=== PATIENT | male | born 1945 ===

== ENCOUNTER 2017-11-15 17:02 | Inpatient (IN) | payer MEDICARE ==
[2017-11-15 17:08] VITALS: BMI 22.8
--- NOTE | 2017-11-15 18:34 | RAD ---
PROCEDURE: CHEST RADIOGRAPH, 1 VIEW HISTORY: CHF COMPARISON: None available. FINDINGS: LUNGS: Clear. PLEURA: Small bilateral pleural effusion. No pneumothorax. CARDIOVASCULAR: Normal heart size. Mild congestive change. Permanent pacemaker. Sternotomy wires. OSSEOUS STRUCTURES: No significant abnormalities. VISUALIZED UPPER ABDOMEN: Normal. OTHER FINDINGS: None. IMPRESSION: Small bilateral pleural effusion with mild congestive change. No evidence of pulmonary edema
--- NOTE | 2017-11-15 19:01 | C.PDOC ---
History Of Present Illness 72 yr old male referred to ER by his PMD Dr. Santo, presents for evaluation of dyspnea on exertion with lower extremity swelling. Patient denies fever, chills , chest pain, SOB, nausea, vomiting, abdominal pain, weakness, numbness or headache. Time Seen by Provider: 11/15/17 17:51 Chief Complaint (Nursing): Shortness Of Breath History Per: Patient History/Exam Limitations: no limitations Onset/Duration Of Symptoms: Days (2 weeks) Past Medical History Reviewed: Historical Data, Nursing Documentation, Vital Signs Vital Signs: Last Vital Signs Temp 97.2 F L 11/15/17 19:34 Pulse 88 11/15/17 22:26 Resp 26 H 11/15/17 22:26 BP 117/82 11/15/17 22:26 Pulse Ox 99 11/15/17 22:26 - Medical History PMH: HTN, Hypercholesterolemia, Hyperthyroidism - [facility] Procedures PTERYGIUM EXCISION NEC (07/13/01) Family History: States: No Known Family Hx - Social History Hx Alcohol Use: No Hx Substance Use: No Review Of Systems Except As Marked, All Systems Reviewed And Found Negative. Constitutional: Negative for: Fever, Chills Cardiovascular: Negative for: Chest Pain Respiratory: Positive for: Other (+ dyspnea on exertion). Negative for: Shortness of Breath Gastrointestinal: Negative for: Nausea, Vomiting, Abdominal Pain Musculoskeletal: Positive for: Other (+ lower extremity swelling) Neurological: Negative for: Weakness, Numbness Physical Exam - Physical Exam Appears: Non-toxic, No Acute Distress Skin: Warm, Dry, No Rash Eye(s): bilateral: Normal Inspection, PERRL, EOMI Oral Mucosa: Moist Cardiovascular: Rhythm Regular Respiratory: Rales (at the basses bilaterally, quarter way up), No Wheezing Gastrointestinal/Abdominal: Normal Exam, Soft, No Tenderness, No Guarding, No Rebound Extremity: Other (+1 edema) Neurological/Psych: Oriented x3, Normal Speech ED Course And Treatment - Laboratory Results Result Diagrams: 11/15/17 18:57 11/15/17 18:57 O2 Sat by Pulse Oximetry: 96 (RA) Pulse Ox Interpretation: Normal - Other Rad CXR X-Ray: Viewed By Me, Read By Radiologist Interpretation: PROCEDURE: CHEST RADIOGRAPH, 1 VIEW. HISTORY: CHF. COMPARISON: None available. FINDINGS: LUNGS: Clear. PLEURA: Small bilateral pleural effusion. No pneumothorax. CARDIOVASCULAR: Normal heart size. Mild congestive change. Permanent pacemaker. Sternotomy wires. OSSEOUS STRUCTURES: No significant abnormalities. VISUALIZED UPPER ABDOMEN: Normal. OTHER FINDINGS: None. IMPRESSION: Small bilateral pleural effusion with mild congestive change. No evidence of pulmonary edema Medical Decision Making Medical Decision Making: PLAN: * CXR * EKG * Labs * Lasix IVP NOTE: * Spoke to Dr. Santo, requested patient be admitted to telemetry for CHF exacerbation Disposition - Disposition Disposition Time: 19:15 Condition: STABLE - Clinical Impression Clinical Impression: CHF exacerbation - Scribe Statement The provider has reviewed the documentation as recorded by the Elias Guzman Provider Attestation: All medical record entries made by the Elias were at my direction and personally dictated by me. I have reviewed the chart and agree that the record accurately reflects my personal performance of the history, physical exam, medical decision making, and the department course for this patient. I have also personally directed, reviewed, and agree with the discharge instructions and disposition.
[2017-11-15 19:03] LABS: BASO % 0.7 % (0.0-2.0); EOS # 0.1 K/uL (0.0-0.7); EOS % 1.6 % (0.0-4.0); HEMOGLOBIN 14.4 g/dL (12.0-18.0); LYMPH # 1.2 K/uL (1.0-4.3); LYMPH % 18.3 % (20.0-40.0); MEAN CELL VOLUME 80.6 fL (80.0-94.0); MEAN CORPUSCULAR HEMOGLOBIN 25.9 pg (27.0-31.0); MEAN CORPUSCULAR HGB CONC 32.1 g/dL (33.0-37.0); MEAN PLATELET VOLUME 8.3 fL (7.2-11.7); MONO # 0.6 K/uL (0.0-0.8); MONO % 9.3 % (0.0-10.0); NEUT # 4.7 K/uL (1.8-7.0); NEUT % 70.1 % (50.0-75.0); NRBC % 0.1 % (0.0-2.0); RBC 5.55 Mil/uL (4.40-5.90); RED CELL DISTRIBUTION WIDTH 15.9 % (11.5-14.5); WHITE BLOOD COUNT 6.7 K/uL (4.8-10.8)
[2017-11-15 19:14] LABS: ALB/GLOB RATIO 1.2 (1.0-2.1); ALBUMIN 3.6 g/dL (3.5-5.0); ALT/SGPT 93 U/L (21-72); AST/SGOT 55 U/L (17-59); BLOOD UREA NITROGEN 20 mg/dL (9-20); GFR AFRICAN-AMERICAN > 60; GFR NON-AFRICAN AMERICAN > 60
[2017-11-15 19:26] LABS: B-TYPE NATRIURETIC PEPTIDE 7040 pg/mL (0-900)
[2017-11-16 03:43] LABS: CK-MB 1.29 ng/mL (0.0-3.38); TROPONIN I 0.034 ng/mL (0.00-0.120)
[2017-11-16] MEDS ORDERED: VALSARTAN 40 MG PO SCH (10:00)
[2017-11-16] MEDS ORDERED: Levothyroxine 112 MCG TAB PO SCH (10:00)
--- NOTE | 2017-11-16 11:43 | CARD ---
APPROVED REPORT EKG Measurement Heart [id number] <Conclusion> Sinus tachycardia Possible Left atrial enlargement Cannot rule out Inferior infarct, age undetermined Anterior infarct, age undetermined Abnormal ECG
[2017-11-16 13:31] LABS: CK-MB 1.41 ng/mL (0.0-3.38); TROPONIN I 0.023 ng/mL (0.00-0.120)
[2017-11-16 16:44] VITALS: RESP 20
--- NOTE | 2017-11-16 17:36 | CP.PCM.HP ---
History of Present Illness - History of Present Illness History of Present Illness: 72 yr old male referred to ER by his PMD Dr. Santo, presents for evaluation of dyspnea on exertion with lower extremity swelling. Patient denies fever, chills , chest pain, SOB, nausea, vomiting, abdominal pain, weakness, numbness or headache. ADMITTED TO [facility] AND STARTED ON IV LASIX CARDIAC ENZYMES SO FAR NEG - Medical History PMH: HTN, Hypercholesterolemia, Hyperthyroidism SEVERE ISCHEMIC CARDIOMYOPATHY WITH POOR EF S/P AICD Present on Admission - Present on Admission Any Indicators Present on Admission: No History of DVT/PE: No History of Uncontrolled Diabetes: No Urinary Catheter: No Decubitus Ulcer Present: No History Surgical Site Infection Following: None Review of Systems - Constitutional Constitutional: As Per HPI - EENT Eyes: absent: As Per HPI, Blind Spots, Blurred Vision, Change in Vision, Decreased Night Vision, Diplopia, Discharge, Dry Eye, Exophthalmos, Floaters, Irritation, Itchy Eyes, Loss of Peripheral Vision, Pain, Photophobia, Requires Corrective Lenses, Sees Flashes, Spots in Vision, Tunnel Vision, Other Visual Disturbances, Loss of Vision, Other Ears: absent: As Per HPI, Decreased Hearing, Ear Discharge, Ear Pain, Tinnitus, Abnormal Hearing, Disequilibrium, Dizziness, Other Nose/Mouth/Throat: absent: As Per HPI, Epistaxis, Nasal Congestion, Nasal Discharge, Nasal Obstruction, Nasal Trauma, Nose Pain, Post Nasal Drip, Sinus Pain, Sinus Pressure, Bleeding Gums, Change in Voice, Dental Pain, Dry Mouth, Dysphagia, Halitosis, Hoarsness, Lip Swelling, Mouth Lesions, Mouth Pain, Odynophagia, Sore Throat, Throat Swelling, Tongue Swelling, Facial Pain, Neck Pain, Neck Mass, Other - Cardiovascular Cardiovascular: As Per HPI. absent: Chest Pain, Chest Pain at Rest - Respiratory Respiratory: As Per HPI, Dyspnea, Dyspnea on Exertion. absent: Hemoptysis - Gastrointestinal Gastrointestinal: absent: As Per HPI, Abdominal Pain, Belching, Bloating, Change in Bowel Habits, Change in Stool Character, Coffee Ground Emesis, Constipation, Cramping, Diarrhea, Dyspepsia, Dysphagia, Early Satiety, Excessive Flatus, Fecal Incontinence, Heartburn, Hematemesis, Hematochezia, Loose Stools, Melena, Nausea, Odynophagia, Temesmus, Vomiting, Other - Genitourinary Genitourinary: absent: As Per HPI, Change in Urinary Stream, Difficulty Urinating, Dysuria, Flank Pain, Hematuria, Pyuria, Nocturia, Urinary Incontinence, Urinary Frequency, Urinary Hesitance, Urinary Urgency, Voiding Freq/Small Amts, Freq UTI, Hx Renal/Bladder Calculi, Hx /Renal Surgery, Bladder Distension, Other - Musculoskeletal Musculoskeletal: absent: As Per HPI, Abnormal Gait, Arthralgias, Atrophy, Back Pain, Deformity, Joint Swelling, Limited Range of Motion, Loss of Height, Muscle Cramps, Muscle Weakness, Myalgias, Neck Pain, Numbness, Radiating Pain into Limb, Stiffness, Tingling, Other - Integumentary Integumentary: absent: As Per HPI, Acne, Alopecia, Bleeding Lesions, Change in Hair, Change in Nails, Change in Pigmentation, Changing Lesions, Dry Skin, Erythema, Furuncle, Hirsutism, Lesions, New Lesions, Non-Healing Lesions, Photosensitivity, Pruritus, Rash, Skin Pain, Skin Ulcer, Sores, Striae, Swelling , Unusual Bruising, Wounds, Jaundice, Other - Neurological Neurological: absent: As Per HPI, Abnormal Gait, Abnormal Hearing, Abnormal Movements, Abnormal Speech, Behavioral Changes, Burning Sensations, Confusion, Convulsions, Disequilibrium, Dizziness, Numbness, Focal Weakness, Frequent Falls , Headaches, Lack of Coordination, Loss of Vision, Memory Loss, Paresthesias, Radicular Pain, Restless Legs, Sensory Deficit, Syncope, Tingling, Tremor, Vertigo, Weakness, Other Visual Disturbances, Other - Psychiatric Psychiatric: absent: As Per HPI, Abnormal Sleep Pattern, Anhedonia, Anxiety, Auditory Hallucinations, Behavioral Changes, Change in Appetite, Change in Libido, Confusion, Depression, Difficulty Concentrating, Hallucinations, Homicidal Ideation, Hopelessness, Irritability, Memory Loss, Mood Swings, Panic Attacks, Paranoia, Suicidal Ideation, Visual Hallucinations, Tactile Hallucinations, Other - Endocrine Endocrine: absent: As Per HPI, Change in Body Appearance, Change in Libido, Cold Intolorance, Deepening of Voice, Excessive Sweating, Fatigue, Flushing, Heat Intolorance, Increase in Ring/Shoe/Hat Size, Palpitations, Polydipsia, Polyphagia, Polyuria, Other - Hematologic/Lymphatic Hematologic: absent: As Per HPI, Easy Bleeding, Easy Bruising, Lymphadenopathy, Other Past Patient History - Past Social History Smoking Status: Never Smoked - CARDIAC Hx Hypercholesterolemia: Yes Hx Hypertension: Yes - NEUROLOGICAL Hx Neurological Disorder: No - HEENT Hx HEENT Problems: No - ENDOCRINE/METABOLIC Hx Hyperthyroidism: Yes - MUSCULOSKELETAL/RHEUMATOLOGICAL Hx Falls: No - PSYCHIATRIC Hx Substance Use: No - SURGICAL HISTORY Hx Surgeries: Yes Other/Comment: DEFIBRILATOR 08/31/17. TRIPPLE BYPASS 1997 - ANESTHESIA Hx Anesthesia: Yes Hx Anesthesia Reactions: No Meds Allergies/Adverse Reactions: Allergies Allergy/AdvReac Type Severity Reaction Status Date / Time No Known Allergies Allergy Verified 11/15/17 17:07 Physical Exam - Constitutional Appears: Non-toxic, Chronically Ill - Head Exam Head Exam: NORMOCEPHALIC - Eye Exam Eye Exam: PERRL. absent: Scleral icterus - ENT Exam ENT Exam: Mucous Membranes Dry. absent: Normal Oropharynx - Neck Exam Neck exam: Negative for: Lymphadenopathy - Respiratory Exam Respiratory Exam: Decreased Breath Sounds, Rales - Cardiovascular Exam Cardiovascular Exam: REGULAR RHYTHM, +S1, +S2 - GI/Abdominal Exam GI & Abdominal Exam: Diminished Bowel Sounds, Distended, Soft. absent: Rebound , Rigid, Tenderness - Rectal Exam Rectal Exam: Deferred - Exam Exam: NORMAL INSPECTION - Extremities Exam Extremities exam: Positive for: pedal pulses present. Negative for: calf tenderness, pedal edema, tenderness - Back Exam Back exam: absent: CVA tenderness (L), CVA tenderness (R) - Neurological Exam Neurological exam: Alert, CN II-XII Intact, Oriented x3, Reflexes Normal - Psychiatric Exam Psychiatric exam: Normal Mood - Skin Skin Exam: Dry, Intact Results - Vital Signs Recent Vital Signs: Last Vital Signs Temp 98.4 F 11/16/17 15:43 Pulse 85 11/16/17 15:43 Resp 20 11/16/17 15:43 BP 103/68 11/16/17 15:43 Pulse Ox 85 L 11/16/17 15:43 - Labs Result Diagrams: 11/15/17 18:57 11/15/17 18:57 Labs: Laboratory Results - last 24 hr 11/15/17 11/15/17 11/15/17 18:57 18:57 Unknown WBC 6.7 RBC 5.55 Hgb 14.4 Hct 44.8 MCV 80.6 MCH 25.9 L MCHC 32.1 L RDW 15.9 H Plt Count 193 MPV 8.3 Neut % (Auto) 70.1 Lymph % (Auto) 18.3 L [place] % (Auto) 9.3 Eos % (Auto) 1.6 Baso % (Auto) 0.7 Neut # (Auto) 4.7 Lymph # (Auto) 1.2 [place] # (Auto) 0.6 Eos # (Auto) 0.1 Baso # (Auto) 0.0 Sodium 141 Potassium 4.2 Chloride 110 H Carbon Dioxide 21 L Anion Gap 14 BUN 20 Creatinine 0.8 Est GFR ( Amer) > 60 Est GFR (Non-Af Amer) > 60 POC Glucose (mg/dL) Random Glucose 97 Calcium 9.0 Total Bilirubin 1.1 AST 55 ALT 93 H Alkaline Phosphatase 59 Total Creatine Kinase CK-MB (Mass) Troponin I 0.0300 NT-Pro-B Natriuret Pep 7040 H Total Protein 6.6 Albumin 3.6 Globulin 3.0 Albumin/Globulin Ratio 1.2 Influenza Typ A,B (EIA) Negative for flu a/b 11/16/17 11/16/17 11/16/17 03:10 07:34 13:03 WBC RBC Hgb Hct MCV MCH MCHC RDW Plt Count MPV Neut % (Auto) Lymph % (Auto) [place] % (Auto) Eos % (Auto) Baso % (Auto) Neut # (Auto) Lymph # (Auto) [place] # (Auto) Eos # (Auto) Baso # (Auto) Sodium Potassium Chloride Carbon Dioxide Anion Gap BUN Creatinine Est GFR ( Amer) Est GFR (Non-Af Amer) POC Glucose (mg/dL) 121 H Random Glucose Calcium Total Bilirubin AST ALT Alkaline Phosphatase Total Creatine Kinase 129 175 H CK-MB (Mass) 1.29 1.41 Troponin I 0.0340 0.0230 NT-Pro-B Natriuret Pep Total Protein Albumin Globulin Albumin/Globulin Ratio Influenza Typ A,B (EIA) Assessment & Plan (1) CAD (coronary artery disease) Status: Acute (2) CHF exacerbation Status: Acute (3) Hypothyroid Status: Acute (4) Hypothyroid Status: Acute (5) Hx of CABG Status: Acute (6) Hx of CABG Status: Acute (7) History of PTCA Status: Acute (8) History of PTCA Status: Acute - Assessment and Plan (Free Text) Assessment: CONT IV LASIX , ASA , STATIN
--- NOTE | 2017-11-16 18:49 | CP.PCM.CON ---
History of Present Illness - History of Present Illness History of Present Illness: Reason for consult: sob on exertion HPI: 1 week hx of progressive sob on exertion w/ orthopnea. Trops negative EKG sinus tach; old anterior wall GA Review of Systems - Constitutional Constitutional: Anorexia, Weakness - EENT Eyes: absent: Blurred Vision - Cardiovascular Cardiovascular: Dyspnea on Exertion - Respiratory Respiratory: absent: Excessive Mucous Production - Gastrointestinal Gastrointestinal: absent: Abdominal Pain, Diarrhea - Musculoskeletal Musculoskeletal: absent: Arthralgias - Neurological Neurological: absent: Abnormal Speech, Focal Weakness Past Patient History - Past Social History Smoking Status: Never Smoked - CARDIAC Hx Hypercholesterolemia: Yes Hx Hypertension: Yes - NEUROLOGICAL Hx Neurological Disorder: No - HEENT Hx HEENT Problems: No - ENDOCRINE/METABOLIC Hx Hyperthyroidism: Yes - MUSCULOSKELETAL/RHEUMATOLOGICAL Hx Falls: No - PSYCHIATRIC Hx Substance Use: No - SURGICAL HISTORY Hx Surgeries: Yes Other/Comment: DEFIBRILATOR 08/31/17. TRIPPLE BYPASS 1997 - ANESTHESIA Hx Anesthesia: Yes Hx Anesthesia Reactions: No Meds Allergies/Adverse Reactions: Allergies Allergy/AdvReac Type Severity Reaction Status Date / Time No Known Allergies Allergy Verified 11/15/17 17:07 - Medications Medications: Current Medications Aspirin (Ecotrin) 81 mg PO DAILY [facility] Last Admin: 11/16/17 11:26 Dose: 81 mg Carvedilol (Coreg) 3.125 mg PO BID [facility] Last Admin: 11/16/17 17:48 Dose: 3.125 mg Furosemide (Lasix) 40 mg IVP DAILY [facility] Last Admin: 11/16/17 11:27 Dose: 40 mg Heparin Sodium (Porcine) (Heparin) 5,000 units SC Q12 [facility] Levothyroxine Sodium (Synthroid) 112 mcg PO DAILY@0630 [facility] Losartan Potassium (Cozaar) 25 mg PO DAILY [facility] Pneumococcal Polyvalent Vaccine (Pneumovax 23 Vaccine) 0.5 ml IM .ONCE ONE Stop: 11/19/17 10:01 Rosuvastatin Calcium (Crestor) 20 mg PO HS [facility] Tamsulosin HCl (Flomax) 0.4 mg PO DAILY [facility] Last Admin: 11/16/17 11:26 Dose: 0.4 mg Physical Exam - Head Exam Head Exam: ATRAUMATIC - Eye Exam Eye Exam: absent: Scleral icterus - ENT Exam ENT Exam: absent: Mucous Membranes Dry - Respiratory Exam Respiratory Exam: Rales - Cardiovascular Exam Cardiovascular Exam: REGULAR RHYTHM - GI/Abdominal Exam GI & Abdominal Exam: absent: Soft - Extremities Exam Extremities exam: Positive for: pedal edema Results - Vital Signs Recent Vital Signs: Last Vital Signs Temp 98.4 F 11/16/17 15:43 Pulse 85 11/16/17 15:43 Resp 20 11/16/17 15:43 BP 103/68 11/16/17 15:43 Pulse Ox 85 L 11/16/17 15:43 - Labs Result Diagrams: 11/15/17 18:57 11/15/17 18:57 Labs: Laboratory Results - last 24 hr 11/15/17 11/15/17 11/15/17 18:57 18:57 Unknown WBC 6.7 RBC 5.55 Hgb 14.4 Hct 44.8 MCV 80.6 MCH 25.9 L MCHC 32.1 L RDW 15.9 H Plt Count 193 MPV 8.3 Neut % (Auto) 70.1 Lymph % (Auto) 18.3 L [place] % (Auto) 9.3 Eos % (Auto) 1.6 Baso % (Auto) 0.7 Neut # (Auto) 4.7 Lymph # (Auto) 1.2 [place] # (Auto) 0.6 Eos # (Auto) 0.1 Baso # (Auto) 0.0 Sodium 141 Potassium 4.2 Chloride 110 H Carbon Dioxide 21 L Anion Gap 14 BUN 20 Creatinine 0.8 Est GFR ( Amer) > 60 Est GFR (Non-Af Amer) > 60 POC Glucose (mg/dL) Random Glucose 97 Calcium 9.0 Total Bilirubin 1.1 AST 55 ALT 93 H Alkaline Phosphatase 59 Total Creatine Kinase CK-MB (Mass) Troponin I 0.0300 NT-Pro-B Natriuret Pep 7040 H Total Protein 6.6 Albumin 3.6 Globulin 3.0 Albumin/Globulin Ratio 1.2 Influenza Typ A,B (EIA) Negative for flu a/b 11/16/17 11/16/17 11/16/17 03:10 07:34 13:03 WBC RBC Hgb Hct MCV MCH MCHC RDW Plt Count MPV Neut % (Auto) Lymph % (Auto) [place] % (Auto) Eos % (Auto) Baso % (Auto) Neut # (Auto) Lymph # (Auto) [place] # (Auto) Eos # (Auto) Baso # (Auto) Sodium Potassium Chloride Carbon Dioxide Anion Gap BUN Creatinine Est GFR ( Amer) Est GFR (Non-Af Amer) POC Glucose (mg/dL) 121 H Random Glucose Calcium Total Bilirubin AST ALT Alkaline Phosphatase Total Creatine Kinase 129 175 H CK-MB (Mass) 1.29 1.41 Troponin I 0.0340 0.0230 NT-Pro-B Natriuret Pep Total Protein Albumin Globulin Albumin/Globulin Ratio Influenza Typ A,B (EIA) Assessment & Plan - Assessment and Plan (Free Text) Assessment: CHF CAD HTN Plan: Lasix, ARB's, Carvedilol, Entersto
[2017-11-16 20:40] LABS: CK-MB 1.18 ng/mL (0.0-3.38); TROPONIN I 0.026 ng/mL (0.00-0.120)
[2017-11-17] MEDS: Levothyroxine 112 MCG TAB PO SCH (05:57)
--- NOTE | 2017-11-17 17:55 | CP.PCM.PN ---
Subjective - Date & Time of Evaluation Date of Evaluation: 11/17/17 Time of Evaluation: 09:00 - Subjective Subjective: c/o sob no fever less leg swelling denies chest pain at present Objective - Vital Signs/Intake and Output Vital Signs (last 24 hours): Temp Pulse Resp BP Pulse Ox 97.9 F 90 20 117/75 95 11/17/17 16:00 11/17/17 16:00 11/17/17 16:00 11/17/17 16:00 11/17/17 16:00 Intake and Output: 11/17/17 11/17/17 06:59 18:59 Intake Total 50 350 Balance 50 350 - Medications Medications: Current Medications Aspirin (Ecotrin) 81 mg PO DAILY [facility] Last Admin: 11/17/17 09:33 Dose: 81 mg Carvedilol (Coreg) 3.125 mg PO BID [facility] Last Admin: 11/17/17 17:52 Dose: 3.125 mg Furosemide (Lasix) 40 mg IVP DAILY [facility] Last Admin: 11/17/17 09:33 Dose: 40 mg Heparin Sodium (Porcine) (Heparin) 5,000 units SC Q12 [facility] Last Admin: 11/17/17 09:33 Dose: 5,000 units Levothyroxine Sodium (Synthroid) 112 mcg PO DAILY@0630 [facility] Last Admin: 11/17/17 05:57 Dose: 112 mcg Losartan Potassium (Cozaar) 25 mg PO DAILY [facility] Last Admin: 11/17/17 09:33 Dose: 25 mg Pneumococcal Polyvalent Vaccine (Pneumovax 23 Vaccine) 0.5 ml IM .ONCE ONE Stop: 11/19/17 10:01 Rosuvastatin Calcium (Crestor) 20 mg PO [facility] Last Admin: 11/16/17 21:35 Dose: 20 mg Tamsulosin HCl (Flomax) 0.4 mg PO DAILY [facility] Last Admin: 11/17/17 09:33 Dose: 0.4 mg - Labs Labs: 11/15/17 18:57 11/15/17 18:57 - Constitutional Appears: Non-toxic, Chronically Ill - Head Exam Head Exam: NORMOCEPHALIC - Eye Exam Eye Exam: absent: Scleral icterus - ENT Exam ENT Exam: Mucous Membranes Dry - Neck Exam Neck Exam: absent: Lymphadenopathy - Respiratory Exam Respiratory Exam: Decreased Breath Sounds, Rales - Cardiovascular Exam Cardiovascular Exam: REGULAR RHYTHM - GI/Abdominal Exam GI & Abdominal Exam: Distended, Soft - Rectal Exam Rectal Exam: Deferred - Exam Exam: NORMAL INSPECTION - Extremities Exam Extremities Exam: Pedal Edema - Back Exam Back Exam: absent: CVA tenderness (L), CVA tenderness (R) - Neurological Exam Neurological Exam: Alert, Awake, CN II-XII Intact, Oriented x3 Neuro motor strength exam: Left Upper Extremity: 5, Right Upper Extremity: 5, Left Lower Extremity: 5, Right Lower Extremity: 5 - Psychiatric Exam Psychiatric exam: Normal Mood - Skin Skin Exam: Dry Assessment and Plan (1) CAD (coronary artery disease) Status: Acute (2) CHF exacerbation Status: Acute (3) Hypothyroid Status: Acute (4) Hypothyroid Status: Acute (5) Hx of CABG Status: Acute (6) Hx of CABG Status: Acute (7) History of PTCA Status: Acute (8) History of PTCA Status: Acute - Assessment and Plan (Free Text) Assessment: cont iv lasix, O2 rx possible catheterization
--- NOTE | 2017-11-17 18:19 | CP.PCM.PN ---
Subjective - Date & Time of Evaluation Date of Evaluation: 11/17/17 Time of Evaluation: 07:50 - Subjective Subjective: no sob no leg edema no chest pain Objective - Vital Signs/Intake and Output Vital Signs (last 24 hours): Temp Pulse Resp BP Pulse Ox 97.9 F 90 20 117/75 95 11/17/17 16:00 11/17/17 16:00 11/17/17 16:00 11/17/17 16:00 11/17/17 16:00 Intake and Output: 11/17/17 11/17/17 06:59 18:59 Intake Total 50 350 Balance 50 350 - Medications Medications: Current Medications Aspirin (Ecotrin) 81 mg PO DAILY [facility] Last Admin: 11/17/17 09:33 Dose: 81 mg Carvedilol (Coreg) 3.125 mg PO BID [facility] Last Admin: 11/17/17 17:52 Dose: 3.125 mg Furosemide (Lasix) 40 mg IVP DAILY [facility] Last Admin: 11/17/17 09:33 Dose: 40 mg Heparin Sodium (Porcine) (Heparin) 5,000 units SC Q12 [facility] Last Admin: 11/17/17 09:33 Dose: 5,000 units Levothyroxine Sodium (Synthroid) 112 mcg PO DAILY@0630 [facility] Last Admin: 11/17/17 05:57 Dose: 112 mcg Losartan Potassium (Cozaar) 25 mg PO DAILY [facility] Last Admin: 11/17/17 09:33 Dose: 25 mg Pneumococcal Polyvalent Vaccine (Pneumovax 23 Vaccine) 0.5 ml IM .ONCE ONE Stop: 11/19/17 10:01 Rosuvastatin Calcium (Crestor) 20 mg PO [facility] Last Admin: 11/16/17 21:35 Dose: 20 mg Tamsulosin HCl (Flomax) 0.4 mg PO DAILY [facility] Last Admin: 11/17/17 09:33 Dose: 0.4 mg - Labs Labs: 11/15/17 18:57 11/15/17 18:57 - Constitutional Appears: Non-toxic - Head Exam Head Exam: NORMAL INSPECTION - Eye Exam Eye Exam: absent: Periorbital swelling, Periorbital tenderness, Scleral icterus - ENT Exam ENT Exam: Mucous Membranes Moist - Neck Exam Neck Exam: absent: Lymphadenopathy - Respiratory Exam Respiratory Exam: NORMAL BREATHING PATTERN - Cardiovascular Exam Cardiovascular Exam: REGULAR RHYTHM - GI/Abdominal Exam GI & Abdominal Exam: Soft - Extremities Exam Extremities Exam: Calf Tenderness. absent: Pedal Edema Assessment and Plan - Assessment and Plan (Free Text) Assessment: CHF, compensated CAD HTN Lipid disorder Plan: Cont present meds Monitor lytes Ok for DC.
[2017-11-18] MEDS: Levothyroxine 112 MCG TAB PO SCH (06:21)
[2017-11-18 08:37] LABS: T3 UPTAKE 37.9 % (23.0-41.0); T4 15.2 ug/dL (5.5-11.0)
--- NOTE | 2017-11-18 12:41 | CARD ---
APPROVED REPORT EKG Measurement Heart [id number] <Conclusion> Normal sinus rhythm Possible Left atrial enlargement Anterior infarct, age undetermined T wave abnormality, consider inferior ischemia Abnormal ECG
--- NOTE | 2017-11-18 12:41 | CARD ---
APPROVED REPORT EKG Measurement Heart [id number] [place] 172P87 [id number] <Conclusion> Sinus rhythm with occasional premature ventricular complexes Left posterior fascicular block Left ventricular hypertrophy with repolarization abnormality Anterior infarct, age undetermined Abnormal ECG
--- NOTE | 2017-11-18 13:20 | CARD ---
APPROVED REPORT EKG Measurement Heart [id number] [place] 152P56 [id number] <Conclusion> Normal sinus rhythm Possible Left atrial enlargement Anterior infarct, age undetermined T wave abnormality, consider inferior ischemia Abnormal ECG
--- NOTE | 2017-11-18 18:09 | CP.PCM.PN ---
Subjective - Date & Time of Evaluation Date of Evaluation: 11/18/17 Time of Evaluation: 08:00 - Subjective Subjective: less sob still using O2 NC awake no chest pain Dr Santo on consult possible cardiac cath Objective - Vital Signs/Intake and Output Vital Signs (last 24 hours): Temp Pulse Resp BP Pulse Ox 97.3 F L 86 20 93/64 L 100 11/18/17 16:00 11/18/17 16:00 11/18/17 16:00 11/18/17 16:00 11/18/17 16:00 Intake and Output: 11/18/17 11/18/17 06:59 18:59 Intake Total 480 300 Balance 480 300 - Medications Medications: Current Medications Aspirin (Ecotrin) 81 mg PO DAILY [facility] Last Admin: 11/18/17 11:03 Dose: 81 mg Carvedilol (Coreg) 3.125 mg PO BID [facility] Last Admin: 11/18/17 18:03 Dose: Not Given Furosemide (Lasix) 40 mg IVP DAILY [facility] Last Admin: 11/18/17 11:03 Dose: 40 mg Heparin Sodium (Porcine) (Heparin) 5,000 units SC Q12 [facility] Last Admin: 11/18/17 11:03 Dose: 5,000 units Levothyroxine Sodium (Synthroid) 112 mcg PO DAILY@0630 [facility] Last Admin: 11/18/17 06:21 Dose: 112 mcg Losartan Potassium (Cozaar) 25 mg PO DAILY [facility] Last Admin: 11/18/17 11:03 Dose: 25 mg Pneumococcal Polyvalent Vaccine (Pneumovax 23 Vaccine) 0.5 ml IM .ONCE ONE Stop: 11/19/17 10:01 Rosuvastatin Calcium (Crestor) 20 mg PO [facility] Last Admin: 11/17/17 22:16 Dose: 20 mg Tamsulosin HCl (Flomax) 0.4 mg PO DAILY [facility] Last Admin: 11/18/17 11:03 Dose: 0.4 mg - Labs Labs: 11/15/17 18:57 11/15/17 18:57 - Constitutional Appears: Non-toxic, Chronically Ill - Head Exam Head Exam: NORMOCEPHALIC - Eye Exam Eye Exam: PERRL - ENT Exam ENT Exam: Mucous Membranes Dry - Neck Exam Neck Exam: absent: Lymphadenopathy - Respiratory Exam Respiratory Exam: Decreased Breath Sounds - Cardiovascular Exam Cardiovascular Exam: REGULAR RHYTHM - GI/Abdominal Exam GI & Abdominal Exam: Distended, Soft - Rectal Exam Rectal Exam: Deferred - Exam Exam: NORMAL INSPECTION - Extremities Exam Extremities Exam: Pedal Edema - Back Exam Back Exam: absent: CVA tenderness (L), CVA tenderness (R) Assessment and Plan (1) CAD (coronary artery disease) Status: Acute (2) CHF exacerbation Status: Acute (3) Hypothyroid Status: Acute (4) Hypothyroid Status: Acute (5) Hx of CABG Status: Acute (6) Hx of CABG Status: Acute (7) History of PTCA Status: Acute (8) History of PTCA Status: Acute - Assessment and Plan (Free Text) Assessment: cont iv lasix
[2017-11-19] MEDS: Levothyroxine 125 MCG TAB PO SCH (07:28)
[2017-11-19 07:43] LABS: BASO % 0.8 % (0.0-2.0); EOS # 0.3 K/uL (0.0-0.7); EOS % 5.9 % (0.0-4.0); LYMPH # 1.2 K/uL (1.0-4.3); LYMPH % 20.8 % (20.0-40.0); MEAN CELL VOLUME 79.4 fL (80.0-94.0); MEAN CORPUSCULAR HEMOGLOBIN 26.5 pg (27.0-31.0); MEAN CORPUSCULAR HGB CONC 33.3 g/dL (33.0-37.0); MEAN PLATELET VOLUME 8.4 fL (7.2-11.7); MONO # 0.6 K/uL (0.0-0.8); MONO % 11.1 % (0.0-10.0); NEUT # 3.5 K/uL (1.8-7.0); NEUT % 61.4 % (50.0-75.0); RBC 5.65 Mil/uL (4.40-5.90); RED CELL DISTRIBUTION WIDTH 15.7 % (11.5-14.5); WHITE BLOOD COUNT 5.7 K/uL (4.8-10.8)
[2017-11-19 08:07] LABS: ALB/GLOB RATIO 1.2 (1.0-2.1); ALBUMIN 3.7 g/dL (3.5-5.0); ALT/SGPT 72 U/L (21-72); AST/SGOT 66 U/L (17-59); BLOOD UREA NITROGEN 27 mg/dL (9-20); CALCIUM 9.2 mg/dl (8.6-10.4); GFR AFRICAN-AMERICAN > 60; GFR NON-AFRICAN AMERICAN > 60
[2017-11-19] MEDS ORDERED: Sod Polystyrene Sulf 15 gm/60 ml Susp PO ONE (09:01)
[2017-11-19] MEDS ORDERED: Pneumococcal 23-Valent Vaccine IM ONE (10:00)
[2017-11-20 06:01] LABS: BLOOD UREA NITROGEN 24 mg/dL (9-20); CALCIUM 8.5 mg/dl (8.6-10.4); GFR AFRICAN-AMERICAN > 60; GFR NON-AFRICAN AMERICAN > 60
[2017-11-20] MEDS: Levothyroxine 125 MCG TAB PO SCH (06:16)
--- NOTE | 2017-11-20 14:26 | CP.PCM.PN ---
Subjective - Date & Time of Evaluation Date of Evaluation: 11/20/17 Time of Evaluation: 10:00 - Subjective Subjective: less sob may need cardiac cath Objective - Vital Signs/Intake and Output Vital Signs (last 24 hours): Temp Pulse Resp BP Pulse Ox 97.4 F L 82 20 106/79 97 11/20/17 09:25 11/20/17 12:00 11/20/17 09:25 11/20/17 09:25 11/20/17 09:25 Intake and Output: 11/20/17 11/20/17 06:59 18:59 Intake Total 10 Balance 10 - Medications Medications: Current Medications Aspirin (Ecotrin) 81 mg PO DAILY [facility] Last Admin: 11/20/17 09:06 Dose: 81 mg Carvedilol (Coreg) 3.125 mg PO BID [facility] Last Admin: 11/20/17 09:06 Dose: 3.125 mg Furosemide (Lasix) 40 mg IVP DAILY [facility] Last Admin: 11/20/17 09:05 Dose: 40 mg Heparin Sodium (Porcine) (Heparin) 5,000 units SC Q12 [facility] Last Admin: 11/20/17 09:06 Dose: 5,000 units Levothyroxine Sodium (Synthroid) 125 mcg PO DAILY@0630 [facility] Last Admin: 11/20/17 06:16 Dose: 125 mcg Losartan Potassium (Cozaar) 25 mg PO DAILY [facility] Last Admin: 11/20/17 09:06 Dose: 25 mg Rosuvastatin Calcium (Crestor) 20 mg PO HS [facility] Last Admin: 11/19/17 21:43 Dose: 20 mg Tamsulosin HCl (Flomax) 0.4 mg PO DAILY [facility] Last Admin: 11/20/17 09:05 Dose: 0.4 mg - Labs Labs: 11/19/17 07:31 11/20/17 05:38 - Constitutional Appears: Non-toxic, Chronically Ill - Head Exam Head Exam: NORMOCEPHALIC - Eye Exam Eye Exam: PERRL - ENT Exam ENT Exam: Mucous Membranes Dry - Neck Exam Neck Exam: absent: Lymphadenopathy - Respiratory Exam Respiratory Exam: Decreased Breath Sounds - Cardiovascular Exam Cardiovascular Exam: REGULAR RHYTHM - GI/Abdominal Exam GI & Abdominal Exam: Distended - Rectal Exam Rectal Exam: Deferred - Extremities Exam Extremities Exam: Pedal Edema - Back Exam Back Exam: absent: CVA tenderness (L), CVA tenderness (R) - Neurological Exam Neurological Exam: Alert, Awake, Oriented x3 Neuro motor strength exam: Left Upper Extremity: 5, Right Upper Extremity: 5, Left Lower Extremity: 5, Right Lower Extremity: 5 - Psychiatric Exam Psychiatric exam: Depressed - Skin Skin Exam: Dry Assessment and Plan (1) CAD (coronary artery disease) Status: Acute (2) CHF exacerbation Status: Acute (3) Hypothyroid Status: Acute (4) Hypothyroid Status: Acute (5) Hx of CABG Status: Acute (6) Hx of CABG Status: Acute (7) History of PTCA Status: Acute (8) History of PTCA Status: Acute - Assessment and Plan (Free Text) Assessment: chf improved cont rx
[2017-11-21] MEDS: Levothyroxine 125 MCG TAB PO SCH (06:14)
--- NOTE | 2017-11-21 11:52 | CP.PCM.PN ---
Subjective - Date & Time of Evaluation Date of Evaluation: 11/21/17 Time of Evaluation: 07:00 - Subjective Subjective: + vtach ON AMIODORONE Objective - Vital Signs/Intake and Output Vital Signs (last 24 hours): Temp Pulse Resp BP Pulse Ox 97.8 F 100 H 20 109/71 99 11/21/17 08:48 11/21/17 08:48 11/21/17 08:48 11/21/17 09:39 11/21/17 08:48 - Medications Medications: Current Medications Amiodarone HCl (Cordarone) 400 mg PO BID [facility] Last Admin: 11/21/17 09:39 Dose: Not Given Aspirin (Ecotrin) 81 mg PO DAILY [facility] Last Admin: 11/21/17 09:39 Dose: 81 mg Carvedilol (Coreg) 3.125 mg PO BID [facility] Last Admin: 11/21/17 09:39 Dose: 3.125 mg Furosemide (Lasix) 40 mg IVP DAILY [facility] Last Admin: 11/21/17 09:39 Dose: 40 mg Heparin Sodium (Porcine) (Heparin) 5,000 units SC Q12 [facility] Last Admin: 11/21/17 09:40 Dose: 5,000 units Levothyroxine Sodium (Synthroid) 125 mcg PO DAILY@0630 [facility] Last Admin: 11/21/17 06:14 Dose: 125 mcg Losartan Potassium (Cozaar) 25 mg PO DAILY [facility] Last Admin: 11/21/17 09:39 Dose: 25 mg Rosuvastatin Calcium (Crestor) 20 mg PO HS [facility] Last Admin: 11/20/17 21:48 Dose: 20 mg Tamsulosin HCl (Flomax) 0.4 mg PO DAILY [facility] Last Admin: 11/21/17 09:39 Dose: 0.4 mg - Labs Labs: 11/19/17 07:31 11/20/17 05:38 - Constitutional Appears: Non-toxic, Chronically Ill - Head Exam Head Exam: NORMOCEPHALIC - Eye Exam Eye Exam: PERRL - ENT Exam ENT Exam: Mucous Membranes Dry - Neck Exam Neck Exam: absent: Lymphadenopathy - Respiratory Exam Respiratory Exam: Decreased Breath Sounds - Cardiovascular Exam Cardiovascular Exam: REGULAR RHYTHM - GI/Abdominal Exam GI & Abdominal Exam: Distended, Soft - Rectal Exam Rectal Exam: Deferred - Exam Exam: NORMAL INSPECTION - Extremities Exam Extremities Exam: absent: Pedal Edema - Back Exam Back Exam: absent: CVA tenderness (L), CVA tenderness (R) - Neurological Exam Neurological Exam: Alert, Awake, Oriented x3 - Psychiatric Exam Psychiatric exam: Depressed - Skin Skin Exam: Dry Assessment and Plan (1) CAD (coronary artery disease) Status: Acute (2) CHF exacerbation Status: Acute (3) Hypothyroid Status: Acute (4) Hypothyroid Status: Acute (5) Hx of CABG Status: Acute (6) Hx of CABG Status: Acute (7) History of PTCA Status: Acute (8) History of PTCA Status: Acute - Assessment and Plan (Free Text) Assessment: CONT AMIODORONE FOLLOW UP DR AZAR
[2017-11-22] MEDS: Levothyroxine 125 MCG TAB PO SCH (06:19)
--- NOTE | 2017-11-22 10:50 | CP.PCM.PN ---
Subjective - Date & Time of Evaluation Date of Evaluation: 11/22/17 Time of Evaluation: 08:00 - Subjective Subjective: on amiodorone for v tach CHF improved await Dr Santo clearance Objective - Vital Signs/Intake and Output Vital Signs (last 24 hours): Temp Pulse Resp BP Pulse Ox 97.3 F L 86 20 101/67 97 11/22/17 08:20 11/22/17 09:40 11/22/17 08:20 11/22/17 09:40 11/22/17 08:20 Intake and Output: 11/22/17 11/22/17 06:59 18:59 Intake Total 480 Balance 480 - Medications Medications: Current Medications Amiodarone HCl (Cordarone) 400 mg PO BID [facility] Last Admin: 11/22/17 09:43 Dose: 400 mg Aspirin (Ecotrin) 81 mg PO DAILY [facility] Last Admin: 11/22/17 09:43 Dose: 81 mg Carvedilol (Coreg) 3.125 mg PO BID [facility] Last Admin: 11/22/17 09:42 Dose: 3.125 mg Furosemide (Lasix) 40 mg IVP DAILY [facility] Last Admin: 11/22/17 09:41 Dose: Not Given Levothyroxine Sodium (Synthroid) 125 mcg PO DAILY@0630 [facility] Last Admin: 11/22/17 06:19 Dose: 125 mcg Losartan Potassium (Cozaar) 25 mg PO DAILY [facility] Last Admin: 11/21/17 09:39 Dose: 25 mg Rosuvastatin Calcium (Crestor) 20 mg PO HS [facility] Last Admin: 11/21/17 22:16 Dose: 20 mg Tamsulosin HCl (Flomax) 0.4 mg PO DAILY [facility] Last Admin: 11/22/17 09:43 Dose: 0.4 mg - Labs Labs: 11/19/17 07:31 11/20/17 05:38 - Constitutional Appears: Non-toxic, Chronically Ill - Head Exam Head Exam: NORMOCEPHALIC - Eye Exam Eye Exam: PERRL - ENT Exam ENT Exam: Mucous Membranes Dry - Neck Exam Neck Exam: absent: Lymphadenopathy - Respiratory Exam Respiratory Exam: Decreased Breath Sounds - Cardiovascular Exam Cardiovascular Exam: REGULAR RHYTHM, +S1, +S2 - GI/Abdominal Exam GI & Abdominal Exam: Distended, Soft. absent: Tenderness - Rectal Exam Rectal Exam: Deferred Assessment and Plan (1) CAD (coronary artery disease) Status: Acute (2) CHF exacerbation Status: Acute (3) Hypothyroid Status: Acute (4) Hypothyroid Status: Acute (5) Hx of CABG Status: Acute (6) Hx of CABG Status: Acute (7) History of PTCA Status: Acute (8) History of PTCA Status: Acute - Assessment and Plan (Free Text) Assessment: CHF / arrythmias/ ischemic cardiomyopathy improving await cardio clearance
--- NOTE | 2017-11-22 12:49 | CP.PCM.PN ---
Subjective - Date & Time of Evaluation Date of Evaluation: 11/22/17 Time of Evaluation: 12:48 - Subjective Subjective: PT SEEN BY DR. AZAR AND CLEARED FOR D/C. ALSO CLEARED BY DR. AZAR. PER John AZAR, PT TO CONTINUE ALL MEDS BEING GIVEN HERE. NEW RX SENT TO PT'S PHARMACY; DISCUSSED NEW MEDS WITH THE PT PRIOR TO ARRIVAL. PT VERBALIZES UNDERSTANDING OF ALL NEW MEDS. HE WILL F/U WITH DR. AZAR AND DR. DE SOUZA IN THE OFFICE WITHIN 5-7 DAYS. NO FURTHER ORDERS. -FOLLOW UP WITH DR. AZAR IN THE OFFICE WITHIN 5-7 DAYS OF DISCHARGE---CALL THE OFFICE TODAY TO MAKE AN APPOINTMENT. -FOLLOW UP WITH DR. DE SOUZA IN THE OFFICE WITHIN 5-7 DAYS OF DISCHARGE---CALL THE OFFICE TODAY TO MAKE AN APPOINTMENT. -CONTINUE YOUR HOME MEDICATIONS USUAL. -NEW PRESCRIPTIONS SENT TO YOUR PHARMACY PER DR. AZAR'S RECOMMENDATIONS INCLUDE : 1) AMIODARONE (FOR YOUR HEART) TAKE 400 MG (2 TABLETS) BY MOUTH TWICE A DAY ( MORNING AND EVENING). 2) CARVEDILOL (FOR YOUR HEART) TAKE 3.125 MG BY MOUTH TWICE A DAY (MORNING AND EVENING). 3) FUROSEMIDE (DIURETIC, WATER PILL) TAKE 40 MG BY MOUTH ONCE A DAY (MORNING). 4) ASPIRIN (TO PROTECT YOUR HEART) 81 MG BY MOUTH ONCE A DAY (MORNING). 5) PLEASE NOTE THIS CHANGE IN YOUR THYROID MEDICINE DOSESTOP TAKING YOU DOSE AT HOME, TAKE THIS NEW ONE: 125 MCG BY MOUTH ONCE A DAY (MORNING BEFORE BREAKFAST). -IF YOU HAVE ANY FURTHER CONCERNS OR QUESTIONS, CONTACT DR. AZAR AND DR. DE SOUZA. Objective - Vital Signs/Intake and Output Vital Signs (last 24 hours): Temp Pulse Resp BP Pulse Ox 97.3 F L 87 20 103/67 97 11/22/17 08:20 11/22/17 10:54 11/22/17 08:20 11/22/17 10:54 11/22/17 08:20 Intake and Output: 11/22/17 11/22/17 06:59 18:59 Intake Total 480 Balance 480 - Medications Medications: Current Medications Amiodarone HCl (Cordarone) 400 mg PO BID [facility] Last Admin: 11/22/17 09:43 Dose: 400 mg Aspirin (Ecotrin) 81 mg PO DAILY [facility] Last Admin: 11/22/17 09:43 Dose: 81 mg Carvedilol (Coreg) 3.125 mg PO BID [facility] Last Admin: 11/22/17 09:42 Dose: 3.125 mg Furosemide (Lasix) 40 mg IVP DAILY [facility] Last Admin: 11/22/17 09:41 Dose: Not Given Levothyroxine Sodium (Synthroid) 125 mcg PO DAILY@0630 [facility] Last Admin: 11/22/17 06:19 Dose: 125 mcg Losartan Potassium (Cozaar) 25 mg PO DAILY [facility] Last Admin: 11/22/17 10:55 Dose: 25 mg Rosuvastatin Calcium (Crestor) 20 mg PO HS [facility] Last Admin: 11/21/17 22:16 Dose: 20 mg Tamsulosin HCl (Flomax) 0.4 mg PO DAILY [facility] Last Admin: 11/22/17 09:43 Dose: 0.4 mg - Labs Labs: 11/19/17 07:31 11/20/17 05:38
--- NOTE | 2017-11-22 12:52 | PCM.HF ---
Heart Failure Core Measure - Heart Failure Ejection Fraction: Less Than 40 % (35-40 %) JALEESA Inhibitor Prescribed: No Contraindication/Reason for not providing: ON ARB Beta-Pierre Prescribed: Carvedilol Angiotensin II Receptor Pierre Prescribed: Yes AnticoagulationTherapy for Atrial Fibrillation/Atrialflutter: No Contraindication/Reason for not providing: NO AFIB Aldosterone Antagonist Prescribed: No Contraindication/Reason for not providing: RX FUROSEMIDE BY CARDIOLOGY Hydralazine Nitrate Prescribed: No Contraindication/Reason for not providing: RX AMIODARONE BY CARDIOLOGY Implantable Cardioverter Defibrillator Therapy: No Contraindication/Reason for not providing: PT HAS DEFIB Cardiac Resynchronization Therapy Prescribed: No Contraindication/Reason for not providing: PT HAS DEFIB - Follow up Will be discharged to: Home Follow Up Date (must be within 7 days from discharge): 11/28/17 Follow Up Time: 09:00
--- NOTE | 2017-11-22 13:57 | CARD ---
APPROVED REPORT EKG Measurement Heart [id number] <Conclusion> Normal sinus rhythm Possible Left atrial enlargement Cannot rule out Anterior infarct, age undetermined T wave abnormality, consider inferior ischemia Abnormal ECG
[2017-11-22 15:58] VITALS: BP 109/73; PULSE 85; TEMP 97.4; O2SAT 98
--- NOTE | 2017-12-04 12:54 | CP.PCM.DIS ---
Provider - Provider Date of Admission: 11/15/17 19:30 Attending physician: Micah De Souza MD Primary care physician: NOLVIA Consults: NISSA Time Spent in preparation of Discharge (in minutes): 45 Diagnosis - Discharge Diagnosis (1) CAD (coronary artery disease) Status: Acute (2) CHF exacerbation Status: Acute (3) Hypothyroid Status: Acute (4) Hypothyroid Status: Acute (5) Hx of CABG Status: Acute (6) Hx of CABG Status: Acute (7) History of PTCA Status: Acute (8) History of PTCA Status: Acute Hospital Course - Lab Results Lab Results: Most Recent Lab Values WBC 5.7 K/uL (4.8-10.8) 11/19/17 07:31 RBC 5.65 Mil/uL (4.40-5.90) 11/19/17 07:31 Hgb 15.0 g/dL (12.0-18.0) 11/19/17 07:31 Hct 44.9 % (35.0-51.0) 11/19/17 07:31 MCV 79.4 fL (80.0-94.0) L 11/19/17 07:31 MCH 26.5 pg (27.0-31.0) L 11/19/17 07:31 MCHC 33.3 g/dL (33.0-37.0) 11/19/17 07:31 RDW 15.7 % (11.5-14.5) H 11/19/17 07:31 Plt Count 181 K/uL (130-400) 11/19/17 07:31 MPV 8.4 fL (7.2-11.7) 11/19/17 07:31 Neut % (Auto) 61.4 % (50.0-75.0) 11/19/17 07:31 Lymph % (Auto) 20.8 % (20.0-40.0) 11/19/17 07:31 [place]ard % (Auto) 11.1 % (0.0-10.0) H 11/19/17 07:31 Eos % (Auto) 5.9 % (0.0-4.0) H 11/19/17 07:31 Baso % (Auto) 0.8 % (0.0-2.0) 11/19/17 07:31 Neut # (Auto) 3.5 K/uL (1.8-7.0) 11/19/17 07:31 Lymph # (Auto) 1.2 K/uL (1.0-4.3) 11/19/17 07:31 Stoddard # (Auto) 0.6 K/uL (0.0-0.8) 11/19/17 07:31 Eos # (Auto) 0.3 K/uL (0.0-0.7) 11/19/17 07:31 Baso # (Auto) 0.0 K/uL (0.0-0.2) 11/19/17 07:31 Sodium 135 mmol/L (132-148) 11/20/17 05:38 Potassium 4.1 mmol/L (3.6-5.2) 11/20/17 05:38 Chloride 99 mmol/L (98-107) 11/20/17 05:38 Carbon Dioxide 29 mmol/L (22-30) 11/20/17 05:38 Anion Gap 11 (10-20) 11/20/17 05:38 BUN 24 mg/dL (9-20) H 11/20/17 05:38 Creatinine 0.9 mg/dL (0.8-1.5) 11/20/17 05:38 Est GFR ( Amer) > 60 11/20/17 05:38 Est GFR (Non-Af Amer) > 60 11/20/17 05:38 POC Glucose (mg/dL) 95 mg/dL (65-110) 11/19/17 11:22 Random Glucose 105 mg/dL (75-110) 11/20/17 05:38 Calcium 8.5 mg/dl (8.6-10.4) L 11/20/17 05:38 Magnesium 2.1 mg/dL (1.6-2.3) 11/20/17 05:38 Total Bilirubin 1.1 mg/dL (0.2-1.3) 11/19/17 07:31 AST 66 U/L (17-59) H 11/19/17 07:31 ALT 72 U/L (21-72) D 11/19/17 07:31 Alkaline Phosphatase 54 U/L (38-126) 11/19/17 07:31 Total Creatine Kinase 151 U/L (55-170) 11/16/17 20:09 CK-MB (Mass) 1.18 ng/mL (0.0-3.38) 11/16/17 20:09 Troponin I 0.0260 ng/mL (0.00-0.120) 11/16/17 20:09 NT-Pro-B Natriuret Pep 7040 pg/mL (0-900) H 11/15/17 18:57 Total Protein 6.7 g/dL (6.3-8.3) 11/19/17 07:31 Albumin 3.7 g/dL (3.5-5.0) 11/19/17 07:31 Globulin 3.1 gm/dL (2.2-3.9) 11/19/17 07:31 Albumin/Globulin Ratio 1.2 (1.0-2.1) 11/19/17 07:31 Thyroxine (T4) 15.2 ug/dL (5.5-11.0) H 11/18/17 07:58 T3 Uptake 37.9 % (23.0-41.0) 11/18/17 07:58 TSH 3rd Generation 5.14 mIU/L (0.46-4.68) H 11/18/17 07:58 Influenza Typ A,B (EIA) Negative for flu a/b (NEGATIVE) 11/15/17 Unknown - Hospital Course Hospital Course: TREATED FOR SEVERE CHF , RESP FAILURE HX OF ISCHEMIC CARDIOMYOPATHY FOUND TO HAVE VENTRICULAR TACHYCARDIA AND TREATED WITH AMIODORONE CHF IMPROVED WITH LASIX AND CONTROL OF ARRYTHMIAS Discharge Exam - Head Exam Head Exam: NORMOCEPHALIC - Eye Exam Eye Exam: EOMI, PERRL Pupil Exam: NORMAL ACCOMODATION - ENT Exam ENT Exam: Mucous Membranes Dry - Respiratory Exam Respiratory Exam: Decreased Breath Sounds - Cardiovascular Exam Cardiovascular Exam: REGULAR RHYTHM, +S1, +S2 - GI/Abdominal Exam GI & Abdominal Exam: Diminished Bowel Sounds, Soft. absent: Tenderness - Rectal Exam Rectal Exam: Deferred - Exam Exam: NORMAL INSPECTION - Extremities Exam Extremities exam: pedal edema - Back Exam Back exam: absent: CVA tenderness (L), CVA tenderness (R) - Neurological Exam Neurological exam: Alert, CN II-XII Intact, Oriented x3, Reflexes Normal - Psychiatric Exam Psychiatric exam: Normal Mood - Skin Skin Exam: Dry, Intact Discharge Plan - Discharge Medications Prescriptions: Aspirin [Ecotrin] 81 mg PO DAILY #30 tabec Furosemide 40 mg PO DAILY #30 tablet Levothyroxine [Synthroid] 125 mcg PO DAILY@0630 #30 tab - Follow Up Plan Condition: STABLE Disposition: HOME/ ROUTINE Instructions: Arrhythmias, Heart Failure, Adult (DC), Coronary Heart Disease ( DC), Cardiomyopathy (DC), Amiodarone, Aspirin, Carvedilol, Furosemide, Levothyroxine Additional Instructions: -FOLLOW UP WITH DR. AZAR IN THE OFFICE WITHIN 5-7 DAYS OF DISCHARGE---CALL THE OFFICE TODAY TO MAKE AN APPOINTMENT. -FOLLOW UP WITH DR. DE SOUZA IN THE OFFICE WITHIN 5-7 DAYS OF DISCHARGE---CALL THE OFFICE TODAY TO MAKE AN APPOINTMENT. -CONTINUE YOUR HOME MEDICATIONS USUAL. -NEW PRESCRIPTIONS SENT TO YOUR PHARMACY PER DR. AZAR'S RECOMMENDATIONS INCLUDE : 1) AMIODARONE (FOR YOUR HEART) TAKE 400 MG (2 TABLETS) BY MOUTH TWICE A DAY ( MORNING AND EVENING). 2) CARVEDILOL (FOR YOUR HEART) TAKE 3.125 MG BY MOUTH TWICE A DAY (MORNING AND EVENING). 3) FUROSEMIDE (DIURETIC, WATER PILL) TAKE 40 MG BY MOUTH ONCE A DAY (MORNING). 4) ASPIRIN (TO PROTECT YOUR HEART) 81 MG BY MOUTH ONCE A DAY (MORNING). 5) PLEASE NOTE THIS CHANGE IN YOUR THYROID MEDICINE DOSESTOP TAKING YOU DOSE AT HOME, TAKE THIS NEW ONE: 125 MCG BY MOUTH ONCE A DAY (MORNING BEFORE BREAKFAST). -IF YOU HAVE ANY FURTHER CONCERNS OR QUESTIONS, CONTACT DR. AZAR AND DR. DE SOUZA. Referrals: Ana Azar MD [Staff Provider] - Micah De Souza MD [Staff Provider] -
== END 2017-11-22 13:31 | disposition home or self-care (01) | DRG 292 ==
LOC: C.ER 17:02 → C.9E 19:30 → C.6T 11-16 08:33
PROVIDERS: ADMIT Internal Medicine; ATTEND Internal Medicine
DX: I11.0 Hypertensive heart disease with heart failure (principal); I47.2 Ventricular tachycardia; E05.90 Thyrotoxicosis, unspecified without thyrotoxic crisis or storm; I25.5 Ischemic cardiomyopathy; I50.9 Heart failure, unspecified; I25.10 Atherosclerotic heart disease of native coronary artery without angina pectoris; E03.9 Hypothyroidism, unspecified; E78.00 Pure hypercholesterolemia, unspecified; Z98.61 Coronary angioplasty status; Z95.810 Presence of automatic (implantable) cardiac defibrillator; Z95.1 Presence of aortocoronary bypass graft; I25.2 Old myocardial infarction

== ENCOUNTER 2017-11-25 20:53 | Inpatient (IN) | payer MEDICARE ==
[2017-11-25 20:54] VITALS: BMI 22.8
[2017-11-25 21:17] LABS: BASO # 0.1 K/uL (0.0-0.2); BASO % 0.7 % (0.0-2.0); EOS % 0.3 % (0.0-4.0); HEMOGLOBIN 15.2 g/dL (12.0-18.0); LYMPH # 1.3 K/uL (1.0-4.3); LYMPH % 14.7 % (20.0-40.0); MEAN CELL VOLUME 80.8 fL (80.0-94.0); MEAN CORPUSCULAR HEMOGLOBIN 26.5 pg (27.0-31.0); MEAN CORPUSCULAR HGB CONC 32.8 g/dL (33.0-37.0); MEAN PLATELET VOLUME 8.9 fL (7.2-11.7); MONO # 1.2 K/uL (0.0-0.8); MONO % 13.7 % (0.0-10.0); NEUT # 6.2 K/uL (1.8-7.0); NEUT % 70.6 % (50.0-75.0); RBC 5.72 Mil/uL (4.40-5.90); RED CELL DISTRIBUTION WIDTH 16.5 % (11.5-14.5); WHITE BLOOD COUNT 8.8 K/uL (4.8-10.8)
[2017-11-25 21:26] LABS: INR 1.3; PROTHROMBIN TIME 15.3 SECONDS (9.7-12.2)
[2017-11-25 21:30] LABS: ALB/GLOB RATIO 1.2 (1.0-2.1); ALBUMIN 3.9 g/dL (3.5-5.0); CALCIUM 9.2 mg/dl (8.6-10.4)
[2017-11-25] MEDS ORDERED: Sodium Chloride 0.9% 500 ML IV ONE (21:35)
[2017-11-25 21:41] LABS: CK-MB 1.25 ng/mL (0.0-3.38); TROPONIN I 0.091 ng/mL (0.00-0.120)
[2017-11-25] MEDS ORDERED: Sodium Chloride 0.9% 1,000 ML ONE (21:41)
--- NOTE | 2017-11-25 22:43 | C.PDOC ---
History Of Present Illness 72 y/o male presents to ED with complaints of SOB associated with right neck and shoulder pain that began 30-40 minutes [employer]OMOTIVE [employer] (at rest). He denies chest pain , palpations, cough, fever, abdominal pain, nausea/vomiting. PMHx of ischemic cardiomyopathy, HTN, hyperlipidemia, hypothyroidism Time Seen by Provider: 11/25/17 21:06 Chief Complaint (Nursing): Palpitations History Per: Patient History/Exam Limitations: no limitations Onset/Duration Of Symptoms: Mins (30-40 ) Current Symptoms Are (Timing): Still Present Pain Scale Rating Of: 1 Recent travel outside of the [place]: No Past Medical History Reviewed: Historical Data, Nursing Documentation, Vital Signs Vital Signs: Last Vital Signs Temp 97.4 F L 11/29/17 12:00 Pulse 78 11/29/17 10:00 Resp 19 11/29/17 04:00 BP 89/61 L 11/29/17 10:22 Pulse Ox 100 11/30/17 16:14 - Medical History PMH: HTN, Hypercholesterolemia, Hyperthyroidism, Hypothyroidism Surgical History: CABG (1997) - Zyncd Procedures INSERTION OF INFUSION DEVICE INTO LOWER VEIN, PERC APPROACH (11/25/17) PTERYGIUM EXCISION NEC (07/13/01) Family History: States: No Known Family Hx - Social History Hx Alcohol Use: No Hx Substance Use: No - Immunization History Hx Tetanus Toxoid Vaccination: No Hx Influenza Vaccination: No Hx Pneumococcal Vaccination: Yes Review Of Systems Constitutional: Negative for: Fever, Chills Cardiovascular: Negative for: Chest Pain, Palpitations Respiratory: Positive for: Shortness of Breath. Negative for: Cough Gastrointestinal: Negative for: Nausea, Vomiting, Abdominal Pain, Diarrhea Musculoskeletal: Positive for: Neck Pain (right sided), Shoulder Pain (right sided) Neurological: Negative for: Weakness, Numbness Physical Exam - Physical Exam Appears: Well, Non-toxic, No Acute Distress, Other (comfortable; speaking in full sentences) Skin: Normal Color, Warm, Dry Head: Atraumatic, Normacephalic Eye(s): bilateral: Normal Inspection Oral Mucosa: Moist Neck: Supple Chest: No Tenderness, Other (Midline sternotomy ) Cardiovascular: Rhythm Regular (bradycardia) Respiratory: Normal Breath Sounds, No Decreased Breath Sounds, No Rales, No Rhonchi, No Wheezing Gastrointestinal/Abdominal: Soft, No Tenderness, No Distention, No Guarding, No Rebound Extremity: No Tenderness, Other (Legs trace pitting edema ) Neurological/Psych: Oriented x3, Normal Speech, Normal Cognition ED Course And Treatment - Laboratory Results Result Diagrams: 11/28/17 06:02 11/28/17 06:02 ECG: Interpreted By Me, Viewed By Me (junctional rhythm 56 bpm, normal axis, Q waves II, III, aVF, V4-V6, no acute ST changes) ECG Interpretation: Abnormal O2 Sat by Pulse Oximetry: 100 (RA) Pulse Ox Interpretation: Normal - Radiology CXR: Interpreted by Me, Viewed By Me (cardiomegaly, no infiltrates/effusions, sternotomy wires, AICD left upper chest) Progress Note: Blood work, CXR, EKG ordered and reviewed. 10:45pm- Patient resting comfortably, however heart rate 45bmp on monitor and BP 70/40s. Pacer pads placed on patient, atropine 0.5mg IVP given with improvement - HR 60s, BP 80/50s. Will discuss with product marketing executive and PMD. 11:35pm- Spoke with product marketing executive Dr. Chapa, recommends low dose dopamine IV - ordered. 12:15am- Right femoral central line inserted by me due to persistent hypotension despite peripheral IV dopamine. Patient tolerated well. - Physician Consult Information Physician Contacted: Micah Morrison Outcome Of Conversation: Discussed with PMD, agrees with admission to his service for symptomatic bradycardia, hypotension, dyspnea, junctional rhythm, acute renal failure, elevated BNP. Pending call back from cardiology Dr. Santo. Central Line Placement - Central Line Placement Indication: Emergent IV Access Central Line Placement: Right: Femoral The Area Was Thoroughly Prepared With: Chlorhexidine Area Was Locally Anesthetized With: Lidocaine 1% Procedure: Triple Lumen, Placed Using Standard Seldinger Technique, Catheter Was Sewn Into Place, Sterile Dressing Placed Over Line, Procedure Tolerated Well Critical Care Time - Critical Care Note Total Time (in mins): 60 Documented critical care: time excludes all time spent performing seperately billable procedures. Disposition - Disposition Disposition: HOSPITALIZED Disposition Time: 23:21 Condition: CRITICAL - Clinical Impression Clinical Impression: Symptomatic bradycardia, Junctional rhythm, ARF (acute renal failure), Elevated brain natriuretic peptide (BNP) level, Hypotension - Scribe Statement The provider has reviewed the documentation as recorded by the Elias Levy All medical record entries made by the Scribe were at my direction and personally dictated by me. I have reviewed the chart and agree that the record accurately reflects my personal performance of the history, physical exam, medical decision making, and the department course for this patient. I have also personally directed, reviewed, and agree with the discharge instructions and disposition. Procedure: Bedside Ultrasound - Time Performed Time Performed: 12:30 - Type of Ultrasound Type of Ultrasound:: Cardiac - Consent Obtained Consent obtained: Emergent consent implied - Performed by Performed by: Attending Physician - Cardiac Cardiac:: Other (no tamponade, no global hypokineses)
[2017-11-25] MEDS ORDERED: DOPamine 400mg/250ml D5W 400 MG/250 ML BAG IV STA (23:35)
[2017-11-25] MEDS ORDERED: DOPamine 400mg/250ml D5W 400 MG/250 ML BAG IV ONE (23:39)
--- NOTE | 2017-11-26 00:26 | CP.PCM.CON ---
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 Denies chest pain, palpations, cough, fever, or abdominal pain. he was dischaged from hospital 11/22/17 In Er he was bradycardic HR in the 40's and hypotensive Review of Systems - Review of Systems Systems not reviewed;Unavailable: Unstable Vital Signs, Respiratory Distress - Constitutional Constitutional: Weakness. absent: Anorexia, Chills - EENT Eyes: absent: Blurred Vision Ears: absent: Decreased Hearing, Dizziness Nose/Mouth/Throat: absent: Nasal Congestion, Lip Swelling, Facial Pain - Cardiovascular Cardiovascular: absent: Chest Pain, Edema, Palpitations - Respiratory Respiratory: Dyspnea. absent: Cough, Chest Congestion - Gastrointestinal Gastrointestinal: Nausea. absent: Loose Stools, Melena, Vomiting - Genitourinary Genitourinary: absent: Dysuria, Hematuria - Musculoskeletal Musculoskeletal: absent: Numbness, Stiffness - Integumentary Integumentary: absent: Bleeding Lesions, Swelling - Neurological Neurological: absent: Confusion, Dizziness, Focal Weakness, Headaches - Endocrine Endocrine: absent: Excessive Sweating, Heat Intolorance - Hematologic/Lymphatic Hematologic: absent: Easy Bleeding Past Patient History - Infectious Disease Hx of Infectious Diseases: None - Past Medical History & Family History Past Medical History?: Yes - Past Social History Smoking Status: Never Smoked 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 Alcohol: None Drugs: Denies Home Situation {Lives}: With Family - CARDIAC Hx Hypercholesterolemia: Yes Hx Hypertension: Yes - NEUROLOGICAL Hx Neurological Disorder: No - HEENT Hx HEENT Problems: No - ENDOCRINE/METABOLIC Hx Hyperthyroidism: Yes Hx Hypothyroidism: Yes - MUSCULOSKELETAL/RHEUMATOLOGICAL Hx Falls: No - PSYCHIATRIC Hx Substance Use: No - SURGICAL HISTORY Hx Coronary Artery Bypass Graft: Yes (1997) - ANESTHESIA Hx Anesthesia: Yes Hx Anesthesia Reactions: No Meds Allergies/Adverse Reactions: Allergies Allergy/AdvReac Type Severity Reaction Status Date / Time No Known Allergies Allergy Verified 11/15/17 17:07 Physical Exam - Constitutional Appears: No Acute Distress - Head Exam Head Exam: ATRAUMATIC, NORMAL INSPECTION, NORMOCEPHALIC - Eye Exam Eye Exam: EOMI, Normal appearance, PERRL Pupil Exam: NORMAL ACCOMODATION - ENT Exam ENT Exam: Mucous Membranes Moist - Neck Exam Neck exam: Positive for: Normal Inspection. Negative for: Thyromegaly - Respiratory Exam Respiratory Exam: Clear to Auscultation Bilateral. absent: Rales, Respiratory Distress, Stridor Additional comments: decreased airentry in lung bases - Cardiovascular Exam Cardiovascular Exam: Bradycardia, Systolic Murmur. absent: JVD - GI/Abdominal Exam GI & Abdominal Exam: Normal Bowel Sounds, Soft. absent: Tenderness - Extremities Exam Extremities exam: Positive for: normal inspection. Negative for: calf tenderness Additional comments: trace pedal edema - Back Exam Back exam: NORMAL INSPECTION - Neurological Exam Neurological exam: Alert, Oriented x3 - Skin Skin Exam: Normal Color, Warm Results - Vital Signs Recent Vital Signs: Last Vital Signs Temp 98.2 F 11/25/17 21:02 Pulse 57 L 11/25/17 23:29 Resp 20 11/25/17 23:29 BP 82/51 L 11/25/17 23:29 Pulse Ox 100 11/25/17 23:38 - Labs Result Diagrams: 11/25/17 21:13 11/25/17 21:13 Labs: Laboratory Results - last 24 hr 11/25/17 11/25/17 11/25/17 21:13 21:13 21:13 WBC 8.8 D RBC 5.72 Hgb 15.2 Hct 46.2 MCV 80.8 MCH 26.5 L MCHC 32.8 L RDW 16.5 H Plt Count 191 MPV 8.9 Neut % (Auto) 70.6 Lymph % (Auto) 14.7 L Wetzel % (Auto) 13.7 H Eos % (Auto) 0.3 Baso % (Auto) 0.7 Neut # (Auto) 6.2 Lymph # (Auto) 1.3 Wetzel # (Auto) 1.2 H Eos # (Auto) 0.0 Baso # (Auto) 0.1 PT 15.3 H INR 1.3 APTT 25 Sodium 136 Potassium 4.4 Chloride 98 Carbon Dioxide 19 L Anion Gap 23 H BUN 43 H Creatinine 2.0 H Est GFR ( Amer) 40 Est GFR (Non-Af Amer) 33 Random Glucose 156 H Calcium 9.2 Total Bilirubin 1.5 H AST 122 H D ALT 147 H D Alkaline Phosphatase 67 Total Creatine Kinase 157 CK-MB (Mass) 1.25 Troponin I 0.0910 NT-Pro-B Natriuret Pep 55204 H Total Protein 7.2 Albumin 3.9 Globulin 3.2 Albumin/Globulin Ratio 1.2 TSH 3rd Generation 11/25/17 22:33 WBC RBC Hgb Hct MCV MCH MCHC RDW Plt Count MPV Neut % (Auto) Lymph % (Auto) Wetzel % (Auto) Eos % (Auto) Baso % (Auto) Neut # (Auto) Lymph # (Auto) Wetzel # (Auto) Eos # (Auto) Baso # (Auto) PT INR APTT Sodium Potassium Chloride Carbon Dioxide Anion Gap BUN Creatinine Est GFR ( Amer) Est GFR (Non-Af Amer) Random Glucose Calcium Total Bilirubin AST ALT Alkaline Phosphatase Total Creatine Kinase CK-MB (Mass) Troponin I NT-Pro-B Natriuret Pep Total Protein Albumin Globulin Albumin/Globulin Ratio TSH 3rd Generation 7.92 H Assessment & Plan - Assessment and Plan (Free Text) Assessment: 72 y/o male with Ischemic Cardiomyopathy/HTN,CAD /CHFadmitted with bradycardia and hypotensionon multiple meds HR improved with atropine hold lasix,coreg and amiodarone f.i cl;inically and restart as tolerated 1st troponin nornmal range.f/u with repeat labs 2.Acute Renal insufficiency monitor renal function off diuretics 3.Elevated LFT probably related to hypotension-f/u labs 4.Hypothyroidism-TSH increased compared to 10/2017.f/u with T3 and free T4 5.Hyperglycemia HbAIC 6.Hyperlipidemia on atorvastatin
[2017-11-26 06:20] LABS: BASO % 0.3 % (0.0-2.0); HEMOGLOBIN 14.6 g/dL (12.0-18.0); LYMPH # 0.8 K/uL (1.0-4.3); LYMPH % 9.2 % (20.0-40.0); MEAN CELL VOLUME 79.9 fL (80.0-94.0); MEAN CORPUSCULAR HGB CONC 33.8 g/dL (33.0-37.0); MEAN PLATELET VOLUME 9.1 fL (7.2-11.7); MONO # 0.8 K/uL (0.0-0.8); MONO % 9.6 % (0.0-10.0); NEUT # 6.9 K/uL (1.8-7.0); NEUT % 80.9 % (50.0-75.0); PLATELET COUNT 165 K/uL (130-400); RBC 5.41 Mil/uL (4.40-5.90); RED CELL DISTRIBUTION WIDTH 16.1 % (11.5-14.5); WHITE BLOOD COUNT 8.5 K/uL (4.8-10.8)
[2017-11-26 06:24] LABS: SQUAMOUS EPITHIAL 1 /hpf (0-5); URINE BACTERIA RARE (<OCC); URINE BILIRUBIN NEGATIVE (NEGATIVE); URINE BLOOD NEGATIVE (NEGATIVE); URINE CLARITY Hazy (Clear); URINE COLOR Yellow (YELLOW); URINE GLUCOSE (UA) NORMAL (Normal); URINE LEUKOCYTE ESTERASE NEG Leu/uL (Negative); URINE PROTEIN 2+ mg/dL (NEGATIVE); URINE UROBILINOGEN NORMAL mg/dL (0.2-1.0)
[2017-11-26 06:32] LABS: ALB/GLOB RATIO 1.1 (1.0-2.1); ALBUMIN 3.5 g/dL (3.5-5.0); CALCIUM 8.7 mg/dl (8.6-10.4)
[2017-11-26 06:41] LABS: TROPONIN I 0.075 ng/mL (0.00-0.120)
[2017-11-26 07:26] LABS: T3 0.941 nmol/L (1.49-2.60)
[2017-11-26] MEDS ORDERED: Sod Polystyrene Sulf 15 gm/60 ml Susp PO ONE (08:03)
--- NOTE | 2017-11-26 08:16 | RAD ---
PROCEDURE: CHEST RADIOGRAPH, 1 VIEW HISTORY: chest pain COMPARISON: Chest radiograph dated 11/15/2017. FINDINGS: LUNGS: Mild pulmonary vascular congestion. Bibasilar atelectasis. PLEURA: Decrease in size of now trace bilateral pleural effusions. No appreciable pneumothorax. CARDIOVASCULAR: Left subclavian access AICD/ pacemaker. Prior sternotomy with sternal wires and surgical clips redemonstrated. Atherosclerotic aortic calcifications. Cardiomediastinal silhouette stably enlarged. OSSEOUS STRUCTURES: Unchanged. VISUALIZED UPPER ABDOMEN: Normal. OTHER FINDINGS: None. IMPRESSION: Decrease in size of now trace bilateral pleural effusions.
[2017-11-26 09:29] LABS: ANISOCYTOSIS SLIGHT; EOSINOPHIL 1 % (0-4); LYMPHOCYTE 9 % (20-40); MONOCYTE 10 % (0-10); NEUTROPHIL 80 % (50-75); PLATELET ESTIMATE NORMAL (NORMAL); POIKILOCYTOSIS SLIGHT; TOTAL CELLS COUNTED 100
[2017-11-26 09:30] LABS: BURR CELLS SLIGHT; MICROCYTOSIS SLIGHT; OVALOCYTES SLIGHT
[2017-11-26] MEDS: Pantoprazole 40 mg EC Tab PO SCH (09:31)
[2017-11-27 06:32] LABS: ALBUMIN 2.9 g/dL (3.5-5.0); ALT/SGPT 224 U/L (21-72); AST/SGOT 106 U/L (17-59); BLOOD UREA NITROGEN 42 mg/dL (9-20); CALCIUM 8.1 mg/dl (8.6-10.4); GFR AFRICAN-AMERICAN > 60; GFR NON-AFRICAN AMERICAN 50
[2017-11-27] MEDS: Pantoprazole 40 mg EC Tab PO SCH (09:13)
--- NOTE | 2017-11-27 10:32 | CP.PCM.HP ---
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 Denies chest pain, palpations, cough, fever, or abdominal pain. he was dischaged from hospital 11/22/17 In Er he was bradycardic HR in the 40's and hypotensive Present on Admission - Present on Admission Any Indicators Present on Admission: No History of DVT/PE: No History of Uncontrolled Diabetes: No Urinary Catheter: No Decubitus Ulcer Present: No History Surgical Site Infection Following: None Review of Systems - Review of Systems All systems: reviewed and no additional remarkable complaints except - Constitutional Constitutional: As Per HPI - EENT Eyes: absent: As Per HPI, Blind Spots, Blurred Vision, Change in Vision, Decreased Night Vision, Diplopia, Discharge, Dry Eye, Exophthalmos, Floaters, Irritation, Itchy Eyes, Loss of Peripheral Vision, Pain, Photophobia, Requires Corrective Lenses, Sees Flashes, Spots in Vision, Tunnel Vision, Other Visual Disturbances, Loss of Vision, Other Ears: absent: As Per HPI, Decreased Hearing, Ear Discharge, Ear Pain, Tinnitus, Abnormal Hearing, Disequilibrium, Dizziness, Other Nose/Mouth/Throat: absent: As Per HPI, Epistaxis, Nasal Congestion, Nasal Discharge, Nasal Obstruction, Nasal Trauma, Nose Pain, Post Nasal Drip, Sinus Pain, Sinus Pressure, Bleeding Gums, Change in Voice, Dental Pain, Dry Mouth, Dysphagia, Halitosis, Hoarsness, Lip Swelling, Mouth Lesions, Mouth Pain, Odynophagia, Sore Throat, Throat Swelling, Tongue Swelling, Facial Pain, Neck Pain, Neck Mass, Other - Cardiovascular Cardiovascular: As Per HPI - Respiratory Respiratory: absent: As Per HPI, Cough, Dyspnea, Hemoptysis, Dyspnea on Exertion , Wheezing, Snoring, Stridor, Pain on Inspiration, Chest Congestion, Excessive Mucous Production, Change in Mucous Color, Pain with Coughing, Other - Gastrointestinal Gastrointestinal: absent: As Per HPI, Abdominal Pain, Belching, Bloating, Change in Bowel Habits, Change in Stool Character, Coffee Ground Emesis, Constipation, Cramping, Diarrhea, Dyspepsia, Dysphagia, Early Satiety, Excessive Flatus, Fecal Incontinence, Heartburn, Hematemesis, Hematochezia, Loose Stools, Melena, Nausea, Odynophagia, Temesmus, Vomiting, Other - Genitourinary Genitourinary: absent: As Per HPI, Change in Urinary Stream, Difficulty Urinating, Dysuria, Flank Pain, Hematuria, Pyuria, Nocturia, Urinary Incontinence, Urinary Frequency, Urinary Hesitance, Urinary Urgency, Voiding Freq/Small Amts, Freq UTI, Hx Renal/Bladder Calculi, Hx /Renal Surgery, Bladder Distension, Other - Musculoskeletal Musculoskeletal: absent: As Per HPI, Abnormal Gait, Arthralgias, Atrophy, Back Pain, Deformity, Joint Swelling, Limited Range of Motion, Loss of Height, Muscle Cramps, Muscle Weakness, Myalgias, Neck Pain, Numbness, Radiating Pain into Limb, Stiffness, Tingling, Other - Integumentary Integumentary: absent: As Per HPI, Acne, Alopecia, Bleeding Lesions, Change in Hair, Change in Nails, Change in Pigmentation, Changing Lesions, Dry Skin, Erythema, Furuncle, Hirsutism, Lesions, New Lesions, Non-Healing Lesions, Photosensitivity, Pruritus, Rash, Skin Pain, Skin Ulcer, Sores, Striae, Swelling , Unusual Bruising, Wounds, Jaundice, Other - Neurological Neurological: absent: As Per HPI, Abnormal Gait, Abnormal Hearing, Abnormal Movements, Abnormal Speech, Behavioral Changes, Burning Sensations, Confusion, Convulsions, Disequilibrium, Dizziness, Numbness, Focal Weakness, Frequent Falls , Headaches, Lack of Coordination, Loss of Vision, Memory Loss, Paresthesias, Radicular Pain, Restless Legs, Sensory Deficit, Syncope, Tingling, Tremor, Vertigo, Weakness, Other Visual Disturbances, Other - Psychiatric Psychiatric: As Per HPI - Endocrine Endocrine: absent: As Per HPI, Change in Body Appearance, Change in Libido, Cold Intolorance, Deepening of Voice, Excessive Sweating, Fatigue, Flushing, Heat Intolorance, Increase in Ring/Shoe/Hat Size, Palpitations, Polydipsia, Polyphagia, Polyuria, Other - Hematologic/Lymphatic Hematologic: absent: As Per HPI, Easy Bleeding, Easy Bruising, Lymphadenopathy, Other Past Patient History - Infectious Disease Hx of Infectious Diseases: None - Past Medical History & Family History Past Medical History?: Yes - Past Social History Smoking Status: Never Smoked 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 Alcohol: None Drugs: Denies Home Situation {Lives}: With Family - CARDIAC Hx Cardiac Disorders: Yes Hx Hypercholesterolemia: Yes Hx Hypertension: Yes Other/Comment: CAD Ischemic CM AICD CABG 1997 - PULMONARY Hx Respiratory Disorders: No - NEUROLOGICAL Hx Neurological Disorder: No - HEENT Hx HEENT Problems: No - RENAL Hx Chronic Kidney Disease: No - ENDOCRINE/METABOLIC Hx Endocrine Disorders: Yes Hx Hyperthyroidism: Yes Hx Hypothyroidism: Yes - HEMATOLOGICAL/ONCOLOGICAL Hx Blood Disorders: No - INTEGUMENTARY Hx Dermatological Problems: No - MUSCULOSKELETAL/RHEUMATOLOGICAL Hx Musculoskeletal Disorders: No Hx Falls: No - GASTROINTESTINAL Hx Gastrointestinal Disorders: No - GENITOURINARY/GYNECOLOGICAL Hx Genitourinary Disorders: No - PSYCHIATRIC Hx Psychophysiologic Disorder: No Hx Substance Use: No - SURGICAL HISTORY Hx Surgeries: Yes Hx Coronary Artery Bypass Graft: Yes (1997) - ANESTHESIA Hx Anesthesia: Yes Hx Anesthesia Reactions: No Hx Malignant Hyperthermia: No Has any member of the family had a problem w/ anesthesia?: No Meds Allergies/Adverse Reactions: Allergies Allergy/AdvReac Type Severity Reaction Status Date / Time No Known Allergies Allergy Verified 11/15/17 17:07 Physical Exam - Constitutional Appears: Non-toxic, Chronically Ill - Head Exam Head Exam: NORMOCEPHALIC - Eye Exam Eye Exam: PERRL. absent: Scleral icterus - ENT Exam ENT Exam: Mucous Membranes Dry - Neck Exam Neck exam: Negative for: Lymphadenopathy - Respiratory Exam Respiratory Exam: Decreased Breath Sounds - Cardiovascular Exam Cardiovascular Exam: REGULAR RHYTHM, +S1, +S2 - GI/Abdominal Exam GI & Abdominal Exam: Diminished Bowel Sounds, Soft. absent: Tenderness - Rectal Exam Rectal Exam: Deferred - Exam Exam: NORMAL INSPECTION - Extremities Exam Extremities exam: Positive for: pedal pulses present. Negative for: calf tenderness, pedal edema, tenderness - Back Exam Back exam: NORMAL INSPECTION. absent: CVA tenderness (L), CVA tenderness (R) - Neurological Exam Neurological exam: Alert, CN II-XII Intact, Oriented x3, Reflexes Normal - Psychiatric Exam Psychiatric exam: Depressed - Skin Skin Exam: Dry Results - Vital Signs Recent Vital Signs: Last Vital Signs Temp 98.3 F 11/27/17 08:00 Pulse 77 11/27/17 10:06 Resp 23 11/27/17 10:06 BP 85/55 L 11/27/17 10:06 Pulse Ox 96 11/27/17 10:06 - Labs Result Diagrams: 11/26/17 06:08 11/27/17 06:08 Labs: Laboratory Results - last 24 hr 11/26/17 11/27/17 06:08 06:08 Sodium 135 Potassium 3.0 L Chloride 99 Carbon Dioxide 25 Anion Gap 13 BUN 42 H Creatinine 1.4 Est GFR ( Amer) > 60 Est GFR (Non-Af Amer) 50 Random Glucose 89 Hemoglobin A1c 5.9 Calcium 8.1 L Phosphorus 4.2 Magnesium 2.2 Total Bilirubin 1.0 AST 106 H D ALT 224 H D Alkaline Phosphatase 65 Total Protein 5.7 L Albumin 2.9 L Globulin 2.8 Albumin/Globulin Ratio 1.0 Assessment & Plan (1) Hypotension (arterial) Status: Acute (2) RUBINA (acute kidney injury) Status: Acute (3) Bradycardia Status: Acute (4) CAD (coronary artery disease) Status: Acute (5) CHF exacerbation Status: Acute (6) History of PTCA Status: Acute (7) Hx of CABG Status: Acute (8) Hypothyroid Status: Acute - Assessment and Plan (Free Text) Assessment: cont pressors, acs progtocol cardio eval Decision To Admit - Pt Status Changed To: Hospital Disposition Of: Inpatient - Admit Certification Admit to Inpatient:: After my assessment, the patient will require hospitalization for at least two midnights. This is because of the severity of symptoms shown, intensity of services needed, and/or the medical risk in this patient being treated as an outpatient. - InPatient: Physician Admission Certification:: patient is gravely ill. requiring pressors and ICU care - . Bed Request Type: ICU Admitting Physician: Micah Morrison
--- NOTE | 2017-11-27 15:25 | CP.PCM.PN ---
Subjective - Date & Time of Evaluation Date of Evaluation: 11/26/17 Time of Evaluation: 15:00 - Subjective Subjective: seen in icu iv rx in progress await AICD interrogation 'cardio to eval Objective - Vital Signs/Intake and Output Vital Signs (last 24 hours): Temp Pulse Resp BP Pulse Ox 98.4 F 75 20 88/60 L 96 11/27/17 12:00 11/27/17 12:00 11/27/17 12:00 11/27/17 12:00 11/27/17 12:00 Intake and Output: 11/27/17 11/27/17 06:59 18:59 Intake Total 50 660 Output Total 550 350 Balance -500 310 - Medications Medications: Current Medications Aspirin (Aspirin Chewable) 81 mg PO DAILY [facility] Last Admin: 11/27/17 09:13 Dose: 81 mg Heparin Sodium (Porcine) (Heparin) 5,000 units SC Q8 [facility] Last Admin: 11/27/17 14:27 Dose: 5,000 units Pantoprazole Sodium (Protonix Ec Tab) 40 mg PO DAILY [facility] Last Admin: 11/27/17 09:13 Dose: 40 mg Rosuvastatin Calcium (Crestor) 10 mg PO HS [facility] Last Admin: 11/26/17 21:09 Dose: 10 mg - Labs Labs: 11/26/17 06:08 11/27/17 06:08 PT 15.3 SECONDS (9.7-12.2) H 11/25/17 21:13 INR 1.3 11/25/17 21:13 APTT 25 SECONDS (21-34) 11/25/17 21:13 - Constitutional Appears: Non-toxic, Chronically Ill - Head Exam Head Exam: NORMOCEPHALIC - Eye Exam Eye Exam: PERRL. absent: Scleral icterus - ENT Exam ENT Exam: Mucous Membranes Dry - Neck Exam Neck Exam: absent: Lymphadenopathy - Respiratory Exam Respiratory Exam: Decreased Breath Sounds - Cardiovascular Exam Cardiovascular Exam: REGULAR RHYTHM - GI/Abdominal Exam GI & Abdominal Exam: Distended, Soft - Rectal Exam Rectal Exam: Deferred - Exam Exam: NORMAL INSPECTION - Extremities Exam Extremities Exam: Pedal Edema. absent: Tenderness - Back Exam Back Exam: absent: CVA tenderness (L), CVA tenderness (R) - Neurological Exam Neurological Exam: Alert, Awake, CN II-XII Intact, Oriented x3 Neuro motor strength exam: Left Upper Extremity: 5, Right Upper Extremity: 5, Left Lower Extremity: 5, Right Lower Extremity: 5 - Psychiatric Exam Psychiatric exam: Depressed - Skin Skin Exam: Dry Assessment and Plan (1) Hypotension (arterial) Status: Acute (2) RUBINA (acute kidney injury) Status: Acute (3) Bradycardia Status: Acute (4) CAD (coronary artery disease) Status: Acute (5) CHF exacerbation Status: Acute (6) History of PTCA Status: Acute (7) Hx of CABG Status: Acute (8) Hypothyroid Status: Acute
--- NOTE | 2017-11-27 15:34 | CP.PCM.PN ---
Subjective - Date & Time of Evaluation Date of Evaluation: 11/27/17 Time of Evaluation: 09:00 - Subjective Subjective: bp still low off lasix, amiodorone and diovan , beta rizwan trops neg bnp hi LFT slowly coming down as well as improvement in renal function Dr Gal rowley Objective - Vital Signs/Intake and Output Vital Signs (last 24 hours): Temp Pulse Resp BP Pulse Ox 98.4 F 75 20 88/60 L 96 11/27/17 12:00 11/27/17 12:00 11/27/17 12:00 11/27/17 12:00 11/27/17 12:00 Intake and Output: 11/27/17 11/27/17 06:59 18:59 Intake Total 50 660 Output Total 550 350 Balance -500 310 - Medications Medications: Current Medications Aspirin (Aspirin Chewable) 81 mg PO DAILY [facility] Last Admin: 11/27/17 09:13 Dose: 81 mg Heparin Sodium (Porcine) (Heparin) 5,000 units SC Q8 [facility] Last Admin: 11/27/17 14:27 Dose: 5,000 units Levothyroxine Sodium (Synthroid) 125 mcg PO DAILY@0630 [facility] Pantoprazole Sodium (Protonix Ec Tab) 40 mg PO DAILY [facility] Last Admin: 11/27/17 09:13 Dose: 40 mg Potassium Chloride (K-Dur 20 Meq Er Tab) 20 meq PO DAILY [facility] Rosuvastatin Calcium (Crestor) 10 mg PO HS [facility] Last Admin: 11/26/17 21:09 Dose: 10 mg Tamsulosin HCl (Flomax) 0.4 mg PO DAILY [facility] - Labs Labs: 11/26/17 06:08 11/27/17 06:08 PT 15.3 SECONDS (9.7-12.2) H 11/25/17 21:13 INR 1.3 11/25/17 21:13 APTT 25 SECONDS (21-34) 11/25/17 21:13 Assessment and Plan (1) Hypotension (arterial) Status: Acute (2) RUBINA (acute kidney injury) Status: Acute (3) Bradycardia Status: Acute (4) CAD (coronary artery disease) Status: Acute (5) CHF exacerbation Status: Acute (6) History of PTCA Status: Acute (7) Hx of CABG Status: Acute (8) Hypothyroid Status: Acute (9) Shock Status: Acute (10) Arrhythmia Status: Acute (11) Cardiogenic shock Status: Acute (12) Shock liver Status: Acute
[2017-11-27] MEDS: Potassium Chloride 20 mEq ER Tab PO SCH (16:16)
--- NOTE | 2017-11-27 19:56 | CP.PCM.PN ---
Subjective - Date & Time of Evaluation Date of Evaluation: 11/27/17 Time of Evaluation: 19:54 - Subjective Subjective: much improved ICD re-programmed to HR 70bpm comfortable lying in bed Objective - Vital Signs/Intake and Output Vital Signs (last 24 hours): Temp Pulse Resp BP Pulse Ox 97.5 F L 70 20 105/75 95 11/27/17 16:00 11/27/17 18:00 11/27/17 16:00 11/27/17 16:00 11/27/17 16:00 Intake and Output: 11/27/17 11/28/17 18:59 06:59 Intake Total 1020 0 Output Total 550 0 Balance 470 0 - Medications Medications: Current Medications Aspirin (Aspirin Chewable) 81 mg PO DAILY [facility] Last Admin: 11/27/17 09:13 Dose: 81 mg Heparin Sodium (Porcine) (Heparin) 5,000 units SC Q8 [facility] Last Admin: 11/27/17 14:27 Dose: 5,000 units Levothyroxine Sodium (Synthroid) 125 mcg PO DAILY@0630 [facility] Pantoprazole Sodium (Protonix Ec Tab) 40 mg PO DAILY [facility] Last Admin: 11/27/17 09:13 Dose: 40 mg Potassium Chloride (K-Dur 20 Meq Er Tab) 20 meq PO DAILY [facility] Last Admin: 11/27/17 16:16 Dose: 20 meq Rosuvastatin Calcium (Crestor) 10 mg PO HS [facility] Last Admin: 11/26/17 21:09 Dose: 10 mg Tamsulosin HCl (Flomax) 0.4 mg PO DAILY [facility] - Labs Labs: 11/26/17 06:08 11/27/17 06:08 PT 15.3 SECONDS (9.7-12.2) H 11/25/17 21:13 INR 1.3 11/25/17 21:13 APTT 25 SECONDS (21-34) 11/25/17 21:13 - Constitutional Appears: Non-toxic - Head Exam Head Exam: NORMAL INSPECTION - Eye Exam Eye Exam: absent: Scleral icterus - Neck Exam Neck Exam: Full ROM - Respiratory Exam Respiratory Exam: NORMAL BREATHING PATTERN - Cardiovascular Exam Cardiovascular Exam: REGULAR RHYTHM - GI/Abdominal Exam GI & Abdominal Exam: Soft. absent: Tenderness - Exam External exam: absent: Swelling - Extremities Exam Extremities Exam: absent: Pedal Edema, Tenderness Assessment and Plan - Assessment and Plan (Free Text) Assessment: CHF Ischemic cardiomyopathy HTN Plan: PPM/ICD adjusted to 70 bpm VVI Cont Lasix, entresto, beta rizwan
--- NOTE | 2017-11-27 20:12 | CP.PCM.CON ---
History of Present Illness - History of Present Illness History of Present Illness: CC: sob low bp HPI: 72 y/o male with PMHx of ischemic cardiomyopathy with EF 25%,AICD, CAD, CABG 1997,HTN, hyperlipidemia, hypothyroidism presents to ED with complaints of SOB ,nausea,associated with right neck and shoulder pain that began 30-40 minutes [employer] (at rest). Denies chest pain, palpations, cough, fever, or abdominal pain. he was dischaged from hospital 11/22/17 In Er he was bradycardic HR in the 40's and hypotensive Review of Systems - Cardiovascular Cardiovascular: Dyspnea on Exertion. 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 Alcohol: None Drugs: Denies Home Situation {Lives}: With Family - CARDIAC Hx Cardiac Disorders: Yes Hx Hypercholesterolemia: Yes Hx Hypertension: Yes Other/Comment: CAD Ischemic CM AICD CABG 1997 - PULMONARY Hx Respiratory Disorders: No - NEUROLOGICAL Hx Neurological Disorder: No - HEENT Hx HEENT Problems: No - RENAL Hx Chronic Kidney Disease: No - ENDOCRINE/METABOLIC Hx Endocrine Disorders: Yes Hx Hyperthyroidism: Yes Hx Hypothyroidism: Yes - HEMATOLOGICAL/ONCOLOGICAL Hx Blood Disorders: No - INTEGUMENTARY Hx Dermatological Problems: No - MUSCULOSKELETAL/RHEUMATOLOGICAL Hx Musculoskeletal Disorders: No Hx Falls: No - GASTROINTESTINAL Hx Gastrointestinal Disorders: No - GENITOURINARY/GYNECOLOGICAL Hx Genitourinary Disorders: No - PSYCHIATRIC Hx Psychophysiologic Disorder: No Hx Substance Use: No - SURGICAL HISTORY Hx Surgeries: Yes Hx Coronary Artery Bypass Graft: Yes (1997) - ANESTHESIA Hx Anesthesia: Yes Hx Anesthesia Reactions: No Hx Malignant Hyperthermia: No Has any member of the family had a problem w/ anesthesia?: No Meds Allergies/Adverse Reactions: Allergies Allergy/AdvReac Type Severity Reaction Status Date / Time No Known Allergies Allergy Verified 11/15/17 17:07 - Medications Medications: Current Medications Aspirin (Aspirin Chewable) 81 mg PO DAILY [facility] Last Admin: 11/27/17 09:13 Dose: 81 mg Heparin Sodium (Porcine) (Heparin) 5,000 units SC Q8 [facility] Last Admin: 11/27/17 14:27 Dose: 5,000 units Levothyroxine Sodium (Synthroid) 125 mcg PO DAILY@0630 [facility] Pantoprazole Sodium (Protonix Ec Tab) 40 mg PO DAILY [facility] Last Admin: 11/27/17 09:13 Dose: 40 mg Potassium Chloride (K-Dur 20 Meq Er Tab) 20 meq PO DAILY [facility] Last Admin: 11/27/17 16:16 Dose: 20 meq Rosuvastatin Calcium (Crestor) 10 mg PO HS [facility] Last Admin: 11/26/17 21:09 Dose: 10 mg Sacubitril/Valsartan (Entresto 24 Mg-26 Mg) 1 tab PO BID [facility] Tamsulosin HCl (Flomax) 0.4 mg PO DAILY [facility] Physical Exam - Head Exam Head Exam: NORMAL INSPECTION - Eye Exam Eye Exam: absent: Scleral icterus - Neck Exam Neck exam: Positive for: Full Rom - Respiratory Exam Respiratory Exam: absent: Decreased Breath Sounds - GI/Abdominal Exam GI & Abdominal Exam: Soft. absent: Tenderness - Extremities Exam Extremities exam: Negative for: calf tenderness, pedal edema - Neurological Exam Neurological exam: Alert, Oriented x3 Results - Vital Signs Recent Vital Signs: Last Vital Signs Temp 97.5 F L 11/27/17 16:00 Pulse 70 11/27/17 18:00 Resp 20 11/27/17 16:00 BP 105/75 11/27/17 16:00 Pulse Ox 95 11/27/17 16:00 - Labs Result Diagrams: 11/26/17 06:08 11/27/17 06:08 Labs: Laboratory Results - last 24 hr 11/26/17 11/27/17 06:08 06:08 Sodium 135 Potassium 3.0 L Chloride 99 Carbon Dioxide 25 Anion Gap 13 BUN 42 H Creatinine 1.4 Est GFR ( Amer) > 60 Est GFR (Non-Af Amer) 50 Random Glucose 89 Hemoglobin A1c 5.9 Calcium 8.1 L Phosphorus 4.2 Magnesium 2.2 Total Bilirubin 1.0 AST 106 H D ALT 224 H D Alkaline Phosphatase 65 Total Protein 5.7 L Albumin 2.9 L Globulin 2.8 Albumin/Globulin Ratio 1.0 Assessment & Plan - Assessment and Plan (Free Text) Assessment: CHF ? Malfunction VVI PPM/ICD CAD Plan: Will get [facility]) to interrogate ICD and make necessary adjustments. Cont meds. Will switch to Entresto in AM. - Date & Time Date: 11/26/17 Time: 10:00
[2017-11-27] MEDS: Sacubitril/Valsartan 24-26mg Tab PO SCH (21:24)
[2017-11-28] MEDS: Levothyroxine 125 MCG TAB PO SCH (05:49)
[2017-11-28 06:09] LABS: BASO % 0.8 % (0.0-2.0); EOS # 0.2 K/uL (0.0-0.7); EOS % 2.9 % (0.0-4.0); HEMOGLOBIN 12.4 g/dL (12.0-18.0); LYMPH % 17.3 % (20.0-40.0); MEAN CELL VOLUME 80.3 fL (80.0-94.0); MEAN CORPUSCULAR HEMOGLOBIN 26.5 pg (27.0-31.0); MEAN PLATELET VOLUME 9.1 fL (7.2-11.7); MONO # 0.9 K/uL (0.0-0.8); MONO % 16.1 % (0.0-10.0); NEUT # 3.7 K/uL (1.8-7.0); NEUT % 62.9 % (50.0-75.0); NRBC % 0.1 % (0.0-2.0); RBC 4.69 Mil/uL (4.40-5.90); RED CELL DISTRIBUTION WIDTH 16.5 % (11.5-14.5); WHITE BLOOD COUNT 5.9 K/uL (4.8-10.8)
[2017-11-28 06:25] LABS: ALBUMIN 2.9 g/dL (3.5-5.0)
--- NOTE | 2017-11-28 08:34 | CARD ---
APPROVED REPORT EKG Measurement Heart [id number] <Conclusion> Junctional rhythm Anterior infarct, age undetermined Abnormal ECG
--- NOTE | 2017-11-28 08:37 | CARD ---
APPROVED REPORT EKG Measurement Heart [id number] <Conclusion> Junctional rhythm Cannot rule out Anterior infarct, age undetermined ST & T wave abnormality, consider inferior ischemia Abnormal ECG
[2017-11-28 09:49] LABS: HEPATITIS B SURFACE AG Negative (NEGATIVE)
[2017-11-28] MEDS: Pantoprazole 40 mg EC Tab PO SCH (09:50)
[2017-11-28] MEDS: Potassium Chloride 20 mEq ER Tab PO SCH (09:50)
[2017-11-28 09:55] LABS: HEPATITIS A IGM NEGATIVE (NEGATIVE); HEPATITIS B CORE AB NEGATIVE (NEGATIVE)
[2017-11-28 10:06] LABS: HEPATITIS C ANTIBODY NEGATIVE (NEGATIVE)
--- NOTE | 2017-11-28 12:56 | CP.PCM.PN ---
Subjective - Date & Time of Evaluation Date of Evaluation: 11/28/17 Time of Evaluation: 08:00 - Subjective Subjective: improving cardiogenic shock s/p liliya / hypotension severe ischemic Cardiomyopathy Objective - Vital Signs/Intake and Output Vital Signs (last 24 hours): Temp Pulse Resp BP Pulse Ox 98.0 F 78 18 95/62 L 97 11/28/17 12:00 11/28/17 12:00 11/28/17 12:00 11/28/17 12:00 11/28/17 12:00 Intake and Output: 11/28/17 11/28/17 06:59 18:59 Intake Total 340 360 Output Total 550 Balance -210 360 - Medications Medications: Current Medications Aspirin (Aspirin Chewable) 81 mg PO DAILY [facility] Last Admin: 11/28/17 09:49 Dose: 81 mg Heparin Sodium (Porcine) (Heparin) 5,000 units SC Q8 [facility] Last Admin: 11/28/17 05:49 Dose: 5,000 units Levothyroxine Sodium (Synthroid) 125 mcg PO DAILY@0630 [facility] Last Admin: 11/28/17 05:49 Dose: 125 mcg Pantoprazole Sodium (Protonix Ec Tab) 40 mg PO DAILY [facility] Last Admin: 11/28/17 09:50 Dose: 40 mg Potassium Chloride (K-Dur 20 Meq Er Tab) 20 meq PO DAILY [facility] Last Admin: 11/28/17 09:50 Dose: 20 meq Rosuvastatin Calcium (Crestor) 10 mg PO HS [facility] Last Admin: 11/27/17 21:24 Dose: 10 mg Sacubitril/Valsartan (Entresto 24 Mg-26 Mg) 1 tab PO BID [facility] Last Admin: 11/27/17 21:24 Dose: 1 tab Tamsulosin HCl (Flomax) 0.4 mg PO DAILY [facility] Last Admin: 11/28/17 09:50 Dose: 0.4 mg - Labs Labs: 11/28/17 06:02 11/28/17 06:02 PT 15.3 SECONDS (9.7-12.2) H 11/25/17 21:13 INR 1.3 11/25/17 21:13 APTT 25 SECONDS (21-34) 11/25/17 21:13 - Constitutional Appears: Non-toxic, Chronically Ill - Head Exam Head Exam: NORMOCEPHALIC - Eye Exam Eye Exam: PERRL - ENT Exam ENT Exam: Mucous Membranes Dry - Neck Exam Neck Exam: absent: Lymphadenopathy - Respiratory Exam Respiratory Exam: Decreased Breath Sounds - Cardiovascular Exam Cardiovascular Exam: REGULAR RHYTHM - GI/Abdominal Exam GI & Abdominal Exam: Distended - Rectal Exam Rectal Exam: Deferred - Exam Exam: NORMAL INSPECTION - Extremities Exam Extremities Exam: absent: Pedal Edema Assessment and Plan (1) Hypotension (arterial) Status: Acute (2) RUBINA (acute kidney injury) Status: Acute (3) Bradycardia Status: Acute (4) CAD (coronary artery disease) Status: Acute (5) CHF exacerbation Status: Acute (6) History of PTCA Status: Acute (7) Hx of CABG Status: Acute (8) Hypothyroid Status: Acute (9) Shock Status: Acute (10) Arrhythmia Status: Acute (11) Cardiogenic shock Status: Acute (12) Shock liver Status: Acute - Assessment and Plan (Free Text) Assessment: await cardio re-eval transfer to [facility] when cleared
[2017-11-28] MEDS: Sacubitril/Valsartan 24-26mg Tab PO SCH ×2 (13:35→17:24)
[2017-11-29 04:17] VITALS: RESP 19
[2017-11-29] MEDS: Levothyroxine 125 MCG TAB PO SCH (05:31)
--- NOTE | 2017-11-29 09:43 | CP.PCM.PN ---
Subjective - Date & Time of Evaluation Date of Evaluation: 11/28/17 Time of Evaluation: 09:40 - Subjective Subjective: continue to improve ambulating NAD no sob Objective - Vital Signs/Intake and Output Vital Signs (last 24 hours): Temp Pulse Resp BP Pulse Ox 97.5 F L 73 19 91/58 L 96 11/29/17 08:00 11/29/17 04:00 11/29/17 04:00 11/29/17 04:00 11/29/17 04:00 - Medications Medications: Current Medications Aspirin (Aspirin Chewable) 81 mg PO DAILY [facility] Last Admin: 11/28/17 09:49 Dose: 81 mg Levothyroxine Sodium (Synthroid) 125 mcg PO DAILY@0630 [facility] Last Admin: 11/29/17 05:31 Dose: 125 mcg Pantoprazole Sodium (Protonix Ec Tab) 40 mg PO DAILY [facility] Last Admin: 11/28/17 09:50 Dose: 40 mg Potassium Chloride (K-Dur 20 Meq Er Tab) 20 meq PO DAILY [facility] Last Admin: 11/28/17 09:50 Dose: 20 meq Rosuvastatin Calcium (Crestor) 10 mg PO HS [facility] Last Admin: 11/28/17 21:38 Dose: 10 mg Sacubitril/Valsartan (Entresto 24 Mg-26 Mg) 1 tab PO BID [facility] Last Admin: 11/28/17 17:24 Dose: 1 tab Tamsulosin HCl (Flomax) 0.4 mg PO DAILY [facility] Last Admin: 11/28/17 09:50 Dose: 0.4 mg - Labs Labs: 11/28/17 06:02 11/28/17 06:02 PT 15.3 SECONDS (9.7-12.2) H 11/25/17 21:13 INR 1.3 11/25/17 21:13 APTT 25 SECONDS (21-34) 11/25/17 21:13 - Constitutional Appears: Non-toxic - Eye Exam Eye Exam: absent: Scleral icterus - Neck Exam Neck Exam: Full ROM - Respiratory Exam Respiratory Exam: NORMAL BREATHING PATTERN - Cardiovascular Exam Cardiovascular Exam: REGULAR RHYTHM - GI/Abdominal Exam GI & Abdominal Exam: Soft. absent: Tenderness - Extremities Exam Extremities Exam: Calf Tenderness. absent: Pedal Edema Assessment and Plan - Assessment and Plan (Free Text) Assessment: CHF CAD Ischemic cardiomyopathy Plan: Cont present meds On entresto
--- NOTE | 2017-11-29 09:52 | CP.PCM.PN ---
Subjective - Date & Time of Evaluation Date of Evaluation: 11/28/17 Time of Evaluation: 09:49 - Subjective Subjective: feels better after HR increased to 70bpm no chest pain no sob Objective - Vital Signs/Intake and Output Vital Signs (last 24 hours): Temp Pulse Resp BP Pulse Ox 97.5 F L 73 19 91/58 L 96 11/29/17 08:00 11/29/17 04:00 11/29/17 04:00 11/29/17 04:00 11/29/17 04:00 - Medications Medications: Current Medications Aspirin (Aspirin Chewable) 81 mg PO DAILY [facility] Last Admin: 11/28/17 09:49 Dose: 81 mg Furosemide (Lasix) 40 mg PO DAILY [facility] Levothyroxine Sodium (Synthroid) 125 mcg PO DAILY@0630 [facility] Last Admin: 11/29/17 05:31 Dose: 125 mcg Pantoprazole Sodium (Protonix Ec Tab) 40 mg PO DAILY [facility] Last Admin: 11/28/17 09:50 Dose: 40 mg Potassium Chloride (K-Dur 20 Meq Er Tab) 20 meq PO DAILY [facility] Last Admin: 11/28/17 09:50 Dose: 20 meq Rosuvastatin Calcium (Crestor) 10 mg PO HS [facility] Last Admin: 11/28/17 21:38 Dose: 10 mg Sacubitril/Valsartan (Entresto 24 Mg-26 Mg) 1 tab PO BID [facility] Last Admin: 11/28/17 17:24 Dose: 1 tab Tamsulosin HCl (Flomax) 0.4 mg PO DAILY [facility] Last Admin: 11/28/17 09:50 Dose: 0.4 mg - Labs Labs: 11/28/17 06:02 11/28/17 06:02 PT 15.3 SECONDS (9.7-12.2) H 11/25/17 21:13 INR 1.3 11/25/17 21:13 APTT 25 SECONDS (21-34) 11/25/17 21:13 - Constitutional Appears: No Acute Distress - Head Exam Head Exam: NORMAL INSPECTION - Eye Exam Eye Exam: absent: Scleral icterus - ENT Exam ENT Exam: Mucous Membranes Moist - Neck Exam Neck Exam: Full ROM - Respiratory Exam Respiratory Exam: Decreased Breath Sounds - Cardiovascular Exam Cardiovascular Exam: REGULAR RHYTHM - GI/Abdominal Exam GI & Abdominal Exam: Soft. absent: Tenderness - Extremities Exam Extremities Exam: absent: Calf Tenderness, Pedal Edema, Tenderness Assessment and Plan - Assessment and Plan (Free Text) Assessment: CHF, compensting Ischemic cardiomyopathy CAD Plan: Cont meds
[2017-11-29] MEDS: Potassium Chloride 20 mEq ER Tab PO SCH (10:21)
[2017-11-29] MEDS: Pantoprazole 40 mg EC Tab PO SCH (10:21)
[2017-11-29 10:24] VITALS: BP 89/61
[2017-11-29] MEDS: Sacubitril/Valsartan 24-26mg Tab PO SCH (10:26)
--- NOTE | 2017-11-29 11:57 | CP.PCM.PN ---
Subjective - Date & Time of Evaluation Date of Evaluation: 11/29/17 Time of Evaluation: 06:00 - Subjective Subjective: seen by cardio improving shi bello Objective - Vital Signs/Intake and Output Vital Signs (last 24 hours): Temp Pulse Resp BP Pulse Ox 97.5 F L 73 19 89/61 L 96 11/29/17 08:00 11/29/17 04:00 11/29/17 04:00 11/29/17 10:22 11/29/17 04:00 - Medications Medications: Current Medications Aspirin (Aspirin Chewable) 81 mg PO DAILY [facility] Last Admin: 11/29/17 10:21 Dose: 81 mg Furosemide (Lasix) 40 mg PO DAILY [facility] Last Admin: 11/29/17 10:22 Dose: 40 mg Levothyroxine Sodium (Synthroid) 125 mcg PO DAILY@0630 [facility] Last Admin: 11/29/17 05:31 Dose: 125 mcg Pantoprazole Sodium (Protonix Ec Tab) 40 mg PO DAILY [facility] Last Admin: 11/29/17 10:21 Dose: 40 mg Potassium Chloride (K-Dur 20 Meq Er Tab) 20 meq PO DAILY [facility] Last Admin: 11/29/17 10:21 Dose: 20 meq Rosuvastatin Calcium (Crestor) 10 mg PO HS [facility] Last Admin: 11/28/17 21:38 Dose: 10 mg Sacubitril/Valsartan (Entresto 24 Mg-26 Mg) 1 tab PO BID [facility] Last Admin: 11/29/17 10:26 Dose: 1 tab Tamsulosin HCl (Flomax) 0.4 mg PO DAILY [facility] Last Admin: 11/29/17 10:21 Dose: 0.4 mg - Labs Labs: 11/28/17 06:02 11/28/17 06:02 PT 15.3 SECONDS (9.7-12.2) H 11/25/17 21:13 INR 1.3 11/25/17 21:13 APTT 25 SECONDS (21-34) 11/25/17 21:13 - Constitutional Appears: Non-toxic, Chronically Ill - Head Exam Head Exam: NORMOCEPHALIC - Eye Exam Eye Exam: absent: Scleral icterus - ENT Exam ENT Exam: Mucous Membranes Dry - Neck Exam Neck Exam: absent: Lymphadenopathy - Respiratory Exam Respiratory Exam: Decreased Breath Sounds - Cardiovascular Exam Cardiovascular Exam: REGULAR RHYTHM - GI/Abdominal Exam GI & Abdominal Exam: Distended, Soft Assessment and Plan (1) Hypotension (arterial) Status: Acute (2) RUBINA (acute kidney injury) Status: Acute (3) Bradycardia Status: Acute (4) CAD (coronary artery disease) Status: Acute (5) CHF exacerbation Status: Acute (6) History of PTCA Status: Acute (7) Hx of CABG Status: Acute (8) Hypothyroid Status: Acute (9) Shock Status: Acute (10) Arrhythmia Status: Acute (11) Cardiogenic shock Status: Acute (12) Shock liver Status: Acute - Assessment and Plan (Free Text) Assessment: s/p cardiogenic shock improving slowly
--- NOTE | 2017-11-29 13:54 | CP.PCM.PN ---
Subjective - Date & Time of Evaluation Date of Evaluation: 11/29/17 Time of Evaluation: 13:51 - Subjective Subjective: PT SEEN TODAY BY DR. DE SOUZA AND DR. AZAR DURING THEIR ROUNDS. PT HAS BEEN CLEARED FOR D/C HOME TODAY BY BOTH MDS. PT ALREADY HAS A F/U APPT SCHEDULED WITH BOTH MDS FOR DECEMBER 08 AND DECEMBER 09. HOME MEDS AND NEW RX DISCUSSED AT LENGTH WITH THE PT. PT VERBALIZES UNDERSTANDING TO STOP TAKING VALSARTAN, CARVEDILOL AND AMIODARONE. HE HAS BEEN RX ENTRESTO 24/26 MG PO BID PER DR. AZAR RECOMMENDATION. WILL ALSO CONTINUE KDUR X5 DAYS FOR HPOKALEMIA THIS WEEK. NO FURTHER ORDERS. PT TO P/U NEW RX UPON D/C. Objective - Vital Signs/Intake and Output Vital Signs (last 24 hours): Temp Pulse Resp BP Pulse Ox 97.5 F L 73 19 89/61 L 96 11/29/17 08:00 11/29/17 04:00 11/29/17 04:00 11/29/17 10:22 11/29/17 04:00 - Medications Medications: Current Medications Aspirin (Aspirin Chewable) 81 mg PO DAILY [facility] Last Admin: 11/29/17 10:21 Dose: 81 mg Furosemide (Lasix) 40 mg PO DAILY [facility] Last Admin: 11/29/17 10:22 Dose: 40 mg Levothyroxine Sodium (Synthroid) 125 mcg PO DAILY@0630 [facility] Last Admin: 11/29/17 05:31 Dose: 125 mcg Pantoprazole Sodium (Protonix Ec Tab) 40 mg PO DAILY [facility] Last Admin: 11/29/17 10:21 Dose: 40 mg Potassium Chloride (K-Dur 20 Meq Er Tab) 20 meq PO DAILY [facility] Last Admin: 11/29/17 10:21 Dose: 20 meq Rosuvastatin Calcium (Crestor) 10 mg PO HS [facility] Last Admin: 11/28/17 21:38 Dose: 10 mg Sacubitril/Valsartan (Entresto 24 Mg-26 Mg) 1 tab PO BID [facility] Last Admin: 11/29/17 10:26 Dose: 1 tab Tamsulosin HCl (Flomax) 0.4 mg PO DAILY [facility] Last Admin: 11/29/17 10:21 Dose: 0.4 mg - Labs Labs: 11/28/17 06:02 11/28/17 06:02 PT 15.3 SECONDS (9.7-12.2) H 11/25/17 21:13 INR 1.3 11/25/17 21:13 APTT 25 SECONDS (21-34) 11/25/17 21:13
[2017-11-29 15:12] VITALS: PULSE 78
[2017-11-29 15:13] VITALS: TEMP 97.4
[2017-11-30 16:14] VITALS: O2SAT 100
--- NOTE | 2017-12-04 12:58 | CP.PCM.DIS ---
Provider - Provider Date of Admission: 11/15/17 19:30 Attending physician: Micah De Souza MD Primary care physician: NOLVIA Consults: NISSA Time Spent in preparation of Discharge (in minutes): 45 Diagnosis - Discharge Diagnosis (1) CAD (coronary artery disease) Status: Acute (2) CHF exacerbation Status: Acute (3) Hypothyroid Status: Acute (4) Hypothyroid Status: Acute (5) Hx of CABG Status: Acute (6) Hx of CABG Status: Acute (7) History of PTCA Status: Acute (8) History of PTCA Status: Acute Hospital Course - Lab Results Lab Results: Most Recent Lab Values WBC 5.7 K/uL (4.8-10.8) 11/19/17 07:31 RBC 5.65 Mil/uL (4.40-5.90) 11/19/17 07:31 Hgb 15.0 g/dL (12.0-18.0) 11/19/17 07:31 Hct 44.9 % (35.0-51.0) 11/19/17 07:31 MCV 79.4 fL (80.0-94.0) L 11/19/17 07:31 MCH 26.5 pg (27.0-31.0) L 11/19/17 07:31 MCHC 33.3 g/dL (33.0-37.0) 11/19/17 07:31 RDW 15.7 % (11.5-14.5) H 11/19/17 07:31 Plt Count 181 K/uL (130-400) 11/19/17 07:31 MPV 8.4 fL (7.2-11.7) 11/19/17 07:31 Neut % (Auto) 61.4 % (50.0-75.0) 11/19/17 07:31 Lymph % (Auto) 20.8 % (20.0-40.0) 11/19/17 07:31 [place] % (Auto) 11.1 % (0.0-10.0) H 11/19/17 07:31 Eos % (Auto) 5.9 % (0.0-4.0) H 11/19/17 07:31 Baso % (Auto) 0.8 % (0.0-2.0) 11/19/17 07:31 Neut # (Auto) 3.5 K/uL (1.8-7.0) 11/19/17 07:31 Lymph # (Auto) 1.2 K/uL (1.0-4.3) 11/19/17 07:31 [place] # (Auto) 0.6 K/uL (0.0-0.8) 11/19/17 07:31 Eos # (Auto) 0.3 K/uL (0.0-0.7) 11/19/17 07:31 Baso # (Auto) 0.0 K/uL (0.0-0.2) 11/19/17 07:31 Sodium 135 mmol/L (132-148) 11/20/17 05:38 Potassium 4.1 mmol/L (3.6-5.2) 11/20/17 05:38 Chloride 99 mmol/L (98-107) 11/20/17 05:38 Carbon Dioxide 29 mmol/L (22-30) 11/20/17 05:38 Anion Gap 11 (10-20) 11/20/17 05:38 BUN 24 mg/dL (9-20) H 11/20/17 05:38 Creatinine 0.9 mg/dL (0.8-1.5) 11/20/17 05:38 Est GFR ( Amer) > 60 11/20/17 05:38 Est GFR (Non-Af Amer) > 60 11/20/17 05:38 POC Glucose (mg/dL) 95 mg/dL (65-110) 11/19/17 11:22 Random Glucose 105 mg/dL (75-110) 11/20/17 05:38 Calcium 8.5 mg/dl (8.6-10.4) L 11/20/17 05:38 Magnesium 2.1 mg/dL (1.6-2.3) 11/20/17 05:38 Total Bilirubin 1.1 mg/dL (0.2-1.3) 11/19/17 07:31 AST 66 U/L (17-59) H 11/19/17 07:31 ALT 72 U/L (21-72) D 11/19/17 07:31 Alkaline Phosphatase 54 U/L (38-126) 11/19/17 07:31 Total Creatine Kinase 151 U/L (55-170) 11/16/17 20:09 CK-MB (Mass) 1.18 ng/mL (0.0-3.38) 11/16/17 20:09 Troponin I 0.0260 ng/mL (0.00-0.120) 11/16/17 20:09 NT-Pro-B Natriuret Pep 7040 pg/mL (0-900) H 11/15/17 18:57 Total Protein 6.7 g/dL (6.3-8.3) 11/19/17 07:31 Albumin 3.7 g/dL (3.5-5.0) 11/19/17 07:31 Globulin 3.1 gm/dL (2.2-3.9) 11/19/17 07:31 Albumin/Globulin Ratio 1.2 (1.0-2.1) 11/19/17 07:31 Thyroxine (T4) 15.2 ug/dL (5.5-11.0) H 11/18/17 07:58 T3 Uptake 37.9 % (23.0-41.0) 11/18/17 07:58 TSH 3rd Generation 5.14 mIU/L (0.46-4.68) H 11/18/17 07:58 Influenza Typ A,B (EIA) Negative for flu a/b (NEGATIVE) 11/15/17 Unknown - Hospital Course Hospital Course: ADMITTED WITH HYPOTENSION BRADYCARDIA AND MULTISYSTEM ORGAN FAILURE DUE TO HYPOPERFUSION HEART RATE WAS IN THE 40'S AND DEFIBRILLATOR WAS INTERROGATED - FOUND TO BE SET TOO LOW IMPROVED SLOWLY AND GRADUALLY WITH ADJUSTMENT OF DEFIBRILATOR RENAL FUNCTION AND LFT'S IMPROVED DID BLOOD PRESSURE Discharge Exam - Head Exam Head Exam: NORMOCEPHALIC - Eye Exam Eye Exam: EOMI, PERRL - ENT Exam ENT Exam: Mucous Membranes Dry - Respiratory Exam Respiratory Exam: Decreased Breath Sounds - Cardiovascular Exam Cardiovascular Exam: REGULAR RHYTHM - GI/Abdominal Exam GI & Abdominal Exam: Diminished Bowel Sounds - Rectal Exam Rectal Exam: Deferred - Exam Exam: NORMAL INSPECTION - Back Exam Back exam: absent: CVA tenderness (L), CVA tenderness (R) - Neurological Exam Neurological exam: Oriented x3 - Psychiatric Exam Psychiatric exam: Normal Mood - Skin Skin Exam: Dry Discharge Plan - Discharge Medications Prescriptions: Aspirin [Ecotrin] 81 mg PO DAILY #30 tabec Furosemide 40 mg PO DAILY #30 tablet Levothyroxine [Synthroid] 125 mcg PO DAILY@0630 #30 tab - Follow Up Plan Condition: STABLE Disposition: HOME/ ROUTINE Instructions: Arrhythmias, Heart Failure, Adult (DC), Coronary Heart Disease ( DC), Cardiomyopathy (DC), Amiodarone, Aspirin, Carvedilol, Furosemide, Levothyroxine, Acute Kidney Injury (DC) Additional Instructions: -FOLLOW UP WITH DR. AZAR IN THE OFFICE WITHIN 5-7 DAYS OF DISCHARGE---CALL THE OFFICE TODAY TO MAKE AN APPOINTMENT. -FOLLOW UP WITH DR. DE SOUZA IN THE OFFICE WITHIN 5-7 DAYS OF DISCHARGE---CALL THE OFFICE TODAY TO MAKE AN APPOINTMENT. -CONTINUE YOUR HOME MEDICATIONS USUAL. -NEW PRESCRIPTIONS SENT TO YOUR PHARMACY PER DR. AZAR'S RECOMMENDATIONS INCLUDE : 1) AMIODARONE (FOR YOUR HEART) TAKE 400 MG (2 TABLETS) BY MOUTH TWICE A DAY ( MORNING AND EVENING). 2) CARVEDILOL (FOR YOUR HEART) TAKE 3.125 MG BY MOUTH TWICE A DAY (MORNING AND EVENING). 3) FUROSEMIDE (DIURETIC, WATER PILL) TAKE 40 MG BY MOUTH ONCE A DAY (MORNING). 4) ASPIRIN (TO PROTECT YOUR HEART) 81 MG BY MOUTH ONCE A DAY (MORNING). 5) PLEASE NOTE THIS CHANGE IN YOUR THYROID MEDICINE DOSESTOP TAKING YOU DOSE AT HOME, TAKE THIS NEW ONE: 125 MCG BY MOUTH ONCE A DAY (MORNING BEFORE BREAKFAST). -IF YOU HAVE ANY FURTHER CONCERNS OR QUESTIONS, CONTACT DR. AZAR AND DR. DE SOUZA. Referrals: Ana Azar MD [Staff Provider] - Micah De Souza MD [Staff Provider] -
== END 2017-11-29 15:22 | disposition home or self-care (01) | DRG 291 ==
LOC: C.ER 20:53 → C.9E 23:21 → C.9I 11-26
PROVIDERS: ADMIT Internal Medicine; ATTEND Internal Medicine
PROC: 06HY33Z Insertion of Infusion Device into Lower Vein, Percutaneous Approach (ICD-10-PCS; principal; 2017-11-25)
DX: I11.0 Hypertensive heart disease with heart failure (principal); R57.0 Cardiogenic shock; K72.00 Acute and subacute hepatic failure without coma; T82.198A Other mechanical complication of other cardiac electronic device, initial encounter; N17.9 Acute kidney failure, unspecified; E05.90 Thyrotoxicosis, unspecified without thyrotoxic crisis or storm; I25.5 Ischemic cardiomyopathy; I25.10 Atherosclerotic heart disease of native coronary artery without angina pectoris; Z95.1 Presence of aortocoronary bypass graft; E03.9 Hypothyroidism, unspecified; E78.00 Pure hypercholesterolemia, unspecified; I50.9 Heart failure, unspecified; E78.5 Hyperlipidemia, unspecified; Z45.02 Encounter for adjustment and management of automatic implantable cardiac defibrillator; Y71.2 Prosthetic and other implants, materials and accessory cardiovascular devices associated with adverse incidents

== ENCOUNTER 2018-02-09 19:27 | Inpatient (IN) | payer MEDICARE, OTHER ==
[2018-02-09 19:27] VITALS: BMI 22.8
--- NOTE | 2018-02-09 19:52 | C.PDOC ---
History Of Present Illness The patient presents to the ED for evaluation of shortness of breath which has been worsening since onset around one month ago. Patient reports dyspnea on exertion and states he has been compliant with diuretics. Patient states he usually sleeps using one (occasionally two) pillows. Patient denies fever, chills, nausea, vomiting, or recent prolonged trips. Time Seen by Provider: 02/09/18 19:52 Chief Complaint (Nursing): Shortness Of Breath History Per: Patient History/Exam Limitations: no limitations Onset/Duration Of Symptoms: Other (around one month ) Current Symptoms Are (Timing): Worse Quality: denies: "Pain" Exacerbating Factor(s): Exertion Current Respiratory Medications: See Home Med List Severity: Severe Pain Scale Rating Of: 7 Associated Symptoms: denies: Fever, Chills Reports Recently: Treated By A Physician Recent travel outside of the [place]: No Additional History Per: Patient Past Medical History Reviewed: Historical Data, Nursing Documentation, Vital Signs Vital Signs: Last Vital Signs Temp 97.6 F 02/09/18 19:39 Pulse 98 H 02/09/18 20:55 Resp 20 02/09/18 20:55 BP 100/63 02/09/18 20:55 Pulse Ox 99 02/09/18 21:09 - Medical History PMH: HTN, Hypercholesterolemia, Hyperthyroidism, Hypothyroidism Denies: Chronic Kidney Disease Surgical History: CABG (1997) - [facility] Procedures INSERTION OF INFUSION DEVICE INTO LOWER VEIN, PERC APPROACH (11/25/17) PTERYGIUM EXCISION NEC (07/13/01) Family History: States: Unknown Family Hx - Social History Hx Alcohol Use: No Hx Substance Use: No - Immunization History Hx Tetanus Toxoid Vaccination: Yes Hx Influenza Vaccination: Yes Hx Pneumococcal Vaccination: Yes Review Of Systems Constitutional: Negative for: Fever, Chills Cardiovascular: Negative for: Chest Pain, Palpitations Respiratory: Positive for: Shortness of Breath, SOB with Excertion. Negative for: Cough Gastrointestinal: Negative for: Nausea, Vomiting Skin: Negative for: Rash, Lesions, Jaundice, Bruising Neurological: Negative for: Weakness, Numbness Psych: Negative for: Anxiety Physical Exam - Physical Exam Appears: Non-toxic, No Acute Distress Skin: Warm, Dry Head: Normacephalic Eye(s): bilateral: Normal Inspection Oral Mucosa: Dry Neck: Trachea Midline, Supple Chest: Symmetrical, No Deformity, No Tenderness Cardiovascular: Rhythm Regular, No Murmur Respiratory: Rales (at bilateral bases ), No Rhonchi, No Wheezing, Other ( speaking in complete sentences ) Gastrointestinal/Abdominal: Soft, No Tenderness, No Guarding, No Rebound Back: Normal Inspection Extremity: Normal ROM, Pedal Edema (bilaterally ), Capillary Refill (less than 2 seconds ) Extremity: Bilateral: Atraumatic Pulses: Left Dorsalis Pedis: Normal, Right Dorsalis Pedis: Normal Neurological/Psych: Oriented x3 Gait: Steady ED Course And Treatment - Laboratory Results Result Diagrams: 02/09/18 20:10 02/09/18 20:10 ECG: Interpreted By Me, Viewed By Me ECG Rhythm: Sinus Rhythm (93), Nonspecific Changes O2 Sat by Pulse Oximetry: 99 (on RA) Pulse Ox Interpretation: Normal - Radiology CXR: Interpreted by Me, Viewed By Me CXR Interpretation: Yes: Cardiomegaly, Other (mild vasc congestion, pacer left chest, cabg). No: Infiltrates Progress Note: Bloodwork, urinalusis, CXR, EKG ordered and reviewed. 9:[address] orourke, cardiology, - aware of all clinical data/ will do echo in am Critical Care Time - Critical Care Note Total Time (in mins): 30 Documented critical care: time excludes all time spent performing seperately billable procedures. Disposition Discussed With : Debby Bahena Comment: accepted the pt on his service and took over the care at 9:05 PM Doctor Will See Patient In The: Hospital Counseled Patient/Family Regarding: Studies Performed, Diagnosis - Disposition Disposition: HOSPITALIZED Disposition Time: 19:52 Condition: GUARDED - POA Present On Arrival: Poor Glycemic Control - Clinical Impression Clinical Impression: Dyspnea, CHF exacerbation, Renal insufficiency, NSTEMI (non-ST elevated myocardial infarction) - Scribe Statement The provider has reviewed the documentation as recorded by the Scribe (Concepción Bahena) Provider Attestation: All medical record entries made by the Scribe were at my direction and personally dictated by me. I have reviewed the chart and agree that the record accurately reflects my personal performance of the history, physical exam, medical decision making, and the department course for this patient. I have also personally directed, reviewed, and agree with the discharge instructions and disposition. Decision To Admit - Pt Status Changed To: Hospital Disposition Of: Inpatient - Admit Certification Admit to Inpatient:: After my assessment, the patient will require hospitalization for at least two midnights. This is because of the severity of symptoms shown, intensity of services needed, and/or the medical risk in this patient being treated as an outpatient. - InPatient: Physician Admission Certification: I certify that this patient requires 2 or more midnights of care for the following reason:: After my assessment, the patient will require hospitalization for at least two midnights. This is because of the severity of symptoms shown, intensity of services needed, and/or the medical risk in this patient being treated as an outpatient. - . Bed Request Type: Telemetry Admitting Physician: Debby Bahena Patient Diagnosis: Dyspnea, CHF exacerbation, Renal insufficiency, NSTEMI (non-ST elevated myocardial infarction)
[2018-02-09 20:15] LABS: BASO # 0.1 K/uL (0.0-0.2); EOS # 0.2 K/uL (0.0-0.7); EOS % 3.9 % (0.0-4.0); HEMOGLOBIN 13.9 g/dL (12.0-18.0); LYMPH # 0.8 K/uL (1.0-4.3); LYMPH % 15.6 % (20.0-40.0); MEAN CELL VOLUME 76.6 fL (80.0-94.0); MEAN CORPUSCULAR HEMOGLOBIN 25.3 pg (27.0-31.0); MEAN PLATELET VOLUME 9.8 fL (7.2-11.7); MONO # 0.5 K/uL (0.0-0.8); MONO % 10.3 % (0.0-10.0); NEUT # 3.4 K/uL (1.8-7.0); NEUT % 68.2 % (50.0-75.0); NRBC % 0.1 % (0.0-2.0); RBC 5.5 Mil/uL (4.40-5.90); RED CELL DISTRIBUTION WIDTH 18.7 % (11.5-14.5)
[2018-02-09 20:27] LABS: ALBUMIN 3.7 g/dL (3.5-5.0); CALCIUM 8.7 mg/dl (8.6-10.4)
[2018-02-09 20:27] LABS: VENOUS BLOOD GAS BASE EXCESS -1.7 mmol/L (0.0-2.0); VENOUS BLOOD GAS PCO2 38 mmHg (40-60); VENOUS BLOOD GAS PO2 33 mm/Hg (30-55); VENOUS BLOOD PH 7.39 (7.32-7.43)
[2018-02-09 20:29] LABS: INR 1.3; PROTHROMBIN TIME 14.1 SECONDS (9.7-12.2)
[2018-02-09 20:33] LABS: SQUAMOUS EPITHIAL < 1 /hpf (0-5); URINE BILIRUBIN NEGATIVE (NEGATIVE); URINE BLOOD NEGATIVE (NEGATIVE); URINE CLARITY Clear (Clear); URINE COLOR Yellow (YELLOW); URINE GLUCOSE (UA) NORMAL (Normal); URINE LEUKOCYTE ESTERASE NEG Leu/uL (Negative); URINE PROTEIN 1+ mg/dL (NEGATIVE); URINE UROBILINOGEN NORMAL mg/dL (0.2-1.0)
[2018-02-09 20:48] LABS: TROPONIN I 0.575 ng/mL (0.00-0.120)
[2018-02-09] MEDS ORDERED: Home Med 1 UNIT (Atorvastatin [Lipitor] 40 MG) PO SCH (22:00)
--- NOTE | 2018-02-10 04:42 | HP ---
HISTORY OF PRESENT ILLNESS: This is a 72-year-old [place] male, came to the emergency room with history of increasing shortness of breath for the last 1 month. The patient reports dyspnea on exertion and states he has been compliant with medications. The patient also states he usually sleeps using 1 or 2 pillows. The patient denies having any swelling of the legs. The patient denies fevers, chills, nausea, vomiting. REVIEW OF SYSTEMS: CARDIOVASCULAR SYSTEM: As mentioned above. RESPIRATORY SYSTEM: Positive for shortness of breath. GI SYSTEM: Negative for nausea, vomiting, abdominal pain. ASSOCIATE DIRECTOR OF SALES: No focal neurological complaints offered. EXTREMITIES: No edema of the legs. CONSTITUTIONAL: No fever or chills. GENITOURINARY: No urinary complaints. PSYCHIATRICAL: The patient is stable. All other systems are negative. PAST MEDICAL HISTORY: History of hypertension, hypercholesterolemia, hypothyroidism, mild renal insufficiency. MEDICATIONS: The patient's medications are reviewed by me. ALLERGIES: NO KNOWN ALLERGIES. FAMILY HISTORY: No known inherited disease. SOCIAL HISTORY: Nonsmoker. Nonalcoholic. No IVDA. PHYSICAL EXAMINATION GENERAL: This is a 72-year-old [place] male, tachypneic, dyspneic. VITAL SIGNS: Temperature 97.6, pulse 98, respirations 20, and blood pressure 100/63 mmHg, pulse ox 100% on room air. HEENT: Normal. JVP is flat. Carotids no bruits. LUNGS: Rales present. No wheezing. HEART: S1, S2 normal. No gallop. No murmur. ABDOMEN: Soft, nontender. No organomegaly. ASSOCIATE DIRECTOR [employer] SALES: No focal neurological deficits. EXTREMITIES: No edema of the legs. LABORATORY DATA: On admission, EKG shows normal sinus rhythm. No acute ST-T changes. Nonspecific ST-T changes present. Chest x-ray shows mild pulmonary congestion. BUN is 53 and creatinine 1.6. Potassium is 5.3. IMPRESSION: Dyspnea. Congestive heart failure exacerbation. Renal insufficiency. Non-ST elevated myocardial infarction. Hypothyroidism. PLAN: The patient will be admitted to telemetry bed. We will continue medications. We will get consult with Dr. Karl An for possible cardiac catheterization. We will also get consult with Dr. Chandra for renal evaluation. Debby Bahena MD [facility] # [phone]
[2018-02-10] MEDS ORDERED: Levothyroxine 125 MCG TAB PO SCH (06:30)
--- NOTE | 2018-02-10 07:53 | RAD ---
Chest x-ray single frontal view History: Shortness of breath. Comparison: 11/25/2017 Findings: Biapical pleural thickening with upper lobe granulomatous changes. Moderate venous congestion. Right hilar prominence. Patchy increased markings at the left lung base with small left pleural effusion. Status post median sternotomy. Calcification at the aortic knob. Cardiomegaly. Left-sided pacemaker. Degenerative changes in the spine and shoulders. Impression: Biapical pleural thickening with upper lobe granulomatous changes. Moderate venous congestion. Right hilar prominence. Patchy increased markings at the left lung base with small left pleural effusion. Status post median sternotomy. Calcification at the aortic knob. Cardiomegaly. Left-sided pacemaker.
--- NOTE | 2018-02-10 07:53 | CP.PCM.CON ---
History of Present Illness - History of Present Illness History of Present Illness: I was asked to evaluate patient by Dr Jonathan Bahena for possible cardiac cath. Patient seen examined. patint is a 72 year old male with PMH CAD s/p CABG, ischemic cardiomyopathy s/p AICD who presents with progressive dyspnea. Symptoms began about 2 weeks ago, and are described as worsening with walking one block. The patient states he developed progressive lower extremity edema. He presented and was found to have elevated pro BNP. The patient was also found to have elevated BUN/ creatinine. Review of Systems - Constitutional Constitutional: absent: As Per HPI, Anorexia, Chills, Daytime Sleepiness, Excessive Sweating, Fatigue, Fever, Frequent Falls, Headache, Increased Appetite , Lethargy, Malaise, Night Sweats, Snoring, Sleep Apnea, Weight Gain, Weight Loss, Weakness, Other - EENT Eyes: absent: As Per HPI, Blind Spots, Blurred Vision, Change in Vision, Decreased Night Vision, Diplopia, Discharge, Dry Eye, Exophthalmos, Floaters, Irritation, Itchy Eyes, Loss of Peripheral Vision, Pain, Photophobia, Requires Corrective Lenses, Sees Flashes, Spots in Vision, Tunnel Vision, Other Visual Disturbances, Loss of Vision, Other Ears: absent: As Per HPI, Decreased Hearing, Ear Discharge, Ear Pain, Tinnitus, Abnormal Hearing, Disequilibrium, Dizziness, Other Nose/Mouth/Throat: absent: As Per HPI, Epistaxis, Nasal Congestion, Nasal Discharge, Nasal Obstruction, Nasal Trauma, Nose Pain, Post Nasal Drip, Sinus Pain, Sinus Pressure, Bleeding Gums, Change in Voice, Dental Pain, Dry Mouth, Dysphagia, Halitosis, Hoarsness, Lip Swelling, Mouth Lesions, Mouth Pain, Odynophagia, Sore Throat, Throat Swelling, Tongue Swelling, Facial Pain, Neck Pain, Neck Mass, Other - Cardiovascular Cardiovascular: Dyspnea, Dyspnea on Exertion, Leg Edema - Respiratory Respiratory: Dyspnea - Gastrointestinal Gastrointestinal: absent: As Per HPI, Abdominal Pain, Belching, Bloating, Change in Bowel Habits, Change in Stool Character, Coffee Ground Emesis, Constipation, Cramping, Diarrhea, Dyspepsia, Dysphagia, Early Satiety, Excessive Flatus, Fecal Incontinence, Heartburn, Hematemesis, Hematochezia, Loose Stools, Melena, Nausea, Odynophagia, Temesmus, Vomiting, Other - Genitourinary Genitourinary: absent: As Per HPI, Change in Urinary Stream, Difficulty Urinating, Dysuria, Flank Pain, Hematuria, Pyuria, Nocturia, Urinary Incontinence, Urinary Frequency, Urinary Hesitance, Urinary Urgency, Voiding Freq/Small Amts, Freq UTI, Hx Renal/Bladder Calculi, Hx /Renal Surgery, Bladder Distension, Other - Musculoskeletal Musculoskeletal: absent: As Per HPI, Abnormal Gait, Arthralgias, Atrophy, Back Pain, Deformity, Joint Swelling, Limited Range of Motion, Loss of Height, Muscle Cramps, Muscle Weakness, Myalgias, Neck Pain, Numbness, Radiating Pain into Limb, Stiffness, Tingling, Other - Integumentary Integumentary: absent: As Per HPI, Acne, Alopecia, Bleeding Lesions, Change in Hair, Change in Nails, Change in Pigmentation, Changing Lesions, Dry Skin, Erythema, Furuncle, Hirsutism, Lesions, New Lesions, Non-Healing Lesions, Photosensitivity, Pruritus, Rash, Skin Pain, Skin Ulcer, Sores, Striae, Swelling , Unusual Bruising, Wounds, Jaundice, Other - Neurological Neurological: absent: As Per HPI, Abnormal Gait, Abnormal Hearing, Abnormal Movements, Abnormal Speech, Behavioral Changes, Burning Sensations, Confusion, Convulsions, Disequilibrium, Dizziness, Numbness, Focal Weakness, Frequent Falls , Headaches, Lack of Coordination, Loss of Vision, Memory Loss, Paresthesias, Radicular Pain, Restless Legs, Sensory Deficit, Syncope, Tingling, Tremor, Vertigo, Weakness, Other Visual Disturbances, Other - Psychiatric Psychiatric: absent: As Per HPI, Abnormal Sleep Pattern, Anhedonia, Anxiety, Auditory Hallucinations, Behavioral Changes, Change in Appetite, Change in Libido, Confusion, Depression, Difficulty Concentrating, Hallucinations, Homicidal Ideation, Hopelessness, Irritability, Memory Loss, Mood Swings, Panic Attacks, Paranoia, Suicidal Ideation, Visual Hallucinations, Tactile Hallucinations, Other - Endocrine Endocrine: absent: As Per HPI, Change in Body Appearance, Change in Libido, Cold Intolorance, Deepening of Voice, Excessive Sweating, Fatigue, Flushing, Heat Intolorance, Increase in Ring/Shoe/Hat Size, Palpitations, Polydipsia, Polyphagia, Polyuria, Other - Hematologic/Lymphatic Hematologic: absent: As Per HPI, Easy Bleeding, Easy Bruising, Lymphadenopathy, Other Past Patient History - Infectious Disease Hx of Infectious Diseases: None - Past Medical History & Family History Past Medical History?: Yes - Past Social History Smoking Status: Never Smoked - CARDIAC Hx Congestive Heart Failure: Yes Hx Hypercholesterolemia: Yes Hx Hypertension: Yes Other/Comment: Hx CABG /ACID - PULMONARY Hx Respiratory Disorders: No - NEUROLOGICAL Hx Neurological Disorder: No - HEENT Hx HEENT Problems: No - RENAL Hx Chronic Kidney Disease: No - ENDOCRINE/METABOLIC Hx Endocrine Disorders: Yes Hx Hyperthyroidism: Yes Hx Hypothyroidism: Yes - HEMATOLOGICAL/ONCOLOGICAL Hx Blood Disorders: No - INTEGUMENTARY Hx Dermatological Problems: No - MUSCULOSKELETAL/RHEUMATOLOGICAL Hx Musculoskeletal Disorders: No Hx Falls: No - GASTROINTESTINAL Hx Gastrointestinal Disorders: No - GENITOURINARY/GYNECOLOGICAL Hx Genitourinary Disorders: No - PSYCHIATRIC Hx Psychophysiologic Disorder: No Hx Substance Use: No - SURGICAL HISTORY Hx Surgeries: Yes Hx Coronary Artery Bypass Graft: Yes (1997) Other/Comment: Has internal defibrillator left chest - ANESTHESIA Hx Anesthesia: Yes Hx Anesthesia Reactions: No Hx Malignant Hyperthermia: No Meds Allergies/Adverse Reactions: Allergies Allergy/AdvReac Type Severity Reaction Status Date / Time No Known Allergies Allergy Verified 02/09/18 19:42 - Medications Medications: Current Medications Aspirin (Ecotrin) 81 mg PO DAILY [facility] Enoxaparin Sodium (Lovenox) 40 mg SC DAILY [facility] Finasteride (Proscar) 5 mg PO DAILY [facility] Levothyroxine Sodium (Synthroid) 125 mcg PO DAILY@0630 [facility] Last Admin: 02/10/18 06:08 Dose: 125 mcg Metolazone (Zaroxolyn) 2.5 mg PO BID [facility] Rosuvastatin Calcium (Crestor) 20 mg PO HS [facility] Last Admin: 02/09/18 22:48 Dose: 20 mg Sacubitril/Valsartan (Entresto 49 Mg-51 Mg) 1 tab PO BID [facility] Physical Exam - Constitutional Appears: Non-toxic - Head Exam Head Exam: NORMAL INSPECTION - Eye Exam Eye Exam: Normal appearance - ENT Exam ENT Exam: Mucous Membranes Moist - Neck Exam Neck exam: Positive for: Full Rom - Respiratory Exam Respiratory Exam: Decreased Breath Sounds - Cardiovascular Exam Cardiovascular Exam: REGULAR RHYTHM - GI/Abdominal Exam GI & Abdominal Exam: Normal Bowel Sounds - Rectal Exam Rectal Exam: Deferred - Extremities Exam Extremities exam: Positive for: pedal edema - Back Exam Back exam: NORMAL INSPECTION - Neurological Exam Neurological exam: Alert, Oriented x3 - Psychiatric Exam Psychiatric exam: Normal Affect - Skin Skin Exam: Normal Color Results - Vital Signs Recent Vital Signs: Last Vital Signs Temp 97.8 F 02/10/18 04:00 Pulse 93 H 02/10/18 05:05 Resp 20 02/10/18 04:00 BP 90/63 L 02/10/18 04:00 Pulse Ox 97 02/10/18 04:00 - Labs Result Diagrams: 02/09/18 20:10 02/09/18 20:10 Labs: Laboratory Results - last 24 hr 02/09/18 02/09/18 02/09/18 20:10 20:10 20:10 WBC 5.0 RBC 5.50 Hgb 13.9 Hct 42.1 MCV 76.6 L D MCH 25.3 L MCHC 33.0 RDW 18.7 H Plt Count 134 MPV 9.8 Neut % (Auto) 68.2 Lymph % (Auto) 15.6 L [place] % (Auto) 10.3 H Eos % (Auto) 3.9 Baso % (Auto) 2.0 Neut # (Auto) 3.4 Lymph # (Auto) 0.8 L [place] # (Auto) 0.5 Eos # (Auto) 0.2 Baso # (Auto) 0.1 PT 14.1 H INR 1.3 APTT 34 pO2 VBG pH VBG pCO2 VBG HCO3 VBG Total CO2 VBG O2 Sat (Calc) VBG Base Excess VBG Potassium Glucose Lactate Sodium Potassium Chloride Carbon Dioxide Anion Gap BUN Creatinine Est GFR ( Amer) Est GFR (Non-Af Amer) POC Glucose (mg/dL) Random Glucose Calcium Total Bilirubin AST ALT Alkaline Phosphatase Troponin I NT-Pro-B Natriuret Pep Total Protein Albumin Globulin Albumin/Globulin Ratio TSH 3rd Generation Venous Blood Potassium Urine Color Yellow Urine Clarity Clear Urine pH 5.0 Ur Specific [place] 1.009 Urine Protein 1+ H Urine Glucose (UA) Normal Urine Ketones Negative Urine Blood Negative Urine Nitrate Negative Urine Bilirubin Negative Urine Urobilinogen Normal Ur Leukocyte Esterase Neg Urine WBC (Auto) 1 Urine RBC (Auto) < 1 Ur Squamous Epith Cells < 1 Hyaline Casts 6-10 H 02/09/18 02/09/18 02/09/18 20:10 20:20 20:22 WBC RBC Hgb Hct MCV MCH MCHC RDW Plt Count MPV Neut % (Auto) Lymph % (Auto) [place] % (Auto) Eos % (Auto) Baso % (Auto) Neut # (Auto) Lymph # (Auto) [place] # (Auto) Eos # (Auto) Baso # (Auto) PT INR APTT pO2 33 VBG pH 7.39 VBG pCO2 38 L VBG HCO3 22.7 VBG Total CO2 24.2 VBG O2 Sat (Calc) 59.4 VBG Base Excess -1.7 L VBG Potassium 4.4 Glucose 133 H Lactate 2.2 H Sodium 139 135.0 Potassium 5.3 H Chloride 103 101.0 Carbon Dioxide 22 Anion Gap 20 BUN 53 H Creatinine 1.6 H Est GFR ( Amer) 52 Est GFR (Non-Af Amer) 43 POC Glucose (mg/dL) 127 H Random Glucose 119 H Calcium 8.7 Total Bilirubin 1.5 H AST 52 ALT 42 Alkaline Phosphatase 89 Troponin I 0.5750 H* NT-Pro-B Natriuret Pep 94924 H Total Protein 7.4 Albumin 3.7 Globulin 3.7 Albumin/Globulin Ratio 1.0 TSH 3rd Generation 20.50 H Venous Blood Potassium 4.4 Urine Color Urine Clarity Urine pH Ur Specific [place] Urine Protein Urine Glucose (UA) Urine Ketones Urine Blood Urine Nitrate Urine Bilirubin Urine Urobilinogen Ur Leukocyte Esterase Urine WBC (Auto) Urine RBC (Auto) Ur Squamous Epith Cells Hyaline Casts 02/10/18 04:53 WBC RBC Hgb Hct MCV MCH MCHC RDW Plt Count MPV Neut % (Auto) Lymph % (Auto) [place] % (Auto) Eos % (Auto) Baso % (Auto) Neut # (Auto) Lymph # (Auto) [place] # (Auto) Eos # (Auto) Baso # (Auto) PT INR APTT pO2 VBG pH VBG pCO2 VBG HCO3 VBG Total CO2 VBG O2 Sat (Calc) VBG Base Excess VBG Potassium Glucose Lactate Sodium Potassium Chloride Carbon Dioxide Anion Gap BUN Creatinine Est GFR ( Amer) Est GFR (Non-Af Amer) POC Glucose (mg/dL) Random Glucose Calcium Total Bilirubin AST ALT Alkaline Phosphatase Troponin I 0.6390 H* NT-Pro-B Natriuret Pep Total Protein Albumin Globulin Albumin/Globulin Ratio TSH 3rd Generation Venous Blood Potassium Urine Color Urine Clarity Urine pH Ur Specific [place] Urine Protein Urine Glucose (UA) Urine Ketones Urine Blood Urine Nitrate Urine Bilirubin Urine Urobilinogen Ur Leukocyte Esterase Urine WBC (Auto) Urine RBC (Auto) Ur Squamous Epith Cells Hyaline Casts - EKG Data EKG Interpreted by: Myself Assessment & Plan (1) CHF exacerbation Assessment and Plan: patient appears to have acute on chronic systolic dysfunction. recommend echocardiogram to assess LV function. Status: Acute (2) NSTEMI (non-ST elevated myocardial infarction) Assessment and Plan: patient has a history of CABG. he will benefit from cardiac cath, however he has renal insufficiency. There is a risk of contrast induced nephropathy. I will await renal consultation and recommendations before proceeding with cath. Status: Acute (3) Renal insufficiency Assessment and Plan: as above Status: Acute
[2018-02-10] MEDS: Sacubitril/Valsartan 49-51 Tab PO SCH ×2 (09:39→17:33)
[2018-02-10] MEDS: metOLazone 2.5 MG TAB PO SCH ×2 (09:40→17:33)
[2018-02-10] MEDS: Enoxaparin 40 mg Syringe SC SCH (09:40)
[2018-02-10] MEDS ORDERED: Potassium Chloride 20 mEq ER Tab PO SCH (10:00)
--- NOTE | 2018-02-10 10:56 | CP.PCM.CON ---
History of Present Illness - History of Present Illness History of Present Illness: pt is seen and examined,full consult is dictated #[id number] 1. ckd-3 sec to poor lvef 2. chf 3. cadiomyopathy 4. cad 5. htn c/w metolazone consider to add lasix 20 mg po bid restrict fluids to 1lit/day check u/s kidneys 24 hr up,cr cr cl Past Patient History - Infectious Disease Hx of Infectious Diseases: None - Past Medical History & Family History Past Medical History?: Yes - Past Social History Smoking Status: Never Smoked - CARDIAC Hx Congestive Heart Failure: Yes Hx Hypercholesterolemia: Yes Hx Hypertension: Yes Other/Comment: Hx CABG /ACID - PULMONARY Hx Respiratory Disorders: No - NEUROLOGICAL Hx Neurological Disorder: No - HEENT Hx HEENT Problems: No - RENAL Hx Chronic Kidney Disease: No - ENDOCRINE/METABOLIC Hx Endocrine Disorders: Yes Hx Hyperthyroidism: Yes Hx Hypothyroidism: Yes - HEMATOLOGICAL/ONCOLOGICAL Hx Blood Disorders: No - INTEGUMENTARY Hx Dermatological Problems: No - MUSCULOSKELETAL/RHEUMATOLOGICAL Hx Musculoskeletal Disorders: No Hx Falls: No - GASTROINTESTINAL Hx Gastrointestinal Disorders: No - GENITOURINARY/GYNECOLOGICAL Hx Genitourinary Disorders: No - PSYCHIATRIC Hx Psychophysiologic Disorder: No Hx Substance Use: No - SURGICAL HISTORY Hx Surgeries: Yes Hx Coronary Artery Bypass Graft: Yes (1997) Other/Comment: Has internal defibrillator left chest - ANESTHESIA Hx Anesthesia: Yes Hx Anesthesia Reactions: No Hx Malignant Hyperthermia: No Meds Allergies/Adverse Reactions: Allergies Allergy/AdvReac Type Severity Reaction Status Date / Time No Known Allergies Allergy Verified 02/09/18 19:42 - Medications Medications: Current Medications Aspirin (Ecotrin) 81 mg PO DAILY [facility] Last Admin: 02/10/18 09:39 Dose: 81 mg Enoxaparin Sodium (Lovenox) 40 mg SC DAILY [facility] Last Admin: 02/10/18 09:40 Dose: 40 mg Finasteride (Proscar) 5 mg PO DAILY [facility] Last Admin: 02/10/18 09:39 Dose: 5 mg Levothyroxine Sodium (Synthroid) 125 mcg PO DAILY@0630 [facility] Last Admin: 02/10/18 06:08 Dose: 125 mcg Metolazone (Zaroxolyn) 2.5 mg PO BID [facility] Last Admin: 02/10/18 09:40 Dose: 2.5 mg Rosuvastatin Calcium (Crestor) 20 mg PO HS [facility] Last Admin: 02/09/18 22:48 Dose: 20 mg Sacubitril/Valsartan (Entresto 49 Mg-51 Mg) 1 tab PO BID [facility] Last Admin: 02/10/18 09:39 Dose: 1 tab Results - Vital Signs Recent Vital Signs: Last Vital Signs Temp 97.6 F 02/10/18 07:00 Pulse 86 02/10/18 08:34 Resp 18 02/10/18 07:00 BP 100/61 02/10/18 07:00 Pulse Ox 96 02/10/18 07:00 - Labs Result Diagrams: 02/09/18 20:10 02/09/18 20:10 Labs: Laboratory Results - last 24 hr 02/09/18 02/09/18 02/09/18 20:10 20:10 20:10 WBC 5.0 RBC 5.50 Hgb 13.9 Hct 42.1 MCV 76.6 L D MCH 25.3 L MCHC 33.0 RDW 18.7 H Plt Count 134 MPV 9.8 Neut % (Auto) 68.2 Lymph % (Auto) 15.6 L [place] % (Auto) 10.3 H Eos % (Auto) 3.9 Baso % (Auto) 2.0 Neut # (Auto) 3.4 Lymph # (Auto) 0.8 L [place] # (Auto) 0.5 Eos # (Auto) 0.2 Baso # (Auto) 0.1 PT 14.1 H INR 1.3 APTT 34 pO2 VBG pH VBG pCO2 VBG HCO3 VBG Total CO2 VBG O2 Sat (Calc) VBG Base Excess VBG Potassium Glucose Lactate Sodium Potassium Chloride Carbon Dioxide Anion Gap BUN Creatinine Est GFR ( Amer) Est GFR (Non-Af Amer) POC Glucose (mg/dL) Random Glucose Calcium Total Bilirubin AST ALT Alkaline Phosphatase Troponin I NT-Pro-B Natriuret Pep Total Protein Albumin Globulin Albumin/Globulin Ratio TSH 3rd Generation Venous Blood Potassium Urine Color Yellow Urine Clarity Clear Urine pH 5.0 Ur Specific [place] 1.009 Urine Protein 1+ H Urine Glucose (UA) Normal Urine Ketones Negative Urine Blood Negative Urine Nitrate Negative Urine Bilirubin Negative Urine Urobilinogen Normal Ur Leukocyte Esterase Neg Urine WBC (Auto) 1 Urine RBC (Auto) < 1 Ur Squamous Epith Cells < 1 Hyaline Casts 6-10 H 05/02/09/18 02/09/18 20:10 20:20 20:22 WBC RBC Hgb Hct MCV MCH MCHC RDW Plt Count MPV Neut % (Auto) Lymph % (Auto) [place] % (Auto) Eos % (Auto) Baso % (Auto) Neut # (Auto) Lymph # (Auto) [place] # (Auto) Eos # (Auto) Baso # (Auto) PT INR APTT pO2 33 VBG pH 7.39 VBG pCO2 38 L VBG HCO3 22.7 VBG Total CO2 24.2 VBG O2 Sat (Calc) 59.4 VBG Base Excess -1.7 L VBG Potassium 4.4 Glucose 133 H Lactate 2.2 H Sodium 139 135.0 Potassium 5.3 H Chloride 103 101.0 Carbon Dioxide 22 Anion Gap 20 BUN 53 H Creatinine 1.6 H Est GFR ( Amer) 52 Est GFR (Non-Af Amer) 43 POC Glucose (mg/dL) 127 H Random Glucose 119 H Calcium 8.7 Total Bilirubin 1.5 H AST 52 ALT 42 Alkaline Phosphatase 89 Troponin I 0.5750 H* NT-Pro-B Natriuret Pep 70236 H Total Protein 7.4 Albumin 3.7 Globulin 3.7 Albumin/Globulin Ratio 1.0 TSH 3rd Generation 20.50 H Venous Blood Potassium 4.4 Urine Color Urine Clarity Urine pH Ur Specific [place] Urine Protein Urine Glucose (UA) Urine Ketones Urine Blood Urine Nitrate Urine Bilirubin Urine Urobilinogen Ur Leukocyte Esterase Urine WBC (Auto) Urine RBC (Auto) Ur Squamous Epith Cells Hyaline Casts 02/10/18 04:53 WBC RBC Hgb Hct MCV MCH MCHC RDW Plt Count MPV Neut % (Auto) Lymph % (Auto) [place] % (Auto) Eos % (Auto) Baso % (Auto) Neut # (Auto) Lymph # (Auto) [place] # (Auto) Eos # (Auto) Baso # (Auto) PT INR APTT pO2 VBG pH VBG pCO2 VBG HCO3 VBG Total CO2 VBG O2 Sat (Calc) VBG Base Excess VBG Potassium Glucose Lactate Sodium Potassium Chloride Carbon Dioxide Anion Gap BUN Creatinine Est GFR ( Amer) Est GFR (Non-Af Amer) POC Glucose (mg/dL) Random Glucose Calcium Total Bilirubin AST ALT Alkaline Phosphatase Troponin I 0.6390 H* NT-Pro-B Natriuret Pep Total Protein Albumin Globulin Albumin/Globulin Ratio TSH 3rd Generation Venous Blood Potassium Urine Color Urine Clarity Urine pH Ur Specific [place] Urine Protein Urine Glucose (UA) Urine Ketones Urine Blood Urine Nitrate Urine Bilirubin Urine Urobilinogen Ur Leukocyte Esterase Urine WBC (Auto) Urine RBC (Auto) Ur Squamous Epith Cells Hyaline Casts
[2018-02-10] MEDS ORDERED: Perflutren Lipid Microsphere 1.5 ML SUS IV ONE (12:45)
--- NOTE | 2018-02-10 14:04 | CP.PCM.PN ---
Subjective - Date & Time of Evaluation Date of Evaluation: 02/10/18 Time of Evaluation: 12:25 - Subjective Subjective: PT SOB AT REST. CABG. CARDIOMYOPATHY. AICD IMPLANT. ELEVATED TROPONIN. CHRONICALLY ILL. Objective - Vital Signs/Intake and Output Vital Signs (last 24 hours): Temp Pulse Resp BP Pulse Ox 97.6 F 95 H 18 100/61 96 02/10/18 07:00 02/10/18 12:00 02/10/18 07:00 02/10/18 07:00 02/10/18 07:00 Intake and Output: 02/10/18 02/10/18 06:59 18:59 Intake Total 100 Output Total 300 Balance -200 - Medications Medications: Current Medications Aspirin (Ecotrin) 81 mg PO DAILY [facility] Last Admin: 02/10/18 09:39 Dose: 81 mg Enoxaparin Sodium (Lovenox) 40 mg SC DAILY [facility] Last Admin: 02/10/18 09:40 Dose: 40 mg Finasteride (Proscar) 5 mg PO DAILY [facility] Last Admin: 02/10/18 09:39 Dose: 5 mg Levothyroxine Sodium (Synthroid) 125 mcg PO DAILY@0630 [facility] Last Admin: 02/10/18 06:08 Dose: 125 mcg Metolazone (Zaroxolyn) 2.5 mg PO BID [facility] Last Admin: 02/10/18 09:40 Dose: 2.5 mg Rosuvastatin Calcium (Crestor) 20 mg PO HS [facility] Last Admin: 02/09/18 22:48 Dose: 20 mg Sacubitril/Valsartan (Entresto 49 Mg-51 Mg) 1 tab PO BID [facility] Last Admin: 02/10/18 09:39 Dose: 1 tab - Labs Labs: 02/09/18 20:10 02/09/18 20:10 PT 14.1 SECONDS (9.7-12.2) H 02/09/18 20:10 INR 1.3 02/09/18 20:10 APTT 34 SECONDS (21-34) 02/09/18 20:10 - Constitutional Appears: In Acute Distress, Chronically Ill - Head Exam Head Exam: ATRAUMATIC, NORMAL INSPECTION, NORMOCEPHALIC - Eye Exam Eye Exam: EOMI, Normal appearance, PERRL Pupil Exam: NORMAL ACCOMODATION, PERRL - ENT Exam ENT Exam: Mucous Membranes Moist, Normal Exam - Neck Exam Neck Exam: Full ROM, Normal Inspection. absent: Lymphadenopathy - Respiratory Exam Respiratory Exam: Decreased Breath Sounds, Rales - Cardiovascular Exam Cardiovascular Exam: REGULAR RHYTHM, +S1, +S2. absent: Murmur - GI/Abdominal Exam GI & Abdominal Exam: Soft, Normal Bowel Sounds. absent: Tenderness - Extremities Exam Extremities Exam: Full ROM, Normal Capillary Refill, Normal Inspection. absent : Joint Swelling, Pedal Edema - Back Exam Back Exam: NORMAL INSPECTION - Neurological Exam Neurological Exam: Alert, Awake, CN II-XII Intact, Normal Gait, Oriented x3 - Psychiatric Exam Psychiatric exam: Normal Affect, Normal Mood Assessment and Plan - Assessment and Plan (Free Text) Assessment: ACUTE ON CHRONIC SYSTOLIC AND DIASTOLIC DYSFUNCTION. CHF CARDIOMYOPATHY. NON [facility] [place]. RENAL INSUFFICIENCY. Plan: FOR ECHO. CT PRESENT TREATMENT. DISCUSSED WITH DR. BASS.
--- NOTE | 2018-02-10 20:17 | CP.PCM.CON ---
History of Present Illness - History of Present Illness History of Present Illness: 72 year old male with PMH CAD s/p CABG, ischemic cardiomyopathy s/p AICD who presents with progressive dyspnea. Symptoms began about 2 weeks ago, and are described as worsening with walking one block. The patient states he developed progressive lower extremity edema. He presented and was found to have elevated pro BNP. The patient was also found to have elevated BUN/creatinine.\ has bilat leg swelling no definite signs of infection will hold IV antibiotics Review of Systems - Constitutional Constitutional: absent: As Per HPI, Anorexia, Chills, Daytime Sleepiness, Excessive Sweating, Fatigue, Fever, Frequent Falls, Headache, Increased Appetite , Lethargy, Malaise, Night Sweats, Snoring, Sleep Apnea, Weight Gain, Weight Loss, Weakness, Other - EENT Eyes: absent: As Per HPI, Blind Spots, Blurred Vision, Change in Vision, Decreased Night Vision, Diplopia, Discharge, Dry Eye, Exophthalmos, Floaters, Irritation, Itchy Eyes, Loss of Peripheral Vision, Pain, Photophobia, Requires Corrective Lenses, Sees Flashes, Spots in Vision, Tunnel Vision, Other Visual Disturbances, Loss of Vision, Other Ears: absent: As Per HPI, Decreased Hearing, Ear Discharge, Ear Pain, Tinnitus, Abnormal Hearing, Disequilibrium, Dizziness, Other Nose/Mouth/Throat: absent: As Per HPI, Epistaxis, Nasal Congestion, Nasal Discharge, Nasal Obstruction, Nasal Trauma, Nose Pain, Post Nasal Drip, Sinus Pain, Sinus Pressure, Bleeding Gums, Change in Voice, Dental Pain, Dry Mouth, Dysphagia, Halitosis, Hoarsness, Lip Swelling, Mouth Lesions, Mouth Pain, Odynophagia, Sore Throat, Throat Swelling, Tongue Swelling, Facial Pain, Neck Pain, Neck Mass, Other - Cardiovascular Cardiovascular: Dyspnea, Dyspnea on Exertion, Leg Edema - Respiratory Respiratory: Dyspnea - Gastrointestinal Gastrointestinal: absent: As Per HPI, Abdominal Pain, Belching, Bloating, Change in Bowel Habits, Change in Stool Character, Coffee Ground Emesis, Constipation, Cramping, Diarrhea, Dyspepsia, Dysphagia, Early Satiety, Excessive Flatus, Fecal Incontinence, Heartburn, Hematemesis, Hematochezia, Loose Stools, Melena, Nausea, Odynophagia, Temesmus, Vomiting, Other - Genitourinary Genitourinary: absent: As Per HPI, Change in Urinary Stream, Difficulty Urinating, Dysuria, Flank Pain, Hematuria, Pyuria, Nocturia, Urinary Incontinence, Urinary Frequency, Urinary Hesitance, Urinary Urgency, Voiding Freq/Small Amts, Freq UTI, Hx Renal/Bladder Calculi, Hx /Renal Surgery, Bladder Distension, Other - Musculoskeletal Musculoskeletal: absent: As Per HPI, Abnormal Gait, Arthralgias, Atrophy, Back Pain, Deformity, Joint Swelling, Limited Range of Motion, Loss of Height, Muscle Cramps, Muscle Weakness, Myalgias, Neck Pain, Numbness, Radiating Pain into Limb, Stiffness, Tingling, Other - Integumentary Integumentary: absent: As Per HPI, Acne, Alopecia, Bleeding Lesions, Change in Hair, Change in Nails, Change in Pigmentation, Changing Lesions, Dry Skin, Erythema, Furuncle, Hirsutism, Lesions, New Lesions, Non-Healing Lesions, Photosensitivity, Pruritus, Rash, Skin Pain, Skin Ulcer, Sores, Striae, Swelling , Unusual Bruising, Wounds, Jaundice, Other - Neurological Neurological: absent: As Per HPI, Abnormal Gait, Abnormal Hearing, Abnormal Movements, Abnormal Speech, Behavioral Changes, Burning Sensations, Confusion, Convulsions, Disequilibrium, Dizziness, Numbness, Focal Weakness, Frequent Falls , Headaches, Lack of Coordination, Loss of Vision, Memory Loss, Paresthesias, Radicular Pain, Restless Legs, Sensory Deficit, Syncope, Tingling, Tremor, Vertigo, Weakness, Other Visual Disturbances, Other - Psychiatric Psychiatric: absent: As Per HPI, Abnormal Sleep Pattern, Anhedonia, Anxiety, Auditory Hallucinations, Behavioral Changes, Change in Appetite, Change in Libido, Confusion, Depression, Difficulty Concentrating, Hallucinations, Homicidal Ideation, Hopelessness, Irritability, Memory Loss, Mood Swings, Panic Attacks, Paranoia, Suicidal Ideation, Visual Hallucinations, Tactile Hallucinations, Other - Endocrine Endocrine: absent: As Per HPI, Change in Body Appearance, Change in Libido, Cold Intolorance, Deepening of Voice, Excessive Sweating, Fatigue, Flushing, Heat Intolorance, Increase in Ring/Shoe/Hat Size, Palpitations, Polydipsia, Polyphagia, Polyuria, Other - Hematologic/Lymphatic Hematologic: absent: As Per HPI, Easy Bleeding, Easy Bruising, Lymphadenopathy, Other Past Patient History - Infectious Disease Hx of Infectious Diseases: None - Past Medical History & Family History Past Medical History?: Yes - Past Social History Smoking Status: Never Smoked - CARDIAC Hx Congestive Heart Failure: Yes Hx Hypercholesterolemia: Yes Hx Hypertension: Yes Other/Comment: Hx CABG /ACID - PULMONARY Hx Respiratory Disorders: No - NEUROLOGICAL Hx Neurological Disorder: No - HEENT Hx HEENT Problems: No - RENAL Hx Chronic Kidney Disease: No - ENDOCRINE/METABOLIC Hx Endocrine Disorders: Yes Hx Hyperthyroidism: Yes Hx Hypothyroidism: Yes - HEMATOLOGICAL/ONCOLOGICAL Hx Blood Disorders: No - INTEGUMENTARY Hx Dermatological Problems: No - MUSCULOSKELETAL/RHEUMATOLOGICAL Hx Musculoskeletal Disorders: No Hx Falls: No - GASTROINTESTINAL Hx Gastrointestinal Disorders: No - GENITOURINARY/GYNECOLOGICAL Hx Genitourinary Disorders: No - PSYCHIATRIC Hx Psychophysiologic Disorder: No Hx Substance Use: No - SURGICAL HISTORY Hx Surgeries: Yes Hx Coronary Artery Bypass Graft: Yes (1997) Other/Comment: Has internal defibrillator left chest - ANESTHESIA Hx Anesthesia: Yes Hx Anesthesia Reactions: No Hx Malignant Hyperthermia: No Meds Allergies/Adverse Reactions: Allergies Allergy/AdvReac Type Severity Reaction Status Date / Time No Known Allergies Allergy Verified 02/09/18 19:42 - Medications Medications: Current Medications Aspirin (Ecotrin) 81 mg PO DAILY [facility] Last Admin: 02/10/18 09:39 Dose: 81 mg Enoxaparin Sodium (Lovenox) 40 mg SC DAILY [facility] Last Admin: 02/10/18 09:40 Dose: 40 mg Finasteride (Proscar) 5 mg PO DAILY [facility] Last Admin: 02/10/18 09:39 Dose: 5 mg Levothyroxine Sodium (Synthroid) 150 mcg PO DAILY@0630 [facility] Metolazone (Zaroxolyn) 2.5 mg PO BID [facility] Last Admin: 02/10/18 17:33 Dose: 2.5 mg Rosuvastatin Calcium (Crestor) 20 mg PO [facility] Last Admin: 02/09/18 22:48 Dose: 20 mg Sacubitril/Valsartan (Entresto 49 Mg-51 Mg) 1 tab PO BID [facility] Last Admin: 02/10/18 17:33 Dose: 1 tab Physical Exam - Constitutional Appears: Non-toxic, Chronically Ill - Head Exam Head Exam: NORMOCEPHALIC - Eye Exam Eye Exam: PERRL - ENT Exam ENT Exam: Mucous Membranes Dry - Neck Exam Neck exam: Negative for: Lymphadenopathy - Respiratory Exam Respiratory Exam: Decreased Breath Sounds, Rales - Cardiovascular Exam Cardiovascular Exam: REGULAR RHYTHM - GI/Abdominal Exam GI & Abdominal Exam: Diminished Bowel Sounds - Rectal Exam Rectal Exam: Deferred - Exam Exam: NORMAL INSPECTION - Extremities Exam Extremities exam: Positive for: pedal edema, pedal pulses present. Negative for : calf tenderness, tenderness - Back Exam Back exam: absent: CVA tenderness (L), CVA tenderness (R) - Neurological Exam Neurological exam: Alert, CN II-XII Intact, Oriented x3, Reflexes Normal - Psychiatric Exam Psychiatric exam: Normal Mood - Skin Skin Exam: Dry Results - Vital Signs Recent Vital Signs: Last Vital Signs Temp 97 F L 02/10/18 16:49 Pulse 89 02/10/18 16:49 Resp 20 02/10/18 16:49 BP 91/58 L 02/10/18 16:49 Pulse Ox 99 02/10/18 16:49 - Labs Result Diagrams: 02/09/18 20:10 02/09/18 20:10 Labs: Laboratory Results - last 24 hr 02/09/18 02/09/18 02/09/18 20:10 20:10 20:10 WBC 5.0 RBC 5.50 Hgb 13.9 Hct 42.1 MCV 76.6 L D MCH 25.3 L MCHC 33.0 RDW 18.7 H Plt Count 134 MPV 9.8 Neut % (Auto) 68.2 Lymph % (Auto) 15.6 L [place] % (Auto) 10.3 H Eos % (Auto) 3.9 Baso % (Auto) 2.0 Neut # (Auto) 3.4 Lymph # (Auto) 0.8 L [place] # (Auto) 0.5 Eos # (Auto) 0.2 Baso # (Auto) 0.1 PT 14.1 H INR 1.3 APTT 34 pO2 VBG pH VBG pCO2 VBG HCO3 VBG Total CO2 VBG O2 Sat (Calc) VBG Base Excess VBG Potassium Glucose Lactate Sodium Potassium Chloride Carbon Dioxide Anion Gap BUN Creatinine Est GFR ( Amer) Est GFR (Non-Af Amer) POC Glucose (mg/dL) Random Glucose Calcium Total Bilirubin AST ALT Alkaline Phosphatase Troponin I NT-Pro-B Natriuret Pep Total Protein Albumin Globulin Albumin/Globulin Ratio TSH 3rd Generation Venous Blood Potassium Urine Color Yellow Urine Clarity Clear Urine pH 5.0 Ur Specific [place] 1.009 Urine Protein 1+ H Urine Glucose (UA) Normal Urine Ketones Negative Urine Blood Negative Urine Nitrate Negative Urine Bilirubin Negative Urine Urobilinogen Normal Ur Leukocyte Esterase Neg Urine WBC (Auto) 1 Urine RBC (Auto) < 1 Ur Squamous Epith Cells < 1 Hyaline Casts 6-10 H 02/09/18 02/09/18 02/09/18 20:10 20:20 20:22 WBC RBC Hgb Hct MCV MCH MCHC RDW Plt Count MPV Neut % (Auto) Lymph % (Auto) [place] % (Auto) Eos % (Auto) Baso % (Auto) Neut # (Auto) Lymph # (Auto) [place] # (Auto) Eos # (Auto) Baso # (Auto) PT INR APTT pO2 33 VBG pH 7.39 VBG pCO2 38 L VBG HCO3 22.7 VBG Total CO2 24.2 VBG O2 Sat (Calc) 59.4 VBG Base Excess -1.7 L VBG Potassium 4.4 Glucose 133 H Lactate 2.2 H Sodium 139 135.0 Potassium 5.3 H Chloride 103 101.0 Carbon Dioxide 22 Anion Gap 20 BUN 53 H Creatinine 1.6 H Est GFR ( Amer) 52 Est GFR (Non-Af Amer) 43 POC Glucose (mg/dL) 127 H Random Glucose 119 H Calcium 8.7 Total Bilirubin 1.5 H AST 52 ALT 42 Alkaline Phosphatase 89 Troponin I 0.5750 H* NT-Pro-B Natriuret Pep 75714 H Total Protein 7.4 Albumin 3.7 Globulin 3.7 Albumin/Globulin Ratio 1.0 TSH 3rd Generation 20.50 H Venous Blood Potassium 4.4 Urine Color Urine Clarity Urine pH Ur Specific [place] Urine Protein Urine Glucose (UA) Urine Ketones Urine Blood Urine Nitrate Urine Bilirubin Urine Urobilinogen Ur Leukocyte Esterase Urine WBC (Auto) Urine RBC (Auto) Ur Squamous Epith Cells Hyaline Casts 02/10/18 04:53 WBC RBC Hgb Hct MCV MCH MCHC RDW Plt Count MPV Neut % (Auto) Lymph % (Auto) [place] % (Auto) Eos % (Auto) Baso % (Auto) Neut # (Auto) Lymph # (Auto) [place] # (Auto) Eos # (Auto) Baso # (Auto) PT INR APTT pO2 VBG pH VBG pCO2 VBG HCO3 VBG Total CO2 VBG O2 Sat (Calc) VBG Base Excess VBG Potassium Glucose Lactate Sodium Potassium Chloride Carbon Dioxide Anion Gap BUN Creatinine Est GFR ( Amer) Est GFR (Non-Af Amer) POC Glucose (mg/dL) Random Glucose Calcium Total Bilirubin AST ALT Alkaline Phosphatase Troponin I 0.6390 H* NT-Pro-B Natriuret Pep Total Protein Albumin Globulin Albumin/Globulin Ratio TSH 3rd Generation Venous Blood Potassium Urine Color Urine Clarity Urine pH Ur Specific [place] Urine Protein Urine Glucose (UA) Urine Ketones Urine Blood Urine Nitrate Urine Bilirubin Urine Urobilinogen Ur Leukocyte Esterase Urine WBC (Auto) Urine RBC (Auto) Ur Squamous Epith Cells Hyaline Casts Assessment & Plan (1) CHF exacerbation Status: Acute (2) Dyspnea Status: Acute (3) NSTEMI (non-ST elevated myocardial infarction) Status: Acute (4) Renal insufficiency Status: Acute (5) RUBINA (acute kidney injury) Status: Acute (6) ARF (acute renal failure) Status: Acute - Assessment and Plan (Free Text) Plan: severe CHF hypothyroid NSTEMI Cardiomyopathy Hx CABG hold IV antibotics for now
[2018-02-11] MEDS: Levothyroxine 150 MCG TAB PO SCH (05:38)
[2018-02-11 06:35] LABS: BASO # 0.1 K/uL (0.0-0.2); BASO % 1.9 % (0.0-2.0); EOS # 0.2 K/uL (0.0-0.7); EOS % 5.6 % (0.0-4.0); LYMPH % 23.7 % (20.0-40.0); MEAN CORPUSCULAR HEMOGLOBIN 25.3 pg (27.0-31.0); MEAN CORPUSCULAR HGB CONC 33.2 g/dL (33.0-37.0); MONO # 0.6 K/uL (0.0-0.8); MONO % 13.8 % (0.0-10.0); NEUT # 2.2 K/uL (1.8-7.0); NRBC % 0.1 % (0.0-2.0); RBC 5.14 Mil/uL (4.40-5.90); RED CELL DISTRIBUTION WIDTH 17.8 % (11.5-14.5); WHITE BLOOD COUNT 4.1 K/uL (4.8-10.8)
[2018-02-11 06:55] LABS: BLOOD UREA NITROGEN 55 mg/dL (9-20); CALCIUM 8.9 mg/dl (8.6-10.4); GFR AFRICAN-AMERICAN > 60; GFR NON-AFRICAN AMERICAN 50
[2018-02-11 08:31] VITALS: RESP 20
[2018-02-11] MEDS: Enoxaparin 40 mg Syringe SC SCH (10:02)
[2018-02-11] MEDS: metOLazone 2.5 MG TAB PO SCH ×2 (10:03→17:24)
[2018-02-11] MEDS: Sacubitril/Valsartan 49-51 Tab PO SCH ×2 (10:03→18:50)
--- NOTE | 2018-02-11 10:05 | US ---
Renal ultrasound History: Hypertension. Chronic kidney disease. Comparison: None available. Technique: Real-time sonography was performed through the kidneys. Findings: Abdominal and pelvic ascites noted. Bilateral pleural effusions noted. Atherosclerotic calcification and plaque within the proximal aorta. Mid and distal aorta not well visualized. Right kidney: 10.2 x 4.5 x 4.4 centimeters. Increased echogenicity of the renal cortex suggestive medical renal disease. No calculi or hydronephrosis. Left kidney: 9.0 x 4.8 x 4.4 centimeters. Lobulated borders and cortex. Increased echogenicity of the renal parenchymal cortex suggestive for medical renal disease. No calculi or hydronephrosis. Underdistended but otherwise grossly preserved urinary bladder. Impression: Increased echogenicity of the bilateral renal parenchymal cortices suggestive for medical renal disease. Bilateral pleural effusions. Abdominal and pelvic ascites. Limited visualization of the aorta. Somewhat lobulated appearance of the left kidney with a relative area of somewhat decreased echogenicity in the midpole. Nonspecific. Clinical correlation. Correlation with CT scan may be helpful if clinically indicated.
--- NOTE | 2018-02-11 10:59 | CARD ---
APPROVED REPORT EXAM: Two-dimensional and M-mode echocardiogram with Doppler and color Doppler. Other Information Quality : GoodRhythm : INDICATION Cardiac Disease: CAD Congestive Heart Failure Non STEMI 2D DIMENSIONS IVSd0.9 (0.7-1.1cm)LVDd6.1 (3.9-5.9cm) LVOT Diameter2.0 (1.8-2.4cm)PWd0.5 (0.7-1.1cm) LVDs5.9 (2.5-4.0cm)FS (%) 4.4 % LVEF (%)15.0 (>50%) M-Mode DIMENSIONS RVDd2.28 (2.1-3.2cm)Left Atrium (MM)5.74 (2.5-4.0cm) IVSd0.98 (0.7-1.1cm)Aortic Root2.54 (2.2-3.7cm) LVDd6.77 (4.0-5.6cm)Aortic Cusp Exc.0.69 (1.5-2.0cm) PWd0.65 (0.7-1.1cm)FS (%) 9 % LVDs6.15 (2.0-3.8cm)LVEF (%)20 (>50%) Aortic Valve AoV Peak Ytcewhaw786.8cm/sAoV VTI70.9cmAO Peak GR.41mmHg LVOT Peak Hwdekolo19.6cm/sLVOT VTI8.46cmAO Mean GR.24mmHg JOSE (VMAX)0.49ii7XSC (VTI)0.04ck6QN P 1/2 Rcpe377pm Mitral Valve MV E Dykndeaa02.1cm/sE/A ratio0.0 TDI E/Lateral E'0.0E/Medial E'0.0 Tricuspid Valve TR Peak Ceztbuen673vv/sTR Peak Gr.99oxVcYOZS32kkXc LEFT VENTRICLE The Left Ventricle is moderately dilated. There is normal left ventricular wall thickness. The systolic function is severely impaired. Regional wall motion abnormalities noted. Tissue Doppler imaging reveals mild left ventricular diastolic dysfunction. definite contrast study was done showing small lv thrombus in the apex. There is no ventricular septal defect visualized. There is no mass noted in the left ventricle. RIGHT VENTRICLE The right ventricle is normal size. There is normal right ventricular wall thickness. Systolic function is mildly reduced. ATRIA The left atrium is moderately dilated. The right atrium size is normal. The interatrial septum is intact with no evidence for an atrial septal defect. AORTIC VALVE The aortic valve is calcified and displays decreased opening. The aortic valve is severely calcified. There is trace aortic regurgitation. There is severe valvular aortic stenosis. There is no aortic valvular vegetation. MITRAL VALVE The mitral valve is normal in structure. There is no mitral valve stenosis. Mitral regurgitation is moderate to severe. TRICUSPID VALVE The tricuspid valve is normal in structure. There is severe tricuspid regurgitation. There is moderate pulmonary hypertension. PULMONIC VALVE The pulmonary valve is normal in structure. There is mild pulmonic valvular regurgitation. GREAT VESSELS The aortic root is normal in size. The ascending aorta is normal in size. The pulmonary artery is normal. The IVC is normal in size and collapses >50% with inspiration. PERICARDIAL EFFUSION There is no pericardial effusion. There is large right pleural effusion. <Conclusion> The systolic function is severely impaired. Regional wall motion abnormalities noted. Tissue Doppler imaging reveals mild left ventricular diastolic dysfunction. definite contrast study was done showing small lv thrombus in the apex. The aortic valve is calcified and displays decreased opening. The aortic valve is severely calcified. There is severe valvular aortic stenosis. Mitral regurgitation is moderate to severe. There is severe tricuspid regurgitation. There is moderate pulmonary hypertension. There is mild pulmonic valvular regurgitation. rt side cathater artifect is present. LVEF IS 15%. SEVERE ISCHEMIC CARDIOMYOPATHY.
--- NOTE | 2018-02-11 11:19 | CP.PCM.PN ---
Subjective - Date & Time of Evaluation Date of Evaluation: 02/11/18 Time of Evaluation: 11:17 - Subjective Subjective: LESS SOB. SWELLING OF LEGS PRESENT. ECHO CARDIOMYOPATHY SEVERE. LV CLOT. Objective - Vital Signs/Intake and Output Vital Signs (last 24 hours): Temp Pulse Resp BP Pulse Ox 97.4 F L 91 H 20 99/71 L 100 02/11/18 07:00 02/11/18 07:00 02/11/18 07:00 02/11/18 07:00 02/11/18 07:00 Intake and Output: 02/11/18 02/11/18 06:59 18:59 Intake Total 200 Output Total 150 Balance 50 - Medications Medications: Current Medications Aspirin (Ecotrin) 81 mg PO DAILY [facility] Last Admin: 02/11/18 10:03 Dose: 81 mg Enoxaparin Sodium (Lovenox) 40 mg SC DAILY [facility] Last Admin: 02/11/18 10:02 Dose: 40 mg Finasteride (Proscar) 5 mg PO DAILY [facility] Last Admin: 02/11/18 10:04 Dose: 5 mg Levothyroxine Sodium (Synthroid) 150 mcg PO DAILY@0630 [facility] Last Admin: 02/11/18 05:38 Dose: 150 mcg Metolazone (Zaroxolyn) 2.5 mg PO BID [facility] Last Admin: 02/11/18 10:03 Dose: 2.5 mg Rosuvastatin Calcium (Crestor) 20 mg PO HS [facility] Last Admin: 02/10/18 21:44 Dose: 20 mg Sacubitril/Valsartan (Entresto 49 Mg-51 Mg) 1 tab PO BID [facility] Last Admin: 02/11/18 10:03 Dose: 1 tab - Labs Labs: 02/11/18 06:28 02/11/18 06:28 PT 14.1 SECONDS (9.7-12.2) H 02/09/18 20:10 INR 1.3 02/09/18 20:10 APTT 34 SECONDS (21-34) 02/09/18 20:10 - Constitutional Appears: Chronically Ill - Eye Exam Eye Exam: EOMI, Normal appearance, PERRL Pupil Exam: NORMAL ACCOMODATION, PERRL - ENT Exam ENT Exam: Mucous Membranes Moist, Normal Exam - Neck Exam Neck Exam: Full ROM, Normal Inspection. absent: Lymphadenopathy - Respiratory Exam Respiratory Exam: Clear to Ausculation Bilateral, NORMAL BREATHING PATTERN - Cardiovascular Exam Cardiovascular Exam: REGULAR RHYTHM, +S1, +S2. absent: Murmur - GI/Abdominal Exam GI & Abdominal Exam: Soft, Normal Bowel Sounds. absent: Tenderness - Extremities Exam Extremities Exam: Full ROM, Normal Capillary Refill, Normal Inspection. absent : Joint Swelling, Pedal Edema - Neurological Exam Neurological Exam: Alert, Awake, CN II-XII Intact, Normal Gait, Oriented x3 - Psychiatric Exam Psychiatric exam: Normal Affect, Normal Mood Assessment and Plan - Assessment and Plan (Free Text) Assessment: CHF CRF. Plan: ADD XARELTO PO. CT OTHER TREATMENT.
--- NOTE | 2018-02-11 11:40 | CP.PCM.PN ---
Subjective - Date & Time of Evaluation Date of Evaluation: 02/11/18 Time of Evaluation: 11:40 - Subjective Subjective: pt is seen and examined, follow up consult is dictated #[id number] add lasix 20 mg po bid Objective - Vital Signs/Intake and Output Vital Signs (last 24 hours): Temp Pulse Resp BP Pulse Ox 97.4 F L 90 20 99/71 L 100 02/11/18 07:00 02/11/18 07:35 02/11/18 07:00 02/11/18 07:00 02/11/18 07:00 Intake and Output: 02/11/18 02/11/18 06:59 18:59 Intake Total 200 Output Total 150 Balance 50 - Medications Medications: Current Medications Aspirin (Ecotrin) 81 mg PO DAILY [facility] Last Admin: 02/11/18 10:03 Dose: 81 mg Enoxaparin Sodium (Lovenox) 40 mg SC DAILY [facility] Last Admin: 02/11/18 10:02 Dose: 40 mg Finasteride (Proscar) 5 mg PO DAILY [facility] Last Admin: 02/11/18 10:04 Dose: 5 mg Levothyroxine Sodium (Synthroid) 150 mcg PO DAILY@0630 [facility] Last Admin: 02/11/18 05:38 Dose: 150 mcg Metolazone (Zaroxolyn) 2.5 mg PO BID [facility] Last Admin: 02/11/18 10:03 Dose: 2.5 mg Rivaroxaban (Xarelto) 10 mg PO DAILY [facility] Rosuvastatin Calcium (Crestor) 20 mg PO HS [facility] Last Admin: 02/10/18 21:44 Dose: 20 mg Sacubitril/Valsartan (Entresto 49 Mg-51 Mg) 1 tab PO BID [facility] Last Admin: 02/11/18 10:03 Dose: 1 tab - Labs Labs: 02/11/18 06:28 02/11/18 06:28 PT 14.1 SECONDS (9.7-12.2) H 02/09/18 20:10 INR 1.3 02/09/18 20:10 APTT 34 SECONDS (21-34) 02/09/18 20:10
[2018-02-12 00:01] LABS: U CREAT 24HOUR URINE 646.3 mg/24hr (800-2800); URINE 24 HOUR TOTAL PROTEIN 74.8 mg/24hr (42-225); URINE CREATININE 112.4 mg/dL
[2018-02-12 00:01] LABS: URINE CREATININE 112.7 mg/dL
--- NOTE | 2018-02-12 01:16 | PN ---
DATE: 02/11/2018 FOLLOWUP RENAL CONSULTATION LOCATION: Room 651, bed B. REQUESTED BY: Dr. Debby Bahena. REASON FOR FOLLOWUP: Chronic kidney disease and cardiomyopathy. SUBJECTIVE: Mr. Tong is a 72 years old elderly male with a past medical history significant for hypertension, coronary artery disease status post CABG, status post AICD placement, chronic kidney disease with left ventricular ejection fraction about 25% was admitted with chief complaints of bilateral leg swelling for 2 weeks and dyspnea on exertion, shortness of breath for about to one and half months. The patient denies any chest pain or palpitation. Denies any fever or cough. No abdominal pain. No nausea, vomiting, diarrhea. The patient has complaints of swelling of the legs. PHYSICAL EXAMINATION: VITAL SIGNS: This morning as follows; blood pressure 99/71, pulse 91, respirations 20, temperature 97.4, saturation 100%. Height 5 feet 8 inches and weight is 150 pounds. GENERAL: Mr. Tong is a 72 years old elderly male, moderately built, moderately nourished, not in distress. HEENT: Pupils normal, react to light and accommodation. Conjunctivae pink. Sclerae anicteric. Tongue is moist and trachea is midline. LUNGS: Symmetric on both sides. Bilateral breath sounds present. Clear to auscultation. CVS: S1 and S2 audible. No murmur or gallop. [place] at the fifth intercostal space, midclavicular line. The patient also has a pacemaker in the left subclavian region and also a midsternal scar present from the previous CABG. ABDOMEN: Normal in appearance, soft, tympanic. No guarding, no rigidity. No hepatosplenomegaly. TUBE MAKER: The patient is alert, awake, oriented x3. Nonfocal neuro examination. Cranial nerves II through XII grossly intact. Sensory and motor system is within normal limits. EXTREMITIES: No cyanosis, no clubbing. The patient has 1-2+ edema in both lower extremities. CURRENT MEDICATIONS: Crestor 20 mg at bedtime, aspirin 81 mg p.o. daily, Entresto 1 tablet p.o. b.i.d., 49 mg and 51 mg, Lovenox 40 mg subcu daily, Proscar 5 mg daily, Synthroid 150 mcg daily, Xarelto 10 mg p.o. daily, metolazone 2.5 mg p.o. b.i.d. LABORATORY DATA: WBC 4.1, hemoglobin 13, hematocrit is 39 and platelets is 100. Sodium 139, potassium 4.4, chloride 103, CO 25, BUN 55, creatinine 1.4, glucose 78, calcium 8.9. Ultrasound of the kidneys as of 02/11/2018, right kidney 10.2 x 4.5 x 4.4 cm, left kidney 9 x 4.8 x 4.4 cm. Impression; increased echogenicity of the bilateral renal parenchymal cortices suggestive for medical renal disease, bilateral pleural effusions, abdominal and pelvic ascites, limited visualization of the aorta. ASSESSMENT: In summary, Mr. Tong is a 72 years old elderly male with history of hypertension, hyperlipidemia, coronary artery disease status post coronary artery bypass graft, cardiomyopathy, congestive heart failure with chronic kidney disease with bilateral effusion. 1. Chronic kidney disease, most likely secondary to poor left ventricular function with ejection fraction 25%. 2. Congestive heart failure. 3. Pelvic and abdominal ascites secondary to fluid overload and anasarca. 4. Hypertension. Blood pressure under control. PLAN: Continue metolazone, we will add Lasix 20 mg p.o. b.i.d. Restrict fluids to 1 liter per day. Discussed with the patient regarding the fluid restriction, the patient verbalized understanding. We will follow up with you. Thank you for allowing me to participate in your patient's care. Ajit Chandra MD
[2018-02-12] MEDS: Levothyroxine 150 MCG TAB PO SCH (06:29)
--- NOTE | 2018-02-12 08:25 | CP.PCM.PN ---
Subjective - Date & Time of Evaluation Date of Evaluation: 02/12/18 Time of Evaluation: 08:10 - Subjective Subjective: patient denies current chest pain or dyspnea. echocardiogrm noted. severe LV dysfunction with LV thrombus. Objective - Vital Signs/Intake and Output Vital Signs (last 24 hours): Temp Pulse Resp BP Pulse Ox 97 F L 95 H 20 99/68 L 100 02/12/18 00:25 02/12/18 00:25 02/12/18 00:25 02/12/18 00:25 02/12/18 00:25 Intake and Output: 02/12/18 02/12/18 06:59 18:59 Intake Total 120 Balance 120 - Medications Medications: Current Medications Aspirin (Ecotrin) 81 mg PO DAILY [facility] Last Admin: 02/11/18 10:03 Dose: 81 mg Enoxaparin Sodium (Lovenox) 40 mg SC DAILY [facility] Last Admin: 02/11/18 10:02 Dose: 40 mg Finasteride (Proscar) 5 mg PO DAILY [facility] Last Admin: 02/11/18 10:04 Dose: 5 mg Levothyroxine Sodium (Synthroid) 150 mcg PO DAILY@0630 [facility] Last Admin: 02/12/18 06:29 Dose: 150 mcg Metolazone (Zaroxolyn) 2.5 mg PO BID [facility] Last Admin: 02/11/18 17:24 Dose: 2.5 mg Rivaroxaban (Xarelto) 10 mg PO DAILY [facility] Rosuvastatin Calcium (Crestor) 20 mg PO HS [facility] Last Admin: 02/11/18 21:30 Dose: 20 mg Sacubitril/Valsartan (Entresto 49 Mg-51 Mg) 1 tab PO BID [facility] Last Admin: 02/11/18 18:50 Dose: Not Given - Labs Labs: 02/11/18 06:28 02/11/18 23:30 PT 14.1 SECONDS (9.7-12.2) H 02/09/18 20:10 INR 1.3 02/09/18 20:10 APTT 34 SECONDS (21-34) 02/09/18 20:10 - Constitutional Appears: Non-toxic - Head Exam Head Exam: NORMAL INSPECTION - Eye Exam Eye Exam: Normal appearance - ENT Exam ENT Exam: Mucous Membranes Moist - Neck Exam Neck Exam: Full ROM - Respiratory Exam Respiratory Exam: Decreased Breath Sounds - Cardiovascular Exam Cardiovascular Exam: REGULAR RHYTHM - GI/Abdominal Exam GI & Abdominal Exam: Normal Bowel Sounds - Rectal Exam Rectal Exam: Deferred - Extremities Exam Extremities Exam: absent: Pedal Edema - Back Exam Back Exam: NORMAL INSPECTION - Neurological Exam Neurological Exam: Alert - Psychiatric Exam Psychiatric exam: Normal Affect - Skin Skin Exam: Normal Color Assessment and Plan (1) CHF exacerbation Assessment & Plan: mgmt as per Dr Jonathan Bahena Status: Acute (2) NSTEMI (non-ST elevated myocardial infarction) Assessment & Plan: noted. no current angina. was to be scheduled for cardiac cath, howevere LV thrombus seen on echocardiogram. I will defer cardiac cath at this time as there is a high risk of thromboembolism. Patient is current on Xarelto. Recommend medical therapy. Status: Acute (3) Renal insufficiency Assessment & Plan: as per renal Status: Acute
[2018-02-12] MEDS: Enoxaparin 40 mg Syringe SC SCH (10:35)
[2018-02-12] MEDS: metOLazone 2.5 MG TAB PO SCH ×2 (10:35→17:33)
[2018-02-12] MEDS: Sacubitril/Valsartan 49-51 Tab PO SCH ×2 (10:35→17:33)
--- NOTE | 2018-02-12 12:28 | CP.PCM.PN ---
Subjective - Date & Time of Evaluation Date of Evaluation: 02/12/18 Time of Evaluation: 12:28 - Subjective Subjective: pt is seen and examined, follow up consult is dictated #[id number] Objective - Vital Signs/Intake and Output Vital Signs (last 24 hours): Temp Pulse Resp BP Pulse Ox 97.4 F L 98 H 20 96/59 L 99 02/12/18 08:41 02/12/18 08:41 02/12/18 08:41 02/12/18 08:41 02/12/18 08:41 Intake and Output: 02/12/18 02/12/18 06:59 18:59 Intake Total 120 Balance 120 - Medications Medications: Current Medications Aspirin (Ecotrin) 81 mg PO DAILY [facility] Last Admin: 02/12/18 10:34 Dose: 81 mg Enoxaparin Sodium (Lovenox) 40 mg SC DAILY [facility] Last Admin: 02/12/18 10:35 Dose: 40 mg Finasteride (Proscar) 5 mg PO DAILY [facility] Last Admin: 02/12/18 10:34 Dose: 5 mg Levothyroxine Sodium (Synthroid) 150 mcg PO DAILY@0630 [facility] Last Admin: 02/12/18 06:29 Dose: 150 mcg Metolazone (Zaroxolyn) 2.5 mg PO BID [facility] Last Admin: 02/12/18 10:35 Dose: 2.5 mg Rivaroxaban (Xarelto) 10 mg PO DAILY [facility] Last Admin: 02/12/18 10:33 Dose: 10 mg Rosuvastatin Calcium (Crestor) 20 mg PO HS [facility] Last Admin: 02/11/18 21:30 Dose: 20 mg Sacubitril/Valsartan (Entresto 49 Mg-51 Mg) 1 tab PO BID [facility] Last Admin: 02/12/18 10:35 Dose: 1 tab - Labs Labs: 02/11/18 06:28 02/11/18 23:30 PT 14.1 SECONDS (9.7-12.2) H 02/09/18 20:10 INR 1.3 02/09/18 20:10 APTT 34 SECONDS (21-34) 02/09/18 20:10
--- NOTE | 2018-02-12 15:01 | CP.PCM.PN ---
Subjective - Date & Time of Evaluation Date of Evaluation: 02/12/18 Time of Evaluation: 09:00 - Subjective Subjective: no fever has larg clot in ventricle cultures neg thus far Objective - Vital Signs/Intake and Output Vital Signs (last 24 hours): Temp Pulse Resp BP Pulse Ox 97.4 F L 98 H 20 96/59 L 99 02/12/18 08:41 02/12/18 08:41 02/12/18 08:41 02/12/18 08:41 02/12/18 08:41 Intake and Output: 02/12/18 02/12/18 06:59 18:59 Intake Total 120 Balance 120 - Medications Medications: Current Medications Aspirin (Ecotrin) 81 mg PO DAILY [facility] Last Admin: 02/12/18 10:34 Dose: 81 mg Enoxaparin Sodium (Lovenox) 40 mg SC DAILY [facility] Last Admin: 02/12/18 10:35 Dose: 40 mg Finasteride (Proscar) 5 mg PO DAILY [facility] Last Admin: 02/12/18 10:34 Dose: 5 mg Levothyroxine Sodium (Synthroid) 150 mcg PO DAILY@0630 [facility] Last Admin: 02/12/18 06:29 Dose: 150 mcg Metolazone (Zaroxolyn) 2.5 mg PO BID [facility] Last Admin: 02/12/18 10:35 Dose: 2.5 mg Rivaroxaban (Xarelto) 10 mg PO DAILY [facility] Last Admin: 02/12/18 10:33 Dose: 10 mg Rosuvastatin Calcium (Crestor) 20 mg PO HS [facility] Last Admin: 02/11/18 21:30 Dose: 20 mg Sacubitril/Valsartan (Entresto 49 Mg-51 Mg) 1 tab PO BID [facility] Last Admin: 02/12/18 10:35 Dose: 1 tab - Labs Labs: 02/11/18 06:28 02/11/18 23:30 PT 14.1 SECONDS (9.7-12.2) H 02/09/18 20:10 INR 1.3 02/09/18 20:10 APTT 34 SECONDS (21-34) 02/09/18 20:10 - Constitutional Appears: Non-toxic, Chronically Ill - Head Exam Head Exam: NORMOCEPHALIC - Eye Exam Eye Exam: PERRL - ENT Exam ENT Exam: Mucous Membranes Dry - Neck Exam Neck Exam: absent: Lymphadenopathy - Respiratory Exam Respiratory Exam: Decreased Breath Sounds - Cardiovascular Exam Cardiovascular Exam: REGULAR RHYTHM - GI/Abdominal Exam GI & Abdominal Exam: Distended Assessment and Plan (1) CHF exacerbation Status: Acute (2) Dyspnea Status: Acute (3) NSTEMI (non-ST elevated myocardial infarction) Status: Acute (4) Renal insufficiency Status: Acute (5) RUBINA (acute kidney injury) Status: Acute (6) ARF (acute renal failure) Status: Acute - Assessment and Plan (Free Text) Assessment: cont lasix anticoag
--- NOTE | 2018-02-12 18:28 | CP.PCM.PN ---
Subjective - Date & Time of Evaluation Date of Evaluation: 02/12/18 Time of Evaluation: 12:00 - Subjective Subjective: condition remains stable. no cp. trace swelling of legs. Objective - Vital Signs/Intake and Output Vital Signs (last 24 hours): Temp Pulse Resp BP Pulse Ox 97.6 F 98 H 20 97/69 L 98 02/12/18 15:00 02/12/18 17:35 02/12/18 15:00 02/12/18 17:35 02/12/18 15:00 Intake and Output: 02/12/18 02/12/18 06:59 18:59 Intake Total 120 Balance 120 - Medications Medications: Current Medications Aspirin (Ecotrin) 81 mg PO DAILY [facility] Last Admin: 02/12/18 10:34 Dose: 81 mg Enoxaparin Sodium (Lovenox) 40 mg SC DAILY [facility] Last Admin: 02/12/18 10:35 Dose: 40 mg Finasteride (Proscar) 5 mg PO DAILY [facility] Last Admin: 02/12/18 10:34 Dose: 5 mg Levothyroxine Sodium (Synthroid) 150 mcg PO DAILY@0630 [facility] Last Admin: 02/12/18 06:29 Dose: 150 mcg Metolazone (Zaroxolyn) 2.5 mg PO BID [facility] Last Admin: 02/12/18 17:33 Dose: 2.5 mg Rivaroxaban (Xarelto) 10 mg PO DAILY [facility] Last Admin: 02/12/18 10:33 Dose: 10 mg Rosuvastatin Calcium (Crestor) 20 mg PO HS [facility] Last Admin: 02/11/18 21:30 Dose: 20 mg Sacubitril/Valsartan (Entresto 49 Mg-51 Mg) 1 tab PO BID [facility] Last Admin: 02/12/18 17:33 Dose: Not Given - Labs Labs: 02/11/18 06:28 02/11/18 23:30 PT 14.1 SECONDS (9.7-12.2) H 02/09/18 20:10 INR 1.3 02/09/18 20:10 APTT 34 SECONDS (21-34) 02/09/18 20:10 - Constitutional Appears: No Acute Distress, Chronically Ill - Eye Exam Eye Exam: EOMI, Normal appearance, PERRL Pupil Exam: NORMAL ACCOMODATION, PERRL - ENT Exam ENT Exam: Mucous Membranes Moist, Normal Exam - Neck Exam Neck Exam: Full ROM, Normal Inspection. absent: Lymphadenopathy - Respiratory Exam Respiratory Exam: Clear to Ausculation Bilateral, NORMAL BREATHING PATTERN - Cardiovascular Exam Cardiovascular Exam: REGULAR RHYTHM, +S1, +S2. absent: Murmur - GI/Abdominal Exam GI & Abdominal Exam: Soft, Normal Bowel Sounds. absent: Tenderness - Extremities Exam Extremities Exam: Full ROM, Normal Capillary Refill, Normal Inspection. absent : Joint Swelling, Pedal Edema - Back Exam Back Exam: NORMAL INSPECTION Assessment and Plan - Assessment and Plan (Free Text) Assessment: chf. cad. Plan: ct present treatment.
--- NOTE | 2018-02-13 02:17 | PN ---
DATE: 02/12/2018 FOLLOWUP RENAL CONSULTATION LOCATION: The patient is located in room 651, Bed B. REQUESTED BY: Debby Bahena MD REASON FOR FOLLOWUP: Chronic kidney disease, for further evaluation. HISTORY OF PRESENT ILLNESS: Mr. Tong is a 72-year-old elderly male with a past medical history significant for hypertension, hyperlipidemia, coronary artery disease, status post CABG, cardiomyopathy, status post AICD placement in 07/2017 who was admitted with chief complaints of bilateral lower extremity swelling for 2 weeks and dyspnea on exertion, shortness of breath for about 1-1/2 months. The patient was found to have elevated BUN, creatinine, and elevated troponin levels. The patient was initially scheduled for cardiac cath, but as per Dr. An, cardiac cath was canceled due to left ventricular thrombus. The patient is not in acute distress. Denies any headache, dizziness. Denies any chest pain or palpitation. Still complains of swelling of the legs. No nausea, vomiting, diarrhea. No urinary symptoms. PHYSICAL EXAMINATION: VITAL SIGNS: This afternoon, blood pressure 96/59, pulse 98, respirations 20, temperature 97.4, saturation 99%. Height 5 feet 8 inches and weight is 150 pounds. GENERAL: Mr. Tong is a 72-year-old elderly male, moderately built, moderately nourished, not in acute distress. HEENT: Pupils normal and reactive to light and accommodation. Conjunctivae pink. Sclerae nonicteric. Tongue is moist. Trachea is midline. LUNGS: Symmetric on both sides. Bilateral breath sounds present. Clear to auscultation. CVS: Leroy at the fifth intercostal space, midclavicular line. S1, S2 audible. No murmur or gallop. ABDOMEN: Normal in appearance, soft, tympanic. No guarding. No rigidity. No hepatosplenomegaly. COMM[facility] CENTER COORDINATOR: The patient is alert, awake, oriented x3. Nonfocal neuro examination. Cranial nerves II through XII grossly intact. Sensory and motor system is within normal limits. EXTREMITIES: No cyanosis, no clubbing. The patient has 2+ edema in both lower extremities. MEDICATIONS: His current medications include as follows: Crestor 20 mg p.o. at bedtime, aspirin 81 mg daily, Entresto 49 and 51 mg 1 tablet b.i.d., Lovenox 40 mg subcu daily, Proscar 5 mg daily, levothyroxine 150 p.o. daily, Xarelto but 10 mg p.o. daily, Zaroxolyn 2.5 mg p.o. b.i.d. LABORATORY DATA: His laboratory data as of 02/11/2018, WBC 4.1, hemoglobin 13, hematocrit is 39, platelets 100. Sodium 139, potassium 4.4, chloride 103, CO2 of 25, BUN 55, creatinine 1.4, glucose 78, calcium 8.9; 24-hour urine collection, 24-hour urine volume is 575 mL and 24-hour urine creatinine is 646.3 mg, and 24-hour urine protein is 74.8 mg and creatinine clearance is 31 mL/minute. IMPRESSION: In summary, Mr. Tong's echocardiogram report as of 02/10/2018, systolic function is severely impaired and regional wall motion abnormality noted, and tissue Doppler image reveals mild left ventricular diastolic dysfunction. contrast study was done showing a small LV thrombus in the apex. The aortic valve is calcified and displaced decreased opening. Aortic valve is severely calcified. There is a severe valvular aortic stenosis and mitral regurgitation, moderate to severe. There is severe tricuspid regurgitation, moderate pulmonary hypertension. There is mild pulmonic valvular regurgitation. The left ventricular ejection fraction is 15%, severe ischemic cardiomyopathy. IMPRESSION: In summary, Mr. Tong is a 72-year-old elderly male with a history of hypertension, cardiomyopathy, coronary artery disease, status post coronary artery bypass graft who was admitted with bilateral leg swelling and dyspnea on exertion with increased BUN and creatinine and echocardiogram consistent with ejection fraction about 15%, severely reduced left ventricular function, wall motion abnormality and also severe aortic stenosis and severe tricuspid regurgitation, moderate to severe mitral regurgitation and pulmonary hypertension. 1. Chronic kidney disease stage 3, most likely secondary to hypertensive nephrosclerosis and cannot rule out secondary to severe cardiomyopathy. 2. Congestive heart failure, secondary to cardiomyopathy. 3. Proteinuria, most likely secondary to chronic kidney disease, secondary to hypertensive nephrosclerosis. 4. Left ventricular thrombus. PLAN: Continue gentle diuresis. Consider to add Lasix 20 mg p.o. b.i.d. if patient can tolerate and continue to monitor BMP and restrict fluids to 1 liter per day. We will follow with you. Thank you for allowing me to participate in your patient's care. Overall prognosis is guarded. Ajit Chandra MD
[2018-02-13] MEDS: Levothyroxine 150 MCG TAB PO SCH (06:18)
[2018-02-13 06:29] LABS: HEMOGLOBIN 13.8 g/dL (12.0-18.0); MEAN CELL VOLUME 75.7 fL (80.0-94.0); MEAN CORPUSCULAR HEMOGLOBIN 25.5 pg (27.0-31.0); MEAN CORPUSCULAR HGB CONC 33.7 g/dL (33.0-37.0); RBC 5.4 Mil/uL (4.40-5.90); RED CELL DISTRIBUTION WIDTH 18.3 % (11.5-14.5); WHITE BLOOD COUNT 3.8 K/uL (4.8-10.8)
--- NOTE | 2018-02-13 06:39 | CON ---
DATE: 02/10/2018 RENAL CONSULTATION LOCATION: 651, bed B. REQUESTED BY: Dr. Debby Bahena. REASON FOR FOLLOWUP: Chronic kidney disease for further evaluation. HISTORY OF PRESENT ILLNESS: Mr. Tong is a 72 years old male with a past medical history significant for hypertension, BPH, coronary artery disease status post CABG in 1997, dilated cardiomyopathy, status post AICD placement in August 2017 [facility] who was admitted with chief complaints of shortness of breath for the last one and half months and bilateral leg swelling for the last 2 weeks and dyspnea on exertion. Denies any chest pain, palpitation. Denies any nausea, vomiting, diarrhea. Denies any abdominal pain. Denies any dysuria or frequency. Denies any skin rash. Denies any bleeding per rectum. PAST MEDICAL HISTORY: Significant for hypertension for longtime, hyperlipidemia, coronary artery disease, CHF and cardiomyopathy. PAST SURGICAL HISTORY: Status post CABG in 1997 and status post AICD placement in August 2017. ALLERGIES: NO KNOWN DRUG ALLERGIES. SOCIAL HISTORY: Denies any smoking, alcohol or drug abuse. PERSONAL HISTORY: He is and he has one daughter. FAMILY HISTORY: Both father and mother and he has four living brothers and one brother in 1973. Family history not significant. REVIEW OF SYSTEMS: Significant for shortness of breath and dyspnea on exertion. All other review of systems are reviewed and are negative. CURRENT MEDICATIONS: Crestor 20 mg at bedtime, aspirin 81 mg daily, Entresto 1 tablet p.o. b.i.d. 49/51 mg which is a combination of sacubitril and valsartan, Lovenox 40 mg subcu daily, Proscar 5 mg p.o. daily, levothyroxine 150 mcg daily, Zaroxolyn 2.5 mg p.o. b.i.d. PHYSICAL EXAMINATION: VITAL SIGNS: Blood pressure 100/61, pulse 91, respirations 18, temperature 97.6, saturation 96%. Height 5 feet 8 inches and weight is 150 pounds. GENERAL: Mr. Tong is a 72 years old elderly male, moderately built, moderately nourished, not in acute distress. HEENT: Pupils normal, react to light and accommodation. Conjunctivae pink. Sclerae anicteric. Tongue is moist and trachea is midline. No thyroid enlargement. LUNGS: Symmetric on both sides. Bilateral breath sounds present. Bilateral basal crackles present. CVS: Howell at the fifth intercostal space, midclavicular line. S1 and S2 audible. No murmur or gallop. The patient has an AICD in left subclavian region and also patient has a mid sternal scar present from the previous CABG. ABDOMEN: Normal in appearance, soft, tympanic. No guarding, no rigidity. No hepatosplenomegaly. LINE WORKER: The patient is alert, awake, oriented x3. Nonfocal neuro examination. Cranial nerves II through XII grossly intact. Sensory and motor system is within normal limits. EXTREMITIES: No cyanosis, no clubbing. The patient has 1-2+ edema in both lower extremities. LABORATORY DATA: As of 02/09/2018; WBC 5, hemoglobin 13.9, hematocrit 42.1, platelets 134, PT 14.1, PTT 34. VBG pH 7.39, pO2 33 and pCO2 38, saturation 59.4. His sodium 139, potassium 5.3, chloride 103, CO 22, BUN 53, creatinine 1.6, glucose 119, calcium 8.7, total bili 1.5, AST 52, ALT 42, alkaline phosphatase 89, troponin 0.57 and 0.639. ProBNP 14,600, total protein 7.4, albumin 3.7. TSH is 20.5. Urine, yellow clear, pH 5, specific gravity 1.009, protein 1+, glucose normal, ketones negative, blood negative, nitrites negative, bilirubin negative, urobilinogen normal, leukocyte esterase negative, wbc 1, rbc less than 1, hyaline casts 6-10. Other laboratory reports review of the EMR from the previous admissions, myocardial perfusion scan as of 08/01/2017, there is a fixed defect in the inferolateral wall consistent with old myocardial scarring. There is reversible defect in the mid anterior wall consistent with ischemia. Left ventricular systolic function is severely impaired ejection fraction is 25%. Other laboratory data from review of the previous admissions as of 11/28/2017 BUN and creatinine 37/1.5, as of 11/26/2017, BUN and creatinine 48/2 and as 11/15/2017 creatinine was 0.8 and as of 11/20/2017 creatinine was 0.9. As of 11/28/2017, hepatitis A antibody IgM is negative, hepatitis B surface antigen negative, hepatitis B core antibody IgM is negative and hep C antibody was negative and influenza A and B antibody was negative as of 12/23/2017. Urinalysis as of 11/26/2017, the patient has protein 2+ and glucose normal, ketones negative, blood negative. Chest x-ray as of 02/09/2018 impression biapical pleural thickening with upper lobe granulomatous changes and moderate venous congestion, right hilar prominence and patchy increased markings at the left lung base with small left pleural effusion, status post median sternotomy, calcification at the aortic knob, cardiomegaly, left-sided pacemaker. ASSESSMENT: In summary, Mr. Tong is a 72 years old elderly male with history of hypertension, hyperlipidemia, benign prostatic hypertrophy, hypothyroidism, cardiomyopathy, status post automatic implantable cardioverter-defibrillator placement who was admitted with shortness of breath for one and half months and bilateral leg swelling for few weeks with increased BUN, creatinine. 1. Chronic kidney disease most likely secondary to poor left ventricular function and cannot rule out cardiorenal syndrome. 2. Fluid overload. 3. Congestive heart failure secondary to poor left ventricular function and secondary to noncompliance with fluid intake and diet. PLAN: Continue his current medication. Restrict fluids to 1 L per day and we will check ultrasound of the kidneys for size and also continue Zaroxolyn and consider to add Lasix if the blood pressure is stable 20 mg p.o. b.i.d. We will consider checking 24 hour urine protein creatinine clearance also when stable. We will follow with you. Thank you for allowing me to participate in your patient's care. Ajit Chandra MD
[2018-02-13 06:43] LABS: BLOOD UREA NITROGEN 46 mg/dL (9-20); CALCIUM 8.7 mg/dl (8.6-10.4); GFR AFRICAN-AMERICAN > 60; GFR NON-AFRICAN AMERICAN 60
[2018-02-13 08:08] VITALS: TEMP 97.9; O2SAT 98
[2018-02-13] MEDS: Enoxaparin 40 mg Syringe SC SCH (09:26)
[2018-02-13] MEDS: Sacubitril/Valsartan 49-51 Tab PO SCH (09:27)
[2018-02-13] MEDS: metOLazone 2.5 MG TAB PO SCH (09:27)
--- NOTE | 2018-02-13 11:38 | CP.PCM.PN ---
Subjective - Date & Time of Evaluation Date of Evaluation: 02/13/18 Time of Evaluation: 11:38 - Subjective Subjective: pt is seen and examined, follow up consult is dictated #[id number] Objective - Vital Signs/Intake and Output Vital Signs (last 24 hours): Temp Pulse Resp BP Pulse Ox 97.9 F 99 H 20 100/67 98 02/13/18 07:00 02/13/18 07:00 02/13/18 07:00 02/13/18 07:00 02/13/18 07:00 Intake and Output: 02/13/18 02/13/18 06:59 18:59 Intake Total 120 Balance 120 - Medications Medications: Current Medications Aspirin (Ecotrin) 81 mg PO DAILY [facility] Last Admin: 02/13/18 09:26 Dose: 81 mg Enoxaparin Sodium (Lovenox) 40 mg SC DAILY [facility] Last Admin: 02/13/18 09:26 Dose: 40 mg Finasteride (Proscar) 5 mg PO DAILY [facility] Last Admin: 02/13/18 09:26 Dose: 5 mg Levothyroxine Sodium (Synthroid) 150 mcg PO DAILY@0630 [facility] Last Admin: 02/13/18 06:18 Dose: 150 mcg Metolazone (Zaroxolyn) 2.5 mg PO BID [facility] Last Admin: 02/13/18 09:27 Dose: 2.5 mg Rivaroxaban (Xarelto) 10 mg PO DAILY [facility] Last Admin: 02/13/18 09:27 Dose: 10 mg Rosuvastatin Calcium (Crestor) 20 mg PO HS [facility] Last Admin: 02/12/18 21:36 Dose: 20 mg Sacubitril/Valsartan (Entresto 49 Mg-51 Mg) 1 tab PO BID [facility] Last Admin: 02/13/18 09:27 Dose: 1 tab - Labs Labs: 02/13/18 06:20 02/13/18 06:20 PT 14.1 SECONDS (9.7-12.2) H 02/09/18 20:10 INR 1.3 02/09/18 20:10 APTT 34 SECONDS (21-34) 02/09/18 20:10
[2018-02-13 12:09] VITALS: BP 106/67
--- NOTE | 2018-02-13 12:20 | CP.PCM.PN ---
Subjective - Date & Time of Evaluation Date of Evaluation: 02/13/18 Time of Evaluation: 12:00 - Subjective Subjective: CONDITION STABLE. FEELS BETTER. LESS SOB. NO CP. Objective - Vital Signs/Intake and Output Vital Signs (last 24 hours): Temp Pulse Resp BP Pulse Ox 97.9 F 99 H 20 106/67 98 02/13/18 07:00 02/13/18 07:00 02/13/18 07:00 02/13/18 12:08 02/13/18 07:00 Intake and Output: 02/13/18 02/13/18 06:59 18:59 Intake Total 120 Balance 120 - Medications Medications: Current Medications Aspirin (Ecotrin) 81 mg PO DAILY [facility] Last Admin: 02/13/18 09:26 Dose: 81 mg Enoxaparin Sodium (Lovenox) 40 mg SC DAILY [facility] Last Admin: 02/13/18 09:26 Dose: 40 mg Finasteride (Proscar) 5 mg PO DAILY [facility] Last Admin: 02/13/18 09:26 Dose: 5 mg Furosemide (Lasix) 20 mg PO BID [facility] Last Admin: 02/13/18 12:08 Dose: 20 mg Levothyroxine Sodium (Synthroid) 150 mcg PO DAILY@0630 [facility] Last Admin: 02/13/18 06:18 Dose: 150 mcg Metolazone (Zaroxolyn) 2.5 mg PO BID [facility] Last Admin: 02/13/18 09:27 Dose: 2.5 mg Rivaroxaban (Xarelto) 10 mg PO DAILY [facility] Last Admin: 02/13/18 09:27 Dose: 10 mg Rosuvastatin Calcium (Crestor) 20 mg PO HS [facility] Last Admin: 02/12/18 21:36 Dose: 20 mg Sacubitril/Valsartan (Entresto 49 Mg-51 Mg) 1 tab PO BID [facility] Last Admin: 02/13/18 09:27 Dose: 1 tab - Labs Labs: 02/13/18 06:20 02/13/18 06:20 PT 14.1 SECONDS (9.7-12.2) H 02/09/18 20:10 INR 1.3 02/09/18 20:10 APTT 34 SECONDS (21-34) 02/09/18 20:10 - Constitutional Appears: No Acute Distress, Chronically Ill - Eye Exam Eye Exam: EOMI, Normal appearance, PERRL Pupil Exam: NORMAL ACCOMODATION, PERRL - ENT Exam ENT Exam: Mucous Membranes Moist, Normal Exam - Neck Exam Neck Exam: Full ROM, Normal Inspection. absent: Lymphadenopathy - Respiratory Exam Respiratory Exam: Clear to Ausculation Bilateral, NORMAL BREATHING PATTERN - Cardiovascular Exam Cardiovascular Exam: REGULAR RHYTHM, +S1, +S2. absent: Murmur - GI/Abdominal Exam GI & Abdominal Exam: Soft, Normal Bowel Sounds. absent: Tenderness - Extremities Exam Extremities Exam: Full ROM, Normal Capillary Refill, Normal Inspection. absent : Joint Swelling, Pedal Edema - Back Exam Back Exam: NORMAL INSPECTION - Neurological Exam Neurological Exam: Alert, Awake, CN II-XII Intact, Normal Gait, Oriented x3 - Psychiatric Exam Psychiatric exam: Normal Affect, Normal Mood Assessment and Plan - Assessment and Plan (Free Text) Assessment: NON [facility] [place]. CHF WITH LV CLOT. CAD. Plan: FOR DISCHARGE HOME. CT SAME MEDS. F/U DR. AZAR 1 WK.
--- NOTE | 2018-02-13 13:46 | PCM.HF ---
Heart Failure Core Measure - Heart Failure Ejection Fraction: Less Than 40 % JALEESA Inhibitor Prescribed: No Contraindication/Reason for not providing: ON ARB COMBO Beta-Pierre Prescribed: None Contraindication/Reason for not providing: HYPOTENSION; +AICD Angiotensin II Receptor Pierre Prescribed: Yes AnticoagulationTherapy for Atrial Fibrillation/Atrialflutter: Yes Contraindication/Reason for not providing: ON XARELTO; NO H/O AFIB Aldosterone Antagonist Prescribed: No Contraindication/Reason for not providing: HYPOTENSION; + AICD Hydralazine Nitrate Prescribed: No Contraindication/Reason for not providing: HYPOTENSION; + AICD Implantable Cardioverter Defibrillator Therapy: No Contraindication/Reason for not providing: HAS AN AICD Cardiac Resynchronization Therapy Prescribed: No Contraindication/Reason for not providing: HAS AN AICD - Follow up Will be discharged to: Home Follow Up Date (must be within 7 days from discharge): 02/20/18 Follow Up Time: 09:00
--- NOTE | 2018-02-13 13:52 | CP.PCM.PN ---
Subjective - Date & Time of Evaluation Date of Evaluation: 02/13/18 Time of Evaluation: 13:46 - Subjective Subjective: PT SEEN BY DRS. COOK AND CARLITOS AND CLEARED FOR D/C HOME TODAY. CARDIAC CATH DEFERRED PER CARDIO. RX GIVEN FOR LASIX 20 MG PO BID AND XARELTO 10 MG PO QD PER DR. Jonathan FLORES. PT TO SEE HIS DRUG COUNSELOR, DR. AZAR, IN THE OFFICE WITHIN 1 WEEK. PT VERBALIZES UNDERSTANDING OF ALL D/C INFORMATION, F/U APPTS, AND RX. NO FURTHER ORDERS. -FOLLOW UP WITH DR. AZAR IN THE OFFICE WITHIN 1-2 WEEKS OF DISCHARGE---CALL THE OFFICE TO MAKE AN APPOINTMENT. -FOLLOW UP WITH DR. DE SOUZA IN THE OFFICE WITHIN 2 WEEKS OF DISCHARGE---CALL THE OFFICE TO MAKE AN APPOINTMENT. -FOLLOW UP WITH DR. URBINA IN THE OFFICE WITHIN 2 WEEKS OF DISCHARGE--- CALL THE OFFICE TO MAKE AN APPOINTMENT. -CONTINUE YOUR HOME MEDICATIONS USUAL. PLEASE NOTE CHANGE BEING MADE TO YOUR FUROSEMIDE (LASIX--THE WATER PILL): YOU WILL NOW TAKE FUROSEMIDE (LASIX) 20 MG (1/2 TABLET) BY MOUTH TWICE A DAY--- TAKE ONE DOSE IN THE MORNING AND ONE DOSE IN THE EVENING. PLEASE USE A PILL CUTTER TO CUT THE 40 MG TABLETS YOU HAVE ALREADY. YOU HAVE ALSO BEEN PROVIDED WITH A PRESCRIPTION FOR 20 MG TABLETS TO GET FILLED ONCE YOU ARE READY FOR A REFILL. -NEW PRESCRIPTION INCLUDES: 1) XARELTO 10 MG (1 TABLET) BY MOUTH ONCE A DAY---BEFORE YOU RUN OUT OF THIS MEDICINE, PLEASE REQUEST A REFILL FROM YOUR DOCTOR. -FOR FURTHER QUESTIONS OR CONCERNS, CONTACT YOUR DOCTOR'S OFFICE. Objective - Vital Signs/Intake and Output Vital Signs (last 24 hours): Temp Pulse Resp BP Pulse Ox 97.9 F 99 H 20 106/67 98 02/13/18 07:00 02/13/18 07:00 02/13/18 07:00 02/13/18 12:08 02/13/18 07:00 Intake and Output: 02/13/18 02/13/18 06:59 18:59 Intake Total 120 Balance 120 - Medications Medications: Current Medications Aspirin (Ecotrin) 81 mg PO DAILY [facility] Last Admin: 02/13/18 09:26 Dose: 81 mg Enoxaparin Sodium (Lovenox) 40 mg SC DAILY [facility] Last Admin: 02/13/18 09:26 Dose: 40 mg Finasteride (Proscar) 5 mg PO DAILY [facility] Last Admin: 02/13/18 09:26 Dose: 5 mg Furosemide (Lasix) 20 mg PO BID [facility] Last Admin: 02/13/18 12:08 Dose: 20 mg Levothyroxine Sodium (Synthroid) 150 mcg PO DAILY@0630 [facility] Last Admin: 02/13/18 06:18 Dose: 150 mcg Metolazone (Zaroxolyn) 2.5 mg PO BID [facility] Last Admin: 02/13/18 09:27 Dose: 2.5 mg Rivaroxaban (Xarelto) 10 mg PO DAILY [facility] Last Admin: 02/13/18 09:27 Dose: 10 mg Rosuvastatin Calcium (Crestor) 20 mg PO HS [facility] Last Admin: 02/12/18 21:36 Dose: 20 mg Sacubitril/Valsartan (Entresto 49 Mg-51 Mg) 1 tab PO BID [facility] Last Admin: 02/13/18 09:27 Dose: 1 tab - Labs Labs: 02/13/18 06:20 02/13/18 06:20 PT 14.1 SECONDS (9.7-12.2) H 02/09/18 20:10 INR 1.3 02/09/18 20:10 APTT 34 SECONDS (21-34) 02/09/18 20:10
[2018-02-13 16:16] VITALS: PULSE 92
--- NOTE | 2018-02-14 01:58 | PN ---
DATE: 02/13/2018 FOLLOWUP RENAL CONSULTATION LOCATION: The patient located in room 621, bed B. REQUESTED BY: Debby Bahena MD REASON FOR FOLLOWUP: Acute renal failure on chronic kidney disease, for further evaluation. HISTORY OF PRESENT ILLNESS: Mr. Tong is a 72-year-old elderly male with a past medical history significant for longstanding hypertension; hypothyroidism; hyperlipidemia; coronary artery disease, status post CABG; cardiomyopathy, status post AICD placement in 08/2017 who was admitted with chief complaints of swelling of the legs for the last 2-3 weeks and dyspnea on exertion, shortness of breath for the last 1-1/2 months. The patient was found to have pleural effusion, ascites, bilateral leg swelling and also elevated BUN and creatinine. The patient is receiving diuretics. The patient is not in acute distress, still complains of swelling of the legs. No chest pain. No palpitation. No fever. No cough. Less shortness of breath. PHYSICAL EXAMINATION: VITAL SIGNS: As follows. This morning, blood pressure 100/67, pulse 99, respiration 20, temperature 97.9, saturation 98%. Height 5 feet 8 inches and weight is 150 pounds. GENERAL: Mr. Tong is a 72-year-old elderly male, moderately built, moderate nourished, not in acute distress. HEENT: Pupils normal and reactive to light and accommodation. Conjunctivae pink. Sclerae anicteric. Tongue is moist. Trachea is midline. LUNGS: Symmetric on both sides. Bilateral breath sounds present. Bilateral basal crackles present. CVS: Chauncey at the fifth intercostal space, midclavicular line. S1, S2 audible. No murmur or gallop. The patient has a midsternal scar present from the previous CABG. ABDOMEN: Normal in appearance, soft, tympanic. No guarding. No hepatosplenomegaly. FAST FOOD SUPERVISOR: The patient is alert, awake, oriented x3. Nonfocal neuro examination. Cranial nerves II-XII grossly intact. Sensory and motor system is within normal limits. EXTREMITIES: No cyanosis, no clubbing. The patient has a 2+ edema in both lower extremities. CURRENT MEDICATIONS: Include as follows: Synthroid 125 mcg p.o. daily, aspirin 81 mg daily, Xarelto 10 mg p.o. daily, Lasix 20 mg p.o. b.i.d., and metolazone 2.5 mg p.o. b.i.d. LABORATORY DATA: Include as follows: As of 02/13/2018, WBC 3.8, hemoglobin 13.8, hematocrit is 40.9, platelets 103. Sodium 138, potassium 4.4, chloride 105, CO2 of 23, BUN 46, creatinine 1.2, glucose 186, calcium 8.7. In summary, Mr. Tong is a 72-year-old elderly male with hypertension; coronary artery disease, status post coronary artery bypass graft; hyperlipidemia; hypothyroidism; cardiomyopathy, status post automatic implantable cardioverter-defibrillator, was admitted with bilateral lower extremity swelling and dyspnea on exertion and shortness of breath. IMPRESSION: 1. Acute renal failure on chronic kidney disease secondary to poor left ventricular function. 2. Anasarca secondary to cardiomyopathy. 3. Hypothyroidism. 4. [id number] myocardial infarction. 5. Left ventricular thrombus. PLAN: Continue anticoagulation as per Dr. Debby Bahena. We will add Lasix 20 mg p.o. b.i.d. Continue Zaroxolyn 2.5 mg p.o. b.i.d. The patient is being discharged today as per Dr. Debby Bahena. Case discussed with Dr. Enzo Bahena in rounds. Restrict fluids to 1 liter per day. Thank you for allowing me to participate in your patient's care. Ajit Chandra MD
--- NOTE | 2018-02-14 12:24 | CARD ---
APPROVED REPORT EKG Measurement Heart [id number] <Conclusion> Normal sinus rhythm Possible Left atrial enlargement Anterior infarct, age undetermined T wave abnormality, consider inferior ischemia Abnormal ECG
--- NOTE | 2018-02-15 10:29 | DS ---
HISTORY OF PRESENT ILLNESS: This is a 72-year-old male who came to the emergency room with history of increasing shortness of breath. The patient denies having any chest pain. The patient has history of severe ischemic cardiomyopathy. The patient denied having fevers, chills, nausea, or vomiting. HOSPITAL COURSE: During the hospital course, the patient was awake, tachypneic, dyspneic with normal vital signs. JVP was flat. Lungs with basilar rales. Heart: S1 and S2 normal. No gallop. No murmurs. Abdomen: Soft, nontender. No organomegaly. PASTE UP COPY CAMERA OPERATOR: No focal neurological deficit. On admission, the patient's troponin was elevated. EKG was showing normal sinus rhythm. Edema on the legs present. Chest x-ray is consistent with mild congestive heart failure. The patient has echocardiogram done during the hospital course with severe ischemic cardiomyopathy with small left ventricular thrombus. The patient was treated with Xarelto and the patient was stabilized. The patient also has mild renal insufficiency for which Dr. Chandra was consulted and renal workup was done. The patient was started on Lasix 20 mg twice a day. The patient was stabilized and discharged home. FINAL DIAGNOSES: Non-ST elevated myocardial infarction, congestive heart failure, acute on chronic systolic and diastolic dysfunction. Edema of the legs. Ischemic cardiomyopathy. PLAN: The patient will be followed by Dr. Santo. We will continue Xarelto. Other workup as needed as per Dr. Santo. Debby Bahena MD
== END 2018-02-13 14:58 | disposition home or self-care (01) | DRG 280 ==
LOC: C.ER 19:27 → C.9E 21:03 → C.6T 22:52
PROVIDERS: ADMIT Internal Medicine; ATTEND Internal Medicine
DX: I21.4 Non-ST elevation (NSTEMI) myocardial infarction (principal); I50.23 Acute on chronic systolic (congestive) heart failure; N17.9 Acute kidney failure, unspecified; I25.5 Ischemic cardiomyopathy; I13.0 Hypertensive heart and chronic kidney disease with heart failure and stage 1 through stage 4 chronic kidney disease, or unspecified chronic kidney disease; R18.8 Other ascites; I42.0 Dilated cardiomyopathy; I25.10 Atherosclerotic heart disease of native coronary artery without angina pectoris; I27.20 Pulmonary hypertension, unspecified; N18.3 Chronic kidney disease, stage 3 (moderate); N40.0 Benign prostatic hyperplasia without lower urinary tract symptoms; Z79.01 Long term (current) use of anticoagulants; Z91.19 Patient's noncompliance with other medical treatment and regimen; Z95.1 Presence of aortocoronary bypass graft; Z95.810 Presence of automatic (implantable) cardiac defibrillator; E03.9 Hypothyroidism, unspecified; E78.00 Pure hypercholesterolemia, unspecified; I08.3 Combined rheumatic disorders of mitral, aortic and tricuspid valves

== ENCOUNTER 2018-02-21 14:30 | Inpatient (IN) | payer MEDICARE, OTHER ==
[2018-02-21 14:30] VITALS: BMI 22.8
[2018-02-21] MEDS ORDERED: Sodium Chloride 0.9% 1,000 ML IV ONE (15:28)
[2018-02-21] MEDS ORDERED: Sodium Chloride 0.9% 1,000 ML ONE (15:32)
[2018-02-21 15:44] LABS: BASO # 0.1 K/uL (0.0-0.2); BASO % 0.9 % (0.0-2.0); EOS % 0.6 % (0.0-4.0); HEMOGLOBIN 12.7 g/dL (12.0-18.0); LYMPH # 0.7 K/uL (1.0-4.3); LYMPH % 10.7 % (20.0-40.0); MEAN CELL VOLUME 76.4 fL (80.0-94.0); MEAN CORPUSCULAR HEMOGLOBIN 25.1 pg (27.0-31.0); MEAN CORPUSCULAR HGB CONC 32.8 g/dL (33.0-37.0); MEAN PLATELET VOLUME 9.7 fL (7.2-11.7); MONO # 0.8 K/uL (0.0-0.8); MONO % 11.6 % (0.0-10.0); NEUT % 76.2 % (50.0-75.0); RBC 5.09 Mil/uL (4.40-5.90)
[2018-02-21 15:51] LABS: INR 2.8
[2018-02-21 15:57] LABS: WHITE BLOOD COUNT 6.6 K/uL (4.8-10.8)
[2018-02-21 15:58] LABS: ALBUMIN 3.1 g/dL (3.5-5.0); CALCIUM 8.7 mg/dl (8.6-10.4)
[2018-02-21 16:00] LABS: PROTHROMBIN TIME 30.7 SECONDS (9.7-12.2)
--- NOTE | 2018-02-21 16:13 | C.PDOC ---
History Of Present Illness 72 yo male with PMH CAD s/p CABG, ischemic cardiomyopathy s/p AICD, EF 40%, CAD , NSTEMI, was admitted to [facility] 02/09/18-02/13/18 due to progressive dyspnea, placed on Xarelto, was sent to ED today by for further evaluation of weakness, dizziness, rectal bleeding pt developed for past few days. Pt still reports, (+) dyspnea, mostly on supine and exertion. Otherwise, pt denies CP, palpitation, diaphoresis, abd. pain, N/V/D, back pain. At the time of evaluation , pt appears comfortable, not in any apparent distress. Time Seen by Provider: 02/21/18 15:17 Chief Complaint (Nursing): GI Problem History Per: Patient Past Medical History Reviewed: Historical Data, Nursing Documentation, Vital Signs Vital Signs: Last Vital Signs Temp 97.6 F 02/21/18 14:40 Pulse 86 02/21/18 16:37 Resp 19 02/21/18 16:37 BP 75/50 L 02/21/18 16:37 Pulse Ox 100 02/21/18 16:37 - Medical History PMH: CHF, HTN, Hypercholesterolemia, Hyperthyroidism, Hypothyroidism Denies: Chronic Kidney Disease Surgical History: CABG (1997) - [facility] Procedures INSERTION OF INFUSION DEVICE INTO LOWER VEIN, PERC APPROACH (11/25/17) PTERYGIUM EXCISION NEC (07/13/01) Family History: States: Unknown Family Hx - Social History Hx Tobacco Use: No Hx Alcohol Use: No Hx Substance Use: No - Immunization History Hx Tetanus Toxoid Vaccination: Yes Hx Influenza Vaccination: Yes Hx Pneumococcal Vaccination: Yes Review Of Systems Except As Marked, All Systems Reviewed And Found Negative. Constitutional: Positive for: Weakness Eyes: Negative for: Vision Change Cardiovascular: Positive for: Orthopnea, Paroxysmal Noc. Dyspnea, Light Headedness. Negative for: Chest Pain, Palpitations Respiratory: Positive for: Shortness of Breath. Negative for: Pleuritic Pain, Sputum Gastrointestinal: Positive for: Hematochezia. Negative for: Nausea, Vomiting, Abdominal Pain Musculoskeletal: Negative for: Neck Pain, Back Pain Neurological: Negative for: Weakness, Numbness, Altered Mental Status Physical Exam - Physical Exam Appears: Well, Non-toxic, Other (mild resp. distress) Skin: Normal Color, Warm, No Rash Head: Normacephalic Eye(s): bilateral: PERRL Nose: No Flaring, No Discharge Oral Mucosa: Moist, No Drooling Cardiovascular: Rhythm Regular, No Friction Rub, No Murmur, JVD Respiratory: Decreased Breath Sounds (Right base>Left base), No Rales, No Rhonchi, No Stridor, No Wheezing Gastrointestinal/Abdominal: Soft, No Tenderness, No Distention, No Guarding Rectal: Rectal Tone (normal), Heme Positive (gross blood) Back: No CVA Tenderness Extremity: Normal ROM, No Pedal Edema, No Swelling Neurological/Psych: Oriented x3, Normal Speech ED Course And Treatment - Laboratory Results Result Diagrams: 02/21/18 15:33 02/21/18 15:33 Lab Interpretation: Abnormal ECG: Interpreted By Me, Viewed By Me ECG Interpretation: No Changes From Prior (02/09/18) Interpretation Of ECG: SR@88/min, occasional PVCs, Q wave in III, AFV, T wave inversion in inferior leads, v5-6, no acute ST-T changes O2 Sat by Pulse Oximetry: 96 Pulse Ox Interpretation: Normal - Radiology CXR Interpretation: Yes: Cardiomegaly - Other Rad CXR X-Ray: Read By Radiologist Interpretation: IMPRESSION: Interval increased pulmonary venous congestion / CHF with small bilateral pleural effusions. Interval coalescent pulmonary edema and/or right basal interval infiltrate. No current left basal infiltrate suspect small bilateral pleural effusions that on the right appears increased since prior exam Progress Note: After my initial evaluation, case discussed woth . Pt remained hypotensive, but mostly asymptomatic while sitting up on strecher. Bipap was offered to patient, refused. Blood work review, Hb appears normal. Troponin I elevated. EKG- no new acute changes compare to old study. CXR (+) CHF. ICU consult order, evaluated pt at bedside. Case discussed with and admission to service recommend to ICU with Dx: CHF exacerbation, elevated troponin, rectal bleeding on Xarelta. Critical Care Time - Critical Care Note Total Time (in mins): 40 Documented critical care: time excludes all time spent performing seperately billable procedures. Disposition - Disposition Disposition: HOSPITALIZED Disposition Time: 16:39 Condition: CRITICAL Forms: [facility] (Telugu) - Clinical Impression Clinical Impression: CHF exacerbation, Hypotension, Elevated troponin, GI bleed
[2018-02-21 16:32] LABS: TROPONIN I 0.501 ng/mL (0.00-0.120)
--- NOTE | 2018-02-21 16:41 | RAD ---
PROCEDURE: CHEST RADIOGRAPH, 1 VIEW HISTORY: chest pain COMPARISON: 02/09/2018 FINDINGS: LUNGS: Lung volumes lower limits of normal Pulmonary venous congestion slightly increased since prior exam - confluence of pulmonary venous congestion/focal pulmonary edema versus right basal patchy infiltrate - this is an interval change PLEURA: Bilateral pleural effusions that on the right has increased CARDIOVASCULAR: Marked cardiomegaly-similar. Pulmonary venous congestion-moderate -increased since last exam OSSEOUS STRUCTURES: Thoracic spondylosis. Bilateral shoulder arthrosis. Midline sternotomy wires. VISUALIZED UPPER ABDOMEN: Normal. OTHER FINDINGS: Position/ configuration of pacemaker -similar IMPRESSION: Interval increased pulmonary venous congestion / CHF with small bilateral pleural effusions. Interval coalescent pulmonary edema and/or right basal interval infiltrate. No current left basal infiltrate suspect small bilateral pleural effusions that on the right appears increased since prior exam
--- NOTE | 2018-02-21 18:09 | CP.PCM.CON ---
<Margarita Mir - Last Filed: 02/21/18 17:38> History of Present Illness - History of Present Illness History of Present Illness: CRITICAL CARE CONSULT NOTE: 72 yo male with PMH CAD s/p AICD, CABG,CHF (EF 15%) , CAD, NSTEMI, Hypothroidism was admitted to [facility] 02/09/18-02/13/18 due to progressive dyspnea , placed on Xarelto, was sent to ED today by for further evaluation of weakness, dizziness, and rectal bleeding. ICU consulted for close monitoring ROS POSITIVES: Generalized Weakness, Lethargy, mild dyspnea NEGATIVES: Fever, chills, chest pain, palpitations, abdominal pain, nausea, vomiting, urinary symptoms PMHx: As stated above. Patient is unsure about his hypothyroidism. PSHx: CABG, AICD placement. Allergies: SocialHx Hos: 02/09-02/13 for progressive dyspnea. Meds: BARRY reviewed Embossing Unit Operator: Dr. Santo PMD: Dr. Morrison Review of Systems - Review of Systems Review of Systems: As per HPI Past Patient History - Infectious Disease Hx of Infectious Diseases: None - Past Medical History & Family History Past Medical History?: Yes - Past Social History Smoking Status: Never Smoked - CARDIAC Hx Congestive Heart Failure: Yes Hx Hypercholesterolemia: Yes Hx Hypertension: Yes - PULMONARY Hx Respiratory Disorders: No - NEUROLOGICAL Hx Neurological Disorder: No - HEENT Hx HEENT Problems: No - RENAL Hx Chronic Kidney Disease: No - ENDOCRINE/METABOLIC Hx Hyperthyroidism: Yes Hx Hypothyroidism: Yes - HEMATOLOGICAL/ONCOLOGICAL Hx Blood Disorders: No - INTEGUMENTARY Hx Dermatological Problems: No - MUSCULOSKELETAL/RHEUMATOLOGICAL Hx Musculoskeletal Disorders: No Hx Falls: No - GASTROINTESTINAL Hx Gastrointestinal Disorders: No - GENITOURINARY/GYNECOLOGICAL Hx Genitourinary Disorders: No - PSYCHIATRIC Hx Substance Use: No - SURGICAL HISTORY Hx Coronary Artery Bypass Graft: Yes (1997) - ANESTHESIA Hx Anesthesia: Yes Hx Anesthesia Reactions: No Hx Malignant Hyperthermia: No Meds Allergies/Adverse Reactions: Allergies Allergy/AdvReac Type Severity Reaction Status Date / Time No Known Allergies Allergy Verified 02/21/18 14:43 Physical Exam - Constitutional Appears: Well, Non-toxic - Head Exam Head Exam: ATRAUMATIC, NORMOCEPHALIC - Eye Exam Eye Exam: EOMI - Respiratory Exam Respiratory Exam: Clear to Auscultation Bilateral - Cardiovascular Exam Cardiovascular Exam: RRR, +S1, +S2 Results - Vital Signs Recent Vital Signs: Last Vital Signs Temp 97.6 F 02/21/18 14:40 Pulse 85 02/21/18 17:21 Resp 20 02/21/18 17:21 BP 76/53 L 02/21/18 17:21 Pulse Ox 99 02/21/18 17:21 - Labs Result Diagrams: 02/21/18 15:33 02/21/18 15:33 Labs: Laboratory Results - last 24 hr 02/21/18 02/21/18 02/21/18 15:33 15:33 15:33 WBC 6.6 D RBC 5.09 Hgb 12.7 Hct 38.8 MCV 76.4 L MCH 25.1 L MCHC 32.8 L RDW 19.0 H Plt Count 119 L MPV 9.7 Neut % (Auto) 76.2 H Lymph % (Auto) 10.7 L [place] % (Auto) 11.6 H Eos % (Auto) 0.6 Baso % (Auto) 0.9 Neut # (Auto) 5.0 Lymph # (Auto) 0.7 L [place] # (Auto) 0.8 Eos # (Auto) 0.0 Baso # (Auto) 0.1 PT 30.7 H* INR 2.8 APTT 40 H Sodium 139 Potassium 4.1 Chloride 100 Carbon Dioxide 26 Anion Gap 16 BUN 61 H Creatinine 1.8 H Est GFR ( Amer) 45 Est GFR (Non-Af Amer) 37 Random Glucose 101 Calcium 8.7 Total Bilirubin 2.0 H AST 32 ALT 33 Alkaline Phosphatase 75 Troponin I 0.5010 H* NT-Pro-B Natriuret Pep 70655 H Total Protein 6.3 Albumin 3.1 L Globulin 3.2 Albumin/Globulin Ratio 1.0 Stool Occult Blood Blood Type Antibody Screen 02/21/18 02/21/18 15:33 15:54 WBC RBC Hgb Hct MCV MCH MCHC RDW Plt Count MPV Neut % (Auto) Lymph % (Auto) [place] % (Auto) Eos % (Auto) Baso % (Auto) Neut # (Auto) Lymph # (Auto) [place] # (Auto) Eos # (Auto) Baso # (Auto) PT INR APTT Sodium Potassium Chloride Carbon Dioxide Anion Gap BUN Creatinine Est GFR ( Amer) Est GFR (Non-Af Amer) Random Glucose Calcium Total Bilirubin AST ALT Alkaline Phosphatase Troponin I NT-Pro-B Natriuret Pep Total Protein Albumin Globulin Albumin/Globulin Ratio Stool Occult Blood Positive H Blood Type A POSITIVE Antibody Screen Negative Assessment & Plan - Assessment and Plan (Free Text) Assessment: 72 yo male with PMH CAD s/p AICD, CABG,CHF (EF 15%) ,NSTEMI, and Hypothyroidism was admitted to [facility] 02/09/18-02/13/18 due to progressive dyspnea , placed on Xarelto, was sent to ED today by for further evaluation of weakness, dizziness, and rectal bleeding. ICU consulted for close monitoring Plan: Neuro: GCS: 15 Sedation: None Cont. Home Crestor. Cardio: A: Elevated Troponins Hx of HTN, CABG, AICD placement, CABG, Severe Cardiomyopathy (EF 15%), ECHO (02/10): Severe Cardiomyopathy w/ 15% EF. Moderate Pulm HTN Cardiology Consulted - Dr. Santo Hold All Anti-Hypertensives, Hold all blood thinners Troponin I - 0.5010, Serial Troponins ordered x 2 ECHO: SR@88/min, occasional PVCs, Q wave in III, AFV, T wave inversion in inferior leads, v5-6, no acute ST-T changes Serial EKG ORdered x 2 BNP - 23,300 Pulm: A: Dyspnea CXR (02/21/18):Interval increased pulmonary venous congestion / CHF with small bilateral pleural effusions. Interval coalescent pulmonary edema and/or right basal interval infiltrate. No current left basal infiltrate suspect small bilateral pleural effusions that on the right appears increased since prior exam RUBINA A: RUBINA Cr. 1.8 Today. GI A: Acute GI Bleed Protonix 40 IV Q12H GI Consulted Endo A: Hx of Hyperthyroidism Cont. Home Levothyroxine TSH/Free T4 Ordered Proph PRotonix VTE proph Contraindicated due to GI Bleed SCD's Contraindicated due to b/l lower extremity swelling Patient seen and examined with ICU Attending Margarita Mir, PGY- 1 <Lyle Espinosa S - Last Filed: 02/21/18 18:44> Meds - Medications Medications: Current Medications Levothyroxine Sodium (Synthroid) 125 mcg PO DAILY@0630 [facility] Pantoprazole Sodium (Protonix Inj) 40 mg IVP Q12 [facility] Rosuvastatin Calcium (Crestor) 20 mg PO HS [facility] Results - Vital Signs Recent Vital Signs: Last Vital Signs Temp 96.7 F L 02/21/18 17:53 Pulse 71 02/21/18 17:40 Resp 16 02/21/18 17:40 BP 75/57 L 02/21/18 17:40 Pulse Ox 98 02/21/18 17:40 - Labs Result Diagrams: 02/21/18 15:33 02/21/18 15:33 Labs: Laboratory Results - last 24 hr 02/21/18 02/21/18 02/21/18 15:33 15:33 15:33 WBC 6.6 D RBC 5.09 Hgb 12.7 Hct 38.8 MCV 76.4 L MCH 25.1 L MCHC 32.8 L RDW 19.0 H Plt Count 119 L MPV 9.7 Neut % (Auto) 76.2 H Lymph % (Auto) 10.7 L [place] % (Auto) 11.6 H Eos % (Auto) 0.6 Baso % (Auto) 0.9 Neut # (Auto) 5.0 Lymph # (Auto) 0.7 L [place] # (Auto) 0.8 Eos # (Auto) 0.0 Baso # (Auto) 0.1 PT 30.7 H* INR 2.8 APTT 40 H Sodium 139 Potassium 4.1 Chloride 100 Carbon Dioxide 26 Anion Gap 16 BUN 61 H Creatinine 1.8 H Est GFR ( Amer) 45 Est GFR (Non-Af Amer) 37 Random Glucose 101 Calcium 8.7 Total Bilirubin 2.0 H AST 32 ALT 33 Alkaline Phosphatase 75 Troponin I 0.5010 H* NT-Pro-B Natriuret Pep 84577 H Total Protein 6.3 Albumin 3.1 L Globulin 3.2 Albumin/Globulin Ratio 1.0 Stool Occult Blood Blood Type Antibody Screen 02/21/18 02/21/18 15:33 15:54 WBC RBC Hgb Hct MCV MCH MCHC RDW Plt Count MPV Neut % (Auto) Lymph % (Auto) [place] % (Auto) Eos % (Auto) Baso % (Auto) Neut # (Auto) Lymph # (Auto) [place] # (Auto) Eos # (Auto) Baso # (Auto) PT INR APTT Sodium Potassium Chloride Carbon Dioxide Anion Gap BUN Creatinine Est GFR ( Amer) Est GFR (Non-Af Amer) Random Glucose Calcium Total Bilirubin AST ALT Alkaline Phosphatase Troponin I NT-Pro-B Natriuret Pep Total Protein Albumin Globulin Albumin/Globulin Ratio Stool Occult Blood Positive H Blood Type A POSITIVE Antibody Screen Negative Attending/Attestation - Attestation I have personally seen and examined this patient.: Yes I have fully participated in the care of the patient.: Yes I have reviewed all pertinent clinical information: Yes Notes (Text): 02/21/18 18:41 patient seen and examined 72-year-old male with a history of coronary artery disease status post CABG with ejection fraction of 15% status post AICD was admitted with hypotension, rectal bleeding and elevated troponin Patient is alert oriented 3 and denies any abdominal pain, chest pain. complaining of orthopnea. ICU observation Hold anticoagulation Monitor H&H GI evaluation Hold antihypertensive
[2018-02-21 20:11] LABS: HEMOGLOBIN 12.6 g/dL (12.0-18.0); MEAN CELL VOLUME 75.9 fL (80.0-94.0); MEAN CORPUSCULAR HEMOGLOBIN 25.4 pg (27.0-31.0); MEAN CORPUSCULAR HGB CONC 33.4 g/dL (33.0-37.0); MEAN PLATELET VOLUME 9.9 fL (7.2-11.7); RBC 4.96 Mil/uL (4.40-5.90); RED CELL DISTRIBUTION WIDTH 19.2 % (11.5-14.5); WHITE BLOOD COUNT 5.5 K/uL (4.8-10.8)
[2018-02-21 20:46] LABS: TROPONIN I 0.811 ng/mL (0.00-0.120)
[2018-02-21] MEDS ORDERED: Pantoprazole 80 MG in Sodium Chloride 0.9% 100 ML IVP SCH (21:30)
[2018-02-21 22:02] LABS: URINE BILIRUBIN NEGATIVE (NEGATIVE); URINE BLOOD NEGATIVE (NEGATIVE); URINE CLARITY Hazy (Clear); URINE COLOR Amber (YELLOW); URINE GLUCOSE (UA) NORMAL (Normal); URINE LEUKOCYTE ESTERASE NEG Leu/uL (Negative); URINE PROTEIN 2+ mg/dL (NEGATIVE)
[2018-02-21 23:23] LABS: HEMOGLOBIN 12.2 g/dL (12.0-18.0)
[2018-02-22 03:14] LABS: BASO # 0.1 K/uL (0.0-0.2); BASO % 1.1 % (0.0-2.0); EOS # 0.2 K/uL (0.0-0.7); EOS % 3.8 % (0.0-4.0); HEMOGLOBIN 12.4 g/dL (12.0-18.0); LYMPH # 0.7 K/uL (1.0-4.3); LYMPH % 13.4 % (20.0-40.0); MEAN CELL VOLUME 76.4 fL (80.0-94.0); MEAN CORPUSCULAR HEMOGLOBIN 25.3 pg (27.0-31.0); MEAN CORPUSCULAR HGB CONC 33.1 g/dL (33.0-37.0); MEAN PLATELET VOLUME 9.5 fL (7.2-11.7); MONO # 0.6 K/uL (0.0-0.8); MONO % 12.3 % (0.0-10.0); NEUT # 3.4 K/uL (1.8-7.0); NEUT % 69.4 % (50.0-75.0); RBC 4.91 Mil/uL (4.40-5.90); WHITE BLOOD COUNT 4.9 K/uL (4.8-10.8)
[2018-02-22 03:43] LABS: ALB/GLOB RATIO 0.9 (1.0-2.1); ALBUMIN 3.3 g/dL (3.5-5.0); CALCIUM 8.4 mg/dl (8.6-10.4)
[2018-02-22 04:07] LABS: INR 2.1; PROTHROMBIN TIME 23.5 SECONDS (9.7-12.2)
[2018-02-22] MEDS: Levothyroxine 125 MCG TAB PO SCH (05:59)
[2018-02-22 07:13] LABS: TROPONIN I 0.671 ng/mL (0.00-0.120)
--- NOTE | 2018-02-22 11:08 | CP.CCUPN ---
<AnilglenroyMargarita - Last Filed: 02/22/18 11:04> CCU Subjective - Physician Review Subjective (Free Text): Patient seen and examined at bedside. No overnight events reported. Patient denies any fevers, chills, chest pain, palpitations, SOB, abdominal pain, n/v, changes in bowel habits, and urinary symptoms. CCU Objective - Vital Signs / Intake & Output Vital Signs (Last 4 hours): Vital Signs Temp Pulse Resp BP Pulse Ox 02/22/18 08:00 95.9 F L 86 28 H 92/63 L 95 Intake and Output (Last 8hrs): Intake & Output 02/21/18 02/22/18 02/22/18 22:59 06:59 14:59 Intake Total 50 680 20 Output Total 150 300 Balance -100 380 20 Weight 184 lb 12.8 oz Intake: Intake, IV Amount 60 20 Right Antecubital 60 20 Oral 50 0 Blood Product 620 Output: Urine 150 300 Urine, Voided 150 300 Other: Voiding Method Urinal - Physical Exam Head: Positive for: Atraumatic, Normocephalic Extroacular Muscles: Positive for: EOMI Conjunctiva: Positive for: Normal Respiratory/Chest: Positive for: Clear to Auscultation. Negative for: Accessory Muscle Use Cardiovascular: Positive for: Regular Rate and Rhythm, Normal S1, S2 Abdomen: Positive for: Normal Bowel Sounds. Negative for: Tenderness Upper Extremity: Negative for: Edema Lower Extremity: Positive for: Edema Neurological: Positive for: GCS=15 Psychiatric: Positive for: Alert, Oriented x 3 - Medications Active Medications: Active Medications Generic Name Dose Route Start Last Admin Trade Name Thienq PRN Reason Stop Dose Admin Pantoprazole Sodium 80 mg/ 100 mls @ 10 mls/hr 02/21/18 21:30 02/21/18 22:27 Sodium Chloride IVP 10 mls/hr .Q10H OPAL Administration 8 MG/HR Levothyroxine Sodium 125 mcg 02/22/18 06:30 02/22/18 05:59 Synthroid PO 125 mcg DAILY@0630 OPAL Administration Rosuvastatin Calcium 20 mg 02/21/18 22:00 02/21/18 21:14 Crestor PO 20 mg HS OPAL Administration - Patient Studies Lab Studies: Lab Studies 02/22/18 02/22/18 02/22/18 Range/Units 03:06 03:06 03:06 WBC 4.9 (4.8-10.8) K/uL RBC 4.91 (4.40-5.90) Mil/uL Hgb 12.4 (12.0-18.0) g/dL Hct 37.5 (35.0-51.0) % MCV 76.4 L (80.0-94.0) fL MCH 25.3 L (27.0-31.0) pg MCHC 33.1 (33.0-37.0) g/dL RDW 19.0 H (11.5-14.5) % Plt Count 92 L D (130-400) K/uL MPV 9.5 (7.2-11.7) fL Neut % (Auto) 69.4 (50.0-75.0) % Lymph % (Auto) 13.4 L (20.0-40.0) % Hardy % (Auto) 12.3 H (0.0-10.0) % Eos % (Auto) 3.8 (0.0-4.0) % Baso % (Auto) 1.1 (0.0-2.0) % Neut # (Auto) 3.4 (1.8-7.0) K/uL Lymph # (Auto) 0.7 L (1.0-4.3) K/uL Hardy # (Auto) 0.6 (0.0-0.8) K/uL Eos # (Auto) 0.2 (0.0-0.7) K/uL Baso # (Auto) 0.1 (0.0-0.2) K/uL PT 23.5 H D (9.7-12.2) SECONDS INR 2.1 D APTT 37 H (21-34) SECONDS Sodium 140 (132-148) mmol/L Potassium 3.6 (3.6-5.2) mmol/L Chloride 101 (98-107) mmol/L Carbon Dioxide 25 (22-30) mmol/L Anion Gap 17 (10-20) BUN 59 H (9-20) mg/dL Creatinine 1.5 (0.8-1.5) mg/dL Est GFR ( Amer) 56 Est GFR (Non-Af Amer) 46 Random Glucose 89 (75-110) mg/dL Calcium 8.4 L (8.6-10.4) mg/dl Phosphorus 4.0 (2.5-4.5) mg/dL Magnesium 2.2 (1.6-2.3) mg/dL Total Bilirubin 2.2 H (0.2-1.3) mg/dL AST 35 (17-59) U/L ALT 43 (21-72) U/L Alkaline Phosphatase 82 (38-126) U/L Troponin I 0.6710 H* (0.00-0.120) ng/mL NT-Pro-B Natriuret Pep (0-900) pg/mL Total Protein 6.8 (6.3-8.3) g/dL Albumin 3.3 L (3.5-5.0) g/dL Globulin 3.5 (2.2-3.9) gm/dL Albumin/Globulin Ratio 0.9 L (1.0-2.1) Free T4 (0.78-2.19) ng/dL TSH 3rd Generation (0.46-4.68) mIU/L Urine Color (YELLOW) Urine Clarity (Clear) Urine pH (5.0-8.0) Ur Specific [place] (1.003-1.030) Urine Protein (NEGATIVE) mg/dL Urine Glucose (UA) (Normal) mg/dL Urine Ketones (NEGATIVE) mg/dL Urine Blood (NEGATIVE) Urine Nitrate (NEGATIVE) Urine Bilirubin (NEGATIVE) Urine Urobilinogen (0.2-1.0) mg/dL Ur Leukocyte Esterase (Negative) Sharlene/uL Urine WBC (Auto) (0-5) /hpf Urine RBC (Auto) (0-3) /hpf Hyaline Casts (0-2) /lpf Granular Casts (Auto) (0-1) /lpf Stool Occult Blood (NEGATIVE) Blood Type Blood Type Confirm Antibody Screen 02/22/18 02/21/18 02/21/18 Range/Units 03:06 23:19 21:45 WBC (4.8-10.8) K/uL RBC (4.40-5.90) Mil/uL Hgb 12.2 (12.0-18.0) g/dL Hct 36.8 (35.0-51.0) % MCV (80.0-94.0) fL MCH (27.0-31.0) pg MCHC (33.0-37.0) g/dL RDW (11.5-14.5) % Plt Count (130-400) K/uL MPV (7.2-11.7) fL Neut % (Auto) (50.0-75.0) % Lymph % (Auto) (20.0-40.0) % Hardy % (Auto) (0.0-10.0) % Eos % (Auto) (0.0-4.0) % Baso % (Auto) (0.0-2.0) % Neut # (Auto) (1.8-7.0) K/uL Lymph # (Auto) (1.0-4.3) K/uL Hardy # (Auto) (0.0-0.8) K/uL Eos # (Auto) (0.0-0.7) K/uL Baso # (Auto) (0.0-0.2) K/uL PT (9.7-12.2) SECONDS INR APTT (21-34) SECONDS Sodium (132-148) mmol/L Potassium (3.6-5.2) mmol/L Chloride (98-107) mmol/L Carbon Dioxide (22-30) mmol/L Anion Gap (10-20) BUN (9-20) mg/dL Creatinine (0.8-1.5) mg/dL Est GFR ( Amer) Est GFR (Non-Af Amer) Random Glucose (75-110) mg/dL Calcium (8.6-10.4) mg/dl Phosphorus (2.5-4.5) mg/dL Magnesium (1.6-2.3) mg/dL Total Bilirubin (0.2-1.3) mg/dL AST (17-59) U/L ALT (21-72) U/L Alkaline Phosphatase (38-126) U/L Troponin I (0.00-0.120) ng/mL NT-Pro-B Natriuret Pep (0-900) pg/mL Total Protein (6.3-8.3) g/dL Albumin (3.5-5.0) g/dL Globulin (2.2-3.9) gm/dL Albumin/Globulin Ratio (1.0-2.1) Free T4 2.02 (0.78-2.19) ng/dL TSH 3rd Generation (0.46-4.68) mIU/L Urine Color Jeanne (YELLOW) Urine Clarity Hazy (Clear) Urine pH 5.0 (5.0-8.0) Ur Specific [place] 1.018 (1.003-1.030) Urine Protein 2+ H (NEGATIVE) mg/dL Urine Glucose (UA) Normal (Normal) mg/dL Urine Ketones Negative (NEGATIVE) mg/dL Urine Blood Negative (NEGATIVE) Urine Nitrate Negative (NEGATIVE) Urine Bilirubin Negative (NEGATIVE) Urine Urobilinogen 2.0 (0.2-1.0) mg/dL Ur Leukocyte Esterase Neg (Negative) Sharlene/uL Urine WBC (Auto) 8 H (0-5) /hpf Urine RBC (Auto) 1 (0-3) /hpf Hyaline Casts 11-20 H (0-2) /lpf Granular Casts (Auto) 2-4 (0-1) /lpf Stool Occult Blood (NEGATIVE) Blood Type Blood Type Confirm Antibody Screen 02/21/18 02/21/18 02/21/18 Range/Units 20:07 20:07 15:54 WBC 5.5 (4.8-10.8) K/uL RBC 4.96 (4.40-5.90) Mil/uL Hgb 12.6 (12.0-18.0) g/dL Hct 37.7 (35.0-51.0) % MCV 75.9 L (80.0-94.0) fL MCH 25.4 L (27.0-31.0) pg MCHC 33.4 (33.0-37.0) g/dL RDW 19.2 H (11.5-14.5) % Plt Count 113 L (130-400) K/uL MPV 9.9 (7.2-11.7) fL Neut % (Auto) (50.0-75.0) % Lymph % (Auto) (20.0-40.0) % Hardy % (Auto) (0.0-10.0) % Eos % (Auto) (0.0-4.0) % Baso % (Auto) (0.0-2.0) % Neut # (Auto) (1.8-7.0) K/uL Lymph # (Auto) (1.0-4.3) K/uL Hardy # (Auto) (0.0-0.8) K/uL Eos # (Auto) (0.0-0.7) K/uL Baso # (Auto) (0.0-0.2) K/uL PT (9.7-12.2) SECONDS INR APTT (21-34) SECONDS Sodium (132-148) mmol/L Potassium (3.6-5.2) mmol/L Chloride (98-107) mmol/L Carbon Dioxide (22-30) mmol/L Anion Gap (10-20) BUN (9-20) mg/dL Creatinine (0.8-1.5) mg/dL Est GFR ( Amer) Est GFR (Non-Af Amer) Random Glucose (75-110) mg/dL Calcium (8.6-10.4) mg/dl Phosphorus (2.5-4.5) mg/dL Magnesium (1.6-2.3) mg/dL Total Bilirubin (0.2-1.3) mg/dL AST (17-59) U/L ALT (21-72) U/L Alkaline Phosphatase (38-126) U/L Troponin I 0.8110 H* (0.00-0.120) ng/mL NT-Pro-B Natriuret Pep (0-900) pg/mL Total Protein (6.3-8.3) g/dL Albumin (3.5-5.0) g/dL Globulin (2.2-3.9) gm/dL Albumin/Globulin Ratio (1.0-2.1) Free T4 (0.78-2.19) ng/dL TSH 3rd Generation 6.52 H (0.46-4.68) mIU/L Urine Color (YELLOW) Urine Clarity (Clear) Urine pH (5.0-8.0) Ur Specific [place] (1.003-1.030) Urine Protein (NEGATIVE) mg/dL Urine Glucose (UA) (Normal) mg/dL Urine Ketones (NEGATIVE) mg/dL Urine Blood (NEGATIVE) Urine Nitrate (NEGATIVE) Urine Bilirubin (NEGATIVE) Urine Urobilinogen (0.2-1.0) mg/dL Ur Leukocyte Esterase (Negative) Sharlene/uL Urine WBC (Auto) (0-5) /hpf Urine RBC (Auto) (0-3) /hpf Hyaline Casts (0-2) /lpf Granular Casts (Auto) (0-1) /lpf Stool Occult Blood Positive H (NEGATIVE) Blood Type Blood Type Confirm Antibody Screen 02/21/18 02/21/18 02/21/18 Range/Units 15:33 15:33 15:33 WBC (4.8-10.8) K/uL RBC (4.40-5.90) Mil/uL Hgb (12.0-18.0) g/dL Hct (35.0-51.0) % MCV (80.0-94.0) fL MCH (27.0-31.0) pg MCHC (33.0-37.0) g/dL RDW (11.5-14.5) % Plt Count (130-400) K/uL MPV (7.2-11.7) fL Neut % (Auto) (50.0-75.0) % Lymph % (Auto) (20.0-40.0) % Hardy % (Auto) (0.0-10.0) % Eos % (Auto) (0.0-4.0) % Baso % (Auto) (0.0-2.0) % Neut # (Auto) (1.8-7.0) K/uL Lymph # (Auto) (1.0-4.3) K/uL Hardy # (Auto) (0.0-0.8) K/uL Eos # (Auto) (0.0-0.7) K/uL Baso # (Auto) (0.0-0.2) K/uL PT 30.7 H* (9.7-12.2) SECONDS INR 2.8 APTT 40 H (21-34) SECONDS Sodium 139 (132-148) mmol/L Potassium 4.1 (3.6-5.2) mmol/L Chloride 100 (98-107) mmol/L Carbon Dioxide 26 (22-30) mmol/L Anion Gap 16 (10-20) BUN 61 H (9-20) mg/dL Creatinine 1.8 H (0.8-1.5) mg/dL Est GFR ( Amer) 45 Est GFR (Non-Af Amer) 37 Random Glucose 101 (75-110) mg/dL Calcium 8.7 (8.6-10.4) mg/dl Phosphorus (2.5-4.5) mg/dL Magnesium (1.6-2.3) mg/dL Total Bilirubin 2.0 H (0.2-1.3) mg/dL AST 32 (17-59) U/L ALT 33 (21-72) U/L Alkaline Phosphatase 75 (38-126) U/L Troponin I 0.5010 H* (0.00-0.120) ng/mL NT-Pro-B Natriuret Pep 95238 H (0-900) pg/mL Total Protein 6.3 (6.3-8.3) g/dL Albumin 3.1 L (3.5-5.0) g/dL Globulin 3.2 (2.2-3.9) gm/dL Albumin/Globulin Ratio 1.0 (1.0-2.1) Free T4 (0.78-2.19) ng/dL TSH 3rd Generation (0.46-4.68) mIU/L Urine Color (YELLOW) Urine Clarity (Clear) Urine pH (5.0-8.0) Ur Specific [place] (1.003-1.030) Urine Protein (NEGATIVE) mg/dL Urine Glucose (UA) (Normal) mg/dL Urine Ketones (NEGATIVE) mg/dL Urine Blood (NEGATIVE) Urine Nitrate (NEGATIVE) Urine Bilirubin (NEGATIVE) Urine Urobilinogen (0.2-1.0) mg/dL Ur Leukocyte Esterase (Negative) Sharlene/uL Urine WBC (Auto) (0-5) /hpf Urine RBC (Auto) (0-3) /hpf Hyaline Casts (0-2) /lpf Granular Casts (Auto) (0-1) /lpf Stool Occult Blood (NEGATIVE) Blood Type A POSITIVE Blood Type Confirm A POSITIVE Antibody Screen Negative 02/21/18 Range/Units 15:33 WBC 6.6 D (4.8-10.8) K/uL RBC 5.09 (4.40-5.90) Mil/uL Hgb 12.7 (12.0-18.0) g/dL Hct 38.8 (35.0-51.0) % MCV 76.4 L (80.0-94.0) fL MCH 25.1 L (27.0-31.0) pg MCHC 32.8 L (33.0-37.0) g/dL RDW 19.0 H (11.5-14.5) % Plt Count 119 L (130-400) K/uL MPV 9.7 (7.2-11.7) fL Neut % (Auto) 76.2 H (50.0-75.0) % Lymph % (Auto) 10.7 L (20.0-40.0) % Hardy % (Auto) 11.6 H (0.0-10.0) % Eos % (Auto) 0.6 (0.0-4.0) % Baso % (Auto) 0.9 (0.0-2.0) % Neut # (Auto) 5.0 (1.8-7.0) K/uL Lymph # (Auto) 0.7 L (1.0-4.3) K/uL Hardy # (Auto) 0.8 (0.0-0.8) K/uL Eos # (Auto) 0.0 (0.0-0.7) K/uL Baso # (Auto) 0.1 (0.0-0.2) K/uL PT (9.7-12.2) SECONDS INR APTT (21-34) SECONDS Sodium (132-148) mmol/L Potassium (3.6-5.2) mmol/L Chloride (98-107) mmol/L Carbon Dioxide (22-30) mmol/L Anion Gap (10-20) BUN (9-20) mg/dL Creatinine (0.8-1.5) mg/dL Est GFR ( Amer) Est GFR (Non-Af Amer) Random Glucose (75-110) mg/dL Calcium (8.6-10.4) mg/dl Phosphorus (2.5-4.5) mg/dL Magnesium (1.6-2.3) mg/dL Total Bilirubin (0.2-1.3) mg/dL AST (17-59) U/L ALT (21-72) U/L Alkaline Phosphatase (38-126) U/L Troponin I (0.00-0.120) ng/mL NT-Pro-B Natriuret Pep (0-900) pg/mL Total Protein (6.3-8.3) g/dL Albumin (3.5-5.0) g/dL Globulin (2.2-3.9) gm/dL Albumin/Globulin Ratio (1.0-2.1) Free T4 (0.78-2.19) ng/dL TSH 3rd Generation (0.46-4.68) mIU/L Urine Color (YELLOW) Urine Clarity (Clear) Urine pH (5.0-8.0) Ur Specific [place] (1.003-1.030) Urine Protein (NEGATIVE) mg/dL Urine Glucose (UA) (Normal) mg/dL Urine Ketones (NEGATIVE) mg/dL Urine Blood (NEGATIVE) Urine Nitrate (NEGATIVE) Urine Bilirubin (NEGATIVE) Urine Urobilinogen (0.2-1.0) mg/dL Ur Leukocyte Esterase (Negative) Sharlene/uL Urine WBC (Auto) (0-5) /hpf Urine RBC (Auto) (0-3) /hpf Hyaline Casts (0-2) /lpf Granular Casts (Auto) (0-1) /lpf Stool Occult Blood (NEGATIVE) Blood Type Blood Type Confirm Antibody Screen Laboratory Results - last 24 hr 02/21/18 02/21/18 02/21/18 15:33 15:33 15:33 WBC 6.6 D RBC 5.09 Hgb 12.7 Hct 38.8 MCV 76.4 L MCH 25.1 L MCHC 32.8 L RDW 19.0 H Plt Count 119 L MPV 9.7 Neut % (Auto) 76.2 H Lymph % (Auto) 10.7 L Hardy % (Auto) 11.6 H Eos % (Auto) 0.6 Baso % (Auto) 0.9 Neut # (Auto) 5.0 Lymph # (Auto) 0.7 L Hardy # (Auto) 0.8 Eos # (Auto) 0.0 Baso # (Auto) 0.1 PT 30.7 H* INR 2.8 APTT 40 H Sodium 139 Potassium 4.1 Chloride 100 Carbon Dioxide 26 Anion Gap 16 BUN 61 H Creatinine 1.8 H Est GFR ( Amer) 45 Est GFR (Non-Af Amer) 37 Random Glucose 101 Calcium 8.7 Phosphorus Magnesium Total Bilirubin 2.0 H AST 32 ALT 33 Alkaline Phosphatase 75 Troponin I 0.5010 H* NT-Pro-B Natriuret Pep 88066 H Total Protein 6.3 Albumin 3.1 L Globulin 3.2 Albumin/Globulin Ratio 1.0 Free T4 TSH 3rd Generation Urine Color Urine Clarity Urine pH Ur Specific [place] Urine Protein Urine Glucose (UA) Urine Ketones Urine Blood Urine Nitrate Urine Bilirubin Urine Urobilinogen Ur Leukocyte Esterase Urine WBC (Auto) Urine RBC (Auto) Hyaline Casts Granular Casts (Auto) Stool Occult Blood Blood Type Blood Type Confirm Antibody Screen 02/21/18 02/21/18 02/21/18 15:33 15:54 20:07 WBC RBC Hgb Hct MCV MCH MCHC RDW Plt Count MPV Neut % (Auto) Lymph % (Auto) Hardy % (Auto) Eos % (Auto) Baso % (Auto) Neut # (Auto) Lymph # (Auto) Hardy # (Auto) Eos # (Auto) Baso # (Auto) PT INR APTT Sodium Potassium Chloride Carbon Dioxide Anion Gap BUN Creatinine Est GFR ( Amer) Est GFR (Non-Af Amer) Random Glucose Calcium Phosphorus Magnesium Total Bilirubin AST ALT Alkaline Phosphatase Troponin I 0.8110 H* NT-Pro-B Natriuret Pep Total Protein Albumin Globulin Albumin/Globulin Ratio Free T4 TSH 3rd Generation 6.52 H Urine Color Urine Clarity Urine pH Ur Specific [place] Urine Protein Urine Glucose (UA) Urine Ketones Urine Blood Urine Nitrate Urine Bilirubin Urine Urobilinogen Ur Leukocyte Esterase Urine WBC (Auto) Urine RBC (Auto) Hyaline Casts Granular Casts (Auto) Stool Occult Blood Positive H Blood Type A POSITIVE Blood Type Confirm A POSITIVE Antibody Screen Negative 02/21/18 02/21/18 02/21/18 20:07 21:45 23:19 WBC 5.5 RBC 4.96 Hgb 12.6 12.2 Hct 37.7 36.8 MCV 75.9 L MCH 25.4 L MCHC 33.4 RDW 19.2 H Plt Count 113 L MPV 9.9 Neut % (Auto) Lymph % (Auto) Hardy % (Auto) Eos % (Auto) Baso % (Auto) Neut # (Auto) Lymph # (Auto) Hardy # (Auto) Eos # (Auto) Baso # (Auto) PT INR APTT Sodium Potassium Chloride Carbon Dioxide Anion Gap BUN Creatinine Est GFR ( Amer) Est GFR (Non-Af Amer) Random Glucose Calcium Phosphorus Magnesium Total Bilirubin AST ALT Alkaline Phosphatase Troponin I NT-Pro-B Natriuret Pep Total Protein Albumin Globulin Albumin/Globulin Ratio Free T4 TSH 3rd Generation Urine Color Jeanne Urine Clarity Hazy Urine pH 5.0 Ur Specific [place] 1.018 Urine Protein 2+ H Urine Glucose (UA) Normal Urine Ketones Negative Urine Blood Negative Urine Nitrate Negative Urine Bilirubin Negative Urine Urobilinogen 2.0 Ur Leukocyte Esterase Neg Urine WBC (Auto) 8 H Urine RBC (Auto) 1 Hyaline Casts 11-20 H Granular Casts (Auto) 2-4 Stool Occult Blood Blood Type Blood Type Confirm Antibody Screen 02/22/18 02/22/18 02/22/18 03:06 03:06 03:06 WBC 4.9 RBC 4.91 Hgb 12.4 Hct 37.5 MCV 76.4 L MCH 25.3 L MCHC 33.1 RDW 19.0 H Plt Count 92 L D MPV 9.5 Neut % (Auto) 69.4 Lymph % (Auto) 13.4 L Hardy % (Auto) 12.3 H Eos % (Auto) 3.8 Baso % (Auto) 1.1 Neut # (Auto) 3.4 Lymph # (Auto) 0.7 L Hardy # (Auto) 0.6 Eos # (Auto) 0.2 Baso # (Auto) 0.1 PT 23.5 H D INR 2.1 D APTT 37 H Sodium Potassium Chloride Carbon Dioxide Anion Gap BUN Creatinine Est GFR ( Amer) Est GFR (Non-Af Amer) Random Glucose Calcium Phosphorus Magnesium Total Bilirubin AST ALT Alkaline Phosphatase Troponin I NT-Pro-B Natriuret Pep Total Protein Albumin Globulin Albumin/Globulin Ratio Free T4 2.02 TSH 3rd Generation Urine Color Urine Clarity Urine pH Ur Specific [place] Urine Protein Urine Glucose (UA) Urine Ketones Urine Blood Urine Nitrate Urine Bilirubin Urine Urobilinogen Ur Leukocyte Esterase Urine WBC (Auto) Urine RBC (Auto) Hyaline Casts Granular Casts (Auto) Stool Occult Blood Blood Type Blood Type Confirm Antibody Screen 02/22/18 03:06 WBC RBC Hgb Hct MCV MCH MCHC RDW Plt Count MPV Neut % (Auto) Lymph % (Auto) Hardy % (Auto) Eos % (Auto) Baso % (Auto) Neut # (Auto) Lymph # (Auto) Hardy # (Auto) Eos # (Auto) Baso # (Auto) PT INR APTT Sodium 140 Potassium 3.6 Chloride 101 Carbon Dioxide 25 Anion Gap 17 BUN 59 H Creatinine 1.5 Est GFR ( Amer) 56 Est GFR (Non-Af Amer) 46 Random Glucose 89 Calcium 8.4 L Phosphorus 4.0 Magnesium 2.2 Total Bilirubin 2.2 H AST 35 ALT 43 Alkaline Phosphatase 82 Troponin I 0.6710 H* NT-Pro-B Natriuret Pep Total Protein 6.8 Albumin 3.3 L Globulin 3.5 Albumin/Globulin Ratio 0.9 L Free T4 TSH 3rd Generation Urine Color Urine Clarity Urine pH Ur Specific [place] Urine Protein Urine Glucose (UA) Urine Ketones Urine Blood Urine Nitrate Urine Bilirubin Urine Urobilinogen Ur Leukocyte Esterase Urine WBC (Auto) Urine RBC (Auto) Hyaline Casts Granular Casts (Auto) Stool Occult Blood Blood Type Blood Type Confirm Antibody Screen EKG/Cardiology Studies: Cardiology / EKG Studies 02/21/18 15:24 ELECTROCARDIOGRAM Stat Comment: Mode Of Transportation: BED Reason For Exam: chest pain 02/21/18 20:00 ELECTROCARDIOGRAM Q6H Comment: Mode Of Transportation: Reason For Exam: NSTEMI 02/22/18 02:00 ELECTROCARDIOGRAM Q6H Comment: Mode Of Transportation: Reason For Exam: NSTEMI Review of Systems - Review of Systems Review of Systems: As per Subjective Critical Care Progress Note - Nutrition Nutrition: Nutrition Category Date Time Status Liquid Diet [DIET] Diets 02/22/18 Lunch Active Assessment/Plan - Assessment and Plan (Free Text) Assessment: 72 yo male with PMH CAD s/p AICD, CABG,CHF (EF 15%) ,NSTEMI, and Hypothyroidism was admitted to [facility] 02/09/18-02/13/18 due to progressive dyspnea , placed on Xarelto, was sent to ED today by for further evaluation of weakness, dizziness, and rectal bleeding. ICU consulted for close monitoring Plan: Neuro: GCS: 15 Sedation: None Cont. Home Crestor. Cardio: A: Elevated Troponins Hx of HTN, CABG, AICD placement, CABG, Severe Cardiomyopathy (EF 15%), ECHO (02/10): Severe Cardiomyopathy w/ 15% EF. Moderate Pulm HTN Cardiology Consulted - Dr. Santo Hold All Anti-Hypertensives, Hold all blood thinners Troponins trending down. ECHO (Admission): SR@88/min, occasional PVCs, Q wave in III, AFV, T wave inversion in inferior leads, v5-6, no acute ST-T changes BNP - 23,300 Pulm: A: Dyspnea CXR (02/21/18):Interval increased pulmonary venous congestion / CHF with small bilateral pleural effusions. Interval coalescent pulmonary edema and/or right basal interval infiltrate. No current left basal infiltrate suspect small bilateral pleural effusions that on the right appears increased since prior exam RUBINA A: RUIBNA Cr. 1.8 Today. GI A: Acute GI Bleed Protonix Drip GI Consulted, Recs Appreciated Clear Liquid Diet as per GI Heme A:Blood Loss 2/2 to GI Bleed HgB Stable. Endo A: Hx of Hyperthyroidism Cont. Home Levothyroxine Elevated TSH (6.52) w/ Normal T4 (2.02) Proph PRotonix VTE proph Contraindicated due to GI Bleed SCD's Contraindicated due to b/l lower extremity swelling Patient seen and examined with ICU Attending Margarita Mir, PGY- 1 <Lyle Espinosa S - Last Filed: 02/22/18 16:00> CCU Objective - Vital Signs / Intake & Output Vital Signs (Last 4 hours): Vital Signs Temp Pulse Resp BP Pulse Ox 02/22/18 13:46 89 29 H 90/57 L 100 02/22/18 12:46 88 20 90/56 L 98 02/22/18 12:13 88 30 H 87/65 L 100 02/22/18 12:00 97.4 F L 97 Intake and Output (Last 8hrs): Intake & Output 02/22/18 02/22/18 02/22/18 06:59 14:59 22:59 Intake Total 680 550 Output Total 300 125 Balance 380 425 Weight 184 lb 12.8 oz Intake: Intake, IV Amount 60 70 Right Antecubital 60 70 Oral 0 480 Blood Product 620 Output: Urine 300 125 Urine, Voided 300 125 - Medications Active Medications: Active Medications Generic Name Dose Route Start Last Admin Trade Name Freq PRN Reason Stop Dose Admin Pantoprazole Sodium 80 mg/ 100 mls @ 10 mls/hr 02/22/18 12:45 02/22/18 13:00 Sodium Chloride IV 10 mls/hr .Q10H OPAL Administration 8 MG/HR Levothyroxine Sodium 125 mcg 02/22/18 06:30 02/22/18 05:59 Synthroid PO 125 mcg DAILY@0630 OPAL Administration Rosuvastatin Calcium 20 mg 02/21/18 22:00 02/21/18 21:14 Crestor PO 20 mg HS OPAL Administration - Patient Studies Lab Studies: Lab Studies 02/22/18 02/22/18 02/22/18 Range/Units 03:06 03:06 03:06 WBC 4.9 (4.8-10.8) K/uL RBC 4.91 (4.40-5.90) Mil/uL Hgb 12.4 (12.0-18.0) g/dL Hct 37.5 (35.0-51.0) % MCV 76.4 L (80.0-94.0) fL MCH 25.3 L (27.0-31.0) pg MCHC 33.1 (33.0-37.0) g/dL RDW 19.0 H (11.5-14.5) % Plt Count 92 L D (130-400) K/uL MPV 9.5 (7.2-11.7) fL Neut % (Auto) 69.4 (50.0-75.0) % Lymph % (Auto) 13.4 L (20.0-40.0) % Hardy % (Auto) 12.3 H (0.0-10.0) % Eos % (Auto) 3.8 (0.0-4.0) % Baso % (Auto) 1.1 (0.0-2.0) % Neut # (Auto) 3.4 (1.8-7.0) K/uL Lymph # (Auto) 0.7 L (1.0-4.3) K/uL Hardy # (Auto) 0.6 (0.0-0.8) K/uL Eos # (Auto) 0.2 (0.0-0.7) K/uL Baso # (Auto) 0.1 (0.0-0.2) K/uL PT 23.5 H D (9.7-12.2) SECONDS INR 2.1 D APTT 37 H (21-34) SECONDS Sodium 140 (132-148) mmol/L Potassium 3.6 (3.6-5.2) mmol/L Chloride 101 (98-107) mmol/L Carbon Dioxide 25 (22-30) mmol/L Anion Gap 17 (10-20) BUN 59 H (9-20) mg/dL Creatinine 1.5 (0.8-1.5) mg/dL Est GFR ( Amer) 56 Est GFR (Non-Af Amer) 46 Random Glucose 89 (75-110) mg/dL Calcium 8.4 L (8.6-10.4) mg/dl Phosphorus 4.0 (2.5-4.5) mg/dL Magnesium 2.2 (1.6-2.3) mg/dL Total Bilirubin 2.2 H (0.2-1.3) mg/dL AST 35 (17-59) U/L ALT 43 (21-72) U/L Alkaline Phosphatase 82 (38-126) U/L Troponin I 0.6710 H* (0.00-0.120) ng/mL NT-Pro-B Natriuret Pep (0-900) pg/mL Total Protein 6.8 (6.3-8.3) g/dL Albumin 3.3 L (3.5-5.0) g/dL Globulin 3.5 (2.2-3.9) gm/dL Albumin/Globulin Ratio 0.9 L (1.0-2.1) Free T4 (0.78-2.19) ng/dL TSH 3rd Generation (0.46-4.68) mIU/L Urine Color (YELLOW) Urine Clarity (Clear) Urine pH (5.0-8.0) Ur Specific [place] (1.003-1.030) Urine Protein (NEGATIVE) mg/dL Urine Glucose (UA) (Normal) mg/dL Urine Ketones (NEGATIVE) mg/dL Urine Blood (NEGATIVE) Urine Nitrate (NEGATIVE) Urine Bilirubin (NEGATIVE) Urine Urobilinogen (0.2-1.0) mg/dL Ur Leukocyte Esterase (Negative) Sharlene/uL Urine WBC (Auto) (0-5) /hpf Urine RBC (Auto) (0-3) /hpf Hyaline Casts (0-2) /lpf Granular Casts (Auto) (0-1) /lpf Stool Occult Blood (NEGATIVE) Blood Type Blood Type Confirm Antibody Screen 02/22/18 02/21/18 02/21/18 Range/Units 03:06 23:19 21:45 WBC (4.8-10.8) K/uL RBC (4.40-5.90) Mil/uL Hgb 12.2 (12.0-18.0) g/dL Hct 36.8 (35.0-51.0) % MCV (80.0-94.0) fL MCH (27.0-31.0) pg MCHC (33.0-37.0) g/dL RDW (11.5-14.5) % Plt Count (130-400) K/uL MPV (7.2-11.7) fL Neut % (Auto) (50.0-75.0) % Lymph % (Auto) (20.0-40.0) % Hardy % (Auto) (0.0-10.0) % Eos % (Auto) (0.0-4.0) % Baso % (Auto) (0.0-2.0) % Neut # (Auto) (1.8-7.0) K/uL Lymph # (Auto) (1.0-4.3) K/uL Hardy # (Auto) (0.0-0.8) K/uL Eos # (Auto) (0.0-0.7) K/uL Baso # (Auto) (0.0-0.2) K/uL PT (9.7-12.2) SECONDS INR APTT (21-34) SECONDS Sodium (132-148) mmol/L Potassium (3.6-5.2) mmol/L Chloride (98-107) mmol/L Carbon Dioxide (22-30) mmol/L Anion Gap (10-20) BUN (9-20) mg/dL Creatinine (0.8-1.5) mg/dL Est GFR ( Amer) Est GFR (Non-Af Amer) Random Glucose (75-110) mg/dL Calcium (8.6-10.4) mg/dl Phosphorus (2.5-4.5) mg/dL Magnesium (1.6-2.3) mg/dL Total Bilirubin (0.2-1.3) mg/dL AST (17-59) U/L ALT (21-72) U/L Alkaline Phosphatase (38-126) U/L Troponin I (0.00-0.120) ng/mL NT-Pro-B Natriuret Pep (0-900) pg/mL Total Protein (6.3-8.3) g/dL Albumin (3.5-5.0) g/dL Globulin (2.2-3.9) gm/dL Albumin/Globulin Ratio (1.0-2.1) Free T4 2.02 (0.78-2.19) ng/dL TSH 3rd Generation (0.46-4.68) mIU/L Urine Color Jeanne (YELLOW) Urine Clarity Hazy (Clear) Urine pH 5.0 (5.0-8.0) Ur Specific [place] 1.018 (1.003-1.030) Urine Protein 2+ H (NEGATIVE) mg/dL Urine Glucose (UA) Normal (Normal) mg/dL Urine Ketones Negative (NEGATIVE) mg/dL Urine Blood Negative (NEGATIVE) Urine Nitrate Negative (NEGATIVE) Urine Bilirubin Negative (NEGATIVE) Urine Urobilinogen 2.0 (0.2-1.0) mg/dL Ur Leukocyte Esterase Neg (Negative) Sharlene/uL Urine WBC (Auto) 8 H (0-5) /hpf Urine RBC (Auto) 1 (0-3) /hpf Hyaline Casts 11-20 H (0-2) /lpf Granular Casts (Auto) 2-4 (0-1) /lpf Stool Occult Blood (NEGATIVE) Blood Type Blood Type Confirm Antibody Screen 02/21/18 02/21/18 02/21/18 Range/Units 20:07 20:07 15:54 WBC 5.5 (4.8-10.8) K/uL RBC 4.96 (4.40-5.90) Mil/uL Hgb 12.6 (12.0-18.0) g/dL Hct 37.7 (35.0-51.0) % MCV 75.9 L (80.0-94.0) fL MCH 25.4 L (27.0-31.0) pg MCHC 33.4 (33.0-37.0) g/dL RDW 19.2 H (11.5-14.5) % Plt Count 113 L (130-400) K/uL MPV 9.9 (7.2-11.7) fL Neut % (Auto) (50.0-75.0) % Lymph % (Auto) (20.0-40.0) % Hardy % (Auto) (0.0-10.0) % Eos % (Auto) (0.0-4.0) % Baso % (Auto) (0.0-2.0) % Neut # (Auto) (1.8-7.0) K/uL Lymph # (Auto) (1.0-4.3) K/uL Hardy # (Auto) (0.0-0.8) K/uL Eos # (Auto) (0.0-0.7) K/uL Baso # (Auto) (0.0-0.2) K/uL PT (9.7-12.2) SECONDS INR APTT (21-34) SECONDS Sodium (132-148) mmol/L Potassium (3.6-5.2) mmol/L Chloride (98-107) mmol/L Carbon Dioxide (22-30) mmol/L Anion Gap (10-20) BUN (9-20) mg/dL Creatinine (0.8-1.5) mg/dL Est GFR ( Amer) Est GFR (Non-Af Amer) Random Glucose (75-110) mg/dL Calcium (8.6-10.4) mg/dl Phosphorus (2.5-4.5) mg/dL Magnesium (1.6-2.3) mg/dL Total Bilirubin (0.2-1.3) mg/dL AST (17-59) U/L ALT (21-72) U/L Alkaline Phosphatase (38-126) U/L Troponin I 0.8110 H* (0.00-0.120) ng/mL NT-Pro-B Natriuret Pep (0-900) pg/mL Total Protein (6.3-8.3) g/dL Albumin (3.5-5.0) g/dL Globulin (2.2-3.9) gm/dL Albumin/Globulin Ratio (1.0-2.1) Free T4 (0.78-2.19) ng/dL TSH 3rd Generation 6.52 H (0.46-4.68) mIU/L Urine Color (YELLOW) Urine Clarity (Clear) Urine pH (5.0-8.0) Ur Specific [place] (1.003-1.030) Urine Protein (NEGATIVE) mg/dL Urine Glucose (UA) (Normal) mg/dL Urine Ketones (NEGATIVE) mg/dL Urine Blood (NEGATIVE) Urine Nitrate (NEGATIVE) Urine Bilirubin (NEGATIVE) Urine Urobilinogen (0.2-1.0) mg/dL Ur Leukocyte Esterase (Negative) Sharlene/uL Urine WBC (Auto) (0-5) /hpf Urine RBC (Auto) (0-3) /hpf Hyaline Casts (0-2) /lpf Granular Casts (Auto) (0-1) /lpf Stool Occult Blood Positive H (NEGATIVE) Blood Type Blood Type Confirm Antibody Screen 02/21/18 02/21/18 02/21/18 Range/Units 15:33 15:33 15:33 WBC (4.8-10.8) K/uL RBC (4.40-5.90) Mil/uL Hgb (12.0-18.0) g/dL Hct (35.0-51.0) % MCV (80.0-94.0) fL MCH (27.0-31.0) pg MCHC (33.0-37.0) g/dL RDW (11.5-14.5) % Plt Count (130-400) K/uL MPV (7.2-11.7) fL Neut % (Auto) (50.0-75.0) % Lymph % (Auto) (20.0-40.0) % Hardy % (Auto) (0.0-10.0) % Eos % (Auto) (0.0-4.0) % Baso % (Auto) (0.0-2.0) % Neut # (Auto) (1.8-7.0) K/uL Lymph # (Auto) (1.0-4.3) K/uL Hardy # (Auto) (0.0-0.8) K/uL Eos # (Auto) (0.0-0.7) K/uL Baso # (Auto) (0.0-0.2) K/uL PT 30.7 H* (9.7-12.2) SECONDS INR 2.8 APTT 40 H (21-34) SECONDS Sodium 139 (132-148) mmol/L Potassium 4.1 (3.6-5.2) mmol/L Chloride 100 (98-107) mmol/L Carbon Dioxide 26 (22-30) mmol/L Anion Gap 16 (10-20) BUN 61 H (9-20) mg/dL Creatinine 1.8 H (0.8-1.5) mg/dL Est GFR ( Amer) 45 Est GFR (Non-Af Amer) 37 Random Glucose 101 (75-110) mg/dL Calcium 8.7 (8.6-10.4) mg/dl Phosphorus (2.5-4.5) mg/dL Magnesium (1.6-2.3) mg/dL Total Bilirubin 2.0 H (0.2-1.3) mg/dL AST 32 (17-59) U/L ALT 33 (21-72) U/L Alkaline Phosphatase 75 (38-126) U/L Troponin I 0.5010 H* (0.00-0.120) ng/mL NT-Pro-B Natriuret Pep 07862 H (0-900) pg/mL Total Protein 6.3 (6.3-8.3) g/dL Albumin 3.1 L (3.5-5.0) g/dL Globulin 3.2 (2.2-3.9) gm/dL Albumin/Globulin Ratio 1.0 (1.0-2.1) Free T4 (0.78-2.19) ng/dL TSH 3rd Generation (0.46-4.68) mIU/L Urine Color (YELLOW) Urine Clarity (Clear) Urine pH (5.0-8.0) Ur Specific [place] (1.003-1.030) Urine Protein (NEGATIVE) mg/dL Urine Glucose (UA) (Normal) mg/dL Urine Ketones (NEGATIVE) mg/dL Urine Blood (NEGATIVE) Urine Nitrate (NEGATIVE) Urine Bilirubin (NEGATIVE) Urine Urobilinogen (0.2-1.0) mg/dL Ur Leukocyte Esterase (Negative) Sharlene/uL Urine WBC (Auto) (0-5) /hpf Urine RBC (Auto) (0-3) /hpf Hyaline Casts (0-2) /lpf Granular Casts (Auto) (0-1) /lpf Stool Occult Blood (NEGATIVE) Blood Type A POSITIVE Blood Type Confirm A POSITIVE Antibody Screen Negative Laboratory Results - last 24 hr 02/21/18 02/21/18 02/21/18 15:33 15:33 15:33 WBC RBC Hgb Hct MCV MCH MCHC RDW Plt Count MPV Neut % (Auto) Lymph % (Auto) Hardy % (Auto) Eos % (Auto) Baso % (Auto) Neut # (Auto) Lymph # (Auto) Hardy # (Auto) Eos # (Auto) Baso # (Auto) PT 30.7 H* INR 2.8 APTT 40 H Sodium 139 Potassium 4.1 Chloride 100 Carbon Dioxide 26 Anion Gap 16 BUN 61 H Creatinine 1.8 H Est GFR ( Amer) 45 Est GFR (Non-Af Amer) 37 Random Glucose 101 Calcium 8.7 Phosphorus Magnesium Total Bilirubin 2.0 H AST 32 ALT 33 Alkaline Phosphatase 75 Troponin I 0.5010 H* NT-Pro-B Natriuret Pep 29313 H Total Protein 6.3 Albumin 3.1 L Globulin 3.2 Albumin/Globulin Ratio 1.0 Free T4 TSH 3rd Generation Urine Color Urine Clarity Urine pH Ur Specific [place] Urine Protein Urine Glucose (UA) Urine Ketones Urine Blood Urine Nitrate Urine Bilirubin Urine Urobilinogen Ur Leukocyte Esterase Urine WBC (Auto) Urine RBC (Auto) Hyaline Casts Granular Casts (Auto) Stool Occult Blood Blood Type A POSITIVE Blood Type Confirm A POSITIVE Antibody Screen Negative 02/21/18 02/21/18 02/21/18 15:54 20:07 20:07 WBC 5.5 RBC 4.96 Hgb 12.6 Hct 37.7 MCV 75.9 L MCH 25.4 L MCHC 33.4 RDW 19.2 H Plt Count 113 L MPV 9.9 Neut % (Auto) Lymph % (Auto) Hardy % (Auto) Eos % (Auto) Baso % (Auto) Neut # (Auto) Lymph # (Auto) Hardy # (Auto) Eos # (Auto) Baso # (Auto) PT INR APTT Sodium Potassium Chloride Carbon Dioxide Anion Gap BUN Creatinine Est GFR ( Amer) Est GFR (Non-Af Amer) Random Glucose Calcium Phosphorus Magnesium Total Bilirubin AST ALT Alkaline Phosphatase Troponin I 0.8110 H* NT-Pro-B Natriuret Pep Total Protein Albumin Globulin Albumin/Globulin Ratio Free T4 TSH 3rd Generation 6.52 H Urine Color Urine Clarity Urine pH Ur Specific [place] Urine Protein Urine Glucose (UA) Urine Ketones Urine Blood Urine Nitrate Urine Bilirubin Urine Urobilinogen Ur Leukocyte Esterase Urine WBC (Auto) Urine RBC (Auto) Hyaline Casts Granular Casts (Auto) Stool Occult Blood Positive H Blood Type Blood Type Confirm Antibody Screen 02/21/18 02/21/18 02/22/18 21:45 23:19 03:06 WBC RBC Hgb 12.2 Hct 36.8 MCV MCH MCHC RDW Plt Count MPV Neut % (Auto) Lymph % (Auto) Hardy % (Auto) Eos % (Auto) Baso % (Auto) Neut # (Auto) Lymph # (Auto) Hardy # (Auto) Eos # (Auto) Baso # (Auto) PT INR APTT Sodium Potassium Chloride Carbon Dioxide Anion Gap BUN Creatinine Est GFR ( Amer) Est GFR (Non-Af Amer) Random Glucose Calcium Phosphorus Magnesium Total Bilirubin AST ALT Alkaline Phosphatase Troponin I NT-Pro-B Natriuret Pep Total Protein Albumin Globulin Albumin/Globulin Ratio Free T4 2.02 TSH 3rd Generation Urine Color Jeanne Urine Clarity Hazy Urine pH 5.0 Ur Specific [place] 1.018 Urine Protein 2+ H Urine Glucose (UA) Normal Urine Ketones Negative Urine Blood Negative Urine Nitrate Negative Urine Bilirubin Negative Urine Urobilinogen 2.0 Ur Leukocyte Esterase Neg Urine WBC (Auto) 8 H Urine RBC (Auto) 1 Hyaline Casts 11-20 H Granular Casts (Auto) 2-4 Stool Occult Blood Blood Type Blood Type Confirm Antibody Screen 02/22/18 02/22/18 02/22/18 03:06 03:06 03:06 WBC 4.9 RBC 4.91 Hgb 12.4 Hct 37.5 MCV 76.4 L MCH 25.3 L MCHC 33.1 RDW 19.0 H Plt Count 92 L D MPV 9.5 Neut % (Auto) 69.4 Lymph % (Auto) 13.4 L Hardy % (Auto) 12.3 H Eos % (Auto) 3.8 Baso % (Auto) 1.1 Neut # (Auto) 3.4 Lymph # (Auto) 0.7 L Hardy # (Auto) 0.6 Eos # (Auto) 0.2 Baso # (Auto) 0.1 PT 23.5 H D INR 2.1 D APTT 37 H Sodium 140 Potassium 3.6 Chloride 101 Carbon Dioxide 25 Anion Gap 17 BUN 59 H Creatinine 1.5 Est GFR ( Amer) 56 Est GFR (Non-Af Amer) 46 Random Glucose 89 Calcium 8.4 L Phosphorus 4.0 Magnesium 2.2 Total Bilirubin 2.2 H AST 35 ALT 43 Alkaline Phosphatase 82 Troponin I 0.6710 H* NT-Pro-B Natriuret Pep Total Protein 6.8 Albumin 3.3 L Globulin 3.5 Albumin/Globulin Ratio 0.9 L Free T4 TSH 3rd Generation Urine Color Urine Clarity Urine pH Ur Specific [place] Urine Protein Urine Glucose (UA) Urine Ketones Urine Blood Urine Nitrate Urine Bilirubin Urine Urobilinogen Ur Leukocyte Esterase Urine WBC (Auto) Urine RBC (Auto) Hyaline Casts Granular Casts (Auto) Stool Occult Blood Blood Type Blood Type Confirm Antibody Screen EKG/Cardiology Studies: Cardiology / EKG Studies 02/21/18 15:24 ELECTROCARDIOGRAM Stat Comment: Mode Of Transportation: BED Reason For Exam: chest pain 02/21/18 20:00 ELECTROCARDIOGRAM Q6H Comment: Mode Of Transportation: Reason For Exam: NSTEMI 02/22/18 02:00 ELECTROCARDIOGRAM Q6H Comment: Mode Of Transportation: Reason For Exam: NSTEMI Critical Care Progress Note - Nutrition Nutrition: Nutrition Category Date Time Status Liquid Diet [DIET] Diets 02/22/18 Lunch Active Attending/Attestation - Attestation I have personally seen and examined this patient.: Yes I have fully participated in the care of the patient.: Yes I have reviewed all pertinent clinical information: Yes Notes (Text): 02/22/18 15:58 Patient seen and examined in the intensive care unit. No further bleeding Possible EGD and colonoscopy Antihypertensives on hold Blood pressure improving Stable for transfer to floor
[2018-02-22] MEDS: Pantoprazole 80 MG in Sodium Chloride 0.9% 100 ML IV SCH ×2 (13:00→22:47)
--- NOTE | 2018-02-22 14:02 | CP.PCM.HP ---
History of Present Illness - History of Present Illness History of Present Illness: 72 yo male with PMH CAD s/p CABG, ischemic cardiomyopathy s/p AICD, EF 40%, CAD , NSTEMI, was admitted to [facility] 02/09/18-02/13/18 due to progressive dyspnea, placed on Xarelto, was sent to ED today by for further evaluation of weakness, dizziness, rectal bleeding pt developed for past few days. Pt still reports, (+) dyspnea, mostly on supine and exertion. Otherwise, pt denies CP, palpitation, diaphoresis, abd. pain, N/V/D, back pain. admitted to ICU with hypotension - Medical History PMH: CHF, HTN, Hypercholesterolemia, Hyperthyroidism, Hypothyroidism Denies: Chronic Kidney Disease Surgical History: CABG (1997) - [facility] Procedures INSERTION OF INFUSION DEVICE INTO LOWER VEIN, PERC APPROACH (11/25/17) PTERYGIUM EXCISION NEC (07/13/01) Family History: States: Unknown Family Hx Present on Admission - Present on Admission Any Indicators Present on Admission: No History of DVT/PE: No History of Uncontrolled Diabetes: No Urinary Catheter: No Decubitus Ulcer Present: No History Surgical Site Infection Following: None Review of Systems - Review of Systems All systems: reviewed and no additional remarkable complaints except - Constitutional Constitutional: As Per HPI, Anorexia. absent: Chills - EENT Eyes: absent: As Per HPI, Blind Spots, Blurred Vision, Change in Vision, Decreased Night Vision, Diplopia, Discharge, Dry Eye, Exophthalmos, Floaters, Irritation, Itchy Eyes, Loss of Peripheral Vision, Pain, Photophobia, Requires Corrective Lenses, Sees Flashes, Spots in Vision, Tunnel Vision, Other Visual Disturbances, Loss of Vision, Other Ears: absent: As Per HPI, Decreased Hearing, Ear Discharge, Ear Pain, Tinnitus, Abnormal Hearing, Disequilibrium, Dizziness, Other Nose/Mouth/Throat: absent: As Per HPI, Epistaxis, Nasal Congestion, Nasal Discharge, Nasal Obstruction, Nasal Trauma, Nose Pain, Post Nasal Drip, Sinus Pain, Sinus Pressure, Bleeding Gums, Change in Voice, Dental Pain, Dry Mouth, Dysphagia, Halitosis, Hoarsness, Lip Swelling, Mouth Lesions, Mouth Pain, Odynophagia, Sore Throat, Throat Swelling, Tongue Swelling, Facial Pain, Neck Pain, Neck Mass, Other - Cardiovascular Cardiovascular: As Per HPI - Respiratory Respiratory: As Per HPI, Dyspnea, Dyspnea on Exertion - Gastrointestinal Gastrointestinal: As Per HPI, Hematochezia - Genitourinary Genitourinary: absent: As Per HPI, Change in Urinary Stream, Difficulty Urinating, Dysuria, Flank Pain, Hematuria, Pyuria, Nocturia, Urinary Incontinence, Urinary Frequency, Urinary Hesitance, Urinary Urgency, Voiding Freq/Small Amts, Freq UTI, Hx Renal/Bladder Calculi, Hx /Renal Surgery, Bladder Distension, Other - Musculoskeletal Musculoskeletal: absent: As Per HPI, Abnormal Gait, Arthralgias, Atrophy, Back Pain, Deformity, Joint Swelling, Limited Range of Motion, Loss of Height, Muscle Cramps, Muscle Weakness, Myalgias, Neck Pain, Numbness, Radiating Pain into Limb, Stiffness, Tingling, Other - Integumentary Integumentary: absent: As Per HPI, Acne, Alopecia, Bleeding Lesions, Change in Hair, Change in Nails, Change in Pigmentation, Changing Lesions, Dry Skin, Erythema, Furuncle, Hirsutism, Lesions, New Lesions, Non-Healing Lesions, Photosensitivity, Pruritus, Rash, Skin Pain, Skin Ulcer, Sores, Striae, Swelling , Unusual Bruising, Wounds, Jaundice, Other - Neurological Neurological: absent: As Per HPI, Abnormal Gait, Abnormal Hearing, Abnormal Movements, Abnormal Speech, Behavioral Changes, Burning Sensations, Confusion, Convulsions, Disequilibrium, Dizziness, Numbness, Focal Weakness, Frequent Falls , Headaches, Lack of Coordination, Loss of Vision, Memory Loss, Paresthesias, Radicular Pain, Restless Legs, Sensory Deficit, Syncope, Tingling, Tremor, Vertigo, Weakness, Other Visual Disturbances, Other - Psychiatric Psychiatric: absent: As Per HPI, Abnormal Sleep Pattern, Anhedonia, Anxiety, Auditory Hallucinations, Behavioral Changes, Change in Appetite, Change in Libido, Confusion, Depression, Difficulty Concentrating, Hallucinations, Homicidal Ideation, Hopelessness, Irritability, Memory Loss, Mood Swings, Panic Attacks, Paranoia, Suicidal Ideation, Visual Hallucinations, Tactile Hallucinations, Other - Endocrine Endocrine: absent: As Per HPI, Change in Body Appearance, Change in Libido, Cold Intolorance, Deepening of Voice, Excessive Sweating, Fatigue, Flushing, Heat Intolorance, Increase in Ring/Shoe/Hat Size, Palpitations, Polydipsia, Polyphagia, Polyuria, Other - Hematologic/Lymphatic Hematologic: absent: As Per HPI, Easy Bleeding, Easy Bruising, Lymphadenopathy, Other Past Patient History - Infectious Disease Hx of Infectious Diseases: None - Past Medical History & Family History Past Medical History?: Yes - Past Social History Smoking Status: Never Smoked - CARDIAC Hx Congestive Heart Failure: Yes Hx Hypercholesterolemia: Yes Hx Hypertension: Yes - PULMONARY Hx Respiratory Disorders: No - NEUROLOGICAL Hx Neurological Disorder: No - HEENT Hx HEENT Problems: No - RENAL Hx Chronic Kidney Disease: No - ENDOCRINE/METABOLIC Hx Hyperthyroidism: Yes Hx Hypothyroidism: Yes - HEMATOLOGICAL/ONCOLOGICAL Hx Blood Disorders: No - INTEGUMENTARY Hx Dermatological Problems: No - MUSCULOSKELETAL/RHEUMATOLOGICAL Hx Musculoskeletal Disorders: No Hx Falls: No - GASTROINTESTINAL Hx Gastrointestinal Disorders: No - GENITOURINARY/GYNECOLOGICAL Hx Genitourinary Disorders: No - PSYCHIATRIC Hx Substance Use: No - SURGICAL HISTORY Hx Coronary Artery Bypass Graft: Yes (1997) - ANESTHESIA Hx Anesthesia: Yes Hx Anesthesia Reactions: No Hx Malignant Hyperthermia: No Meds Allergies/Adverse Reactions: Allergies Allergy/AdvReac Type Severity Reaction Status Date / Time No Known Allergies Allergy Verified 02/21/18 14:43 Physical Exam - Constitutional Appears: Non-toxic, No Acute Distress - Head Exam Head Exam: ATRAUMATIC, NORMAL INSPECTION, NORMOCEPHALIC - Eye Exam Eye Exam: PERRL. absent: Scleral icterus - ENT Exam ENT Exam: Mucous Membranes Dry, Normal External Ear Exam - Neck Exam Neck exam: Negative for: Lymphadenopathy - Respiratory Exam Respiratory Exam: Decreased Breath Sounds, Clear to Auscultation Bilateral - Cardiovascular Exam Cardiovascular Exam: REGULAR RHYTHM, +S1, +S2 - GI/Abdominal Exam GI & Abdominal Exam: Diminished Bowel Sounds, Soft. absent: Tenderness - Rectal Exam Rectal Exam: Deferred - Exam Exam: NORMAL INSPECTION - Extremities Exam Extremities exam: Positive for: pedal edema, pedal pulses present. Negative for : calf tenderness, tenderness - Back Exam Back exam: absent: CVA tenderness (L), CVA tenderness (R) - Neurological Exam Neurological exam: Alert, CN II-XII Intact, Oriented x3, Reflexes Normal - Psychiatric Exam Psychiatric exam: Depressed - Skin Skin Exam: Dry, Intact Results - Vital Signs Recent Vital Signs: Last Vital Signs Temp 97.4 F L 02/22/18 12:00 Pulse 88 02/22/18 12:46 Resp 20 02/22/18 12:46 BP 90/56 L 02/22/18 12:46 Pulse Ox 98 02/22/18 12:46 - Labs Result Diagrams: 02/22/18 03:06 02/22/18 03:06 Labs: Laboratory Results - last 24 hr 02/21/18 02/21/18 02/21/18 15:33 15:33 15:33 WBC 6.6 D RBC 5.09 Hgb 12.7 Hct 38.8 MCV 76.4 L MCH 25.1 L MCHC 32.8 L RDW 19.0 H Plt Count 119 L MPV 9.7 Neut % (Auto) 76.2 H Lymph % (Auto) 10.7 L [place] % (Auto) 11.6 H Eos % (Auto) 0.6 Baso % (Auto) 0.9 Neut # (Auto) 5.0 Lymph # (Auto) 0.7 L [place] # (Auto) 0.8 Eos # (Auto) 0.0 Baso # (Auto) 0.1 PT 30.7 H* INR 2.8 APTT 40 H Sodium 139 Potassium 4.1 Chloride 100 Carbon Dioxide 26 Anion Gap 16 BUN 61 H Creatinine 1.8 H Est GFR ( Amer) 45 Est GFR (Non-Af Amer) 37 Random Glucose 101 Calcium 8.7 Phosphorus Magnesium Total Bilirubin 2.0 H AST 32 ALT 33 Alkaline Phosphatase 75 Troponin I 0.5010 H* NT-Pro-B Natriuret Pep 86958 H Total Protein 6.3 Albumin 3.1 L Globulin 3.2 Albumin/Globulin Ratio 1.0 Free T4 TSH 3rd Generation Urine Color Urine Clarity Urine pH Ur Specific [place] Urine Protein Urine Glucose (UA) Urine Ketones Urine Blood Urine Nitrate Urine Bilirubin Urine Urobilinogen Ur Leukocyte Esterase Urine WBC (Auto) Urine RBC (Auto) Hyaline Casts Granular Casts (Auto) Stool Occult Blood Blood Type Blood Type Confirm Antibody Screen 02/21/18 02/21/18 02/21/18 15:33 15:54 20:07 WBC RBC Hgb Hct MCV MCH MCHC RDW Plt Count MPV Neut % (Auto) Lymph % (Auto) [place] % (Auto) Eos % (Auto) Baso % (Auto) Neut # (Auto) Lymph # (Auto) [place] # (Auto) Eos # (Auto) Baso # (Auto) PT INR APTT Sodium Potassium Chloride Carbon Dioxide Anion Gap BUN Creatinine Est GFR ( Amer) Est GFR (Non-Af Amer) Random Glucose Calcium Phosphorus Magnesium Total Bilirubin AST ALT Alkaline Phosphatase Troponin I 0.8110 H* NT-Pro-B Natriuret Pep Total Protein Albumin Globulin Albumin/Globulin Ratio Free T4 TSH 3rd Generation 6.52 H Urine Color Urine Clarity Urine pH Ur Specific [place] Urine Protein Urine Glucose (UA) Urine Ketones Urine Blood Urine Nitrate Urine Bilirubin Urine Urobilinogen Ur Leukocyte Esterase Urine WBC (Auto) Urine RBC (Auto) Hyaline Casts Granular Casts (Auto) Stool Occult Blood Positive H Blood Type A POSITIVE Blood Type Confirm A POSITIVE Antibody Screen Negative 02/21/18 02/21/18 02/21/18 20:07 21:45 23:19 WBC 5.5 RBC 4.96 Hgb 12.6 12.2 Hct 37.7 36.8 MCV 75.9 L MCH 25.4 L MCHC 33.4 RDW 19.2 H Plt Count 113 L MPV 9.9 Neut % (Auto) Lymph % (Auto) [place] % (Auto) Eos % (Auto) Baso % (Auto) Neut # (Auto) Lymph # (Auto) [place] # (Auto) Eos # (Auto) Baso # (Auto) PT INR APTT Sodium Potassium Chloride Carbon Dioxide Anion Gap BUN Creatinine Est GFR ( Amer) Est GFR (Non-Af Amer) Random Glucose Calcium Phosphorus Magnesium Total Bilirubin AST ALT Alkaline Phosphatase Troponin I NT-Pro-B Natriuret Pep Total Protein Albumin Globulin Albumin/Globulin Ratio Free T4 TSH 3rd Generation Urine Color Jeanne Urine Clarity Hazy Urine pH 5.0 Ur Specific [place] 1.018 Urine Protein 2+ H Urine Glucose (UA) Normal Urine Ketones Negative Urine Blood Negative Urine Nitrate Negative Urine Bilirubin Negative Urine Urobilinogen 2.0 Ur Leukocyte Esterase Neg Urine WBC (Auto) 8 H Urine RBC (Auto) 1 Hyaline Casts 11-20 H Granular Casts (Auto) 2-4 Stool Occult Blood Blood Type Blood Type Confirm Antibody Screen 02/22/18 02/22/18 02/22/18 03:06 03:06 03:06 WBC 4.9 RBC 4.91 Hgb 12.4 Hct 37.5 MCV 76.4 L MCH 25.3 L MCHC 33.1 RDW 19.0 H Plt Count 92 L D MPV 9.5 Neut % (Auto) 69.4 Lymph % (Auto) 13.4 L [place] % (Auto) 12.3 H Eos % (Auto) 3.8 Baso % (Auto) 1.1 Neut # (Auto) 3.4 Lymph # (Auto) 0.7 L [place] # (Auto) 0.6 Eos # (Auto) 0.2 Baso # (Auto) 0.1 PT 23.5 H D INR 2.1 D APTT 37 H Sodium Potassium Chloride Carbon Dioxide Anion Gap BUN Creatinine Est GFR ( Amer) Est GFR (Non-Af Amer) Random Glucose Calcium Phosphorus Magnesium Total Bilirubin AST ALT Alkaline Phosphatase Troponin I NT-Pro-B Natriuret Pep Total Protein Albumin Globulin Albumin/Globulin Ratio Free T4 2.02 TSH 3rd Generation Urine Color Urine Clarity Urine pH Ur Specific [place] Urine Protein Urine Glucose (UA) Urine Ketones Urine Blood Urine Nitrate Urine Bilirubin Urine Urobilinogen Ur Leukocyte Esterase Urine WBC (Auto) Urine RBC (Auto) Hyaline Casts Granular Casts (Auto) Stool Occult Blood Blood Type Blood Type Confirm Antibody Screen 02/22/18 03:06 WBC RBC Hgb Hct MCV MCH MCHC RDW Plt Count MPV Neut % (Auto) Lymph % (Auto) [place] % (Auto) Eos % (Auto) Baso % (Auto) Neut # (Auto) Lymph # (Auto) [place] # (Auto) Eos # (Auto) Baso # (Auto) PT INR APTT Sodium 140 Potassium 3.6 Chloride 101 Carbon Dioxide 25 Anion Gap 17 BUN 59 H Creatinine 1.5 Est GFR ( Amer) 56 Est GFR (Non-Af Amer) 46 Random Glucose 89 Calcium 8.4 L Phosphorus 4.0 Magnesium 2.2 Total Bilirubin 2.2 H AST 35 ALT 43 Alkaline Phosphatase 82 Troponin I 0.6710 H* NT-Pro-B Natriuret Pep Total Protein 6.8 Albumin 3.3 L Globulin 3.5 Albumin/Globulin Ratio 0.9 L Free T4 TSH 3rd Generation Urine Color Urine Clarity Urine pH Ur Specific [place] Urine Protein Urine Glucose (UA) Urine Ketones Urine Blood Urine Nitrate Urine Bilirubin Urine Urobilinogen Ur Leukocyte Esterase Urine WBC (Auto) Urine RBC (Auto) Hyaline Casts Granular Casts (Auto) Stool Occult Blood Blood Type Blood Type Confirm Antibody Screen Assessment & Plan (1) Ischemic cardiomyopathy Status: Acute (2) Ischemic cardiomyopathy Status: Acute (3) CHF exacerbation Status: Acute (4) Elevated troponin Status: Acute (5) GI bleed Status: Acute (6) Hypotension (arterial) Status: Acute (7) RUBINA (acute kidney injury) Status: Acute (8) ARF (acute renal failure) Status: Acute - Assessment and Plan (Free Text) Assessment: GI Renal and Cardiac eval ongoing in ICU for GIB / CHF/ RUBINA in setting of ischemic cardiomyopathy prognosis poor from outset
--- NOTE | 2018-02-22 15:35 | CP.PCM.CON ---
History of Present Illness - History of Present Illness History of Present Illness: This is a 72 year old man with rectal bleeding. Patient was recently hospitalized at 02/09/18-02/13/18 for progressive dyspnea and edema. At that time, he was started on Xarelto. Patient presented to Dr. Santo's office 02/21/18 for weakness, dizziness and rectal bleeding and was referred to the ER. Evaluation in the ER showed hypotension, BP 75/50 but no tachycardia. Initial hemoglobin was 13.8 which declined to 12.7. He describes dark red blood on the toilet paper and in the toilet bowl for two days. He denies having constipation or diarrhea. He also denies having abdominal pain, heartburn, difficulty swallowing, nausea and vomiting. He reports having a poor appetite recently. He had a colonoscopy ten years ago which was reportedly normal. Review of Systems - Review of Systems All systems: reviewed and no additional remarkable complaints except - Constitutional Constitutional: Weakness. absent: Chills, Fever - Cardiovascular Cardiovascular: Lightheadedness, Orthopnea, Paroxysmal Nocturnal Dyspnea. absent: Chest Pain, Palpitations - Respiratory Respiratory: Dyspnea - Gastrointestinal Gastrointestinal: Hematochezia. absent: Abdominal Pain, Constipation, Diarrhea , Dysphagia, Heartburn, Nausea, Vomiting - Genitourinary Genitourinary: absent: Difficulty Urinating Past Patient History - Infectious Disease Hx of Infectious Diseases: None - Past Medical History & Family History Past Medical History?: Yes - Past Social History Smoking Status: Never Smoked - CARDIAC Hx Congestive Heart Failure: Yes Hx Hypercholesterolemia: Yes Hx Hypertension: Yes - PULMONARY Hx Respiratory Disorders: No - NEUROLOGICAL Hx Neurological Disorder: No - HEENT Hx HEENT Problems: No - RENAL Hx Chronic Kidney Disease: No - ENDOCRINE/METABOLIC Hx Hyperthyroidism: Yes Hx Hypothyroidism: Yes - HEMATOLOGICAL/ONCOLOGICAL Hx Blood Disorders: No - INTEGUMENTARY Hx Dermatological Problems: No - MUSCULOSKELETAL/RHEUMATOLOGICAL Hx Musculoskeletal Disorders: No Hx Falls: No - GASTROINTESTINAL Hx Gastrointestinal Disorders: No - GENITOURINARY/GYNECOLOGICAL Hx Genitourinary Disorders: No - PSYCHIATRIC Hx Substance Use: No - SURGICAL HISTORY Hx Coronary Artery Bypass Graft: Yes (1997) - ANESTHESIA Hx Anesthesia: Yes Hx Anesthesia Reactions: No Hx Malignant Hyperthermia: No Meds Allergies/Adverse Reactions: Allergies Allergy/AdvReac Type Severity Reaction Status Date / Time No Known Allergies Allergy Verified 02/21/18 14:43 - Medications Medications: Current Medications Pantoprazole Sodium 80 mg/ (Sodium Chloride) 100 mls @ 10 mls/hr IV .Q10H [facility] PRN Reason: 8 MG/HR Last Admin: 02/22/18 13:00 Dose: 10 mls/hr Levothyroxine Sodium (Synthroid) 125 mcg PO DAILY@0630 [facility] Last Admin: 02/22/18 05:59 Dose: 125 mcg Rosuvastatin Calcium (Crestor) 20 mg PO HS [facility] Last Admin: 02/21/18 21:14 Dose: 20 mg Physical Exam - Constitutional Appears: No Acute Distress - Head Exam Head Exam: ATRAUMATIC, NORMOCEPHALIC - Eye Exam Eye Exam: EOMI, PERRL - Neck Exam Neck exam: Negative for: Lymphadenopathy, Thyromegaly - Respiratory Exam Respiratory Exam: NORMAL BREATHING PATTERN. absent: Rales, Rhonchi, Wheezes - Cardiovascular Exam Cardiovascular Exam: REGULAR RHYTHM, +S1, +S2. absent: Gallop, Rubs, Systolic Murmur - GI/Abdominal Exam GI & Abdominal Exam: Normal Bowel Sounds, Soft. absent: Mass, Organomegaly, Tenderness - Rectal Exam Rectal Exam: Deferred - Extremities Exam Extremities exam: Negative for: calf tenderness, pedal edema Results - Vital Signs Recent Vital Signs: Last Vital Signs Temp 97.4 F L 02/22/18 12:00 Pulse 89 02/22/18 13:46 Resp 29 H 02/22/18 13:46 BP 90/57 L 02/22/18 13:46 Pulse Ox 100 02/22/18 13:46 - Labs Result Diagrams: 02/22/18 03:06 02/22/18 03:06 Labs: Laboratory Results - last 24 hr 02/21/18 02/21/18 02/21/18 15:33 15:33 15:33 WBC 6.6 D RBC 5.09 Hgb 12.7 Hct 38.8 MCV 76.4 L MCH 25.1 L MCHC 32.8 L RDW 19.0 H Plt Count 119 L MPV 9.7 Neut % (Auto) 76.2 H Lymph % (Auto) 10.7 L [place] % (Auto) 11.6 H Eos % (Auto) 0.6 Baso % (Auto) 0.9 Neut # (Auto) 5.0 Lymph # (Auto) 0.7 L [place] # (Auto) 0.8 Eos # (Auto) 0.0 Baso # (Auto) 0.1 PT 30.7 H* INR 2.8 APTT 40 H Sodium 139 Potassium 4.1 Chloride 100 Carbon Dioxide 26 Anion Gap 16 BUN 61 H Creatinine 1.8 H Est GFR ( Amer) 45 Est GFR (Non-Af Amer) 37 Random Glucose 101 Calcium 8.7 Phosphorus Magnesium Total Bilirubin 2.0 H AST 32 ALT 33 Alkaline Phosphatase 75 Troponin I 0.5010 H* NT-Pro-B Natriuret Pep 60317 H Total Protein 6.3 Albumin 3.1 L Globulin 3.2 Albumin/Globulin Ratio 1.0 Free T4 TSH 3rd Generation Urine Color Urine Clarity Urine pH Ur Specific Harper Urine Protein Urine Glucose (UA) Urine Ketones Urine Blood Urine Nitrate Urine Bilirubin Urine Urobilinogen Ur Leukocyte Esterase Urine WBC (Auto) Urine RBC (Auto) Hyaline Casts Granular Casts (Auto) Stool Occult Blood Blood Type Blood Type Confirm Antibody Screen 02/21/18 02/21/18 02/21/18 15:33 15:54 20:07 WBC RBC Hgb Hct MCV MCH MCHC RDW Plt Count MPV Neut % (Auto) Lymph % (Auto) [place] % (Auto) Eos % (Auto) Baso % (Auto) Neut # (Auto) Lymph # (Auto) [place] # (Auto) Eos # (Auto) Baso # (Auto) PT INR APTT Sodium Potassium Chloride Carbon Dioxide Anion Gap BUN Creatinine Est GFR ( Amer) Est GFR (Non-Af Amer) Random Glucose Calcium Phosphorus Magnesium Total Bilirubin AST ALT Alkaline Phosphatase Troponin I 0.8110 H* NT-Pro-B Natriuret Pep Total Protein Albumin Globulin Albumin/Globulin Ratio Free T4 TSH 3rd Generation 6.52 H Urine Color Urine Clarity Urine pH Ur Specific Harper Urine Protein Urine Glucose (UA) Urine Ketones Urine Blood Urine Nitrate Urine Bilirubin Urine Urobilinogen Ur Leukocyte Esterase Urine WBC (Auto) Urine RBC (Auto) Hyaline Casts Granular Casts (Auto) Stool Occult Blood Positive H Blood Type A POSITIVE Blood Type Confirm A POSITIVE Antibody Screen Negative 02/21/18 02/21/18 02/21/18 20:07 21:45 23:19 WBC 5.5 RBC 4.96 Hgb 12.6 12.2 Hct 37.7 36.8 MCV 75.9 L MCH 25.4 L MCHC 33.4 RDW 19.2 H Plt Count 113 L MPV 9.9 Neut % (Auto) Lymph % (Auto) [place] % (Auto) Eos % (Auto) Baso % (Auto) Neut # (Auto) Lymph # (Auto) [place] # (Auto) Eos # (Auto) Baso # (Auto) PT INR APTT Sodium Potassium Chloride Carbon Dioxide Anion Gap BUN Creatinine Est GFR ( Amer) Est GFR (Non-Af Amer) Random Glucose Calcium Phosphorus Magnesium Total Bilirubin AST ALT Alkaline Phosphatase Troponin I NT-Pro-B Natriuret Pep Total Protein Albumin Globulin Albumin/Globulin Ratio Free T4 TSH 3rd Generation Urine Color Jeanne Urine Clarity Hazy Urine pH 5.0 Ur Specific Harper 1.018 Urine Protein 2+ H Urine Glucose (UA) Normal Urine Ketones Negative Urine Blood Negative Urine Nitrate Negative Urine Bilirubin Negative Urine Urobilinogen 2.0 Ur Leukocyte Esterase Neg Urine WBC (Auto) 8 H Urine RBC (Auto) 1 Hyaline Casts 11-20 H Granular Casts (Auto) 2-4 Stool Occult Blood Blood Type Blood Type Confirm Antibody Screen 02/22/18 02/22/18 02/22/18 03:06 03:06 03:06 WBC 4.9 RBC 4.91 Hgb 12.4 Hct 37.5 MCV 76.4 L MCH 25.3 L MCHC 33.1 RDW 19.0 H Plt Count 92 L D MPV 9.5 Neut % (Auto) 69.4 Lymph % (Auto) 13.4 L [place] % (Auto) 12.3 H Eos % (Auto) 3.8 Baso % (Auto) 1.1 Neut # (Auto) 3.4 Lymph # (Auto) 0.7 L [place] # (Auto) 0.6 Eos # (Auto) 0.2 Baso # (Auto) 0.1 PT 23.5 H D INR 2.1 D APTT 37 H Sodium Potassium Chloride Carbon Dioxide Anion Gap BUN Creatinine Est GFR ( Amer) Est GFR (Non-Af Amer) Random Glucose Calcium Phosphorus Magnesium Total Bilirubin AST ALT Alkaline Phosphatase Troponin I NT-Pro-B Natriuret Pep Total Protein Albumin Globulin Albumin/Globulin Ratio Free T4 2.02 TSH 3rd Generation Urine Color Urine Clarity Urine pH Ur Specific Harper Urine Protein Urine Glucose (UA) Urine Ketones Urine Blood Urine Nitrate Urine Bilirubin Urine Urobilinogen Ur Leukocyte Esterase Urine WBC (Auto) Urine RBC (Auto) Hyaline Casts Granular Casts (Auto) Stool Occult Blood Blood Type Blood Type Confirm Antibody Screen 02/22/18 03:06 WBC RBC Hgb Hct MCV MCH MCHC RDW Plt Count MPV Neut % (Auto) Lymph % (Auto) [place] % (Auto) Eos % (Auto) Baso % (Auto) Neut # (Auto) Lymph # (Auto) [place] # (Auto) Eos # (Auto) Baso # (Auto) PT INR APTT Sodium 140 Potassium 3.6 Chloride 101 Carbon Dioxide 25 Anion Gap 17 BUN 59 H Creatinine 1.5 Est GFR ( Amer) 56 Est GFR (Non-Af Amer) 46 Random Glucose 89 Calcium 8.4 L Phosphorus 4.0 Magnesium 2.2 Total Bilirubin 2.2 H AST 35 ALT 43 Alkaline Phosphatase 82 Troponin I 0.6710 H* NT-Pro-B Natriuret Pep Total Protein 6.8 Albumin 3.3 L Globulin 3.5 Albumin/Globulin Ratio 0.9 L Free T4 TSH 3rd Generation Urine Color Urine Clarity Urine pH Ur Specific Harper Urine Protein Urine Glucose (UA) Urine Ketones Urine Blood Urine Nitrate Urine Bilirubin Urine Urobilinogen Ur Leukocyte Esterase Urine WBC (Auto) Urine RBC (Auto) Hyaline Casts Granular Casts (Auto) Stool Occult Blood Blood Type Blood Type Confirm Antibody Screen Assessment & Plan (1) Lower GI bleeding Assessment and Plan: Patient has rectal bleeding presumably exacerbated by Xarelto. The HGB was declined from 13.8 to 12.4 since admission. BP has been low, currently 90/56. The troponins have been slightly elevated. Patient should have GI work-up, colonoscopy and EGD, when cleared by cardiology. Continue to monitor CBC. Protonix may be given by mouth. Status: Acute
--- NOTE | 2018-02-22 16:55 | CARD ---
APPROVED REPORT EKG Measurement Heart [id number] <Conclusion> Normal sinus rhythm T wave abnormality, consider inferolateral ischemia Prolonged QT Abnormal ECG
[2018-02-23] MEDS: Levothyroxine 125 MCG TAB PO SCH (05:29)
[2018-02-23 06:06] LABS: BASO % 0.9 % (0.0-2.0); EOS # 0.2 K/uL (0.0-0.7); EOS % 4.5 % (0.0-4.0); HEMOGLOBIN 12.8 g/dL (12.0-18.0); LYMPH # 0.6 K/uL (1.0-4.3); MEAN CELL VOLUME 76.4 fL (80.0-94.0); MEAN CORPUSCULAR HEMOGLOBIN 25.3 pg (27.0-31.0); MEAN CORPUSCULAR HGB CONC 33.1 g/dL (33.0-37.0); MEAN PLATELET VOLUME 10.4 fL (7.2-11.7); MONO # 0.7 K/uL (0.0-0.8); NEUT # 2.9 K/uL (1.8-7.0); NEUT % 65.6 % (50.0-75.0); RBC 5.06 Mil/uL (4.40-5.90); RED CELL DISTRIBUTION WIDTH 19.4 % (11.5-14.5); WHITE BLOOD COUNT 4.4 K/uL (4.8-10.8)
[2018-02-23 06:13] LABS: INR 1.7; PROTHROMBIN TIME 18.9 SECONDS (9.7-12.2)
[2018-02-23 06:32] LABS: ALB/GLOB RATIO 0.9 (1.0-2.1); ALT/SGPT 26 U/L (21-72); AST/SGOT 30 U/L (17-59); BLOOD UREA NITROGEN 53 mg/dL (9-20); CALCIUM 8.2 mg/dl (8.6-10.4); GFR AFRICAN-AMERICAN > 60; GFR NON-AFRICAN AMERICAN 50
[2018-02-23] MEDS ORDERED: DOBUTamine 500mg/250ml D5W 500 MG/250 ML BAG IV SCH (09:15)
[2018-02-23] MEDS: Pantoprazole 40 mg EC Tab PO SCH ×2 (09:45→17:30)
[2018-02-23] MEDS: DOBUTamine 500mg/250ml D5W 500 MG/250 ML BAG IV SCH (09:46)
--- NOTE | 2018-02-23 11:48 | CP.CCUPN ---
<Margarita Mir - Last Filed: 02/23/18 11:44> CCU Subjective - Physician Review Subjective (Free Text): Patient seen and examined at bedside. No overnight events reported. Patient denies any fevers, chills, chest pain, palpitations, SOB, abdominal pain, n/v, changes in bowel habits, and urinary symptoms. CCU Objective - Vital Signs / Intake & Output Vital Signs (Last 4 hours): Vital Signs Temp Pulse Resp BP Pulse Ox 02/23/18 11:00 93 H 16 87/53 L 99 02/23/18 10:00 92 H 26 H 88/62 L 98 02/23/18 09:46 90 20 86/62 L 97 02/23/18 09:00 88 22 90/53 L 98 02/23/18 08:00 97 F L 82 14 93/61 L 98 Intake and Output (Last 8hrs): Intake & Output 02/22/18 02/23/18 02/23/18 22:59 06:59 14:59 Intake Total 800 90 45.4 Output Total 370 300 Balance 430 -210 45.4 Weight 187 lb Intake: Intake, IV Amount 80 90 45.4 Right Antecubital 80 90 45.4 Oral 720 Output: Urine 370 300 Urine, Voided 370 300 - Physical Exam Head: Positive for: Atraumatic, Normocephalic Extroacular Muscles: Positive for: EOMI Conjunctiva: Positive for: Normal Respiratory/Chest: Positive for: Clear to Auscultation. Negative for: Accessory Muscle Use Cardiovascular: Positive for: Regular Rate and Rhythm, Normal S1, S2 Abdomen: Positive for: Normal Bowel Sounds. Negative for: Tenderness Upper Extremity: Negative for: Edema Lower Extremity: Positive for: Edema Neurological: Positive for: GCS=15 Psychiatric: Positive for: Alert, Oriented x 3 - Medications Active Medications: Active Medications Generic Name Dose Route Start Last Admin Trade Name Freq PRN Reason Stop Dose Admin Dobutamine HCl/Dextrose 500 mg in 250 mls @ 12.723 mls/hr 02/23/18 09:45 09:46 Dobutamine/Dextrose 5% 500mg/250ml IV 02/24/18 09:45 5 mcg/kg/min .[id number] OPAL 12.723 mls/hr Protocol Administration 5 MCG/KG/MIN Levothyroxine Sodium 125 mcg 05/30/18 06:30 02/23/18 05:29 Synthroid PO 125 mcg DAILY@0630 OPAL Administration Pantoprazole Sodium 40 mg 02/23/18 10:00 02/23/18 09:45 Protonix Ec Tab PO 40 mg BID OPAL Administration Rosuvastatin Calcium 20 mg 02/21/18 22:00 02/22/18 21:02 Crestor PO 20 mg HS OPAL Administration - Patient Studies Lab Studies: Microbiology Studies 02/21/18 19:09 MRSA Culture (Admit) - Final Naris MRSA NOT DETECTED Lab Studies 02/23/18 02/23/18 02/23/18 Range/Units 06:00 06:00 06:00 WBC 4.4 L (4.8-10.8) K/uL RBC 5.06 (4.40-5.90) Mil/uL Hgb 12.8 (12.0-18.0) g/dL Hct 38.6 (35.0-51.0) % MCV 76.4 L (80.0-94.0) fL MCH 25.3 L (27.0-31.0) pg MCHC 33.1 (33.0-37.0) g/dL RDW 19.4 H (11.5-14.5) % Plt Count 99 L (130-400) K/uL MPV 10.4 (7.2-11.7) fL Neut % (Auto) 65.6 (50.0-75.0) % Lymph % (Auto) 14.0 L (20.0-40.0) % [place] % (Auto) 15.0 H (0.0-10.0) % Eos % (Auto) 4.5 H (0.0-4.0) % Baso % (Auto) 0.9 (0.0-2.0) % Neut # (Auto) 2.9 (1.8-7.0) K/uL Lymph # (Auto) 0.6 L (1.0-4.3) K/uL [place] # (Auto) 0.7 (0.0-0.8) K/uL Eos # (Auto) 0.2 (0.0-0.7) K/uL Baso # (Auto) 0.0 (0.0-0.2) K/uL PT 18.9 H (9.7-12.2) SECONDS INR 1.7 APTT 33 (21-34) SECONDS Sodium 139 (132-148) mmol/L Potassium 3.9 (3.6-5.2) mmol/L Chloride 102 (98-107) mmol/L Carbon Dioxide 27 (22-30) mmol/L Anion Gap 14 (10-20) BUN 53 H (9-20) mg/dL Creatinine 1.4 (0.8-1.5) mg/dL Est GFR ( Amer) > 60 Est GFR (Non-Af Amer) 50 Random Glucose 82 (75-110) mg/dL Calcium 8.2 L (8.6-10.4) mg/dl Phosphorus 3.4 (2.5-4.5) mg/dL Magnesium 2.3 (1.6-2.3) mg/dL Total Bilirubin 2.0 H (0.2-1.3) mg/dL AST 30 (17-59) U/L ALT 26 (21-72) U/L Alkaline Phosphatase 74 (38-126) U/L Total Protein 6.2 L (6.3-8.3) g/dL Albumin 3.0 L (3.5-5.0) g/dL Globulin 3.3 (2.2-3.9) gm/dL Albumin/Globulin Ratio 0.9 L (1.0-2.1) Laboratory Results - last 24 hr 02/23/18 02/23/18 02/23/18 06:00 06:00 06:00 WBC 4.4 L RBC 5.06 Hgb 12.8 Hct 38.6 MCV 76.4 L MCH 25.3 L MCHC 33.1 RDW 19.4 H Plt Count 99 L MPV 10.4 Neut % (Auto) 65.6 Lymph % (Auto) 14.0 L [place] % (Auto) 15.0 H Eos % (Auto) 4.5 H Baso % (Auto) 0.9 Neut # (Auto) 2.9 Lymph # (Auto) 0.6 L [place] # (Auto) 0.7 Eos # (Auto) 0.2 Baso # (Auto) 0.0 PT 18.9 H INR 1.7 APTT 33 Sodium 139 Potassium 3.9 Chloride 102 Carbon Dioxide 27 Anion Gap 14 BUN 53 H Creatinine 1.4 Est GFR ( Amer) > 60 Est GFR (Non-Af Amer) 50 Random Glucose 82 Calcium 8.2 L Phosphorus 3.4 Magnesium 2.3 Total Bilirubin 2.0 H AST 30 ALT 26 Alkaline Phosphatase 74 Total Protein 6.2 L Albumin 3.0 L Globulin 3.3 Albumin/Globulin Ratio 0.9 L Review of Systems - Review of Systems Review of Systems: See Subjective Critical Care Progress Note - Nutrition Nutrition: Nutrition Category Date Time Status Liquid Diet [DIET] Diets 02/22/18 Lunch Active Assessment/Plan - Assessment and Plan (Free Text) Assessment: 72 yo male with PMH CAD s/p AICD, CABG,CHF (EF 15%) ,NSTEMI, and Hypothyroidism was admitted to [facility] 02/09/18-02/13/18 due to progressive dyspnea , placed on Xarelto, was sent to ED today by for further evaluation of weakness, dizziness, and rectal bleeding. ICU consulted for close monitoring Plan: Neuro: GCS: 15 Sedation: None Cont. Home Crestor. Cardio: A: Elevated Troponins Hx of HTN, CABG, AICD placement, CABG, Severe Cardiomyopathy (EF 15%), ECHO (02/10): Severe Cardiomyopathy w/ 15% EF. Moderate Pulm HTN Cardiology Consulted - Dr. Santo Hold All Anti-Hypertensives, Hold all blood thinners Troponins trending down. ECHO (Admission): SR@88/min, occasional PVCs, Q wave in III, AFV, T wave inversion in inferior leads, v5-6, no acute ST-T changes BNP - 23,300 Dobutamine Drip per Cardio. Follow up with Cardio for Cardiac Clearance. Pulm: A: Dyspnea CXR (02/21/18):Interval increased pulmonary venous congestion / CHF with small bilateral pleural effusions. Interval coalescent pulmonary edema and/or right basal interval infiltrate. No current left basal infiltrate suspect small bilateral pleural effusions that on the right appears increased since prior exam RUBINA A: RUBINA (Improving) Cr. 1.4 Today GI A: Acute GI Bleed Protonix 40 PO BID GI Consulted, Recs Appreciated Clear Liquid Diet as per GI EGD/Colonscopy when Cleared by Cardio Heme A:Blood Loss 2/2 to GI Bleed HgB Stable. Endo A: Hx of Hyperthyroidism Cont. Home Levothyroxine Elevated TSH (6.52) w/ Normal T4 (2.02) Proph PRotonix VTE proph Contraindicated due to GI Bleed SCD's Contraindicated due to b/l lower extremity swelling Patient seen and examined with ICU Attending Margarita Mir, PGY- 1 <Parisa Bahena M - Last Filed: 02/23/18 15:05> CCU Objective - Vital Signs / Intake & Output Vital Signs (Last 4 hours): Vital Signs Temp Pulse Resp BP Pulse Ox 02/23/18 14:46 97 H 34 H 88/56 L 100 02/23/18 14:01 93 H 29 H 78/52 L 99 02/23/18 14:00 91 H 22 77/48 L 99 02/23/18 13:59 91 H 22 77/48 L 100 02/23/18 13:46 91 H 21 78/50 L 98 02/23/18 13:00 93 H 20 83/51 L 98 02/23/18 12:46 94 H 26 H 83/51 L 98 02/23/18 12:00 97.5 F L 94 H 20 81/44 L 97 Intake and Output (Last 8hrs): Intake & Output 02/23/18 02/23/18 02/23/18 06:59 14:59 22:59 Intake Total 90 83.5 Output Total 300 Balance -210 83.5 Weight 187 lb Intake: Intake, IV Amount 90 83.5 Right Antecubital 90 83.5 Output: Urine 300 Urine, Voided 300 - Medications Active Medications: Active Medications Generic Name Dose Route Start Last Admin Trade Name Freq PRN Reason Stop Dose Admin Dobutamine HCl/Dextrose 500 mg in 250 mls @ 12.723 mls/hr 02/23/18 09:45 09:46 Dobutamine/Dextrose 5% 500mg/250ml IV 02/24/18 09:45 5 mcg/kg/min .[id number] OPAL 12.723 mls/hr Protocol Administration 5 MCG/KG/MIN Norepinephrine Bitartrate 4 mg 254 mls @ 15.24 mls/hr 02/23/18 14:52 / Sodium Chloride IV .[id number] PRN TITRATE PER MD ORDER Protocol 4 MCG/MIN Levothyroxine Sodium 125 mcg 02/22/18 06:30 02/23/18 05:29 Synthroid PO 125 mcg DAILY@0630 OPAL Administration Pantoprazole Sodium 40 mg 02/23/18 10:00 02/23/18 09:45 Protonix Ec Tab PO 40 mg BID OPAL Administration Rosuvastatin Calcium 20 mg 02/21/18 22:00 02/22/18 21:02 Crestor PO 20 mg HS OPAL Administration - Patient Studies Lab Studies: Microbiology Studies 02/21/18 19:09 MRSA Culture (Admit) - Final Naris MRSA NOT DETECTED Lab Studies 02/23/18 02/23/18 02/23/18 Range/Units 06:00 06:00 06:00 WBC 4.4 L (4.8-10.8) K/uL RBC 5.06 (4.40-5.90) Mil/uL Hgb 12.8 (12.0-18.0) g/dL Hct 38.6 (35.0-51.0) % MCV 76.4 L (80.0-94.0) fL MCH 25.3 L (27.0-31.0) pg MCHC 33.1 (33.0-37.0) g/dL RDW 19.4 H (11.5-14.5) % Plt Count 99 L (130-400) K/uL MPV 10.4 (7.2-11.7) fL Neut % (Auto) 65.6 (50.0-75.0) % Lymph % (Auto) 14.0 L (20.0-40.0) % [place] % (Auto) 15.0 H (0.0-10.0) % Eos % (Auto) 4.5 H (0.0-4.0) % Baso % (Auto) 0.9 (0.0-2.0) % Neut # (Auto) 2.9 (1.8-7.0) K/uL Lymph # (Auto) 0.6 L (1.0-4.3) K/uL [place] # (Auto) 0.7 (0.0-0.8) K/uL Eos # (Auto) 0.2 (0.0-0.7) K/uL Baso # (Auto) 0.0 (0.0-0.2) K/uL PT 18.9 H (9.7-12.2) SECONDS INR 1.7 APTT 33 (21-34) SECONDS Sodium 139 (132-148) mmol/L Potassium 3.9 (3.6-5.2) mmol/L Chloride 102 (98-107) mmol/L Carbon Dioxide 27 (22-30) mmol/L Anion Gap 14 (10-20) BUN 53 H (9-20) mg/dL Creatinine 1.4 (0.8-1.5) mg/dL Est GFR ( Amer) > 60 Est GFR (Non-Af Amer) 50 Random Glucose 82 (75-110) mg/dL Calcium 8.2 L (8.6-10.4) mg/dl Phosphorus 3.4 (2.5-4.5) mg/dL Magnesium 2.3 (1.6-2.3) mg/dL Total Bilirubin 2.0 H (0.2-1.3) mg/dL AST 30 (17-59) U/L ALT 26 (21-72) U/L Alkaline Phosphatase 74 (38-126) U/L Total Protein 6.2 L (6.3-8.3) g/dL Albumin 3.0 L (3.5-5.0) g/dL Globulin 3.3 (2.2-3.9) gm/dL Albumin/Globulin Ratio 0.9 L (1.0-2.1) Laboratory Results - last 24 hr 02/23/18 02/23/18 02/23/18 06:00 06:00 06:00 WBC 4.4 L RBC 5.06 Hgb 12.8 Hct 38.6 MCV 76.4 L MCH 25.3 L MCHC 33.1 RDW 19.4 H Plt Count 99 L MPV 10.4 Neut % (Auto) 65.6 Lymph % (Auto) 14.0 L [place] % (Auto) 15.0 H Eos % (Auto) 4.5 H Baso % (Auto) 0.9 Neut # (Auto) 2.9 Lymph # (Auto) 0.6 L [place] # (Auto) 0.7 Eos # (Auto) 0.2 Baso # (Auto) 0.0 PT 18.9 H INR 1.7 APTT 33 Sodium 139 Potassium 3.9 Chloride 102 Carbon Dioxide 27 Anion Gap 14 BUN 53 H Creatinine 1.4 Est GFR ( Amer) > 60 Est GFR (Non-Af Amer) 50 Random Glucose 82 Calcium 8.2 L Phosphorus 3.4 Magnesium 2.3 Total Bilirubin 2.0 H AST 30 ALT 26 Alkaline Phosphatase 74 Total Protein 6.2 L Albumin 3.0 L Globulin 3.3 Albumin/Globulin Ratio 0.9 L Critical Care Progress Note - Nutrition Nutrition: Nutrition Category Date Time Status Heart Healthy Diet [DIET] Diets 02/23/18 Dinner Active Assessment/Plan - Assessment and Plan (Free Text) Plan: Above patient seen and examiend at bedside. patient with chronic severe systolic heart failure being treated with xarelta with underlying renal failure presents to [facility] with gi bleed. Wyatt blood in toilet. my physical exam and clnical managment documented above. Patietn remains hypotensive on dobutaimine -Chronic sytolic heart faliure: currently on dobutamine titrate to keep spo2 >70 , start norepi to keep MAP >65, -Anemia: serial cbc, -monitor CVP pressures -Patient tolerated oral diet -ABP in 80s and patient denies any dizziness. Baseline BP unknown. -continue PPI -suspect bleeding stopped after causal agent stopped. cc time 35 minutes - Date & Time Date: 02/23/18 Time: 15:05
--- NOTE | 2018-02-23 13:41 | CP.PCM.PN ---
Subjective - Date & Time of Evaluation Date of Evaluation: 02/23/18 Time of Evaluation: 13:39 - Subjective Subjective: Patient denies having nausea, vomiting, abdominal pain. He has not had a bowel movement so far today. He has not had any bleeding per rectum today. Objective - Vital Signs/Intake and Output Vital Signs (last 24 hours): Temp Pulse Resp BP Pulse Ox 97 F L 80 18 87/53 L 100 02/23/18 08:00 02/23/18 11:00 02/23/18 11:00 02/23/18 11:00 02/23/18 11:00 Intake and Output: 02/23/18 02/23/18 06:59 18:59 Intake Total 370 45.4 Output Total 450 Balance -80 45.4 - Medications Medications: Current Medications Dobutamine HCl/Dextrose (Dobutamine/Dextrose 5% 500mg/250ml) 500 mg in 250 mls @ 12.723 mls/hr IV .[id number] OPAL; 5 MCG/KG/MIN PRN Reason: Protocol Stop: 02/24/18 09:45 Last Admin: 02/23/18 09:46 Dose: 5 mcg/kg/min, 12.723 mls/hr Levothyroxine Sodium (Synthroid) 125 mcg PO DAILY@0630 [facility] Last Admin: 02/23/18 05:29 Dose: 125 mcg Pantoprazole Sodium (Protonix Ec Tab) 40 mg PO BID [facility] Last Admin: 02/23/18 09:45 Dose: 40 mg Rosuvastatin Calcium (Crestor) 20 mg PO HS [facility] Last Admin: 02/22/18 21:02 Dose: 20 mg - Labs Labs: 02/23/18 06:00 02/23/18 06:00 PT 18.9 SECONDS (9.7-12.2) H 02/23/18 06:00 INR 1.7 02/23/18 06:00 APTT 33 SECONDS (21-34) 02/23/18 06:00 - Constitutional Appears: No Acute Distress, Other - Head Exam Head Exam: ATRAUMATIC, NORMOCEPHALIC - Eye Exam Eye Exam: EOMI, PERRL - Neck Exam Neck Exam: absent: Lymphadenopathy, Thyromegaly - Respiratory Exam Respiratory Exam: NORMAL BREATHING PATTERN. absent: Rales, Rhonchi, Wheezes - Cardiovascular Exam Cardiovascular Exam: REGULAR RHYTHM, +S1, +S2. absent: Gallop, Rubs, Murmur - GI/Abdominal Exam GI & Abdominal Exam: Soft, Normal Bowel Sounds. absent: Tenderness, Mass, Organomegaly - Rectal Exam Rectal Exam: Deferred - Extremities Exam Extremities Exam: absent: Calf Tenderness, Pedal Edema Assessment and Plan (1) Lower GI bleeding Assessment & Plan: Patient has not had any bleeding overnight. The hemoglobin is stable at 12.8. He is now on dobutamine. Awaiting cardiology clearance for EGD and colonoscopy. Status: Acute
--- NOTE | 2018-02-23 14:36 | CP.PCM.PN ---
Subjective - Date & Time of Evaluation Date of Evaluation: 02/23/18 Time of Evaluation: 09:00 - Subjective Subjective: awake alert undergoing central line placement for pressors Objective - Vital Signs/Intake and Output Vital Signs (last 24 hours): Temp Pulse Resp BP Pulse Ox 97 F L 80 18 87/53 L 100 02/23/18 08:00 02/23/18 11:00 02/23/18 11:00 02/23/18 11:00 02/23/18 11:00 Intake and Output: 02/23/18 02/23/18 06:59 18:59 Intake Total 370 45.4 Output Total 450 Balance -80 45.4 - Medications Medications: Current Medications Dobutamine HCl/Dextrose (Dobutamine/Dextrose 5% 500mg/250ml) 500 mg in 250 mls @ 12.723 mls/hr IV .[id number] OPAL; 5 MCG/KG/MIN PRN Reason: Protocol Stop: 02/24/18 09:45 Last Admin: 02/23/18 09:46 Dose: 5 mcg/kg/min, 12.723 mls/hr Levothyroxine Sodium (Synthroid) 125 mcg PO DAILY@0630 [facility] Last Admin: 02/23/18 05:29 Dose: 125 mcg Pantoprazole Sodium (Protonix Ec Tab) 40 mg PO BID [facility] Last Admin: 02/23/18 09:45 Dose: 40 mg Rosuvastatin Calcium (Crestor) 20 mg PO HS [facility] Last Admin: 02/22/18 21:02 Dose: 20 mg - Labs Labs: 02/23/18 06:00 02/23/18 06:00 PT 18.9 SECONDS (9.7-12.2) H 02/23/18 06:00 INR 1.7 02/23/18 06:00 APTT 33 SECONDS (21-34) 02/23/18 06:00 - Constitutional Appears: Non-toxic, No Acute Distress, Chronically Ill - Head Exam Head Exam: NORMOCEPHALIC - Eye Exam Eye Exam: PERRL - ENT Exam ENT Exam: Mucous Membranes Dry - Neck Exam Neck Exam: absent: Lymphadenopathy - Respiratory Exam Respiratory Exam: Decreased Breath Sounds, Rales - Cardiovascular Exam Cardiovascular Exam: REGULAR RHYTHM, +S1, +S2 - GI/Abdominal Exam GI & Abdominal Exam: Distended, Soft - Rectal Exam Rectal Exam: Deferred - Exam Exam: NORMAL INSPECTION - Extremities Exam Extremities Exam: Pedal Edema. absent: Tenderness - Back Exam Back Exam: absent: CVA tenderness (L), CVA tenderness (R) - Neurological Exam Neurological Exam: Alert, Awake, CN II-XII Intact, Oriented x3 - Psychiatric Exam Psychiatric exam: Depressed - Skin Skin Exam: Dry Assessment and Plan (1) Ischemic cardiomyopathy Status: Acute (2) Ischemic cardiomyopathy Status: Acute (3) CHF exacerbation Status: Acute (4) Elevated troponin Status: Acute (5) GI bleed Status: Acute (6) Hypotension (arterial) Status: Acute (7) RUBINA (acute kidney injury) Status: Acute (8) ARF (acute renal failure) Status: Acute - Assessment and Plan (Free Text) Assessment: s/p GI Bleed seen by Dr Dawkins severe ischemic cardiomyopathy with decreased EF pf 15 % and biventricular CHF / cardiogenic shock going on Dobutamine pressors Dr Santo follow up appreciated
--- NOTE | 2018-02-23 14:54 | PCM.PROC ---
Procedures Attestation:: I certify that I have explained the specified Operation(s) or Procedure(s), risks, benefits and reasonable alternatives to the Patient and/or other person responsible. The opportunity was given to ask questions and all questions answered - Central Line Placement Right Internal Jugular Triple Lumen Catheter Aseptic technique was employed throughout the procedure: Full sterile barriers ( mask, hair cover, sterile gown, sterile gloves), Full body sterile drape, Chloraprep Antiseptic: 30 second prep for IJ or SC sites CVP Time Out Performed: Yes Pt. Placed on Pulse Ox Monitor: Yes Central Line Prep: Chlorhexidine-Alcohol Combination Local Anesthesia Used: Lidocaine 1% Amount of Anesthesia Used (mls): 5 Ultrasound Used for Placement: Yes Central Line Lumen Inserted: triple Central Line Length: 20 cm Post Procedure: Sutured in Place, Good Blood Return, All Ports Aspirated, Flushed, Capped, Sterile Dressing Applied Secured by: Suture Post procedure dressing: Gauze, Clear vapor permeable, Chlorhexidine disc ( Biopatch) Post Procedure X-Ray: Yes Patient Tolerated Procedure: Well Immediate Complications: None
[2018-02-23 15:31] LABS: VENOUS BLOOD GAS BASE EXCESS 0.5 mmol/L (0.0-2.0); VENOUS BLOOD GAS PCO2 37 mmHg (40-60); VENOUS BLOOD GAS PO2 37 mm/Hg (30-55); VENOUS BLOOD PH 7.43 (7.32-7.43)
--- NOTE | 2018-02-23 15:51 | RAD ---
HISTORY: cathi bonilla COMPARISON: 02/21/2018 FINDINGS: LUNGS: The patchy infiltrate right base is similar. Increase opacity over left lung base and left heart is slightly more conspicuous on the current study coalescent pulmonary edema and/or interval patchy infiltrate here is well with or without atelectasis are considerations. The prior central pulmonary venous congestion is similar to perhaps minimally increased PLEURA: Small bilateral pleural effusions suggested. -not significantly changed No pneumothorax apparent. CARDIOVASCULAR: The megaly as before. Midline sternotomy.Position/ configuration of pacemaker OSSEOUS STRUCTURES: Thoracic spondylosis. Bilateral shoulder arthrosis. Midline sternotomy wires. VISUALIZED UPPER ABDOMEN: Normal. OTHER FINDINGS: Interval insertion right central line the internal jugular vein approach -tip - right atrium. No pneumothorax appreciated IMPRESSION: Interval insertion right central line. No pneumothorax appreciated other findings as above
[2018-02-24] MEDS: DOBUTamine 500mg/250ml D5W 500 MG/250 ML BAG IV SCH (04:38)
[2018-02-24] MEDS: Levothyroxine 125 MCG TAB PO SCH (05:37)
--- NOTE | 2018-02-24 05:42 | CARD ---
APPROVED REPORT EKG Measurement Heart [id number] MS [id number] [id number] <Conclusion> Sinus rhythm with intermittent ventricular paced beat Anterior infarct, age undetermined VPB's T wave abnormality, consider inferior ischemia Abnormal ECG
--- NOTE | 2018-02-24 05:43 | CARD ---
APPROVED REPORT EKG Measurement Heart [id number] KS 178P70 [id number] <Conclusion> Sinus rhythm with premature supraventricular complexes and with occasional premature ventricular complexes with ventricular e Anterior infarct, age undetermined T wave abnormality, consider inferior ischemia Abnormal ECG
[2018-02-24 06:34] LABS: BASO % 0.4 % (0.0-2.0); EOS # 0.2 K/uL (0.0-0.7); EOS % 3.2 % (0.0-4.0); HEMOGLOBIN 12.1 g/dL (12.0-18.0); LYMPH # 0.4 K/uL (1.0-4.3); LYMPH % 8.3 % (20.0-40.0); MEAN CELL VOLUME 75.8 fL (80.0-94.0); MEAN CORPUSCULAR HEMOGLOBIN 25.5 pg (27.0-31.0); MEAN CORPUSCULAR HGB CONC 33.7 g/dL (33.0-37.0); MEAN PLATELET VOLUME 9.3 fL (7.2-11.7); MONO # 0.6 K/uL (0.0-0.8); NEUT # 3.8 K/uL (1.8-7.0); NEUT % 76.1 % (50.0-75.0); NRBC % 0.1 % (0.0-2.0); PLATELET COUNT 104 K/uL (130-400); RBC 4.75 Mil/uL (4.40-5.90); RED CELL DISTRIBUTION WIDTH 19.2 % (11.5-14.5)
[2018-02-24 06:45] LABS: ALB/GLOB RATIO 0.9 (1.0-2.1); ALT/SGPT 32 U/L (21-72); AST/SGOT 29 U/L (17-59); BLOOD UREA NITROGEN 34 mg/dL (9-20); CALCIUM 8.4 mg/dl (8.6-10.4); GFR AFRICAN-AMERICAN > 60; GFR NON-AFRICAN AMERICAN > 60
[2018-02-24 06:46] LABS: INR 1.4; PROTHROMBIN TIME 15.5 SECONDS (9.7-12.2)
[2018-02-24 08:11] LABS: EOSINOPHIL 3 % (0-4); LYMPHOCYTE 10 % (20-40); MONOCYTE 11 % (0-10); NEUTROPHIL 76 % (50-75); TOTAL CELLS COUNTED 100
[2018-02-24 08:12] LABS: PLATELET ESTIMATE SLIGHTLY DECREASED (NORMAL)
[2018-02-24 08:13] LABS: ANISOCYTOSIS SLIGHT; BURR CELLS SLIGHT; HYPOCHROMIC SLIGHT; POIKILOCYTOSIS SLIGHT
[2018-02-24 08:14] LABS: OVALOCYTES SLIGHT; TEARDROP CELLS SLIGHT
[2018-02-24] MEDS: Pantoprazole 40 mg EC Tab PO SCH ×2 (09:07→17:26)
--- NOTE | 2018-02-24 11:29 | CP.CCUPN ---
<AnilglenroyMargarita - Last Filed: 02/24/18 11:24> CCU Subjective - Physician Review Subjective (Free Text): Patient seen and examined at bedside. No overnight events reported. Patient denies any fevers, chills, chest pain, palpitations, SOB, abdominal pain, n/v, changes in bowel habits, and urinary symptoms. States he feels much better CCU Objective - Vital Signs / Intake & Output Vital Signs (Last 4 hours): Vital Signs Temp Pulse Resp BP Pulse Ox 02/24/18 10:00 101 H 27 H 98 02/24/18 09:46 99 H 27 H 95/54 L 98 02/24/18 09:00 108 H 32 H 99 02/24/18 08:46 105 H 26 H 103/66 99 02/24/18 08:00 97.5 F L 102 H 22 92 L 02/24/18 07:46 102 H 27 H 94/65 L 99 Intake and Output (Last 8hrs): Intake & Output 02/23/18 02/24/18 02/24/18 22:59 06:59 14:59 Intake Total 649.1 785.6 394.8 Output Total 700 300 400 Balance -50.9 485.6 -5.2 Weight 196 lb 3.382 oz Intake: IV 504 74 Intake, IV Amount 229.1 281.6 120.8 Right Antecubital 12.7 Right Distal Port 88.9 101.6 38.2 Right Medial Port 127.5 180.0 82.6 Internal Jugular Oral 420 200 Output: Urine 700 300 400 Urine, Voided 700 300 400 Emesis 0 Other: # Bowel Movements 0 - Physical Exam Head: Positive for: Atraumatic, Normocephalic Extroacular Muscles: Positive for: EOMI Conjunctiva: Positive for: Normal Respiratory/Chest: Positive for: Clear to Auscultation. Negative for: Accessory Muscle Use Cardiovascular: Positive for: Regular Rate and Rhythm, Normal S1, S2 Abdomen: Positive for: Normal Bowel Sounds. Negative for: Tenderness Upper Extremity: Negative for: Edema Lower Extremity: Positive for: Edema Neurological: Positive for: GCS=15 Psychiatric: Positive for: Alert, Oriented x 3 - Medications Active Medications: Active Medications Generic Name Dose Route Start Last Admin Trade Name Freq PRN Reason Stop Dose Admin Norepinephrine Bitartrate 4 mg 254 mls @ 15.24 mls/hr 02/23/18 14:52 09:20 / Sodium Chloride IV 5 mcg/min .[id number] PRN 19.05 mls/hr TITRATE PER MD ORDER Titration Protocol 4 MCG/MIN Levothyroxine Sodium 125 mcg 02/22/18 06:30 02/24/18 05:37 Synthroid PO 125 mcg DAILY@0630 [facility] Administration Pantoprazole Sodium 40 mg 02/23/18 10:00 02/24/18 09:07 Protonix Ec Tab PO 40 mg BID [facility] Administration Rosuvastatin Calcium 20 mg 02/21/18 22:00 02/23/18 21:24 Crestor PO 20 mg HS OPAL Administration - Patient Studies Lab Studies: Lab Studies 02/24/18 02/24/18 02/24/18 Range/Units 06:23 06:23 06:23 WBC 5.0 (4.8-10.8) K/uL RBC 4.75 (4.40-5.90) Mil/uL Hgb 12.1 (12.0-18.0) g/dL Hct 36.0 (35.0-51.0) % MCV 75.8 L (80.0-94.0) fL MCH 25.5 L (27.0-31.0) pg MCHC 33.7 (33.0-37.0) g/dL RDW 19.2 H (11.5-14.5) % Plt Count 104 L (130-400) K/uL MPV 9.3 (7.2-11.7) fL Neut % (Auto) 76.1 H (50.0-75.0) % Lymph % (Auto) 8.3 L (20.0-40.0) % Kidder % (Auto) 12.0 H (0.0-10.0) % Eos % (Auto) 3.2 (0.0-4.0) % Baso % (Auto) 0.4 (0.0-2.0) % Neut # (Auto) 3.8 (1.8-7.0) K/uL Lymph # (Auto) 0.4 L (1.0-4.3) K/uL Kidder # (Auto) 0.6 (0.0-0.8) K/uL Eos # (Auto) 0.2 (0.0-0.7) K/uL Baso # (Auto) 0.0 (0.0-0.2) K/uL Neutrophils % (Manual) 76 H (50-75) % Lymphocytes % (Manual) 10 L (20-40) % Monocytes % (Manual) 11 H (0-10) % Eosinophils % (Manual) 3 (0-4) % Platelet Estimate Slightly decreased L (NORMAL) Hypochromasia (manual) Slight Poikilocytosis (manual Slight Anisocytosis (manual) Slight Tear Drop Cells Slight Ovalocytes Slight [place] Cells Slight PT 15.5 H (9.7-12.2) SECONDS INR 1.4 APTT 30 (21-34) SECONDS pO2 (30-55) mm/Hg VBG pH (7.32-7.43) VBG pCO2 (40-60) mmHg VBG HCO3 mmol/L VBG Total CO2 (22-28) mmol/L VBG O2 Sat (Calc) (40-65) % VBG Base Excess (0.0-2.0) mmol/L VBG Potassium (3.6-5.2) mmol/L Sodium 136 (132-148) mmol/l Chloride 100 (98-107) mmol/L Glucose (75-110) mg/dl Lactate (0.7-2.1) mmol/L Potassium 3.8 (3.6-5.2) mmol/L Carbon Dioxide 27 (22-30) mmol/L Anion Gap 13 (10-20) BUN 34 H (9-20) mg/dL Creatinine 1.1 (0.8-1.5) mg/dL Est GFR ( Amer) > 60 Est GFR (Non-Af Amer) > 60 Random Glucose 105 (75-110) mg/dL Lactic Acid (0.7-2.1) mmol/L Calcium 8.4 L (8.6-10.4) mg/dl Phosphorus 2.6 (2.5-4.5) mg/dL Magnesium 2.0 (1.6-2.3) mg/dL Total Bilirubin 2.0 H (0.2-1.3) mg/dL AST 29 (17-59) U/L ALT 32 (21-72) U/L Alkaline Phosphatase 81 (38-126) U/L Total Protein 6.3 (6.3-8.3) g/dL Albumin 3.0 L (3.5-5.0) g/dL Globulin 3.3 (2.2-3.9) gm/dL Albumin/Globulin Ratio 0.9 L (1.0-2.1) Venous Blood Potassium (3.6-5.2) mmol/L 02/23/18 02/23/18 Range/Units 15:30 15:28 WBC (4.8-10.8) K/uL RBC (4.40-5.90) Mil/uL Hgb (12.0-18.0) g/dL Hct (35.0-51.0) % MCV (80.0-94.0) fL MCH (27.0-31.0) pg MCHC (33.0-37.0) g/dL RDW (11.5-14.5) % Plt Count (130-400) K/uL MPV (7.2-11.7) fL Neut % (Auto) (50.0-75.0) % Lymph % (Auto) (20.0-40.0) % Kidder % (Auto) (0.0-10.0) % Eos % (Auto) (0.0-4.0) % Baso % (Auto) (0.0-2.0) % Neut # (Auto) (1.8-7.0) K/uL Lymph # (Auto) (1.0-4.3) K/uL Kidder # (Auto) (0.0-0.8) K/uL Eos # (Auto) (0.0-0.7) K/uL Baso # (Auto) (0.0-0.2) K/uL Neutrophils % (Manual) (50-75) % Lymphocytes % (Manual) (20-40) % Monocytes % (Manual) (0-10) % Eosinophils % (Manual) (0-4) % Platelet Estimate (NORMAL) Hypochromasia (manual) Poikilocytosis (manual Anisocytosis (manual) Tear Drop Cells Ovalocytes [place] Cells PT (9.7-12.2) SECONDS INR APTT (21-34) SECONDS pO2 37 (30-55) mm/Hg VBG pH 7.43 (7.32-7.43) VBG pCO2 37 L (40-60) mmHg VBG HCO3 24.6 mmol/L VBG Total CO2 25.7 (22-28) mmol/L VBG O2 Sat (Calc) 69.9 H (40-65) % VBG Base Excess 0.5 (0.0-2.0) mmol/L VBG Potassium 3.4 L (3.6-5.2) mmol/L Sodium 135.0 (132-148) mmol/l Chloride 103.0 (98-107) mmol/L Glucose 167 H (75-110) mg/dl Lactate 1.7 (0.7-2.1) mmol/L Potassium (3.6-5.2) mmol/L Carbon Dioxide (22-30) mmol/L Anion Gap (10-20) BUN (9-20) mg/dL Creatinine (0.8-1.5) mg/dL Est GFR ( Amer) Est GFR (Non-Af Amer) Random Glucose (75-110) mg/dL Lactic Acid 1.7 (0.7-2.1) mmol/L Calcium (8.6-10.4) mg/dl Phosphorus (2.5-4.5) mg/dL Magnesium (1.6-2.3) mg/dL Total Bilirubin (0.2-1.3) mg/dL AST (17-59) U/L ALT (21-72) U/L Alkaline Phosphatase (38-126) U/L Total Protein (6.3-8.3) g/dL Albumin (3.5-5.0) g/dL Globulin (2.2-3.9) gm/dL Albumin/Globulin Ratio (1.0-2.1) Venous Blood Potassium 3.4 L (3.6-5.2) mmol/L Laboratory Results - last 24 hr 02/23/18 02/23/18 02/24/18 15:28 15:30 06:23 WBC 5.0 RBC 4.75 Hgb 12.1 Hct 36.0 MCV 75.8 L MCH 25.5 L MCHC 33.7 RDW 19.2 H Plt Count 104 L MPV 9.3 Neut % (Auto) 76.1 H Lymph % (Auto) 8.3 L Kidder % (Auto) 12.0 H Eos % (Auto) 3.2 Baso % (Auto) 0.4 Neut # (Auto) 3.8 Lymph # (Auto) 0.4 L Kidder # (Auto) 0.6 Eos # (Auto) 0.2 Baso # (Auto) 0.0 Neutrophils % (Manual) 76 H Lymphocytes % (Manual) 10 L Monocytes % (Manual) 11 H Eosinophils % (Manual) 3 Platelet Estimate Slightly decreased L Hypochromasia (manual) Slight Poikilocytosis (manual Slight Anisocytosis (manual) Slight Tear Drop Cells Slight Ovalocytes Slight Ga Cells Slight PT INR APTT pO2 37 VBG pH 7.43 VBG pCO2 37 L VBG HCO3 24.6 VBG Total CO2 25.7 VBG O2 Sat (Calc) 69.9 H VBG Base Excess 0.5 VBG Potassium 3.4 L Sodium 135.0 Chloride 103.0 Glucose 167 H Lactate 1.7 Potassium Carbon Dioxide Anion Gap BUN Creatinine Est GFR ( Amer) Est GFR (Non-Af Amer) Random Glucose Lactic Acid 1.7 Calcium Phosphorus Magnesium Total Bilirubin AST ALT Alkaline Phosphatase Total Protein Albumin Globulin Albumin/Globulin Ratio Venous Blood Potassium 3.4 L 02/24/18 02/24/18 06:23 06:23 WBC RBC Hgb Hct MCV MCH MCHC RDW Plt Count MPV Neut % (Auto) Lymph % (Auto) Kidder % (Auto) Eos % (Auto) Baso % (Auto) Neut # (Auto) Lymph # (Auto) Kidder # (Auto) Eos # (Auto) Baso # (Auto) Neutrophils % (Manual) Lymphocytes % (Manual) Monocytes % (Manual) Eosinophils % (Manual) Platelet Estimate Hypochromasia (manual) Poikilocytosis (manual Anisocytosis (manual) Tear Drop Cells Ovalocytes [place] Cells PT 15.5 H INR 1.4 APTT 30 pO2 VBG pH VBG pCO2 VBG HCO3 VBG Total CO2 VBG O2 Sat (Calc) VBG Base Excess VBG Potassium Sodium 136 Chloride 100 Glucose Lactate Potassium 3.8 Carbon Dioxide 27 Anion Gap 13 BUN 34 H Creatinine 1.1 Est GFR ( Amer) > 60 Est GFR (Non-Af Amer) > 60 Random Glucose 105 Lactic Acid Calcium 8.4 L Phosphorus 2.6 Magnesium 2.0 Total Bilirubin 2.0 H AST 29 ALT 32 Alkaline Phosphatase 81 Total Protein 6.3 Albumin 3.0 L Globulin 3.3 Albumin/Globulin Ratio 0.9 L Venous Blood Potassium Review of Systems - Review of Systems Review of Systems: Per Subjective Critical Care Progress Note - Nutrition Nutrition: Nutrition Category Date Time Status Heart Healthy Diet [DIET] Diets 02/23/18 Dinner Active Assessment/Plan - Assessment and Plan (Free Text) Assessment: 72 yo male with PMH CAD s/p AICD, CABG,CHF (EF 15%) ,NSTEMI, and Hypothyroidism was admitted to [facility] 02/09/18-02/13/18 due to progressive dyspnea , placed on Xarelto, was sent to ED today by for further evaluation of weakness, dizziness, and rectal bleeding. ICU consulted for close monitoring Plan: Neuro: GCS: 15 Sedation: None Cont. Home Crestor. Cardio: A: Elevated Troponins Hx of HTN, CABG, AICD placement, CABG, Severe Cardiomyopathy (EF 15%), ECHO (02/10): Severe Cardiomyopathy w/ 15% EF. Moderate Pulm HTN Cardiology Consulted - Dr. Santo Hold All Anti-Hypertensives, Hold all blood thinners Troponins trended down ECHO (Admission): SR@88/min, occasional PVCs, Q wave in III, AFV, T wave inversion in inferior leads, v5-6, no acute ST-T changes BNP - 23,300 Levophed Drip Started Yesterday - Wean as tolerated. Follow up with Cardio for Cardiac Clearance. Pulm: A: Dyspnea CXR (02/21/18):Interval increased pulmonary venous congestion / CHF with small bilateral pleural effusions. Interval coalescent pulmonary edema and/or right basal interval infiltrate. No current left basal infiltrate suspect small bilateral pleural effusions that on the right appears increased since prior exam RUBINA A: RUBINA (Resolved) Cr. 1.1 Today GI A: Acute GI Bleed Protonix 40 PO BID GI Consulted, Recs Appreciated Diet: Heart Healthy EGD/Colonscopy when Cleared by Cardio Heme A:Blood Loss 2/2 to GI Bleed HgB Stable. Endo A: Hx of Hyperthyroidism Cont. Home Levothyroxine Elevated TSH (6.52) w/ Normal T4 (2.02) Proph PRotonix VTE proph Contraindicated due to GI Bleed Patient seen and examined with ICU Attending Margarita Mir, PGY- 1 <Lyle Espinosa S - Last Filed: 02/24/18 16:49> CCU Objective - Vital Signs / Intake & Output Vital Signs (Last 4 hours): Vital Signs Temp Pulse Resp BP Pulse Ox 02/24/18 16:00 96.1 F L 98 H 25 H 97 02/24/18 15:46 98 H 29 H 86/62 L 97 02/24/18 15:00 91 H 33 H 95 02/24/18 14:46 95 H 21 92/65 L 97 02/24/18 14:00 95 H 25 H 96 02/24/18 13:46 98 H 28 H 110/68 97 02/24/18 13:18 96 H 31 H 94/64 L 98 02/24/18 13:00 96 H 29 H 97 Intake and Output (Last 8hrs): Intake & Output 02/24/18 02/24/18 02/24/18 06:59 14:59 22:59 Intake Total 785.6 692.6 30 Output Total 300 520 0 Balance 485.6 172.6 30 Weight 196 lb 3.382 oz Intake: IV 504 94 Intake, IV Amount 281.6 198.6 30 Right Distal Port 101.6 44.6 0 Right Medial Port 180.0 154.0 30 Internal Jugular Oral 400 0 Output: Urine 300 520 0 Urine, Voided 300 520 0 Emesis 0 0 Other: # Bowel Movements 0 0 - Medications Active Medications: Active Medications Generic Name Dose Route Start Last Admin Trade Name Freq PRN Reason Stop Dose Admin Norepinephrine Bitartrate 4 mg 254 mls @ 15.24 mls/hr 02/23/18 14:52 14:00 / Sodium Chloride IV 4 mcg/min .[id number] PRN 15.24 mls/hr TITRATE PER MD ORDER Titration Protocol 4 MCG/MIN Levothyroxine Sodium 125 mcg 02/22/18 06:30 02/24/18 05:37 Synthroid PO 125 mcg DAILY@0630 [facility] Administration Pantoprazole Sodium 40 mg 02/23/18 10:00 02/24/18 09:07 Protonix Ec Tab PO 40 mg BID [facility] Administration Rosuvastatin Calcium 20 mg 02/21/18 22:00 02/23/18 21:24 Crestor PO 20 mg HS OPAL Administration - Patient Studies Lab Studies: Lab Studies 06/01/18 06/01/18 06/01/18 Range/Units 06:23 06:23 06:23 WBC 5.0 (4.8-10.8) K/uL RBC 4.75 (4.40-5.90) Mil/uL Hgb 12.1 (12.0-18.0) g/dL Hct 36.0 (35.0-51.0) % MCV 75.8 L (80.0-94.0) fL MCH 25.5 L (27.0-31.0) pg MCHC 33.7 (33.0-37.0) g/dL RDW 19.2 H (11.5-14.5) % Plt Count 104 L (130-400) K/uL MPV 9.3 (7.2-11.7) fL Neut % (Auto) 76.1 H (50.0-75.0) % Lymph % (Auto) 8.3 L (20.0-40.0) % Kidder % (Auto) 12.0 H (0.0-10.0) % Eos % (Auto) 3.2 (0.0-4.0) % Baso % (Auto) 0.4 (0.0-2.0) % Neut # (Auto) 3.8 (1.8-7.0) K/uL Lymph # (Auto) 0.4 L (1.0-4.3) K/uL Kidder # (Auto) 0.6 (0.0-0.8) K/uL Eos # (Auto) 0.2 (0.0-0.7) K/uL Baso # (Auto) 0.0 (0.0-0.2) K/uL Neutrophils % (Manual) 76 H (50-75) % Lymphocytes % (Manual) 10 L (20-40) % Monocytes % (Manual) 11 H (0-10) % Eosinophils % (Manual) 3 (0-4) % Platelet Estimate Slightly decreased L (NORMAL) Hypochromasia (manual) Slight Poikilocytosis (manual Slight Anisocytosis (manual) Slight Tear Drop Cells Slight Ovalocytes Slight [place] Cells Slight PT 15.5 H (9.7-12.2) SECONDS INR 1.4 APTT 30 (21-34) SECONDS Sodium 136 (132-148) mmol/L Potassium 3.8 (3.6-5.2) mmol/L Chloride 100 (98-107) mmol/L Carbon Dioxide 27 (22-30) mmol/L Anion Gap 13 (10-20) BUN 34 H (9-20) mg/dL Creatinine 1.1 (0.8-1.5) mg/dL Est GFR ( Amer) > 60 Est GFR (Non-Af Amer) > 60 Random Glucose 105 (75-110) mg/dL Calcium 8.4 L (8.6-10.4) mg/dl Phosphorus 2.6 (2.5-4.5) mg/dL Magnesium 2.0 (1.6-2.3) mg/dL Total Bilirubin 2.0 H (0.2-1.3) mg/dL AST 29 (17-59) U/L ALT 32 (21-72) U/L Alkaline Phosphatase 81 (38-126) U/L Total Protein 6.3 (6.3-8.3) g/dL Albumin 3.0 L (3.5-5.0) g/dL Globulin 3.3 (2.2-3.9) gm/dL Albumin/Globulin Ratio 0.9 L (1.0-2.1) Laboratory Results - last 24 hr 02/24/18 02/24/18 02/24/18 06:23 06:23 06:23 WBC 5.0 RBC 4.75 Hgb 12.1 Hct 36.0 MCV 75.8 L MCH 25.5 L MCHC 33.7 RDW 19.2 H Plt Count 104 L MPV 9.3 Neut % (Auto) 76.1 H Lymph % (Auto) 8.3 L Kidder % (Auto) 12.0 H Eos % (Auto) 3.2 Baso % (Auto) 0.4 Neut # (Auto) 3.8 Lymph # (Auto) 0.4 L Kidder # (Auto) 0.6 Eos # (Auto) 0.2 Baso # (Auto) 0.0 Neutrophils % (Manual) 76 H Lymphocytes % (Manual) 10 L Monocytes % (Manual) 11 H Eosinophils % (Manual) 3 Platelet Estimate Slightly decreased L Hypochromasia (manual) Slight Poikilocytosis (manual Slight Anisocytosis (manual) Slight Tear Drop Cells Slight Ovalocytes Slight Ga Cells Slight PT 15.5 H INR 1.4 APTT 30 Sodium 136 Potassium 3.8 Chloride 100 Carbon Dioxide 27 Anion Gap 13 BUN 34 H Creatinine 1.1 Est GFR ( Amer) > 60 Est GFR (Non-Af Amer) > 60 Random Glucose 105 Calcium 8.4 L Phosphorus 2.6 Magnesium 2.0 Total Bilirubin 2.0 H AST 29 ALT 32 Alkaline Phosphatase 81 Total Protein 6.3 Albumin 3.0 L Globulin 3.3 Albumin/Globulin Ratio 0.9 L Critical Care Progress Note - Nutrition Nutrition: Nutrition Category Date Time Status Heart Healthy Diet [DIET] Diets 02/23/18 Dinner Active Attending/Attestation - Attestation I have personally seen and examined this patient.: Yes I have fully participated in the care of the patient.: Yes I have reviewed all pertinent clinical information: Yes Notes (Text): 02/24/18 16:47 patient seen and examined in the intensive care unit. Assessment and plan as per resident note taper off Dobutamine drip and Levophed continue current management Transfer to floor once patient is off pressors No further bleeding noted H&H stable 4 colonoscopy once cleared by cardiology
--- NOTE | 2018-02-24 16:19 | CP.PCM.PN ---
Subjective - Date & Time of Evaluation Date of Evaluation: 02/24/18 Time of Evaluation: 09:00 - Subjective Subjective: awake alert less fatigue less sob No chest pain Objective - Vital Signs/Intake and Output Vital Signs (last 24 hours): Temp Pulse Resp BP Pulse Ox 98.4 F 91 H 33 H 92/65 L 95 02/24/18 12:00 02/24/18 15:00 02/24/18 15:00 02/24/18 14:46 02/24/18 15:00 Intake and Output: 02/24/18 02/24/18 06:59 18:59 Intake Total 1238.9 707.6 Output Total 400 520 Balance 838.9 187.6 - Medications Medications: Current Medications Norepinephrine Bitartrate 4 mg (/ Sodium Chloride) 254 mls @ 15.24 mls/hr IV .[id number] PRN; Protocol; 4 MCG/MIN PRN Reason: TITRATE PER MD ORDER Last Titration: 02/24/18 14:00 Dose: 4 mcg/min, 15.24 mls/hr Levothyroxine Sodium (Synthroid) 125 mcg PO DAILY@0630 [facility] Last Admin: 02/24/18 05:37 Dose: 125 mcg Pantoprazole Sodium (Protonix Ec Tab) 40 mg PO BID [facility] Last Admin: 02/24/18 09:07 Dose: 40 mg Rosuvastatin Calcium (Crestor) 20 mg PO [facility] Last Admin: 02/23/18 21:24 Dose: 20 mg - Labs Labs: 02/24/18 06:23 02/24/18 06:23 PT 15.5 SECONDS (9.7-12.2) H 02/24/18 06:23 INR 1.4 02/24/18 06:23 APTT 30 SECONDS (21-34) 02/24/18 06:23 - Constitutional Appears: Non-toxic, Chronically Ill - Head Exam Head Exam: NORMOCEPHALIC - Eye Exam Eye Exam: PERRL Pupil Exam: NORMAL ACCOMODATION - ENT Exam ENT Exam: Mucous Membranes Dry - Neck Exam Neck Exam: absent: Lymphadenopathy - Respiratory Exam Respiratory Exam: Decreased Breath Sounds - Cardiovascular Exam Cardiovascular Exam: REGULAR RHYTHM, +S1, +S2 - GI/Abdominal Exam GI & Abdominal Exam: Distended, Soft - Rectal Exam Rectal Exam: Deferred - Exam Exam: NORMAL INSPECTION - Extremities Exam Extremities Exam: Pedal Edema - Back Exam Back Exam: absent: CVA tenderness (L), CVA tenderness (R) - Neurological Exam Neurological Exam: Alert, Awake, Oriented x3 Neuro motor strength exam: Left Upper Extremity: 4, Right Upper Extremity: 4, Left Lower Extremity: 4, Right Lower Extremity: 4 - Psychiatric Exam Psychiatric exam: Depressed - Skin Skin Exam: Dry Assessment and Plan (1) Ischemic cardiomyopathy Status: Acute (2) Ischemic cardiomyopathy Status: Acute (3) CHF exacerbation Status: Acute (4) Elevated troponin Status: Acute (5) GI bleed Status: Acute (6) Hypotension (arterial) Status: Acute (7) RUBINA (acute kidney injury) Status: Acute (8) ARF (acute renal failure) Status: Acute - Assessment and Plan (Free Text) Assessment: cont pressors, wean as tolerated may need termite treater helper pressors ? Dr Santo re-eval options if any ( 15 % EF )
--- NOTE | 2018-02-24 18:39 | CP.PCM.PN ---
Subjective - Date & Time of Evaluation Date of Evaluation: 02/24/18 Time of Evaluation: 18:37 - Subjective Subjective: Patient feels better. He denies having abdominal pain, nausea, vomiting. He has not had a bowel movement today and specifically denies having any rectal bleeding. Objective - Vital Signs/Intake and Output Vital Signs (last 24 hours): Temp Pulse Resp BP Pulse Ox 96.1 F L 99 H 31 H 90/58 L 97 02/24/18 16:00 02/24/18 18:00 02/24/18 18:00 02/24/18 18:28 02/24/18 18:00 Intake and Output: 02/24/18 02/24/18 06:59 18:59 Intake Total 1238.9 1112.6 Output Total 400 700 Balance 838.9 412.6 - Medications Medications: Current Medications Norepinephrine Bitartrate 4 mg (/ Sodium Chloride) 254 mls @ 15.24 mls/hr IV .[id number] PRN; Protocol; 4 MCG/MIN PRN Reason: TITRATE PER MD ORDER Last Admin: 02/24/18 18:28 Dose: 4 mcg/min, 15.24 mls/hr Levothyroxine Sodium (Synthroid) 125 mcg PO DAILY@0630 [facility] Last Admin: 02/24/18 05:37 Dose: 125 mcg Pantoprazole Sodium (Protonix Ec Tab) 40 mg PO BID [facility] Last Admin: 02/24/18 17:26 Dose: 40 mg Rosuvastatin Calcium (Crestor) 20 mg PO [facility] Last Admin: 02/23/18 21:24 Dose: 20 mg - Labs Labs: 02/24/18 06:23 02/24/18 06:23 PT 15.5 SECONDS (9.7-12.2) H 02/24/18 06:23 INR 1.4 02/24/18 06:23 APTT 30 SECONDS (21-34) 02/24/18 06:23 - Constitutional Appears: No Acute Distress - Head Exam Head Exam: ATRAUMATIC, NORMOCEPHALIC - Eye Exam Eye Exam: EOMI, PERRL - Neck Exam Neck Exam: absent: Lymphadenopathy, Thyromegaly - Respiratory Exam Respiratory Exam: NORMAL BREATHING PATTERN. absent: Rales, Rhonchi, Wheezes - Cardiovascular Exam Cardiovascular Exam: REGULAR RHYTHM, +S1, +S2. absent: Gallop, Rubs, Murmur - GI/Abdominal Exam GI & Abdominal Exam: Distended, Normal Bowel Sounds. absent: Tenderness, Mass, Organomegaly - Rectal Exam Rectal Exam: Deferred - Extremities Exam Extremities Exam: absent: Calf Tenderness Additional comments: Bilateral edema 2+ of the dependent portion of the thigh and knee, and 1+ edema of the left pretibial area Assessment and Plan (1) Lower GI bleeding Assessment & Plan: Patient reports no further bleeding. The HGB remains essentially unchanged at 12.1. Will continue to monitor for signs of rebleeding. Colonoscopy and EGD if and when patient is cleared by cardiology. Status: Acute
--- NOTE | 2018-02-25 03:31 | CP.PCM.CON ---
History of Present Illness - History of Present Illness History of Present Illness: CC: low bp; generalized weakness HPI: 72 yo male well-known to me with PMH CAD s/p CABG, ischemic cardiomyopathy s/p AICD, EF 40%, CAD, NSTEMI, was admitted to [facility] 02/09/18-02/13/18 due to progressive dyspnea, placed on Xarelto, was sent to ED today from my office for further evaluation of weakness, dizziness, rectal bleeding which pt developed for past few days. Pt still reports, (+) dyspnea, mostly on supine and exertion. Otherwise, pt denies CP, palpitation, diaphoresis, abd. pain, N/V/D, back pain. BP in the office was 70/50 and 80/50mmHg. Review of Systems - Constitutional Constitutional: Weakness - EENT Ears: absent: Ear Discharge, Tinnitus Nose/Mouth/Throat: absent: Epistaxis - Cardiovascular Cardiovascular: absent: Chest Pain at Rest - Respiratory Respiratory: Dyspnea, Dyspnea on Exertion - Gastrointestinal Gastrointestinal: absent: Abdominal Pain - Musculoskeletal Musculoskeletal: Muscle Weakness - Integumentary Integumentary: absent: Non-Healing Lesions, Pruritus, Rash - Neurological Neurological: Weakness. absent: Focal Weakness Past Patient History - Infectious Disease Hx of Infectious Diseases: None - Past Medical History & Family History Past Medical History?: Yes - Past Social History Smoking Status: Never Smoked - CARDIAC Hx Congestive Heart Failure: Yes Hx Hypercholesterolemia: Yes Hx Hypertension: Yes - PULMONARY Hx Respiratory Disorders: No - NEUROLOGICAL Hx Neurological Disorder: No - HEENT Hx HEENT Problems: No - RENAL Hx Chronic Kidney Disease: No - ENDOCRINE/METABOLIC Hx Hyperthyroidism: Yes Hx Hypothyroidism: Yes - HEMATOLOGICAL/ONCOLOGICAL Hx Blood Disorders: No - INTEGUMENTARY Hx Dermatological Problems: No - MUSCULOSKELETAL/RHEUMATOLOGICAL Hx Musculoskeletal Disorders: No Hx Falls: No - GASTROINTESTINAL Hx Gastrointestinal Disorders: No - GENITOURINARY/GYNECOLOGICAL Hx Genitourinary Disorders: No - PSYCHIATRIC Hx Substance Use: No - SURGICAL HISTORY Hx Coronary Artery Bypass Graft: Yes (1997) - ANESTHESIA Hx Anesthesia: Yes Hx Anesthesia Reactions: No Hx Malignant Hyperthermia: No Meds Allergies/Adverse Reactions: Allergies Allergy/AdvReac Type Severity Reaction Status Date / Time No Known Allergies Allergy Verified 02/21/18 14:43 - Medications Medications: Current Medications Norepinephrine Bitartrate 4 mg (/ Sodium Chloride) 254 mls @ 15.24 mls/hr IV .[id number] PRN; Protocol; 4 MCG/MIN PRN Reason: TITRATE PER MD ORDER Last Admin: 02/24/18 18:28 Dose: 4 mcg/min, 15.24 mls/hr Levothyroxine Sodium (Synthroid) 125 mcg PO DAILY@0630 [facility] Last Admin: 02/24/18 05:37 Dose: 125 mcg Pantoprazole Sodium (Protonix Ec Tab) 40 mg PO BID [facility] Last Admin: 02/24/18 17:26 Dose: 40 mg Rosuvastatin Calcium (Crestor) 20 mg PO [facility] Last Admin: 02/24/18 22:42 Dose: 20 mg Physical Exam - Constitutional Appears: Non-toxic - Head Exam Head Exam: ATRAUMATIC - Eye Exam Eye Exam: absent: Scleral icterus Pupil Exam: PERRL - ENT Exam ENT Exam: Mucous Membranes Moist - Neck Exam Neck exam: Positive for: Full Rom - Respiratory Exam Respiratory Exam: Decreased Breath Sounds, Clear to Auscultation Bilateral - Cardiovascular Exam Cardiovascular Exam: REGULAR RHYTHM - GI/Abdominal Exam GI & Abdominal Exam: Soft. absent: Tenderness - Extremities Exam Extremities exam: Positive for: pedal edema - Neurological Exam Neurological exam: Alert, CN II-XII Intact, Oriented x3 Results - Vital Signs Recent Vital Signs: Last Vital Signs Temp 96.1 F L 02/24/18 16:00 Pulse 101 H 02/24/18 22:00 Resp 27 H 02/24/18 22:00 BP 98/64 L 02/24/18 20:46 Pulse Ox 98 02/24/18 22:00 - Labs Result Diagrams: 02/24/18 06:23 02/24/18 06:23 Labs: Laboratory Results - last 24 hr 02/24/18 02/24/18 02/24/18 06:23 06:23 06:23 WBC 5.0 RBC 4.75 Hgb 12.1 Hct 36.0 MCV 75.8 L MCH 25.5 L MCHC 33.7 RDW 19.2 H Plt Count 104 L MPV 9.3 Neut % (Auto) 76.1 H Lymph % (Auto) 8.3 L [place] % (Auto) 12.0 H Eos % (Auto) 3.2 Baso % (Auto) 0.4 Neut # (Auto) 3.8 Lymph # (Auto) 0.4 L [place] # (Auto) 0.6 Eos # (Auto) 0.2 Baso # (Auto) 0.0 Neutrophils % (Manual) 76 H Lymphocytes % (Manual) 10 L Monocytes % (Manual) 11 H Eosinophils % (Manual) 3 Platelet Estimate Slightly decreased L Hypochromasia (manual) Slight Poikilocytosis (manual Slight Anisocytosis (manual) Slight Tear Drop Cells Slight Ovalocytes Slight [place] Cells Slight PT 15.5 H INR 1.4 APTT 30 Sodium 136 Potassium 3.8 Chloride 100 Carbon Dioxide 27 Anion Gap 13 BUN 34 H Creatinine 1.1 Est GFR ( Amer) > 60 Est GFR (Non-Af Amer) > 60 Random Glucose 105 Calcium 8.4 L Phosphorus 2.6 Magnesium 2.0 Total Bilirubin 2.0 H AST 29 ALT 32 Alkaline Phosphatase 81 Total Protein 6.3 Albumin 3.0 L Globulin 3.3 Albumin/Globulin Ratio 0.9 L Assessment & Plan - Assessment and Plan (Free Text) Assessment: Hypotension CHF Rectal bleeding Dilated cardiomyopathy Plan: GI consult Trops Will consider dobutamine therapy for 48hours if BP does not improved - Date & Time Date: 02/22/18 Time: 07:30
--- NOTE | 2018-02-25 03:48 | CP.PCM.PN ---
Subjective - Date & Time of Evaluation Date of Evaluation: 02/23/18 Time of Evaluation: 08:00 - Subjective Subjective: BP borderline no chest pain +sob on exertion baby trops + due to CHF Objective - Vital Signs/Intake and Output Vital Signs (last 24 hours): Temp Pulse Resp BP Pulse Ox 96.1 F L 101 H 27 H 98/64 L 98 02/24/18 16:00 02/24/18 22:00 02/24/18 22:00 02/24/18 20:46 02/24/18 22:00 Intake and Output: 02/24/18 02/25/18 18:59 06:59 Intake Total 1112.6 60 Output Total 700 0 Balance 412.6 60 - Medications Medications: Current Medications Norepinephrine Bitartrate 4 mg (/ Sodium Chloride) 254 mls @ 15.24 mls/hr IV .[id number] PRN; Protocol; 4 MCG/MIN PRN Reason: TITRATE PER MD ORDER Last Admin: 02/24/18 18:28 Dose: 4 mcg/min, 15.24 mls/hr Levothyroxine Sodium (Synthroid) 125 mcg PO DAILY@0630 [facility] Last Admin: 02/24/18 05:37 Dose: 125 mcg Pantoprazole Sodium (Protonix Ec Tab) 40 mg PO BID [facility] Last Admin: 02/24/18 17:26 Dose: 40 mg Rosuvastatin Calcium (Crestor) 20 mg PO [facility] Last Admin: 02/24/18 22:42 Dose: 20 mg - Labs Labs: 02/24/18 06:23 02/24/18 06:23 PT 15.5 SECONDS (9.7-12.2) H 02/24/18 06:23 INR 1.4 02/24/18 06:23 APTT 30 SECONDS (21-34) 02/24/18 06:23 - Constitutional Appears: Non-toxic - Head Exam Head Exam: ATRAUMATIC - Eye Exam Eye Exam: absent: Scleral icterus - ENT Exam ENT Exam: Mucous Membranes Moist - Neck Exam Neck Exam: Full ROM - Respiratory Exam Respiratory Exam: absent: Decreased Breath Sounds - Cardiovascular Exam Cardiovascular Exam: REGULAR RHYTHM - GI/Abdominal Exam GI & Abdominal Exam: absent: Soft - Extremities Exam Extremities Exam: Pedal Edema Assessment and Plan - Assessment and Plan (Free Text) Assessment: CHF ACS Rectal bleeding Dilated cardiomyopathy Plan: Need pressors When more stable hemodynamically, we'll refer for heart transplant
--- NOTE | 2018-02-25 03:58 | CP.PCM.PN ---
Subjective - Date & Time of Evaluation Date of Evaluation: 02/24/18 Time of Evaluation: 17:10 - Subjective Subjective: feeling better no further rectal bleeding Objective - Vital Signs/Intake and Output Vital Signs (last 24 hours): Temp Pulse Resp BP Pulse Ox 96.1 F L 101 H 27 H 98/64 L 98 02/24/18 16:00 02/24/18 22:00 02/24/18 22:00 02/24/18 20:46 02/24/18 22:00 Intake and Output: 02/24/18 02/25/18 18:59 06:59 Intake Total 1112.6 60 Output Total 700 0 Balance 412.6 60 - Medications Medications: Current Medications Norepinephrine Bitartrate 4 mg (/ Sodium Chloride) 254 mls @ 15.24 mls/hr IV .[id number] PRN; Protocol; 4 MCG/MIN PRN Reason: TITRATE PER MD ORDER Last Admin: 02/24/18 18:28 Dose: 4 mcg/min, 15.24 mls/hr Levothyroxine Sodium (Synthroid) 125 mcg PO DAILY@0630 [facility] Last Admin: 02/24/18 05:37 Dose: 125 mcg Pantoprazole Sodium (Protonix Ec Tab) 40 mg PO BID [facility] Last Admin: 02/24/18 17:26 Dose: 40 mg Rosuvastatin Calcium (Crestor) 20 mg PO [facility] Last Admin: 02/24/18 22:42 Dose: 20 mg - Labs Labs: 02/24/18 06:23 02/24/18 06:23 PT 15.5 SECONDS (9.7-12.2) H 02/24/18 06:23 INR 1.4 02/24/18 06:23 APTT 30 SECONDS (21-34) 02/24/18 06:23 - Constitutional Appears: Non-toxic - Eye Exam Eye Exam: absent: Scleral icterus - ENT Exam ENT Exam: Mucous Membranes Moist - Respiratory Exam Respiratory Exam: Decreased Breath Sounds, Clear to Ausculation Bilateral - Cardiovascular Exam Cardiovascular Exam: REGULAR RHYTHM - GI/Abdominal Exam GI & Abdominal Exam: Soft - Extremities Exam Extremities Exam: Pedal Edema - Neurological Exam Neurological Exam: Oriented x3 Assessment and Plan - Assessment and Plan (Free Text) Assessment: CHF ACS Low BP Rectal Bleeding CAD Ischemic cardiomyopathy Plan: Cont meds We'll wean off pressors and treat with inotropes
[2018-02-25 06:37] LABS: BASO % 0.7 % (0.0-2.0); EOS # 0.1 K/uL (0.0-0.7); EOS % 1.7 % (0.0-4.0); HEMOGLOBIN 12.7 g/dL (12.0-18.0); LYMPH # 0.6 K/uL (1.0-4.3); LYMPH % 12.5 % (20.0-40.0); MEAN CELL VOLUME 76.3 fL (80.0-94.0); MEAN CORPUSCULAR HEMOGLOBIN 25.5 pg (27.0-31.0); MEAN CORPUSCULAR HGB CONC 33.3 g/dL (33.0-37.0); MEAN PLATELET VOLUME 9.7 fL (7.2-11.7); MONO # 0.7 K/uL (0.0-0.8); MONO % 13.4 % (0.0-10.0); NEUT # 3.7 K/uL (1.8-7.0); NEUT % 71.7 % (50.0-75.0); NRBC % 0.1 % (0.0-2.0); RED CELL DISTRIBUTION WIDTH 19.5 % (11.5-14.5); WHITE BLOOD COUNT 5.1 K/uL (4.8-10.8)
[2018-02-25] MEDS: Levothyroxine 125 MCG TAB PO SCH (06:44)
[2018-02-25 06:46] LABS: INR 1.4; PROTHROMBIN TIME 14.9 SECONDS (9.7-12.2)
[2018-02-25 06:55] LABS: ALBUMIN 3.1 g/dL (3.5-5.0); ALT/SGPT 35 U/L (21-72); AST/SGOT 36 U/L (17-59); BLOOD UREA NITROGEN 30 mg/dL (9-20); CALCIUM 8.5 mg/dl (8.6-10.4); GFR AFRICAN-AMERICAN > 60; GFR NON-AFRICAN AMERICAN > 60
[2018-02-25] MEDS: Pantoprazole 40 mg EC Tab PO SCH ×2 (09:10→17:11)
--- NOTE | 2018-02-25 09:59 | CP.CCUPN ---
CCU Subjective - Physician Review Events Since Last Encounter (Free Text): 02/25/18 09:58 The patient with a history of CAD, status post ACD, CABG, congestive heart failure, non-ST elevation and hypothyroidism admitted with progressively worsening dyspnea. Patient was also having rectal bleeding, anemia, received blood transfusion. Patient now is more comfortable. The blood pressure is still on the low side. Currently on norepinephrine drip. On examination: Vital signs stable. BP improving Regular heart sound. Chest good air entry bilaterally Normal abdomen. Edema positive Patient has x-ray showing minimal congestion Assessment and recommendation: 72-year-old male with a history of CAD, CABG, AICD, congestive heart failure. CAD, non-ST elevation [place]. Hypothyroidism. Patient now admitted with acute GI bleed, received blood transfusion. Seen by tailer out. Possibly endoscopy. Stable at this time. On not a significant entry. Will continue to monitor CCU Objective - Vital Signs / Intake & Output Vital Signs (Last 4 hours): Vital Signs Temp Pulse Resp BP Pulse Ox 02/25/18 09:02 107 H 30 H 98/63 L 02/25/18 08:00 97.9 F 02/25/18 07:46 95 H 16 101/72 97 02/25/18 07:00 97 H 28 H 97 02/25/18 06:47 98 H 30 H 98/64 L 95 02/25/18 06:00 96 H 19 95 Intake and Output (Last 8hrs): Intake & Output 02/24/18 02/25/18 02/25/18 22:59 06:59 14:59 Intake Total 480 120 765.3 Output Total 300 800 0 Balance 180 -680 765.3 Weight 196 lb 3.382 oz Intake: IV 160 204 Intake, IV Amount 120 120 41.3 Right Distal Port 0 Right Medial Port 120 120 41.3 Internal Jugular Oral 200 0 520 Output: Urine 300 800 0 Urine, Voided 300 800 0 Emesis 0 0 0 Other: # Voids Urine, Voided 4 # Bowel Movements 0 0 0 - Physical Exam Head: Positive for: Atraumatic, Normocephalic Extroacular Muscles: Positive for: EOMI Conjunctiva: Positive for: Normal Respiratory/Chest: Positive for: Clear to Auscultation. Negative for: Accessory Muscle Use Cardiovascular: Positive for: Regular Rate and Rhythm, Normal S1, S2 Abdomen: Positive for: Normal Bowel Sounds. Negative for: Tenderness Upper Extremity: Negative for: Edema Lower Extremity: Positive for: Edema Neurological: Positive for: GCS=15 Psychiatric: Positive for: Alert, Oriented x 3 - Medications Active Medications: Active Medications Generic Name Dose Route Start Last Admin Trade Name Freq PRN Reason Stop Dose Admin Docusate Sodium 100 mg 02/25/18 10:00 Colace PO TID [facility] Norepinephrine Bitartrate 4 mg 254 mls @ 15.24 mls/hr 02/23/18 14:52 08:20 / Sodium Chloride IV 3 mcg/min .[id number] PRN 11.43 mls/hr TITRATE PER MD ORDER Titration Protocol 4 MCG/MIN Magnesium Sulfate/Dextrose 1 gm in 100 mls @ 200 mls/hr 02/25/18 09:52 Magnesium Sulfate 1 Gm/100 Ml D5w IVPB 02/25/18 10:21 ONCE ONE Levothyroxine Sodium 125 mcg 02/22/18 06:30 02/25/18 06:44 Synthroid PO 125 mcg DAILY@0630 [facility] Administration Midodrine 2.5 mg 02/25/18 10:00 Proamatine PO TID [facility] Pantoprazole Sodium 40 mg 02/23/18 10:00 02/25/18 09:10 Protonix Ec Tab PO 40 mg BID [facility] Administration Rosuvastatin Calcium 20 mg 02/21/18 22:00 02/24/18 22:42 Crestor PO 20 mg HS [facility] Administration - Patient Studies Lab Studies: Lab Studies 02/25/18 02/25/18 02/25/18 Range/Units 06:31 06:31 06:30 WBC 5.1 (4.8-10.8) K/uL RBC 5.00 (4.40-5.90) Mil/uL Hgb 12.7 (12.0-18.0) g/dL Hct 38.2 (35.0-51.0) % MCV 76.3 L (80.0-94.0) fL MCH 25.5 L (27.0-31.0) pg MCHC 33.3 (33.0-37.0) g/dL RDW 19.5 H (11.5-14.5) % Plt Count 126 L D (130-400) K/uL MPV 9.7 (7.2-11.7) fL Neut % (Auto) 71.7 (50.0-75.0) % Lymph % (Auto) 12.5 L (20.0-40.0) % [place] % (Auto) 13.4 H (0.0-10.0) % Eos % (Auto) 1.7 (0.0-4.0) % Baso % (Auto) 0.7 (0.0-2.0) % Neut # (Auto) 3.7 (1.8-7.0) K/uL Lymph # (Auto) 0.6 L (1.0-4.3) K/uL [place] # (Auto) 0.7 (0.0-0.8) K/uL Eos # (Auto) 0.1 (0.0-0.7) K/uL Baso # (Auto) 0.0 (0.0-0.2) K/uL PT 14.9 H (9.7-12.2) SECONDS INR 1.4 APTT 30 (21-34) SECONDS Sodium 135 (132-148) mmol/L Potassium 3.8 (3.6-5.2) mmol/L Chloride 100 (98-107) mmol/L Carbon Dioxide 23 (22-30) mmol/L Anion Gap 16 (10-20) BUN 30 H (9-20) mg/dL Creatinine 1.0 (0.8-1.5) mg/dL Est GFR ( Amer) > 60 Est GFR (Non-Af Amer) > 60 Random Glucose 94 (75-110) mg/dL Calcium 8.5 L (8.6-10.4) mg/dl Phosphorus 2.6 (2.5-4.5) mg/dL Magnesium 1.9 (1.6-2.3) mg/dL Total Bilirubin 2.0 H (0.2-1.3) mg/dL AST 36 (17-59) U/L ALT 35 (21-72) U/L Alkaline Phosphatase 93 (38-126) U/L Total Protein 6.2 L (6.3-8.3) g/dL Albumin 3.1 L (3.5-5.0) g/dL Globulin 3.1 (2.2-3.9) gm/dL Albumin/Globulin Ratio 1.0 (1.0-2.1) TSH 3rd Generation 12.80 H (0.46-4.68) mIU/L Laboratory Results - last 24 hr 02/25/18 02/25/18 02/25/18 06:30 06:31 06:31 WBC 5.1 RBC 5.00 Hgb 12.7 Hct 38.2 MCV 76.3 L MCH 25.5 L MCHC 33.3 RDW 19.5 H Plt Count 126 L D MPV 9.7 Neut % (Auto) 71.7 Lymph % (Auto) 12.5 L [place] % (Auto) 13.4 H Eos % (Auto) 1.7 Baso % (Auto) 0.7 Neut # (Auto) 3.7 Lymph # (Auto) 0.6 L [place] # (Auto) 0.7 Eos # (Auto) 0.1 Baso # (Auto) 0.0 PT 14.9 H INR 1.4 APTT 30 Sodium 135 Potassium 3.8 Chloride 100 Carbon Dioxide 23 Anion Gap 16 BUN 30 H Creatinine 1.0 Est GFR ( Amer) > 60 Est GFR (Non-Af Amer) > 60 Random Glucose 94 Calcium 8.5 L Phosphorus 2.6 Magnesium 1.9 Total Bilirubin 2.0 H AST 36 ALT 35 Alkaline Phosphatase 93 Total Protein 6.2 L Albumin 3.1 L Globulin 3.1 Albumin/Globulin Ratio 1.0 TSH 3rd Generation 12.80 H Critical Care Progress Note - Nutrition Nutrition: Nutrition Category Date Time Status Heart Healthy Diet [DIET] Diets 02/23/18 Dinner Active
[2018-02-25] MEDS ORDERED: Magnesium Sulfate 1 gm in D5W 1 GM/100 ML BAG IVPB ONE (11:00)
--- NOTE | 2018-02-25 11:01 | CP.PCM.PN ---
Subjective - Date & Time of Evaluation Date of Evaluation: 02/25/18 Time of Evaluation: 10:58 - Subjective Subjective: Patient denies having nausea, vomiting, abdominal pain and rectal bleeding. He has not had a bowel movement so far today. He was started on a Norepinephrine infusion and Midodrine. He was also given Colace. Objective - Vital Signs/Intake and Output Vital Signs (last 24 hours): Temp Pulse Resp BP Pulse Ox 97.9 F 98 H 37 H 107/67 99 02/25/18 08:00 02/25/18 10:46 02/25/18 10:46 02/25/18 10:46 02/25/18 10:46 Intake and Output: 02/25/18 02/25/18 06:59 18:59 Intake Total 180 776.6 Output Total 920 0 Balance -740 776.6 - Medications Medications: Current Medications Docusate Sodium (Colace) 100 mg PO TID [facility] Last Admin: 02/25/18 10:28 Dose: 100 mg Norepinephrine Bitartrate 4 mg (/ Sodium Chloride) 254 mls @ 15.24 mls/hr IV .[id number] PRN; Protocol; 4 MCG/MIN PRN Reason: TITRATE PER MD ORDER Last Titration: 02/25/18 08:20 Dose: 3 mcg/min, 11.43 mls/hr Magnesium Sulfate/Dextrose (Magnesium Sulfate 1 Gm/100 Ml D5w) 1 gm in 100 mls @ 200 mls/hr IVPB ONCE ONE Stop: 02/25/18 11:29 Last Admin: 02/25/18 10:28 Dose: 200 mls/hr Levothyroxine Sodium (Synthroid) 125 mcg PO DAILY@0630 [facility] Last Admin: 02/25/18 06:44 Dose: 125 mcg Midodrine (Proamatine) 2.5 mg PO TID [facility] Last Admin: 02/25/18 10:29 Dose: 2.5 mg Pantoprazole Sodium (Protonix Ec Tab) 40 mg PO BID [facility] Last Admin: 02/25/18 09:10 Dose: 40 mg Rosuvastatin Calcium (Crestor) 20 mg PO HS [facility] Last Admin: 02/24/18 22:42 Dose: 20 mg - Labs Labs: 02/25/18 06:30 02/25/18 06:31 PT 14.9 SECONDS (9.7-12.2) H 02/25/18 06:31 INR 1.4 02/25/18 06:31 APTT 30 SECONDS (21-34) 02/25/18 06:31 - Constitutional Appears: No Acute Distress - Head Exam Head Exam: ATRAUMATIC, NORMOCEPHALIC - Eye Exam Eye Exam: EOMI, PERRL - Neck Exam Neck Exam: absent: Lymphadenopathy, Thyromegaly - Respiratory Exam Respiratory Exam: NORMAL BREATHING PATTERN. absent: Rales, Rhonchi, Wheezes - Cardiovascular Exam Cardiovascular Exam: REGULAR RHYTHM, +S1, +S2. absent: Gallop, Rubs, Murmur - GI/Abdominal Exam GI & Abdominal Exam: Soft, Normal Bowel Sounds. absent: Tenderness, Mass, Organomegaly - Rectal Exam Rectal Exam: Deferred - Extremities Exam Additional comments: Edema of dependent portion of thigh and knee, bilateral Assessment and Plan (1) Lower GI bleeding Assessment & Plan: Patient reports no further bleeding. The HGB today is stable at 12.7. Plan is for EGD and colonoscopy when stable and cleared by cardiology. Status: Acute
[2018-02-26] MEDS: Levothyroxine 125 MCG TAB PO SCH (05:55)
[2018-02-26 06:23] LABS: BASO % 0.9 % (0.0-2.0); EOS # 0.1 K/uL (0.0-0.7); EOS % 1.6 % (0.0-4.0); HEMOGLOBIN 13.3 g/dL (12.0-18.0); LYMPH # 0.8 K/uL (1.0-4.3); MEAN PLATELET VOLUME 9.5 fL (7.2-11.7); MONO # 0.7 K/uL (0.0-0.8); MONO % 14.4 % (0.0-10.0); NEUT # 3.3 K/uL (1.8-7.0); NEUT % 66.1 % (50.0-75.0); NRBC % 0.1 % (0.0-2.0); RBC 5.32 Mil/uL (4.40-5.90); RED CELL DISTRIBUTION WIDTH 19.5 % (11.5-14.5)
[2018-02-26 06:34] LABS: ALB/GLOB RATIO 0.9 (1.0-2.1); ALBUMIN 3.3 g/dL (3.5-5.0); ALT/SGPT 63 U/L (21-72); AST/SGOT 62 U/L (17-59); BLOOD UREA NITROGEN 35 mg/dL (9-20); CALCIUM 8.6 mg/dl (8.6-10.4); GFR AFRICAN-AMERICAN > 60; GFR NON-AFRICAN AMERICAN > 60
[2018-02-26] MEDS: DOBUTamine 500mg/250ml D5W 500 MG/250 ML BAG IV SCH (09:05)
[2018-02-26] MEDS: Pantoprazole 40 mg EC Tab PO SCH ×2 (09:08→18:06)
--- NOTE | 2018-02-26 09:13 | CP.PCM.PN ---
Subjective - Date & Time of Evaluation Date of Evaluation: 02/26/18 Time of Evaluation: 09:10 - Subjective Subjective: Patient had two formed bowel movements yesterday and one today, none of which contained blood. He denies having nausea, vomiting, and abdominal pain. Objective - Vital Signs/Intake and Output Vital Signs (last 24 hours): Temp Pulse Resp BP Pulse Ox 97.6 F 99 H 19 103/71 97 02/26/18 08:00 02/26/18 08:04 02/26/18 08:04 02/26/18 08:04 02/26/18 08:04 Intake and Output: 02/26/18 02/26/18 06:59 18:59 Intake Total 535.8 398.8 Output Total 550 0 Balance -14.2 398.8 - Medications Medications: Current Medications Docusate Sodium (Colace) 100 mg PO TID [facility] Last Admin: 02/25/18 17:11 Dose: 100 mg Norepinephrine Bitartrate 4 mg (/ Sodium Chloride) 254 mls @ 15.24 mls/hr IV .[id number] PRN; Protocol; 4 MCG/MIN PRN Reason: TITRATE PER MD ORDER Last Titration: 02/26/18 07:50 Dose: 2 mcg/min, 7.62 mls/hr Dobutamine HCl/Dextrose (Dobutamine/Dextrose 5% 500mg/250ml) 500 mg in 250 mls @ 11.82 mls/hr IV .[id number] [facility]; 5 MCG/KG/MIN PRN Reason: Protocol Levothyroxine Sodium (Synthroid) 125 mcg PO DAILY@0630 [facility] Last Admin: 02/26/18 05:55 Dose: 125 mcg Midodrine (Proamatine) 2.5 mg PO TID [facility] Last Admin: 02/25/18 17:11 Dose: 2.5 mg Pantoprazole Sodium (Protonix Ec Tab) 40 mg PO BID [facility] Last Admin: 02/25/18 17:11 Dose: 40 mg Rosuvastatin Calcium (Crestor) 20 mg PO HS [facility] Last Admin: 02/25/18 21:27 Dose: 20 mg - Labs Labs: 02/26/18 06:17 02/26/18 06:17 PT 14.9 SECONDS (9.7-12.2) H 02/25/18 06:31 INR 1.4 02/25/18 06:31 APTT 30 SECONDS (21-34) 02/25/18 06:31 - Constitutional Appears: No Acute Distress - Head Exam Head Exam: ATRAUMATIC, NORMOCEPHALIC - Eye Exam Eye Exam: EOMI, PERRL - Neck Exam Neck Exam: absent: Lymphadenopathy, Thyromegaly - Respiratory Exam Respiratory Exam: NORMAL BREATHING PATTERN. absent: Rales, Rhonchi, Wheezes - Cardiovascular Exam Cardiovascular Exam: REGULAR RHYTHM, +S1, +S2. absent: Gallop, Rubs, Murmur - GI/Abdominal Exam GI & Abdominal Exam: Distended, Soft, Normal Bowel Sounds. absent: Tenderness, Organomegaly - Rectal Exam Rectal Exam: Deferred - Extremities Exam Extremities Exam: Pedal Edema. absent: Calf Tenderness Assessment and Plan (1) Lower GI bleeding Assessment & Plan: Patient has had no further bleeding. The repeat hemoglobin from today is 13.3. Plan is still to perform colonoscopy and EGD when stable. Status: Acute
--- NOTE | 2018-02-26 12:48 | CP.PCM.PN ---
Subjective - Date & Time of Evaluation Date of Evaluation: 02/25/18 Time of Evaluation: 10:00 - Subjective Subjective: feels better treated w/ dobutrex 5mcg infusion for 24hours, now on norepinephrine and midodrine feels better BP98/60 still weak and sob on mild exertion Objective - Vital Signs/Intake and Output Vital Signs (last 24 hours): Temp Pulse Resp BP Pulse Ox 97.6 F 104 H 26 H 98/69 L 100 02/26/18 08:00 02/26/18 10:04 02/26/18 10:04 02/26/18 10:04 02/26/18 09:05 Intake and Output: 02/26/18 02/26/18 06:59 18:59 Intake Total 535.8 437.4 Output Total 550 100 Balance -14.2 337.4 - Medications Medications: Current Medications Docusate Sodium (Colace) 100 mg PO TID [facility] Last Admin: 02/26/18 09:04 Dose: 100 mg Norepinephrine Bitartrate 4 mg (/ Sodium Chloride) 254 mls @ 15.24 mls/hr IV .[id number] PRN; Protocol; 4 MCG/MIN PRN Reason: TITRATE PER MD ORDER Last Titration: 02/26/18 07:50 Dose: 2 mcg/min, 7.62 mls/hr Dobutamine HCl/Dextrose (Dobutamine/Dextrose 5% 500mg/250ml) 500 mg in 250 mls @ 11.82 mls/hr IV .[id number] OPAL; 5 MCG/KG/MIN PRN Reason: Protocol Last Admin: 02/26/18 09:05 Dose: 5 mcg/kg/min, 11.82 mls/hr Levothyroxine Sodium (Synthroid) 125 mcg PO DAILY@0630 [facility] Last Admin: 02/26/18 05:55 Dose: 125 mcg Midodrine (Proamatine) 2.5 mg PO TID [facility] Last Admin: 02/26/18 09:08 Dose: 2.5 mg Pantoprazole Sodium (Protonix Ec Tab) 40 mg PO BID [facility] Last Admin: 02/26/18 09:08 Dose: 40 mg Rosuvastatin Calcium (Crestor) 20 mg PO HS [facility] Last Admin: 02/25/18 21:27 Dose: 20 mg - Labs Labs: 02/26/18 06:17 02/26/18 06:17 PT 14.9 SECONDS (9.7-12.2) H 02/25/18 06:31 INR 1.4 02/25/18 06:31 APTT 30 SECONDS (21-34) 02/25/18 06:31 - Constitutional Appears: Non-toxic - Head Exam Head Exam: NORMOCEPHALIC - Eye Exam Eye Exam: absent: Scleral icterus - ENT Exam ENT Exam: Mucous Membranes Moist - Neck Exam Neck Exam: Full ROM - Respiratory Exam Respiratory Exam: Decreased Breath Sounds - GI/Abdominal Exam GI & Abdominal Exam: Soft - Extremities Exam Extremities Exam: Pedal Edema. absent: Calf Tenderness, Tenderness - Neurological Exam Neurological Exam: Alert, Oriented x3 Assessment and Plan - Assessment and Plan (Free Text) Assessment: CHF with pre-renal azotemia ACS Hypotension Hx of rectal bleeding with stable Hgb/Hct Plan: Cont meds Contemplating on making arrangement to transfer patient to [facility] Heart failure Program
--- NOTE | 2018-02-26 12:58 | CP.PCM.PN ---
Subjective - Date & Time of Evaluation Date of Evaluation: 02/26/18 Time of Evaluation: 09:00 - Subjective Subjective: cont to feel better still pressor dependent no rectal bleeding Objective - Vital Signs/Intake and Output Vital Signs (last 24 hours): Temp Pulse Resp BP Pulse Ox 97.6 F 104 H 22 92/62 L 100 02/26/18 08:00 02/26/18 12:16 02/26/18 12:16 02/26/18 12:16 02/26/18 11:11 Intake and Output: 02/26/18 02/26/18 06:59 18:59 Intake Total 535.8 676.0 Output Total 550 100 Balance -14.2 576.0 - Medications Medications: Current Medications Docusate Sodium (Colace) 100 mg PO TID [facility] Last Admin: 02/26/18 09:04 Dose: 100 mg Norepinephrine Bitartrate 4 mg (/ Sodium Chloride) 254 mls @ 15.24 mls/hr IV .[id number] PRN; Protocol; 4 MCG/MIN PRN Reason: TITRATE PER MD ORDER Last Titration: 02/26/18 07:50 Dose: 2 mcg/min, 7.62 mls/hr Dobutamine HCl/Dextrose (Dobutamine/Dextrose 5% 500mg/250ml) 500 mg in 250 mls @ 11.82 mls/hr IV .[id number] OPAL; 5 MCG/KG/MIN PRN Reason: Protocol Last Admin: 02/26/18 09:05 Dose: 5 mcg/kg/min, 11.82 mls/hr Levothyroxine Sodium (Synthroid) 125 mcg PO DAILY@0630 [facility] Last Admin: 02/26/18 05:55 Dose: 125 mcg Midodrine (Proamatine) 2.5 mg PO TID [facility] Last Admin: 02/26/18 09:08 Dose: 2.5 mg Pantoprazole Sodium (Protonix Ec Tab) 40 mg PO BID [facility] Last Admin: 02/26/18 09:08 Dose: 40 mg Rosuvastatin Calcium (Crestor) 20 mg PO HS [facility] Last Admin: 02/25/18 21:27 Dose: 20 mg - Labs Labs: 02/26/18 06:17 02/26/18 06:17 PT 14.9 SECONDS (9.7-12.2) H 02/25/18 06:31 INR 1.4 02/25/18 06:31 APTT 30 SECONDS (21-34) 02/25/18 06:31 - Constitutional Appears: Non-toxic - Head Exam Head Exam: NORMOCEPHALIC - Eye Exam Eye Exam: Scleral icterus - ENT Exam ENT Exam: Mucous Membranes Moist - Neck Exam Neck Exam: Full ROM. absent: Lymphadenopathy - Respiratory Exam Respiratory Exam: Decreased Breath Sounds, Clear to Ausculation Bilateral - Cardiovascular Exam Cardiovascular Exam: REGULAR RHYTHM - GI/Abdominal Exam GI & Abdominal Exam: Distended, Soft. absent: Organomegaly - Extremities Exam Extremities Exam: absent: Pedal Edema - Neurological Exam Neurological Exam: Alert, Oriented x3 Assessment and Plan - Assessment and Plan (Free Text) Assessment: Hypotension, pressor-dependent CHF ACS Dilated cardiomyopathy Plan: Will switch to dobutrex 5mcg x 24/hours, then increased to 10mcg x 24hours Arrangement will be made for transfer to [facility]
--- NOTE | 2018-02-26 16:11 | CP.PCM.PN ---
Subjective - Date & Time of Evaluation Date of Evaluation: 02/26/18 Time of Evaluation: 10:00 - Subjective Subjective: remains hypotensive/ pressor dependant denies chest pain cough awake alert OOB to chair Objective - Vital Signs/Intake and Output Vital Signs (last 24 hours): Temp Pulse Resp BP Pulse Ox 97.4 F L 104 H 22 92/62 L 100 02/26/18 12:00 02/26/18 12:16 02/26/18 12:16 02/26/18 12:16 02/26/18 11:11 Intake and Output: 02/26/18 02/26/18 06:59 18:59 Intake Total 535.8 753.4 Output Total 550 100 Balance -14.2 653.4 - Medications Medications: Current Medications Docusate Sodium (Colace) 100 mg PO TID [facility] Last Admin: 02/26/18 14:23 Dose: 100 mg Norepinephrine Bitartrate 4 mg (/ Sodium Chloride) 254 mls @ 15.24 mls/hr IV .[id number] PRN; Protocol; 4 MCG/MIN PRN Reason: TITRATE PER MD ORDER Last Titration: 02/26/18 14:11 Dose: 4 mcg/min, 15.24 mls/hr Dobutamine HCl/Dextrose (Dobutamine/Dextrose 5% 500mg/250ml) 500 mg in 250 mls @ 11.82 mls/hr IV .[id number] OPAL; 5 MCG/KG/MIN PRN Reason: Protocol Last Admin: 02/26/18 09:05 Dose: 5 mcg/kg/min, 11.82 mls/hr Levothyroxine Sodium (Synthroid) 125 mcg PO DAILY@0630 [facility] Last Admin: 02/26/18 05:55 Dose: 125 mcg Midodrine (Proamatine) 2.5 mg PO TID [facility] Last Admin: 02/26/18 14:22 Dose: 2.5 mg Pantoprazole Sodium (Protonix Ec Tab) 40 mg PO BID [facility] Last Admin: 02/26/18 09:08 Dose: 40 mg Rosuvastatin Calcium (Crestor) 20 mg PO HS [facility] Last Admin: 02/25/18 21:27 Dose: 20 mg - Labs Labs: 02/26/18 06:17 02/26/18 06:17 PT 14.9 SECONDS (9.7-12.2) H 02/25/18 06:31 INR 1.4 02/25/18 06:31 APTT 30 SECONDS (21-34) 02/25/18 06:31 - Constitutional Appears: Non-toxic, Chronically Ill - Head Exam Head Exam: NORMOCEPHALIC - Eye Exam Eye Exam: EOMI Pupil Exam: NORMAL ACCOMODATION - ENT Exam ENT Exam: Mucous Membranes Dry - Respiratory Exam Respiratory Exam: Decreased Breath Sounds - Cardiovascular Exam Cardiovascular Exam: REGULAR RHYTHM, +S1, +S2 - GI/Abdominal Exam GI & Abdominal Exam: Distended - Rectal Exam Rectal Exam: Deferred - Back Exam Back Exam: Full ROM - Neurological Exam Neurological Exam: Alert, Awake - Skin Skin Exam: Dry Assessment and Plan (1) Ischemic cardiomyopathy Status: Acute (2) Ischemic cardiomyopathy Status: Acute (3) CHF exacerbation Status: Acute (4) Elevated troponin Status: Acute (5) GI bleed Status: Acute (6) Hypotension (arterial) Status: Acute (7) RUBINA (acute kidney injury) Status: Acute (8) ARF (acute renal failure) Status: Acute - Assessment and Plan (Free Text) Assessment: for transfer to [facility] as per dr campos
--- NOTE | 2018-02-26 17:38 | CP.CCUPN ---
CCU Subjective - Physician Review Events Since Last Encounter (Free Text): 02/26/18 17:38 The patient with a history of CAD, status post ACD, CABG, congestive heart failure, non-ST elevation and hypothyroidism admitted with progressively worsening dyspnea. Patient was also having rectal bleeding, anemia, received blood transfusion. Patient now is more comfortable. The blood pressure is still on the low side. Currently on norepinephrine drip. On examination: Vital signs stable. BP improving Regular heart sound. Chest good air entry bilaterally Normal abdomen. Edema positive Patient has x-ray showing minimal congestion Assessment and recommendation: 72-year-old male with a history of CAD, CABG, AICD, congestive heart failure. CAD, non-ST elevation AR. Hypothyroidism. Patient now admitted with acute GI bleed, received blood transfusion. 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 Possibly endoscopy. Stable at this time. On not a significant entry. Will continue to monitor CCU Objective - Vital Signs / Intake & Output Intake and Output (Last 8hrs): Intake & Output 02/26/18 02/26/18 02/26/18 06:59 14:59 22:59 Intake Total 310.4 753.4 Output Total 400 100 Balance -89.6 653.4 Weight 173 lb 11.588 oz Intake: IV 215 Intake, IV Amount 90.4 138.4 Right Distal Port 70.8 Internal Jugular Right Medial Port 90.4 67.6 Internal Jugular Oral 220 400 Output: Urine 400 100 Urine, Voided 400 100 Other: # Voids Urine, Voided 1 1 # Bowel Movements 1 0 - Physical Exam Head: Positive for: Atraumatic, Normocephalic Extroacular Muscles: Positive for: EOMI Conjunctiva: Positive for: Normal Respiratory/Chest: Positive for: Clear to Auscultation. Negative for: Accessory Muscle Use Cardiovascular: Positive for: Regular Rate and Rhythm, Normal S1, S2 Abdomen: Positive for: Normal Bowel Sounds. Negative for: Tenderness Upper Extremity: Negative for: Edema Lower Extremity: Positive for: Edema Neurological: Positive for: GCS=15 Psychiatric: Positive for: Alert, Oriented x 3 - Medications Active Medications: Active Medications Generic Name Dose Route Start Last Admin Trade Name Freq PRN Reason Stop Dose Admin Docusate Sodium 100 mg 02/25/18 10:00 02/26/18 14:23 Colace PO 100 mg TID OPAL Administration Norepinephrine Bitartrate 4 mg 254 mls @ 15.24 mls/hr 02/23/18 14:52 14:11 / Sodium Chloride IV 4 mcg/min .[id number] PRN 15.24 mls/hr TITRATE PER MD ORDER Titration Protocol 4 MCG/MIN Dobutamine HCl/Dextrose 500 mg in 250 mls @ 11.82 mls/hr 02/26/18 09:00 02/26 09:05 Dobutamine/Dextrose 5% 500mg/250ml IV 5 mcg/kg/min .[id number] OPAL 11.82 mls/hr Protocol Administration 5 MCG/KG/MIN Levothyroxine Sodium 125 mcg 02/22/18 06:30 02/26/18 05:55 Synthroid PO 125 mcg DAILY@0630 OPAL Administration Midodrine 2.5 mg 02/25/18 10:00 02/26/18 14:22 Proamatine PO 2.5 mg TID OP[facility] Administration Pantoprazole Sodium 40 mg 02/23/18 10:00 02/26/18 09:08 Protonix Ec Tab PO 40 mg BID OPAL Administration Rosuvastatin Calcium 20 mg 02/21/18 22:00 02/25/18 21:27 Crestor PO 20 mg HS OPAL Administration - Patient Studies Lab Studies: Lab Studies 02/26/18 02/26/18 Range/Units 06:17 06:17 WBC 5.0 (4.8-10.8) K/uL RBC 5.32 (4.40-5.90) Mil/uL Hgb 13.3 (12.0-18.0) g/dL Hct 40.4 (35.0-51.0) % MCV 76.0 L (80.0-94.0) fL MCH 25.0 L (27.0-31.0) pg MCHC 33.0 (33.0-37.0) g/dL RDW 19.5 H (11.5-14.5) % Plt Count 137 (130-400) K/uL MPV 9.5 (7.2-11.7) fL Neut % (Auto) 66.1 (50.0-75.0) % Lymph % (Auto) 17.0 L (20.0-40.0) % [place]igo % (Auto) 14.4 H (0.0-10.0) % Eos % (Auto) 1.6 (0.0-4.0) % Baso % (Auto) 0.9 (0.0-2.0) % Neut # (Auto) 3.3 (1.8-7.0) K/uL Lymph # (Auto) 0.8 L (1.0-4.3) K/uL Vigo # (Auto) 0.7 (0.0-0.8) K/uL Eos # (Auto) 0.1 (0.0-0.7) K/uL Baso # (Auto) 0.0 (0.0-0.2) K/uL Sodium 134 (132-148) mmol/L Potassium 4.2 (3.6-5.2) mmol/L Chloride 100 (98-107) mmol/L Carbon Dioxide 24 (22-30) mmol/L Anion Gap 14 (10-20) BUN 35 H (9-20) mg/dL Creatinine 1.1 (0.8-1.5) mg/dL Est GFR ( Amer) > 60 Est GFR (Non-Af Amer) > 60 Random Glucose 96 (75-110) mg/dL Calcium 8.6 (8.6-10.4) mg/dl Phosphorus 2.8 (2.5-4.5) mg/dL Magnesium 2.3 (1.6-2.3) mg/dL Total Bilirubin 1.7 H (0.2-1.3) mg/dL AST 62 H D (17-59) U/L ALT 63 (21-72) U/L Alkaline Phosphatase 107 (38-126) U/L Total Protein 6.8 (6.3-8.3) g/dL Albumin 3.3 L (3.5-5.0) g/dL Globulin 3.5 (2.2-3.9) gm/dL Albumin/Globulin Ratio 0.9 L (1.0-2.1) Laboratory Results - last 24 hr 02/26/1818 06:17 06:17 WBC 5.0 RBC 5.32 Hgb 13.3 Hct 40.4 MCV 76.0 L MCH 25.0 L MCHC 33.0 RDW 19.5 H Plt Count 137 MPV 9.5 Neut % (Auto) 66.1 Lymph % (Auto) 17.0 L [place] % (Auto) 14.4 H Eos % (Auto) 1.6 Baso % (Auto) 0.9 Neut # (Auto) 3.3 Lymph # (Auto) 0.8 L [place] # (Auto) 0.7 Eos # (Auto) 0.1 Baso # (Auto) 0.0 Sodium 134 Potassium 4.2 Chloride 100 Carbon Dioxide 24 Anion Gap 14 BUN 35 H Creatinine 1.1 Est GFR ( Amer) > 60 Est GFR (Non-Af Amer) > 60 Random Glucose 96 Calcium 8.6 Phosphorus 2.8 Magnesium 2.3 Total Bilirubin 1.7 H AST 62 H D ALT 63 Alkaline Phosphatase 107 Total Protein 6.8 Albumin 3.3 L Globulin 3.5 Albumin/Globulin Ratio 0.9 L Critical Care Progress Note - Nutrition Nutrition: Nutrition Category Date Time Status Heart Healthy Diet [DIET] Diets 02/23/18 Dinner Active
[2018-02-27] MEDS: Levothyroxine 125 MCG TAB PO SCH (05:42)
[2018-02-27 05:43] LABS: BASO % 0.6 % (0.0-2.0); EOS # 0.2 K/uL (0.0-0.7); EOS % 3.1 % (0.0-4.0); HEMOGLOBIN 11.9 g/dL (12.0-18.0); LYMPH # 0.6 K/uL (1.0-4.3); MEAN CORPUSCULAR HEMOGLOBIN 25.1 pg (27.0-31.0); MEAN CORPUSCULAR HGB CONC 33.1 g/dL (33.0-37.0); MEAN PLATELET VOLUME 9.4 fL (7.2-11.7); MONO # 0.6 K/uL (0.0-0.8); MONO % 11.9 % (0.0-10.0); NEUT # 3.6 K/uL (1.8-7.0); NEUT % 72.4 % (50.0-75.0); RBC 4.74 Mil/uL (4.40-5.90); RED CELL DISTRIBUTION WIDTH 19.5 % (11.5-14.5)
[2018-02-27] MEDS: DOBUTamine 500mg/250ml D5W 500 MG/250 ML BAG IV SCH (05:43)
[2018-02-27 06:06] LABS: ALB/GLOB RATIO 0.9 (1.0-2.1); ALBUMIN 2.9 g/dL (3.5-5.0); ALT/SGPT 54 U/L (21-72); AST/SGOT 43 U/L (17-59); BLOOD UREA NITROGEN 32 mg/dL (9-20); CALCIUM 8.4 mg/dl (8.6-10.4); GFR AFRICAN-AMERICAN > 60; GFR NON-AFRICAN AMERICAN > 60
[2018-02-27] MEDS: Pantoprazole 40 mg EC Tab PO SCH ×2 (09:49→20:02)
--- NOTE | 2018-02-27 10:23 | CP.PCM.PN ---
Subjective - Date & Time of Evaluation Date of Evaluation: 02/27/18 Time of Evaluation: 10:00 - Subjective Subjective: seen in ICU less sob no cheast pain + V Tach earlier- short run cardio aware on pressors Objective - Vital Signs/Intake and Output Vital Signs (last 24 hours): Temp Pulse Resp BP Pulse Ox 97.4 F L 110 H 34 H 101/70 98 02/27/18 08:00 02/27/18 09:00 02/27/18 09:00 02/27/18 08:32 02/27/18 09:00 Intake and Output: 02/27/18 02/27/18 06:59 18:59 Intake Total 612.6 238.6 Output Total 650 Balance -37.4 238.6 - Medications Medications: Current Medications Docusate Sodium (Colace) 100 mg PO TID [facility] Last Admin: 02/27/18 09:49 Dose: 100 mg Norepinephrine Bitartrate 4 mg (/ Sodium Chloride) 254 mls @ 15.24 mls/hr IV .[id number] PRN; Protocol; 4 MCG/MIN PRN Reason: TITRATE PER MD ORDER Last Titration: 02/27/18 10:00 Dose: 5 mcg/min, 19.05 mls/hr Dobutamine HCl/Dextrose (Dobutamine/Dextrose 5% 500mg/250ml) 500 mg in 250 mls @ 11.82 mls/hr IV .[id number] OPAL; 5 MCG/KG/MIN PRN Reason: Protocol Last Admin: 02/27/18 05:43 Dose: 5 mcg/kg/min, 11.82 mls/hr Levothyroxine Sodium (Synthroid) 125 mcg PO DAILY@0630 [facility] Last Admin: 02/27/18 05:42 Dose: 125 mcg Midodrine (Proamatine) 2.5 mg PO TID [facility] Last Admin: 02/27/18 09:49 Dose: 2.5 mg Pantoprazole Sodium (Protonix Ec Tab) 40 mg PO BID [facility] Last Admin: 02/27/18 09:49 Dose: 40 mg Rosuvastatin Calcium (Crestor) 20 mg PO HS [facility] Last Admin: 02/26/18 22:05 Dose: 20 mg - Labs Labs: 02/27/18 05:37 02/27/18 05:37 PT 14.9 SECONDS (9.7-12.2) H 02/25/18 06:31 INR 1.4 02/25/18 06:31 APTT 30 SECONDS (21-34) 02/25/18 06:31 - Constitutional Appears: Non-toxic, No Acute Distress, Chronically Ill - Head Exam Head Exam: NORMOCEPHALIC - Eye Exam Eye Exam: absent: Scleral icterus - ENT Exam ENT Exam: Mucous Membranes Dry - Neck Exam Neck Exam: absent: Lymphadenopathy - Respiratory Exam Respiratory Exam: Decreased Breath Sounds - Cardiovascular Exam Cardiovascular Exam: REGULAR RHYTHM - GI/Abdominal Exam GI & Abdominal Exam: Distended - Rectal Exam Rectal Exam: Deferred - Exam Exam: NORMAL INSPECTION - Extremities Exam Extremities Exam: Pedal Edema - Back Exam Back Exam: absent: CVA tenderness (L), CVA tenderness (R) - Neurological Exam Neurological Exam: Alert, Awake, Oriented x3 - Psychiatric Exam Psychiatric exam: Normal Mood - Skin Skin Exam: Dry Assessment and Plan (1) Ischemic cardiomyopathy Status: Acute (2) Ischemic cardiomyopathy Status: Acute (3) CHF exacerbation Status: Acute (4) Elevated troponin Status: Acute (5) GI bleed Status: Acute (6) Hypotension (arterial) Status: Acute (7) RUBINA (acute kidney injury) Status: Acute (8) ARF (acute renal failure) Status: Acute - Assessment and Plan (Free Text) Assessment: cont pressors may need [facility] foreman milnorone drip for [facility] transfer
[2018-02-27 13:52] LABS: BASO % 0.8 % (0.0-2.0); EOS # 0.1 K/uL (0.0-0.7); EOS % 2.8 % (0.0-4.0); HEMOGLOBIN 12.1 g/dL (12.0-18.0); LYMPH # 0.5 K/uL (1.0-4.3); LYMPH % 10.8 % (20.0-40.0); MEAN CELL VOLUME 75.8 fL (80.0-94.0); MEAN CORPUSCULAR HEMOGLOBIN 25.5 pg (27.0-31.0); MEAN CORPUSCULAR HGB CONC 33.6 g/dL (33.0-37.0); MEAN PLATELET VOLUME 9.6 fL (7.2-11.7); MONO # 0.7 K/uL (0.0-0.8); MONO % 13.6 % (0.0-10.0); NEUT # 3.5 K/uL (1.8-7.0); NRBC % 0.1 % (0.0-2.0); RBC 4.76 Mil/uL (4.40-5.90); RED CELL DISTRIBUTION WIDTH 19.7 % (11.5-14.5); WHITE BLOOD COUNT 4.8 K/uL (4.8-10.8)
--- NOTE | 2018-02-27 15:30 | CP.CCUPN ---
CCU Subjective - Physician Review Subjective (Free Text): Patient was seen and examined at bedside. Patient reports feeling okay, denied any dizziness, shortness of breath. Remains hypotensive. Critical Care Time Spent (in minutes): 20 CCU Objective - Vital Signs / Intake & Output Vital Signs (Last 4 hours): Vital Signs Temp Pulse Resp BP Pulse Ox 02/27/18 14:33 104 H 22 94/65 L 100 02/27/18 14:15 103 H 30 H 87/61 L 100 02/27/18 14:00 102 H 22 100 02/27/18 13:33 105 H 24 80/54 L 100 02/27/18 13:30 103 H 20 80/54 L 99 02/27/18 13:00 106 H 31 H 99 02/27/18 12:33 99 H 19 94/64 L 98 02/27/18 12:00 97.3 F L 104 H 28 H 99 02/27/18 11:33 102 H 27 H 88/63 L 100 Intake and Output (Last 8hrs): Intake & Output 02/27/18 02/27/18 02/27/18 06:59 14:59 22:59 Intake Total 471.4 867.1 Output Total 350 150 Balance 121.4 717.1 Weight 173 lb 11.588 oz Intake: IV 261 240 Intake, IV Amount 210.4 237.1 Right Distal Port 94.4 94.4 Internal Jugular Right Medial Port 116 142.7 Internal Jugular Oral 390 Output: Urine 350 150 Urine, Voided 350 150 - Physical Exam Head: Positive for: Atraumatic, Normocephalic Extroacular Muscles: Positive for: EOMI Conjunctiva: Positive for: Normal Mouth: Positive for: Moist Mucous Membranes Neck: Positive for: Other (R IJ in place, c/d/i) Respiratory/Chest: Positive for: Decreased Breath Sounds. Negative for: Accessory Muscle Use Cardiovascular: Positive for: Regular Rate and Rhythm, Normal S1, S2 Abdomen: Positive for: Normal Bowel Sounds. Negative for: Tenderness Upper Extremity: Positive for: Normal ROM, NORMAL PULSES, Neurovascularly Intact , Capillary Refill < 2s. Negative for: Edema, Tenderness, Swelling, Erythema Lower Extremity: Positive for: Edema, NORMAL PULSES, Neurovascularly Intact, Capillary Refill < 2 s. Negative for: CALF TENDERNESS, Tenderness, Erythema Neurological: Positive for: GCS=15 Skin: Positive for: Warm, Dry, Normal Color Psychiatric: Positive for: Alert, Oriented x 3 - Medications Active Medications: Active Medications Generic Name Dose Route Start Last Admin Trade Name Kelly PRN Reason Stop Dose Admin Docusate Sodium 100 mg 02/25/18 10:00 02/27/18 14:12 Colace PO 100 mg TID OPAL Administration Norepinephrine Bitartrate 4 mg 254 mls @ 15.24 mls/hr 02/23/18 14:52 14:16 / Sodium Chloride IV 6 mcg/min .[id number] PRN 22.86 mls/hr TITRATE PER MD ORDER Titration Protocol 4 MCG/MIN Dobutamine HCl/Dextrose 500 mg in 250 mls @ 11.82 mls/hr 02/26/18 09:00 02/27 05:43 Dobutamine/Dextrose 5% 500mg/250ml IV 5 mcg/kg/min .[id number] OPAL 11.82 mls/hr Protocol Administration 5 MCG/KG/MIN Levothyroxine Sodium 175 mcg 02/28/18 06:30 Synthroid PO DAILY@0630 OPAL Midodrine 2.5 mg 02/25/18 10:00 02/27/18 14:12 Proamatine PO 2.5 mg TID OPAL Administration Pantoprazole Sodium 40 mg 02/23/18 10:00 02/27/18 09:49 Protonix Ec Tab PO 40 mg BID OPAL Administration Rosuvastatin Calcium 20 mg 02/21/18 22:00 02/26/18 22:05 Crestor PO 20 mg HS OPAL Administration - Patient Studies Lab Studies: Lab Studies 02/27/18 02/27/18 02/27/18 Range/Units 13:49 05:37 05:37 WBC 4.8 5.0 (4.8-10.8) K/uL RBC 4.76 4.74 (4.40-5.90) Mil/uL Hgb 12.1 11.9 L (12.0-18.0) g/dL Hct 36.1 36.0 (35.0-51.0) % MCV 75.8 L 76.0 L (80.0-94.0) fL MCH 25.5 L 25.1 L (27.0-31.0) pg MCHC 33.6 33.1 (33.0-37.0) g/dL RDW 19.7 H 19.5 H (11.5-14.5) % Plt Count 124 L 105 L D (130-400) K/uL MPV 9.6 9.4 (7.2-11.7) fL Neut % (Auto) 72.0 72.4 (50.0-75.0) % Lymph % (Auto) 10.8 L 12.0 L (20.0-40.0) % [place] % (Auto) 13.6 H 11.9 H (0.0-10.0) % Eos % (Auto) 2.8 3.1 (0.0-4.0) % Baso % (Auto) 0.8 0.6 (0.0-2.0) % Neut # (Auto) 3.5 3.6 (1.8-7.0) K/uL Lymph # (Auto) 0.5 L 0.6 L (1.0-4.3) K/uL [place] # (Auto) 0.7 0.6 (0.0-0.8) K/uL Eos # (Auto) 0.1 0.2 (0.0-0.7) K/uL Baso # (Auto) 0.0 0.0 (0.0-0.2) K/uL Sodium 133 (132-148) mmol/L Potassium 3.9 (3.6-5.2) mmol/L Chloride 100 (98-107) mmol/L Carbon Dioxide 24 (22-30) mmol/L Anion Gap 13 (10-20) BUN 32 H (9-20) mg/dL Creatinine 1.1 (0.8-1.5) mg/dL Est GFR ( Amer) > 60 Est GFR (Non-Af Amer) > 60 Random Glucose 115 H (75-110) mg/dL Calcium 8.4 L (8.6-10.4) mg/dl Phosphorus 2.5 (2.5-4.5) mg/dL Magnesium 2.0 (1.6-2.3) mg/dL Total Bilirubin 1.8 H (0.2-1.3) mg/dL AST 43 (17-59) U/L ALT 54 (21-72) U/L Alkaline Phosphatase 85 (38-126) U/L NT-Pro-B Natriuret Pep (0-900) pg/mL Total Protein 6.1 L (6.3-8.3) g/dL Albumin 2.9 L (3.5-5.0) g/dL Globulin 3.3 (2.2-3.9) gm/dL Albumin/Globulin Ratio 0.9 L (1.0-2.1) 02/26/18 Range/Units 18:14 WBC (4.8-10.8) K/uL RBC (4.40-5.90) Mil/uL Hgb (12.0-18.0) g/dL Hct (35.0-51.0) % MCV (80.0-94.0) fL MCH (27.0-31.0) pg MCHC (33.0-37.0) g/dL RDW (11.5-14.5) % Plt Count (130-400) K/uL MPV (7.2-11.7) fL Neut % (Auto) (50.0-75.0) % Lymph % (Auto) (20.0-40.0) % [place] % (Auto) (0.0-10.0) % Eos % (Auto) (0.0-4.0) % Baso % (Auto) (0.0-2.0) % Neut # (Auto) (1.8-7.0) K/uL Lymph # (Auto) (1.0-4.3) K/uL [place] # (Auto) (0.0-0.8) K/uL Eos # (Auto) (0.0-0.7) K/uL Baso # (Auto) (0.0-0.2) K/uL Sodium (132-148) mmol/L Potassium (3.6-5.2) mmol/L Chloride (98-107) mmol/L Carbon Dioxide (22-30) mmol/L Anion Gap (10-20) BUN (9-20) mg/dL Creatinine (0.8-1.5) mg/dL Est GFR ( Amer) Est GFR (Non-Af Amer) Random Glucose (75-110) mg/dL Calcium (8.6-10.4) mg/dl Phosphorus (2.5-4.5) mg/dL Magnesium (1.6-2.3) mg/dL Total Bilirubin (0.2-1.3) mg/dL AST (17-59) U/L ALT (21-72) U/L Alkaline Phosphatase (38-126) U/L NT-Pro-B Natriuret Pep 38339 H (0-900) pg/mL Total Protein (6.3-8.3) g/dL Albumin (3.5-5.0) g/dL Globulin (2.2-3.9) gm/dL Albumin/Globulin Ratio (1.0-2.1) Laboratory Results - last 24 hr 02/26/18 02/27/18 02/27/18 18:14 05:37 05:37 WBC 5.0 RBC 4.74 Hgb 11.9 L Hct 36.0 MCV 76.0 L MCH 25.1 L MCHC 33.1 RDW 19.5 H Plt Count 105 L D MPV 9.4 Neut % (Auto) 72.4 Lymph % (Auto) 12.0 L [place] % (Auto) 11.9 H Eos % (Auto) 3.1 Baso % (Auto) 0.6 Neut # (Auto) 3.6 Lymph # (Auto) 0.6 L [place] # (Auto) 0.6 Eos # (Auto) 0.2 Baso # (Auto) 0.0 Sodium 133 Potassium 3.9 Chloride 100 Carbon Dioxide 24 Anion Gap 13 BUN 32 H Creatinine 1.1 Est GFR ( Amer) > 60 Est GFR (Non-Af Amer) > 60 Random Glucose 115 H Calcium 8.4 L Phosphorus 2.5 Magnesium 2.0 Total Bilirubin 1.8 H AST 43 ALT 54 Alkaline Phosphatase 85 NT-Pro-B Natriuret Pep 60889 H Total Protein 6.1 L Albumin 2.9 L Globulin 3.3 Albumin/Globulin Ratio 0.9 L 02/27/18 13:49 WBC 4.8 RBC 4.76 Hgb 12.1 Hct 36.1 MCV 75.8 L MCH 25.5 L MCHC 33.6 RDW 19.7 H Plt Count 124 L MPV 9.6 Neut % (Auto) 72.0 Lymph % (Auto) 10.8 L [place] % (Auto) 13.6 H Eos % (Auto) 2.8 Baso % (Auto) 0.8 Neut # (Auto) 3.5 Lymph # (Auto) 0.5 L [place] # (Auto) 0.7 Eos # (Auto) 0.1 Baso # (Auto) 0.0 Sodium Potassium Chloride Carbon Dioxide Anion Gap BUN Creatinine Est GFR ( Amer) Est GFR (Non-Af Amer) Random Glucose Calcium Phosphorus Magnesium Total Bilirubin AST ALT Alkaline Phosphatase NT-Pro-B Natriuret Pep Total Protein Albumin Globulin Albumin/Globulin Ratio Critical Care Progress Note - Nutrition Nutrition: Nutrition Category Date Time Status Heart Healthy Diet [DIET] Diets 02/23/18 Dinner Active Assessment/Plan - Assessment and Plan (Free Text) Assessment: 72 yo male with PMH CAD, CABG, CHF (EF 15%) s/p AICD, NSTEMI, and Hypothyroidism was admitted to [facility] 02/09/18-02/13/18 due to progressive dyspnea , placed on Xarelto, was sent to ED today by for further evaluation of weakness, dizziness, and rectal bleeding. Currently remains hypotensive on Midodrine, NE, and Dobutamine for pressure control. Plan for transfer to [facility] - HF program - pending approval. Plan: Neuro: GCS: 15 Sedation: None Cardio: A: Hx of HTN, CAD, CABG, CHF with AICD placement/ Severe Cardiomyopathy (EF 15%) , NSTEMI - Cardiology Consulted - Dr. Santo - EKG: SR@88/min, occasional PVCs, Q wave in III, AFV, T wave inversion in inferior leads, v5-6, no acute ST-T changes - ECHO (02/10): Severe Cardiomyopathy w/ 15% EF. Moderate Pulm HTN - Troponins - 0.5010, 0.8110, 0.6710 - BNP - 23,300 --> 19,300 - Possible transfer to [facility] for HF program - Currently remains hypotensive on Midodrine, NE, and Dobutamine Pulm: A: Dyspnea CXR (02/21/18): Interval increased pulmonary venous congestion / CHF with small bilateral pleural effusions. Interval coalescent pulmonary edema and/or right basal interval infiltrate. No current left basal infiltrate suspect small bilateral pleural effusions that on the right appears increased since prior exam GI A: Acute GI Bleed - GI Consulted Dr. Dawkins - + stool occult - Protonix 40 PO BID - EGD/Colonscopy when Cleared by Cardio Heme/ Onc A: Blood Loss 2/2 to GI Bleed - S/P 2 FFP - HgB Stable - Continue to monitor - EGD/Colonscopy when Cleared by Cardio Endo A: Hx of Hypothyroidism - Elevated TSH (6.52) w/ Normal T4 (2.02) - Cont. Levothyroxine 125 --> @175mcg Prophylaxis - Protonix 40mg PO BID - VTE proph Contraindicated due to GI Bleed - Diet: Heart Healthy - Lines: RIJ - will be removed, RIGHT PICC LINE placed 02/27/18 ICU Attending- Dr. Martínez, Cyndi Cruz DO, PGY-1
[2018-02-28] MEDS: DOBUTamine 500mg/250ml D5W 500 MG/250 ML BAG IV SCH (04:02)
[2018-02-28] MEDS: Levothyroxine 175 MCG TAB PO SCH (05:32)
[2018-02-28 06:14] LABS: EOS # 0.1 K/uL (0.0-0.7); EOS % 2.9 % (0.0-4.0); HEMOGLOBIN 11.7 g/dL (12.0-18.0); LYMPH # 0.5 K/uL (1.0-4.3); LYMPH % 9.6 % (20.0-40.0); MEAN CELL VOLUME 75.7 fL (80.0-94.0); MEAN CORPUSCULAR HEMOGLOBIN 25.2 pg (27.0-31.0); MEAN CORPUSCULAR HGB CONC 33.3 g/dL (33.0-37.0); MEAN PLATELET VOLUME 9.1 fL (7.2-11.7); MONO # 0.6 K/uL (0.0-0.8); MONO % 12.2 % (0.0-10.0); NEUT # 3.7 K/uL (1.8-7.0); NEUT % 74.3 % (50.0-75.0); PLATELET COUNT 105 K/uL (130-400); RBC 4.63 Mil/uL (4.40-5.90); RED CELL DISTRIBUTION WIDTH 19.3 % (11.5-14.5); WHITE BLOOD COUNT 4.9 K/uL (4.8-10.8)
--- NOTE | 2018-02-28 06:22 | CP.PCM.PN ---
Subjective - Date & Time of Evaluation Date of Evaluation: 02/27/18 Time of Evaluation: 08:15 - Subjective Subjective: comfortable on inotropes for the 2nd 24 hours [address] discussed with Dr Dean of [facility] heart failure program He will take the patient into their transplant program Objective - Vital Signs/Intake and Output Vital Signs (last 24 hours): Temp Pulse Resp BP Pulse Ox 97.4 F L 102 H 15 89/64 L 99 02/28/18 04:00 02/28/18 06:00 02/28/18 06:00 02/28/18 05:33 02/28/18 05:33 Intake and Output: 02/27/18 02/28/18 18:59 06:59 Intake Total 1124.0 900.6 Output Total 350 450 Balance 774.0 450.6 - Medications Medications: Current Medications Docusate Sodium (Colace) 100 mg PO TID [facility] Last Admin: 02/27/18 17:15 Dose: 100 mg Norepinephrine Bitartrate 4 mg (/ Sodium Chloride) 254 mls @ 15.24 mls/hr IV .[id number] PRN; Protocol; 4 MCG/MIN PRN Reason: TITRATE PER MD ORDER Last Admin: 02/28/18 01:47 Dose: 6 mcg/min, 22.86 mls/hr Dobutamine HCl/Dextrose (Dobutamine/Dextrose 5% 500mg/250ml) 500 mg in 250 mls @ 11.82 mls/hr IV .[id number] OPAL; 5 MCG/KG/MIN PRN Reason: Protocol Last Admin: 02/28/18 04:02 Dose: 5 mcg/kg/min, 11.82 mls/hr Levothyroxine Sodium (Synthroid) 175 mcg PO DAILY@0630 [facility] Last Admin: 02/28/18 05:32 Dose: 175 mcg Midodrine (Proamatine) 2.5 mg PO TID [facility] Last Admin: 02/27/18 17:15 Dose: 2.5 mg Pantoprazole Sodium (Protonix Ec Tab) 40 mg PO BID [facility] Last Admin: 02/27/18 20:02 Dose: 40 mg Rosuvastatin Calcium (Crestor) 20 mg PO HS [facility] Last Admin: 02/27/18 21:40 Dose: 20 mg - Labs Labs: 02/28/18 06:06 02/27/18 05:37 PT 14.9 SECONDS (9.7-12.2) H 02/25/18 06:31 INR 1.4 02/25/18 06:31 APTT 30 SECONDS (21-34) 02/25/18 06:31 - Constitutional Appears: Non-toxic - Head Exam Head Exam: NORMOCEPHALIC - Eye Exam Eye Exam: absent: Scleral icterus - ENT Exam ENT Exam: Mucous Membranes Moist - Neck Exam Neck Exam: Full ROM - Respiratory Exam Respiratory Exam: Decreased Breath Sounds, Clear to Ausculation Bilateral, NORMAL BREATHING PATTERN - Cardiovascular Exam Cardiovascular Exam: Tachycardia, REGULAR RHYTHM - GI/Abdominal Exam GI & Abdominal Exam: Soft. absent: Tenderness - Extremities Exam Extremities Exam: Pedal Edema. absent: Calf Tenderness - Neurological Exam Neurological Exam: Alert, Oriented x3 Assessment and Plan - Assessment and Plan (Free Text) Assessment: CHF Ischemic cardiomyopathy Hypotension Plan: Cont dobutamine therapy Arrangement made for transfer to [facility] for eval to their Heart transplant program
[2018-02-28 06:31] LABS: ALB/GLOB RATIO 0.9 (1.0-2.1); ALT/SGPT 38 U/L (21-72); AST/SGOT 35 U/L (17-59); BLOOD UREA NITROGEN 24 mg/dL (9-20); CALCIUM 8.4 mg/dl (8.6-10.4); GFR AFRICAN-AMERICAN > 60; GFR NON-AFRICAN AMERICAN > 60
[2018-02-28 08:39] LABS: ANISOCYTOSIS MODERATE; BANDS 1 % (0-2); EOSINOPHIL 2 % (0-4); LYMPHOCYTE 10 % (20-40); MONOCYTE 11 % (0-10); NEUTROPHIL 76 % (50-75); PLATELET ESTIMATE SLIGHTLY DECREASED (NORMAL); TOTAL CELLS COUNTED 100
[2018-02-28 08:40] LABS: BURR CELLS SLIGHT; OVALOCYTES MODERATE; POIKILOCYTOSIS MODERATE; TARGET CELLS SLIGHT
[2018-02-28 08:41] LABS: LARGE PLATELETS PRESENT
[2018-02-28] MEDS: Pantoprazole 40 mg EC Tab PO SCH ×2 (10:17→18:19)
--- NOTE | 2018-02-28 10:27 | CP.PCM.PN ---
Subjective - Date & Time of Evaluation Date of Evaluation: 02/28/18 Time of Evaluation: 10:00 - Subjective Subjective: seen in ICU awaiting transfer less sob no chest pain TSH elevated synthroid adjusted Objective - Vital Signs/Intake and Output Vital Signs (last 24 hours): Temp Pulse Resp BP Pulse Ox 97.4 F L 101 H 16 99/70 L 71 L 02/28/18 04:00 02/28/18 07:32 02/28/18 07:32 02/28/18 07:32 02/28/18 07:32 Intake and Output: 02/28/18 02/28/18 06:59 18:59 Intake Total 900.6 64.3 Output Total 650 Balance 250.6 64.3 - Medications Medications: Current Medications Docusate Sodium (Colace) 100 mg PO TID [facility] Last Admin: 02/28/18 10:12 Dose: 100 mg Norepinephrine Bitartrate 4 mg (/ Sodium Chloride) 254 mls @ 15.24 mls/hr IV .[id number] PRN; Protocol; 4 MCG/MIN PRN Reason: TITRATE PER MD ORDER Last Admin: 02/28/18 01:47 Dose: 6 mcg/min, 22.86 mls/hr Dobutamine HCl/Dextrose (Dobutamine/Dextrose 5% 500mg/250ml) 500 mg in 250 mls @ 11.82 mls/hr IV .[id number] OPAL; 5 MCG/KG/MIN PRN Reason: Protocol Last Titration: 02/28/18 09:45 Dose: 2.5 mcg/kg/min, 5.91 mls/hr Levothyroxine Sodium (Synthroid) 175 mcg PO DAILY@0630 [facility] Last Admin: 02/28/18 05:32 Dose: 175 mcg Midodrine (Proamatine) 2.5 mg PO TID [facility] Last Admin: 02/28/18 10:17 Dose: 2.5 mg Pantoprazole Sodium (Protonix Ec Tab) 40 mg PO BID [facility] Last Admin: 02/28/18 10:17 Dose: 40 mg Rosuvastatin Calcium (Crestor) 20 mg PO HS [facility] Last Admin: 02/27/18 21:40 Dose: 20 mg - Labs Labs: 02/28/18 06:06 02/28/18 06:06 PT 14.9 SECONDS (9.7-12.2) H 02/25/18 06:31 INR 1.4 02/25/18 06:31 APTT 30 SECONDS (21-34) 02/25/18 06:31 - Constitutional Appears: Non-toxic, Chronically Ill - Head Exam Head Exam: NORMOCEPHALIC - Eye Exam Eye Exam: PERRL - ENT Exam ENT Exam: Mucous Membranes Dry - Neck Exam Neck Exam: absent: Lymphadenopathy - Respiratory Exam Respiratory Exam: Decreased Breath Sounds - Cardiovascular Exam Cardiovascular Exam: REGULAR RHYTHM - GI/Abdominal Exam GI & Abdominal Exam: Distended - Rectal Exam Rectal Exam: Deferred - Exam Exam: NORMAL INSPECTION - Extremities Exam Extremities Exam: absent: Pedal Edema - Back Exam Back Exam: absent: CVA tenderness (L), CVA tenderness (R) - Neurological Exam Neurological Exam: Alert, Awake, Oriented x3 Assessment and Plan (1) Ischemic cardiomyopathy Status: Acute (2) Ischemic cardiomyopathy Status: Acute (3) CHF exacerbation Status: Acute (4) Elevated troponin Status: Acute (5) GI bleed Status: Acute (6) Hypotension (arterial) Status: Acute (7) RUBINA (acute kidney injury) Status: Acute (8) ARF (acute renal failure) Status: Acute
--- NOTE | 2018-02-28 10:58 | RAD ---
HISTORY: PICC Insertion COMPARISON: Portable chest 02/23/2018. FINDINGS: LUNGS: Pacemaker/AICD, right center venous line and right PICC are unchanged in position. Diminishing CHF pattern suggested based on diminishing hilar vascularity. Right basilar infiltrate improved. Cardiomegaly is unchanged with sternotomy wires again noted. Limited airspace disease in the bilateral bases, left greater than right. No definite pleural effusion bilaterally. No pneumothorax bilaterally. PLEURA: As above. CARDIOVASCULAR: As above. OSSEOUS STRUCTURES: No significant abnormalities. VISUALIZED UPPER ABDOMEN: Normal. OTHER FINDINGS: None. IMPRESSION: Improving CHF and right basilar airspace disease with no interval change in left basilar atelectasis or infiltrate.
--- NOTE | 2018-02-28 11:38 | CP.CCUPN ---
<Cyndi Cruz - Last Filed: 02/28/18 11:40> CCU Subjective - Physician Review Subjective (Free Text): Patient was seen and examined at bedside. Patient reports feeling okay, denied any dizziness, shortness of breath. Remains hypotensive. CCU Objective - Vital Signs / Intake & Output Vital Signs (Last 4 hours): Vital Signs Pulse Resp BP Pulse Ox 02/28/18 10:32 103 H 29 H 85/59 L 95 02/28/18 09:43 112 H 30 H 92/62 L 100 02/28/18 09:33 108 H 26 H 90/60 L 93 L 02/28/18 08:33 114 H 30 H 89/71 L 92 L 02/28/18 07:32 101 H 16 99/70 L 71 L Intake and Output (Last 8hrs): Intake & Output 02/27/18 02/28/18 02/28/18 22:59 06:59 14:59 Intake Total 394.1 763.4 265.3 Output Total 400 450 200 Balance -5.9 313.4 65.3 Weight 117 lb 11.629 oz Intake: IV 489 134 Intake, IV Amount 274.1 274.4 131.3 Right Distal Port 11.8 Internal Jugular Right Distal Port PICC 82.6 94.4 41.3 Right Medial Port 22.5 Internal Jugular Right Proximal Port PICC 157.2 180.0 90.0 Oral 120 Output: Urine 400 450 200 Urine, Voided 400 450 200 Other: # Voids Urine, Voided 1 - Physical Exam Head: Positive for: Atraumatic, Normocephalic Extroacular Muscles: Positive for: EOMI Conjunctiva: Positive for: Normal Mouth: Positive for: Moist Mucous Membranes Neck: Positive for: Other (R IJ in place, c/d/i) Respiratory/Chest: Positive for: Decreased Breath Sounds. Negative for: Accessory Muscle Use Cardiovascular: Positive for: Regular Rate and Rhythm, Normal S1, S2 Abdomen: Positive for: Normal Bowel Sounds. Negative for: Tenderness Upper Extremity: Positive for: Normal ROM, NORMAL PULSES, Neurovascularly Intact , Capillary Refill < 2s. Negative for: Edema, Tenderness, Swelling, Erythema Lower Extremity: Positive for: Edema, NORMAL PULSES, Neurovascularly Intact, Capillary Refill < 2 s. Negative for: CALF TENDERNESS, Tenderness, Erythema Neurological: Positive for: GCS=15 Skin: Positive for: Warm, Dry, Normal Color Psychiatric: Positive for: Alert, Oriented x 3 - Medications Active Medications: Active Medications Generic Name Dose Route Start Last Admin Trade Name Freq PRN Reason Stop Dose Admin Docusate Sodium 100 mg 02/25/18 10:00 02/28/18 10:12 Colace PO 100 mg TID OPAL Administration Norepinephrine Bitartrate 4 mg 254 mls @ 15.24 mls/hr 02/23/18 14:52 09:45 / Sodium Chloride IV 8 mcg/min .[id number] PRN 30.48 mls/hr TITRATE PER MD ORDER Titration Protocol 4 MCG/MIN Dobutamine HCl/Dextrose 500 mg in 250 mls @ 11.82 mls/hr 02/26/18 09:00 02/28 09:45 Dobutamine/Dextrose 5% 500mg/250ml IV 2.5 mcg/kg/min .[id number] OPAL 5.91 mls/hr Protocol Titration 5 MCG/KG/MIN Levothyroxine Sodium 175 mcg 02/28/18 06:30 02/28/18 05:32 Synthroid PO 175 mcg DAILY@0630 OPAL Administration Midodrine 2.5 mg 02/25/18 10:00 02/28/18 10:17 Proamatine PO 2.5 mg TID OPAL Administration Pantoprazole Sodium 40 mg 02/23/18 10:00 02/28/18 10:17 Protonix Ec Tab PO 40 mg BID OPAL Administration Rosuvastatin Calcium 20 mg 02/21/18 22:00 02/27/18 21:40 Crestor PO 20 mg HS OPAL Administration - Patient Studies Lab Studies: Lab Studies 02/28/18 02/28/18 02/27/18 Range/Units 06:06 06:06 13:49 WBC 4.9 4.8 (4.8-10.8) K/uL RBC 4.63 4.76 (4.40-5.90) Mil/uL Hgb 11.7 L 12.1 (12.0-18.0) g/dL Hct 35.1 36.1 (35.0-51.0) % MCV 75.7 L 75.8 L (80.0-94.0) fL MCH 25.2 L 25.5 L (27.0-31.0) pg MCHC 33.3 33.6 (33.0-37.0) g/dL RDW 19.3 H 19.7 H (11.5-14.5) % Plt Count 105 L 124 L (130-400) K/uL MPV 9.1 9.6 (7.2-11.7) fL Neut % (Auto) 74.3 72.0 (50.0-75.0) % Lymph % (Auto) 9.6 L 10.8 L (20.0-40.0) % [place] % (Auto) 12.2 H 13.6 H (0.0-10.0) % Eos % (Auto) 2.9 2.8 (0.0-4.0) % Baso % (Auto) 1.0 0.8 (0.0-2.0) % Neut # (Auto) 3.7 3.5 (1.8-7.0) K/uL Lymph # (Auto) 0.5 L 0.5 L (1.0-4.3) K/uL [place] # (Auto) 0.6 0.7 (0.0-0.8) K/uL Eos # (Auto) 0.1 0.1 (0.0-0.7) K/uL Baso # (Auto) 0.0 0.0 (0.0-0.2) K/uL Neutrophils % (Manual) 76 H (50-75) % Band Neutrophils % 1 (0-2) % Lymphocytes % (Manual) 10 L (20-40) % Monocytes % (Manual) 11 H (0-10) % Eosinophils % (Manual) 2 (0-4) % Platelet Estimate Slightly decreased L (NORMAL) Large Platelets Present Poikilocytosis (manual Moderate Anisocytosis (manual) Moderate Target Cells Slight Ovalocytes Moderate Ga Cells Slight Sodium 133 (132-148) mmol/L Potassium 3.9 (3.6-5.2) mmol/L Chloride 100 (98-107) mmol/L Carbon Dioxide 26 (22-30) mmol/L Anion Gap 11 (10-20) BUN 24 H (9-20) mg/dL Creatinine 1.1 (0.8-1.5) mg/dL Est GFR ( Amer) > 60 Est GFR (Non-Af Amer) > 60 Random Glucose 105 (75-110) mg/dL Calcium 8.4 L (8.6-10.4) mg/dl Phosphorus 2.5 (2.5-4.5) mg/dL Magnesium 2.0 (1.6-2.3) mg/dL Total Bilirubin 1.2 (0.2-1.3) mg/dL AST 35 (17-59) U/L ALT 38 (21-72) U/L Alkaline Phosphatase 84 (38-126) U/L Total Protein 6.2 L (6.3-8.3) g/dL Albumin 3.0 L (3.5-5.0) g/dL Globulin 3.3 (2.2-3.9) gm/dL Albumin/Globulin Ratio 0.9 L (1.0-2.1) Laboratory Results - last 24 hr 02/27/18 02/28/18 02/28/18 13:49 06:06 06:06 WBC 4.8 4.9 RBC 4.76 4.63 Hgb 12.1 11.7 L Hct 36.1 35.1 MCV 75.8 L 75.7 L MCH 25.5 L 25.2 L MCHC 33.6 33.3 RDW 19.7 H 19.3 H Plt Count 124 L 105 L MPV 9.6 9.1 Neut % (Auto) 72.0 74.3 Lymph % (Auto) 10.8 L 9.6 L [place] % (Auto) 13.6 H 12.2 H Eos % (Auto) 2.8 2.9 Baso % (Auto) 0.8 1.0 Neut # (Auto) 3.5 3.7 Lymph # (Auto) 0.5 L 0.5 L [place] # (Auto) 0.7 0.6 Eos # (Auto) 0.1 0.1 Baso # (Auto) 0.0 0.0 Neutrophils % (Manual) 76 H Band Neutrophils % 1 Lymphocytes % (Manual) 10 L Monocytes % (Manual) 11 H Eosinophils % (Manual) 2 Platelet Estimate Slightly decreased L Large Platelets Present Poikilocytosis (manual Moderate Anisocytosis (manual) Moderate Target Cells Slight Ovalocytes Moderate Ga Cells Slight Sodium 133 Potassium 3.9 Chloride 100 Carbon Dioxide 26 Anion Gap 11 BUN 24 H Creatinine 1.1 Est GFR ( Amer) > 60 Est GFR (Non-Af Amer) > 60 Random Glucose 105 Calcium 8.4 L Phosphorus 2.5 Magnesium 2.0 Total Bilirubin 1.2 AST 35 ALT 38 Alkaline Phosphatase 84 Total Protein 6.2 L Albumin 3.0 L Globulin 3.3 Albumin/Globulin Ratio 0.9 L Critical Care Progress Note - Nutrition Nutrition: Nutrition Category Date Time Status Heart Healthy Diet [DIET] Diets 02/23/18 Dinner Active Assessment/Plan - Assessment and Plan (Free Text) Assessment: 72 yo male with PMH CAD, CABG, CHF (EF 15%) s/p AICD, NSTEMI, Severe Aortic Stenosis and Hypothyroidism was admitted to [facility] 02/09/18-02/13/18 due to progressive dyspnea, placed on Xarelto, was sent to ED today by for further evaluation of weakness, dizziness, and rectal bleeding. Currently remains hypotensive on Midodrine, NE, and Dobutamine for pressure control. Plan for transfer to [facility] - HF program - pending approval. To be evaluated by Dr. Argueta for possible TAVR. Plan: Neuro: GCS: 15 Sedation: None Cardio: A: Hx of HTN, CAD, CABG, CHF with AICD placement/ Severe Cardiomyopathy (EF 15%) , NSTEMI - Cardiology Consulted - Dr. Santo - EKG: SR@88/min, occasional PVCs, Q wave in III, AFV, T wave inversion in inferior leads, v5-6, no acute ST-T changes - ECHO (02/10): Severe Cardiomyopathy w/ 15% EF. Moderate Pulm HTN - Troponins - 0.5010, 0.8110, 0.6710 - BNP - 23,300 --> 19,300 - Possible transfer to [facility] for HF program - Currently remains hypotensive on Midodrine, NE, and Dobutamine Pulm: A: Dyspnea CXR (02/21/18): Interval increased pulmonary venous congestion / CHF with small bilateral pleural effusions. Interval coalescent pulmonary edema and/or right basal interval infiltrate. No current left basal infiltrate suspect small bilateral pleural effusions that on the right appears increased since prior exam GI A: Acute GI Bleed - GI Consulted Dr. Dawkins - + stool occult - Protonix 40 PO BID - EGD/Colonscopy when Cleared by Cardio Heme/ Onc A: Blood Loss 2/2 to GI Bleed - S/P 2 FFP - HgB Stable - Continue to monitor - EGD/Colonscopy when Cleared by Cardio Endo A: Hx of Hypothyroidism - Elevated TSH (6.52) w/ Normal T4 (2.02) - Cont. Levothyroxine 125 --> @175mcg Prophylaxis - Protonix 40mg PO BID - VTE proph Contraindicated due to GI Bleed - Diet: Heart Healthy - Lines: RIJ - will be removed, RIGHT PICC LINE placed 02/27/18 Disposition: Pending NBI - approval for bed for HF Program. Dr. Argueta - for TAVR eval. DW ICU Attending- Cyndi Mathews DO, PGY-1 <Lyle Espinosa - Last Filed: 02/28/18 18:12> CCU Objective - Vital Signs / Intake & Output Intake and Output (Last 8hrs): Intake & Output 02/28/18 02/28/18 02/28/18 06:59 14:59 22:59 Intake Total 763.4 737.7 Output Total 450 400 Balance 313.4 337.7 Weight 117 lb 11.629 oz Intake: IV 489 328 Intake, IV Amount 274.4 159.7 Right Distal Port PICC 94.4 47.2 Right Proximal Port PICC 180.0 112.5 Oral 250 Output: Urine 450 400 Urine, Voided 450 400 - Medications Active Medications: Active Medications Generic Name Dose Route Start Last Admin Trade Name Freq PRN Reason Stop Dose Admin Docusate Sodium 100 mg 02/25/18 10:00 02/28/18 13:55 Colace PO 100 mg TID OPAL Administration Norepinephrine Bitartrate 4 mg 254 mls @ 15.24 mls/hr 02/23/18 14:52 13:54 / Sodium Chloride IV 10 mcg/min .[id number] PRN 38.1 mls/hr TITRATE PER MD ORDER Titration Protocol 4 MCG/MIN Dobutamine HCl/Dextrose 500 mg in 250 mls @ 11.82 mls/hr 02/26/18 09:00 02/28 13:15 Dobutamine/Dextrose 5% 500mg/250ml IV 0 mcg/kg/min .[id number] OPAL 0 mls/hr Protocol Titration 5 MCG/KG/MIN Levothyroxine Sodium 175 mcg 02/28/18 06:30 02/28/18 05:32 Synthroid PO 175 mcg DAILY@0630 OPAL Administration Midodrine 2.5 mg 02/25/18 10:00 02/28/18 13:54 Proamatine PO 2.5 mg TID OPAL Administration Pantoprazole Sodium 40 mg 02/23/18 10:00 02/28/18 10:17 Protonix Ec Tab PO 40 mg BID OPAL Administration Rosuvastatin Calcium 20 mg 02/21/18 22:00 02/27/18 21:40 Crestor PO 20 mg HS OPAL Administration - Patient Studies Lab Studies: Lab Studies 02/28/18 02/28/18 Range/Units 06:06 06:06 WBC 4.9 (4.8-10.8) K/uL RBC 4.63 (4.40-5.90) Mil/uL Hgb 11.7 L (12.0-18.0) g/dL Hct 35.1 (35.0-51.0) % MCV 75.7 L (80.0-94.0) fL MCH 25.2 L (27.0-31.0) pg MCHC 33.3 (33.0-37.0) g/dL RDW 19.3 H (11.5-14.5) % Plt Count 105 L (130-400) K/uL MPV 9.1 (7.2-11.7) fL Neut % (Auto) 74.3 (50.0-75.0) % Lymph % (Auto) 9.6 L (20.0-40.0) % [place] % (Auto) 12.2 H (0.0-10.0) % Eos % (Auto) 2.9 (0.0-4.0) % Baso % (Auto) 1.0 (0.0-2.0) % Neut # (Auto) 3.7 (1.8-7.0) K/uL Lymph # (Auto) 0.5 L (1.0-4.3) K/uL [place] # (Auto) 0.6 (0.0-0.8) K/uL Eos # (Auto) 0.1 (0.0-0.7) K/uL Baso # (Auto) 0.0 (0.0-0.2) K/uL Neutrophils % (Manual) 76 H (50-75) % Band Neutrophils % 1 (0-2) % Lymphocytes % (Manual) 10 L (20-40) % Monocytes % (Manual) 11 H (0-10) % Eosinophils % (Manual) 2 (0-4) % Platelet Estimate Slightly decreased L (NORMAL) Large Platelets Present Poikilocytosis (manual Moderate Anisocytosis (manual) Moderate Target Cells Slight Ovalocytes Moderate Ga Cells Slight Sodium 133 (132-148) mmol/L Potassium 3.9 (3.6-5.2) mmol/L Chloride 100 (98-107) mmol/L Carbon Dioxide 26 (22-30) mmol/L Anion Gap 11 (10-20) BUN 24 H (9-20) mg/dL Creatinine 1.1 (0.8-1.5) mg/dL Est GFR ( Amer) > 60 Est GFR (Non-Af Amer) > 60 Random Glucose 105 (75-110) mg/dL Calcium 8.4 L (8.6-10.4) mg/dl Phosphorus 2.5 (2.5-4.5) mg/dL Magnesium 2.0 (1.6-2.3) mg/dL Total Bilirubin 1.2 (0.2-1.3) mg/dL AST 35 (17-59) U/L ALT 38 (21-72) U/L Alkaline Phosphatase 84 (38-126) U/L Total Protein 6.2 L (6.3-8.3) g/dL Albumin 3.0 L (3.5-5.0) g/dL Globulin 3.3 (2.2-3.9) gm/dL Albumin/Globulin Ratio 0.9 L (1.0-2.1) Laboratory Results - last 24 hr 02/28/1818 06:06 06:06 WBC 4.9 RBC 4.63 Hgb 11.7 L Hct 35.1 MCV 75.7 L MCH 25.2 L MCHC 33.3 RDW 19.3 H Plt Count 105 L MPV 9.1 Neut % (Auto) 74.3 Lymph % (Auto) 9.6 L [place] % (Auto) 12.2 H Eos % (Auto) 2.9 Baso % (Auto) 1.0 Neut # (Auto) 3.7 Lymph # (Auto) 0.5 L [place] # (Auto) 0.6 Eos # (Auto) 0.1 Baso # (Auto) 0.0 Neutrophils % (Manual) 76 H Band Neutrophils % 1 Lymphocytes % (Manual) 10 L Monocytes % (Manual) 11 H Eosinophils % (Manual) 2 Platelet Estimate Slightly decreased L Large Platelets Present Poikilocytosis (manual Moderate Anisocytosis (manual) Moderate Target Cells Slight Ovalocytes Moderate [place] Cells Slight Sodium 133 Potassium 3.9 Chloride 100 Carbon Dioxide 26 Anion Gap 11 BUN 24 H Creatinine 1.1 Est GFR ( Amer) > 60 Est GFR (Non-Af Amer) > 60 Random Glucose 105 Calcium 8.4 L Phosphorus 2.5 Magnesium 2.0 Total Bilirubin 1.2 AST 35 ALT 38 Alkaline Phosphatase 84 Total Protein 6.2 L Albumin 3.0 L Globulin 3.3 Albumin/Globulin Ratio 0.9 L Critical Care Progress Note - Nutrition Nutrition: Nutrition Category Date Time Status Heart Healthy Diet [DIET] Diets 02/23/18 Dinner Active Attending/Attestation - Attestation I have personally seen and examined this patient.: Yes I have fully participated in the care of the patient.: Yes I have reviewed all pertinent clinical information: Yes Notes (Text): 02/28/18 18:10 Patient seen and examined. On Dobutrex and Levophed drip taper off dobutrex Seen by Dr. Argueta for MEL cONTINUE PRESENT TREATMENT FOR NOW
[2018-03-01] MEDS: DOBUTamine 500mg/250ml D5W 500 MG/250 ML BAG IV SCH ×2 (00:30→22:03)
[2018-03-01] MEDS: Levothyroxine 175 MCG TAB PO SCH (06:05)
[2018-03-01 06:21] LABS: BASO % 0.5 % (0.0-2.0); EOS % 0.2 % (0.0-4.0); HEMOGLOBIN 13.3 g/dL (12.0-18.0); LYMPH # 0.6 K/uL (1.0-4.3); LYMPH % 10.2 % (20.0-40.0); MEAN CELL VOLUME 76.3 fL (80.0-94.0); MEAN CORPUSCULAR HEMOGLOBIN 24.9 pg (27.0-31.0); MEAN CORPUSCULAR HGB CONC 32.7 g/dL (33.0-37.0); MEAN PLATELET VOLUME 9.3 fL (7.2-11.7); MONO # 0.6 K/uL (0.0-0.8); MONO % 11.1 % (0.0-10.0); NEUT # 4.6 K/uL (1.8-7.0); NRBC % 0.2 % (0.0-2.0); RBC 5.35 Mil/uL (4.40-5.90); RED CELL DISTRIBUTION WIDTH 19.8 % (11.5-14.5); WHITE BLOOD COUNT 5.8 K/uL (4.8-10.8)
[2018-03-01 06:37] LABS: ALBUMIN 3.4 g/dL (3.5-5.0); ALT/SGPT 61 U/L (21-72); AST/SGOT 62 U/L (17-59); BLOOD UREA NITROGEN 28 mg/dL (9-20); CALCIUM 8.6 mg/dl (8.6-10.4); GFR AFRICAN-AMERICAN > 60; GFR NON-AFRICAN AMERICAN 55
--- NOTE | 2018-03-01 07:45 | CP.PCM.CON ---
History of Present Illness - History of Present Illness History of Present Illness: Patient seen and evaluated Severe systolic CHF Moderate to severe MR and Pulmonary HTN Severe CAD s/p CABG x 3 (1997) On pressors Cardiac Cath and TAVR at [facility] Not candidate for surgery TAVR plus optimal CHF management should significantly improve patient symptoms Possible transfer to [facility] as soon as possible pending insurance clearance D/W patient who agreed with the plan Past Patient History - Infectious Disease Hx of Infectious Diseases: None - Past Medical History & Family History Past Medical History?: Yes - Past Social History Smoking Status: Never Smoked - CARDIAC Hx Cardiac Disorders: Yes (CAD, CABG, Ischemic Cardiomyopathy, NSTEMI, AICD) Hx Congestive Heart Failure: Yes Hx Hypercholesterolemia: Yes Hx Hypertension: Yes - PULMONARY Hx Respiratory Disorders: No - NEUROLOGICAL Hx Neurological Disorder: No - HEENT Hx HEENT Problems: No - RENAL Hx Chronic Kidney Disease: No - ENDOCRINE/METABOLIC Hx Hypothyroidism: Yes - HEMATOLOGICAL/ONCOLOGICAL Hx Blood Disorders: No - INTEGUMENTARY Hx Dermatological Problems: No - MUSCULOSKELETAL/RHEUMATOLOGICAL Hx Musculoskeletal Disorders: No Hx Falls: No - GASTROINTESTINAL Hx Gastrointestinal Disorders: No - GENITOURINARY/GYNECOLOGICAL Hx Genitourinary Disorders: No - PSYCHIATRIC Hx Substance Use: No - SURGICAL HISTORY Hx Coronary Artery Bypass Graft: Yes (1997) - ANESTHESIA Hx Anesthesia: Yes Hx Anesthesia Reactions: No Hx Malignant Hyperthermia: No Meds Allergies/Adverse Reactions: Allergies Allergy/AdvReac Type Severity Reaction Status Date / Time No Known Allergies Allergy Verified 02/21/18 14:43 - Medications Medications: Current Medications Docusate Sodium (Colace) 100 mg PO TID [facility] Last Admin: 02/28/18 18:19 Dose: 100 mg Norepinephrine Bitartrate 4 mg (/ Sodium Chloride) 254 mls @ 15.24 mls/hr IV .[id number] PRN; Protocol; 4 MCG/MIN PRN Reason: TITRATE PER MD ORDER Last Admin: 03/01/18 04:30 Dose: 10 mcg/min, 38.1 mls/hr Dobutamine HCl/Dextrose (Dobutamine/Dextrose 5% 500mg/250ml) 500 mg in 250 mls @ 11.82 mls/hr IV .[id number] OPAL; 5 MCG/KG/MIN PRN Reason: Protocol Last Admin: 03/01/18 00:30 Dose: Not Given Levothyroxine Sodium (Synthroid) 175 mcg PO DAILY@0630 [facility] Last Admin: 03/01/18 06:05 Dose: 175 mcg Midodrine (Proamatine) 2.5 mg PO TID [facility] Last Admin: 02/28/18 18:20 Dose: 2.5 mg Pantoprazole Sodium (Protonix Ec Tab) 40 mg PO BID [facility] Last Admin: 02/28/18 18:19 Dose: 40 mg Rosuvastatin Calcium (Crestor) 20 mg PO HS [facility] Last Admin: 02/28/18 22:34 Dose: 20 mg Results - Vital Signs Recent Vital Signs: Last Vital Signs Temp 97.1 F L 03/01/18 04:00 Pulse 102 H 03/01/18 06:32 Resp 21 03/01/18 06:32 BP 109/79 03/01/18 06:32 Pulse Ox 100 03/01/18 04:32 - Labs Result Diagrams: 03/01/18 06:14 03/01/18 06:13 Labs: Laboratory Results - last 24 hr 02/28/18 03/01/18 03/01/18 06:06 06:13 06:14 WBC 5.8 RBC 5.35 Hgb 13.3 Hct 40.8 MCV 76.3 L MCH 24.9 L MCHC 32.7 L RDW 19.8 H Plt Count 134 MPV 9.3 Neut % (Auto) 78.0 H Lymph % (Auto) 10.2 L [place] % (Auto) 11.1 H Eos % (Auto) 0.2 Baso % (Auto) 0.5 Neut # (Auto) 4.6 Lymph # (Auto) 0.6 L [place] # (Auto) 0.6 Eos # (Auto) 0.0 Baso # (Auto) 0.0 Neutrophils % (Manual) 76 H Band Neutrophils % 1 Lymphocytes % (Manual) 10 L Monocytes % (Manual) 11 H Eosinophils % (Manual) 2 Platelet Estimate Slightly decreased L Large Platelets Present Poikilocytosis (manual Moderate Anisocytosis (manual) Moderate Target Cells Slight Ovalocytes Moderate Ga Cells Slight Sodium 134 Potassium 4.7 Chloride 101 Carbon Dioxide 22 Anion Gap 16 BUN 28 H Creatinine 1.3 Est GFR ( Amer) > 60 Est GFR (Non-Af Amer) 55 Random Glucose 106 Calcium 8.6 Phosphorus 3.3 Magnesium 2.1 Total Bilirubin 1.8 H AST 62 H D ALT 61 Alkaline Phosphatase 100 Total Protein 6.8 Albumin 3.4 L Globulin 3.4 Albumin/Globulin Ratio 1.0
[2018-03-01] MEDS: Pantoprazole 40 mg EC Tab PO SCH ×2 (10:02→17:53)
--- NOTE | 2018-03-01 11:16 | CP.CCUPN ---
<Cyndi Cruz - Last Filed: 03/01/18 11:12> CCU Subjective - Physician Review Subjective (Free Text): Patient was seen and examined at bedside. Patient reports feeling okay, denied any dizziness, shortness of breath. Remains hypotensive. Patient reports feeling constipated. Pending insurance authorization for transfer to [facility] for TAVR. CCU Objective - Vital Signs / Intake & Output Intake and Output (Last 8hrs): Intake & Output 02/28/18 03/01/18 03/01/18 22:59 06:59 14:59 Intake Total 703.0 794.0 37.5 Output Total 550 550 Balance 153.0 244.0 37.5 Weight 169 lb 0.6 oz Intake: IV 250 254 Intake, IV Amount 303.0 300.0 37.5 Right Proximal Port PICC 303.0 300.0 37.5 Oral 150 240 Output: Urine 550 550 Urine, Voided 550 550 Other: # Voids Urine, Voided 1 1 # Bowel Movements 1 - Physical Exam Head: Positive for: Atraumatic, Normocephalic Extroacular Muscles: Positive for: EOMI Conjunctiva: Positive for: Normal Mouth: Positive for: Moist Mucous Membranes Neck: Positive for: Other (R IJ in place, c/d/i) Respiratory/Chest: Positive for: Decreased Breath Sounds. Negative for: Accessory Muscle Use Cardiovascular: Positive for: Regular Rate and Rhythm, Normal S1, S2 Abdomen: Positive for: Normal Bowel Sounds. Negative for: Tenderness Upper Extremity: Positive for: Normal ROM, NORMAL PULSES, Neurovascularly Intact , Capillary Refill < 2s. Negative for: Edema, Tenderness, Swelling, Erythema Lower Extremity: Positive for: Edema, NORMAL PULSES, Neurovascularly Intact, Capillary Refill < 2 s. Negative for: CALF TENDERNESS, Tenderness, Erythema Neurological: Positive for: GCS=15 Skin: Positive for: Warm, Dry, Normal Color Psychiatric: Positive for: Alert, Oriented x 3 - Medications Active Medications: Active Medications Generic Name Dose Route Start Last Admin Trade Name Freq PRN Reason Stop Dose Admin Docusate Sodium 100 mg 02/25/18 10:00 03/01/18 10:01 Colace PO 100 mg TID OPAL Administration Norepinephrine Bitartrate 4 mg 254 mls @ 15.24 mls/hr 02/23/18 14:52 04:30 / Sodium Chloride IV 10 mcg/min .[id number] PRN 38.1 mls/hr TITRATE PER MD ORDER Administration Protocol 4 MCG/MIN Dobutamine HCl/Dextrose 500 mg in 250 mls @ 11.82 mls/hr 02/26/18 09:00 03/01 00:30 Dobutamine/Dextrose 5% 500mg/250ml IV Not Given .[id number] OPAL Protocol 5 MCG/KG/MIN Levothyroxine Sodium 175 mcg 02/28/18 06:30 03/01/18 06:05 Synthroid PO 175 mcg DAILY@0630 OPAL Administration Midodrine 2.5 mg 02/25/18 10:00 03/01/18 10:02 Proamatine PO 2.5 mg TID OPAL Administration Pantoprazole Sodium 40 mg 02/23/18 10:00 03/01/18 10:02 Protonix Ec Tab PO 40 mg BID OPAL Administration Rosuvastatin Calcium 20 mg 02/21/18 22:00 02/28/18 22:34 Crestor PO 20 mg HS OPAL Administration - Patient Studies Lab Studies: Lab Studies 03/01/18 03/01/18 Range/Units 06:14 06:13 WBC 5.8 (4.8-10.8) K/uL RBC 5.35 (4.40-5.90) Mil/uL Hgb 13.3 (12.0-18.0) g/dL Hct 40.8 (35.0-51.0) % MCV 76.3 L (80.0-94.0) fL MCH 24.9 L (27.0-31.0) pg MCHC 32.7 L (33.0-37.0) g/dL RDW 19.8 H (11.5-14.5) % Plt Count 134 (130-400) K/uL MPV 9.3 (7.2-11.7) fL Neut % (Auto) 78.0 H (50.0-75.0) % Lymph % (Auto) 10.2 L (20.0-40.0) % [place] % (Auto) 11.1 H (0.0-10.0) % Eos % (Auto) 0.2 (0.0-4.0) % Baso % (Auto) 0.5 (0.0-2.0) % Neut # (Auto) 4.6 (1.8-7.0) K/uL Lymph # (Auto) 0.6 L (1.0-4.3) K/uL [place] # (Auto) 0.6 (0.0-0.8) K/uL Eos # (Auto) 0.0 (0.0-0.7) K/uL Baso # (Auto) 0.0 (0.0-0.2) K/uL Sodium 134 (132-148) mmol/L Potassium 4.7 (3.6-5.2) mmol/L Chloride 101 (98-107) mmol/L Carbon Dioxide 22 (22-30) mmol/L Anion Gap 16 (10-20) BUN 28 H (9-20) mg/dL Creatinine 1.3 (0.8-1.5) mg/dL Est GFR ( Amer) > 60 Est GFR (Non-Af Amer) 55 Random Glucose 106 (75-110) mg/dL Calcium 8.6 (8.6-10.4) mg/dl Phosphorus 3.3 (2.5-4.5) mg/dL Magnesium 2.1 (1.6-2.3) mg/dL Total Bilirubin 1.8 H (0.2-1.3) mg/dL AST 62 H D (17-59) U/L ALT 61 (21-72) U/L Alkaline Phosphatase 100 (38-126) U/L Total Protein 6.8 (6.3-8.3) g/dL Albumin 3.4 L (3.5-5.0) g/dL Globulin 3.4 (2.2-3.9) gm/dL Albumin/Globulin Ratio 1.0 (1.0-2.1) Laboratory Results - last 24 hr 03/01/18 03/01/18 06:13 06:14 WBC 5.8 RBC 5.35 Hgb 13.3 Hct 40.8 MCV 76.3 L MCH 24.9 L MCHC 32.7 L RDW 19.8 H Plt Count 134 MPV 9.3 Neut % (Auto) 78.0 H Lymph % (Auto) 10.2 L [place] % (Auto) 11.1 H Eos % (Auto) 0.2 Baso % (Auto) 0.5 Neut # (Auto) 4.6 Lymph # (Auto) 0.6 L [place] # (Auto) 0.6 Eos # (Auto) 0.0 Baso # (Auto) 0.0 Sodium 134 Potassium 4.7 Chloride 101 Carbon Dioxide 22 Anion Gap 16 BUN 28 H Creatinine 1.3 Est GFR ( Amer) > 60 Est GFR (Non-Af Amer) 55 Random Glucose 106 Calcium 8.6 Phosphorus 3.3 Magnesium 2.1 Total Bilirubin 1.8 H AST 62 H D ALT 61 Alkaline Phosphatase 100 Total Protein 6.8 Albumin 3.4 L Globulin 3.4 Albumin/Globulin Ratio 1.0 Critical Care Progress Note - Nutrition Nutrition: Nutrition Category Date Time Status Heart Healthy Diet [DIET] Diets 02/23/18 Dinner Active Assessment/Plan - Assessment and Plan (Free Text) Assessment: 72 yo male with PMH CAD, CABG, CHF (EF 15%) s/p AICD, NSTEMI, Severe Aortic Stenosis and Hypothyroidism was admitted to [facility] 02/09/18-02/13/18 due to progressive dyspnea, placed on Xarelto, was sent to ED today by for further evaluation of weakness, dizziness, and rectal bleeding. Currently remains hypotensive on Midodrine, NE, and Dobutamine for pressure control. Plan for transfer to [facility] - HF program - pending approval. Plan for TAVR at [facility] - pending insurance authorization Plan: Neuro: GCS: 15 Sedation: None Cardio: A: Hx of HTN, CAD, CABG, CHF with AICD placement/ Severe Cardiomyopathy (EF 15%) , NSTEMI - Cardiology Consulted - Dr. Santo - EKG: SR@88/min, occasional PVCs, Q wave in III, AFV, T wave inversion in inferior leads, v5-6, no acute ST-T changes - ECHO (02/10): Severe Cardiomyopathy w/ 15% EF. Moderate Pulm HTN - Troponins - 0.5010, 0.8110, 0.6710 - BNP - 23,300 --> 19,300 - Possible transfer to [facility] for HF program - Currently remains hypotensive on Midodrine, NE, and Dobutamine Pulm: A: Dyspnea CXR (02/21/18): Interval increased pulmonary venous congestion / CHF with small bilateral pleural effusions. Interval coalescent pulmonary edema and/or right basal interval infiltrate. No current left basal infiltrate suspect small bilateral pleural effusions that on the right appears increased since prior exam GI A: Acute GI Bleed - GI Consulted Dr. Dawkins - + stool occult - Protonix 40 PO BID - EGD/Colonscopy when Cleared by Cardio A: Constipation - colace, dulcolax, and lactulose Heme/ Onc A: Blood Loss 2/2 to GI Bleed - S/P 2 FFP - HgB Stable - Continue to monitor - EGD/Colonscopy when Cleared by Cardio Endo A: Hx of Hypothyroidism - Elevated TSH (6.52) w/ Normal T4 (2.02) - Cont. Levothyroxine 125 --> @175mcg Prophylaxis - Protonix 40mg PO BID - VTE proph Contraindicated due to GI Bleed - Diet: Heart Healthy - Lines: RIJ - removed, RIGHT PICC LINE placed 02/27/18 Disposition: Disposition: Pending insurance authorization for transfer to [facility] for TAVR and HF program. [facility] ICU Attending- Cyndi Mathews DO, PGY-1 <Lyle Espinosa S - Last Filed: 03/01/18 18:15> CCU Objective - Vital Signs / Intake & Output Intake and Output (Last 8hrs): Intake & Output 03/01/18 03/01/18 03/01/18 06:59 14:59 22:59 Intake Total 794.0 291.5 Output Total 550 Balance 244.0 291.5 Weight 169 lb 0.6 oz Intake: IV 254 254 Intake, IV Amount 300.0 37.5 Right Proximal Port PICC 300.0 37.5 Oral 240 Output: Urine 550 Urine, Voided 550 Other: # Voids Urine, Voided 1 # Bowel Movements 1 - Medications Active Medications: Active Medications Generic Name Dose Route Start Last Admin Trade Name Freq PRN Reason Stop Dose Admin Docusate Sodium 100 mg 02/25/18 10:00 03/01/18 17:54 Colace PO Not Given TID OPAL Norepinephrine Bitartrate 4 mg 254 mls @ 15.24 mls/hr 02/23/18 14:52 12:22 / Sodium Chloride IV 10 mcg/min .[id number] PRN 38.1 mls/hr TITRATE PER MD ORDER Administration Protocol 4 MCG/MIN Dobutamine HCl/Dextrose 500 mg in 250 mls @ 11.82 mls/hr 02/26/18 09:00 03/01 00:30 Dobutamine/Dextrose 5% 500mg/250ml IV Not Given .[id number] OPAL Protocol 5 MCG/KG/MIN Levothyroxine Sodium 175 mcg 02/28/18 06:30 03/01/18 06:05 Synthroid PO 175 mcg DAILY@0630 OPAL Administration Midodrine 2.5 mg 02/25/18 10:00 03/01/18 17:52 Proamatine PO 2.5 mg TID OPAL Administration Pantoprazole Sodium 40 mg 02/23/18 10:00 03/01/18 17:53 Protonix Ec Tab PO 40 mg BID OPAL Administration Rosuvastatin Calcium 20 mg 02/21/18 22:00 02/28/18 22:34 Crestor PO 20 mg HS OPAL Administration - Patient Studies Lab Studies: Lab Studies 03/01/18 03/01/18 Range/Units 06:14 06:13 WBC 5.8 (4.8-10.8) K/uL RBC 5.35 (4.40-5.90) Mil/uL Hgb 13.3 (12.0-18.0) g/dL Hct 40.8 (35.0-51.0) % MCV 76.3 L (80.0-94.0) fL MCH 24.9 L (27.0-31.0) pg MCHC 32.7 L (33.0-37.0) g/dL RDW 19.8 H (11.5-14.5) % Plt Count 134 (130-400) K/uL MPV 9.3 (7.2-11.7) fL Neut % (Auto) 78.0 H (50.0-75.0) % Lymph % (Auto) 10.2 L (20.0-40.0) % [place] % (Auto) 11.1 H (0.0-10.0) % Eos % (Auto) 0.2 (0.0-4.0) % Baso % (Auto) 0.5 (0.0-2.0) % Neut # (Auto) 4.6 (1.8-7.0) K/uL Lymph # (Auto) 0.6 L (1.0-4.3) K/uL [place] # (Auto) 0.6 (0.0-0.8) K/uL Eos # (Auto) 0.0 (0.0-0.7) K/uL Baso # (Auto) 0.0 (0.0-0.2) K/uL Sodium 134 (132-148) mmol/L Potassium 4.7 (3.6-5.2) mmol/L Chloride 101 (98-107) mmol/L Carbon Dioxide 22 (22-30) mmol/L Anion Gap 16 (10-20) BUN 28 H (9-20) mg/dL Creatinine 1.3 (0.8-1.5) mg/dL Est GFR ( Amer) > 60 Est GFR (Non-Af Amer) 55 Random Glucose 106 (75-110) mg/dL Calcium 8.6 (8.6-10.4) mg/dl Phosphorus 3.3 (2.5-4.5) mg/dL Magnesium 2.1 (1.6-2.3) mg/dL Total Bilirubin 1.8 H (0.2-1.3) mg/dL AST 62 H D (17-59) U/L ALT 61 (21-72) U/L Alkaline Phosphatase 100 (38-126) U/L Total Protein 6.8 (6.3-8.3) g/dL Albumin 3.4 L (3.5-5.0) g/dL Globulin 3.4 (2.2-3.9) gm/dL Albumin/Globulin Ratio 1.0 (1.0-2.1) Laboratory Results - last 24 hr 03/01/18 03/01/18 06:13 06:14 WBC 5.8 RBC 5.35 Hgb 13.3 Hct 40.8 MCV 76.3 L MCH 24.9 L MCHC 32.7 L RDW 19.8 H Plt Count 134 MPV 9.3 Neut % (Auto) 78.0 H Lymph % (Auto) 10.2 L [place] % (Auto) 11.1 H Eos % (Auto) 0.2 Baso % (Auto) 0.5 Neut # (Auto) 4.6 Lymph # (Auto) 0.6 L [place] # (Auto) 0.6 Eos # (Auto) 0.0 Baso # (Auto) 0.0 Sodium 134 Potassium 4.7 Chloride 101 Carbon Dioxide 22 Anion Gap 16 BUN 28 H Creatinine 1.3 Est GFR ( Amer) > 60 Est GFR (Non-Af Amer) 55 Random Glucose 106 Calcium 8.6 Phosphorus 3.3 Magnesium 2.1 Total Bilirubin 1.8 H AST 62 H D ALT 61 Alkaline Phosphatase 100 Total Protein 6.8 Albumin 3.4 L Globulin 3.4 Albumin/Globulin Ratio 1.0 Critical Care Progress Note - Nutrition Nutrition: Nutrition Category Date Time Status Heart Healthy Diet [DIET] Diets 02/23/18 Dinner Active Attending/Attestation - Attestation I have personally seen and examined this patient.: Yes I have fully participated in the care of the patient.: Yes I have reviewed all pertinent clinical information: Yes Notes (Text): 03/01/18 18:11 Patient seen and examined Pending insurance authorization for transfer to [facility] for TAVR. Patient is off dobutamine Taper off Levophed
--- NOTE | 2018-03-01 18:22 | CP.PCM.PN ---
Subjective - Date & Time of Evaluation Date of Evaluation: 03/01/18 Time of Evaluation: 10:00 - Subjective Subjective: awaiting TAVR rx in progress Objective - Vital Signs/Intake and Output Vital Signs (last 24 hours): Temp Pulse Resp BP Pulse Ox 97.4 F L 99 H 24 89/63 L 100 03/01/18 12:00 03/01/18 14:00 03/01/18 14:00 03/01/18 13:33 03/01/18 12:22 Intake and Output: 03/01/18 03/01/18 06:59 18:59 Intake Total 1194.6 291.5 Output Total 800 Balance 394.6 291.5 - Medications Medications: Current Medications Docusate Sodium (Colace) 100 mg PO TID [facility] Last Admin: 03/01/18 17:54 Dose: Not Given Norepinephrine Bitartrate 4 mg (/ Sodium Chloride) 254 mls @ 15.24 mls/hr IV .[id number] PRN; Protocol; 4 MCG/MIN PRN Reason: TITRATE PER MD ORDER Last Admin: 03/01/18 12:22 Dose: 10 mcg/min, 38.1 mls/hr Dobutamine HCl/Dextrose (Dobutamine/Dextrose 5% 500mg/250ml) 500 mg in 250 mls @ 11.82 mls/hr IV .[id number] OPAL; 5 MCG/KG/MIN PRN Reason: Protocol Last Admin: 03/01/18 00:30 Dose: Not Given Levothyroxine Sodium (Synthroid) 175 mcg PO DAILY@0630 [facility] Last Admin: 03/01/18 06:05 Dose: 175 mcg Midodrine (Proamatine) 2.5 mg PO TID [facility] Last Admin: 03/01/18 17:52 Dose: 2.5 mg Pantoprazole Sodium (Protonix Ec Tab) 40 mg PO BID [facility] Last Admin: 03/01/18 17:53 Dose: 40 mg Rosuvastatin Calcium (Crestor) 20 mg PO HS [facility] Last Admin: 02/28/18 22:34 Dose: 20 mg - Labs Labs: 03/01/18 06:14 03/01/18 06:13 PT 14.9 SECONDS (9.7-12.2) H 02/25/18 06:31 INR 1.4 06/02/18 06:31 APTT 30 SECONDS (21-34) 02/25/18 06:31 - Constitutional Appears: Non-toxic, Chronically Ill - Head Exam Head Exam: NORMOCEPHALIC - Eye Exam Eye Exam: PERRL - ENT Exam ENT Exam: Mucous Membranes Dry - Neck Exam Neck Exam: absent: Lymphadenopathy - Respiratory Exam Respiratory Exam: Decreased Breath Sounds - Cardiovascular Exam Cardiovascular Exam: REGULAR RHYTHM - GI/Abdominal Exam GI & Abdominal Exam: Distended - Rectal Exam Rectal Exam: Deferred - Exam Exam: NORMAL INSPECTION - Extremities Exam Extremities Exam: absent: Pedal Edema - Back Exam Back Exam: absent: CVA tenderness (L), CVA tenderness (R) - Neurological Exam Neurological Exam: Alert, Awake, CN II-XII Intact, Oriented x3 - Psychiatric Exam Psychiatric exam: Normal Mood - Skin Skin Exam: Dry Assessment and Plan (1) Ischemic cardiomyopathy Status: Acute (2) Ischemic cardiomyopathy Status: Acute (3) CHF exacerbation Status: Acute (4) Elevated troponin Status: Acute (5) GI bleed Status: Acute (6) Hypotension (arterial) Status: Acute (7) RUBINA (acute kidney injury) Status: Acute (8) ARF (acute renal failure) Status: Acute
--- NOTE | 2018-03-01 23:27 | CP.PCM.PN ---
Subjective - Date & Time of Evaluation Date of Evaluation: 03/01/18 Time of Evaluation: 15:15 - Subjective Subjective: Patient seen and evaluated Denies chest pain and dyspnea Awaiting transfer to [facility] Objective - Vital Signs/Intake and Output Vital Signs (last 24 hours): Temp Pulse Resp BP Pulse Ox 97.5 F L 99 H 32 H 113/87 100 03/01/18 20:00 03/01/18 21:48 03/01/18 21:48 03/01/18 21:48 03/01/18 20:00 Intake and Output: 03/01/18 03/02/18 18:59 06:59 Intake Total 704.0 354 Balance 704.0 354 - Medications Medications: Current Medications Docusate Sodium (Colace) 100 mg PO TID [facility] Last Admin: 03/01/18 17:54 Dose: Not Given Norepinephrine Bitartrate 4 mg (/ Sodium Chloride) 254 mls @ 15.24 mls/hr IV .[id number] PRN; Protocol; 4 MCG/MIN PRN Reason: TITRATE PER MD ORDER Last Admin: 03/01/18 20:00 Dose: 10 mcg/min, 38.1 mls/hr Dobutamine HCl/Dextrose (Dobutamine/Dextrose 5% 500mg/250ml) 500 mg in 250 mls @ 11.82 mls/hr IV .[id number] OPAL; 5 MCG/KG/MIN PRN Reason: Protocol Last Admin: 03/01/18 22:03 Dose: Not Given Levothyroxine Sodium (Synthroid) 175 mcg PO DAILY@0630 [facility] Last Admin: 03/01/18 06:05 Dose: 175 mcg Midodrine (Proamatine) 2.5 mg PO TID [facility] Last Admin: 03/01/18 17:52 Dose: 2.5 mg Pantoprazole Sodium (Protonix Ec Tab) 40 mg PO BID [facility] Last Admin: 03/01/18 17:53 Dose: 40 mg Rosuvastatin Calcium (Crestor) 20 mg PO HS [facility] Last Admin: 03/01/18 22:06 Dose: 20 mg - Labs Labs: 03/01/18 06:14 03/01/18 06:13 PT 14.9 SECONDS (9.7-12.2) H 02/25/18 06:31 INR 1.4 02/25/18 06:31 APTT 30 SECONDS (21-34) 02/25/18 06:31
[2018-03-02 06:30] LABS: BASO % 0.4 % (0.0-2.0); EOS % 0.1 % (0.0-4.0); HEMOGLOBIN 13.2 g/dL (12.0-18.0); LYMPH # 0.6 K/uL (1.0-4.3); LYMPH % 11.4 % (20.0-40.0); MEAN CELL VOLUME 76.8 fL (80.0-94.0); MEAN CORPUSCULAR HEMOGLOBIN 25.2 pg (27.0-31.0); MEAN CORPUSCULAR HGB CONC 32.8 g/dL (33.0-37.0); MONO # 0.6 K/uL (0.0-0.8); NEUT # 4.3 K/uL (1.8-7.0); NEUT % 77.1 % (50.0-75.0); NRBC % 0.1 % (0.0-2.0); RBC 5.26 Mil/uL (4.40-5.90); WHITE BLOOD COUNT 5.6 K/uL (4.8-10.8)
[2018-03-02 06:43] LABS: ALBUMIN 3.1 g/dL (3.5-5.0); ALT/SGPT 456 U/L (21-72); AST/SGOT 576 U/L (17-59); BLOOD UREA NITROGEN 35 mg/dL (9-20); CALCIUM 8.3 mg/dl (8.6-10.4); GFR AFRICAN-AMERICAN > 60; GFR NON-AFRICAN AMERICAN 50
[2018-03-02] MEDS: Levothyroxine 175 MCG TAB PO SCH (08:31)
[2018-03-02] MEDS: Pantoprazole 40 mg EC Tab PO SCH ×2 (09:58→17:22)
[2018-03-02 10:19] VITALS: O2SAT 100
--- NOTE | 2018-03-02 10:39 | CP.CCUPN ---
<Cyndi Cruz - Last Filed: 03/02/18 10:45> CCU Subjective - Physician Review Subjective (Free Text): Patient was seen and examined at bedside. Patient reports feeling okay, denied any dizziness, shortness of breath. Remains hypotensive. Pending insurance authorization for transfer to [facility] for TAVR. CCU Objective - Vital Signs / Intake & Output Vital Signs (Last 4 hours): Vital Signs Temp Pulse Resp BP Pulse Ox 03/02/18 10:06 100 H 03/02/18 10:01 104 H 40 H 97/53 L 03/02/18 10:00 99 H 22 03/02/18 09:02 105 H 34 H 97/49 L 100 03/02/18 09:00 107 H 36 H 99 03/02/18 08:01 98 H 29 H 93/67 L 99 03/02/18 08:00 97.4 F L 98 H 16 93/67 L 100 03/02/18 07:01 92 H 16 96/69 L 98 03/02/18 07:00 92 H 23 99 Intake and Output (Last 8hrs): Intake & Output 03/01/18 03/02/18 03/02/18 22:59 06:59 14:59 Intake Total 504.0 26.1 Balance 504.0 26.1 Weight 150 lb Intake: IV 254 Intake, IV Amount 250.0 26.1 Right Proximal Port PICC 250.0 26.1 Other: # Voids Urine, Voided 250 # Bowel Movements 1 - Physical Exam Head: Positive for: Atraumatic, Normocephalic Extroacular Muscles: Positive for: EOMI Conjunctiva: Positive for: Normal Mouth: Positive for: Moist Mucous Membranes Neck: Positive for: Other (R IJ in place, c/d/i) Respiratory/Chest: Positive for: Decreased Breath Sounds. Negative for: Accessory Muscle Use Cardiovascular: Positive for: Regular Rate and Rhythm, Normal S1, S2 Abdomen: Positive for: Normal Bowel Sounds. Negative for: Tenderness Upper Extremity: Positive for: Normal ROM, NORMAL PULSES, Neurovascularly Intact , Capillary Refill < 2s. Negative for: Edema, Tenderness, Swelling, Erythema Lower Extremity: Positive for: Edema, NORMAL PULSES, Neurovascularly Intact, Capillary Refill < 2 s. Negative for: CALF TENDERNESS, Tenderness, Erythema Neurological: Positive for: GCS=15 Skin: Positive for: Warm, Dry, Normal Color Psychiatric: Positive for: Alert, Oriented x 3 - Medications Active Medications: Active Medications Generic Name Dose Route Start Last Admin Trade Name Kelly PRN Reason Stop Dose Admin Docusate Sodium 100 mg 02/25/18 10:00 03/02/18 09:59 Colace PO Not Given TID OPAL Norepinephrine Bitartrate 4 mg 254 mls @ 15.24 mls/hr 02/23/18 14:52 20:00 / Sodium Chloride IV 10 mcg/min .[id number] PRN 38.1 mls/hr TITRATE PER MD ORDER Administration Protocol 4 MCG/MIN Dobutamine HCl/Dextrose 500 mg in 250 mls @ 11.82 mls/hr 02/26/18 09:00 03/01 22:03 Dobutamine/Dextrose 5% 500mg/250ml IV Not Given .[id number] OPAL Protocol 5 MCG/KG/MIN Levothyroxine Sodium 175 mcg 02/28/18 06:30 03/02/18 08:31 Synthroid PO 175 mcg DAILY@0630 OPAL Administration Midodrine 2.5 mg 02/25/18 10:00 03/02/18 09:58 Proamatine PO 2.5 mg TID OPAL Administration Pantoprazole Sodium 40 mg 02/23/18 10:00 03/02/18 09:58 Protonix Ec Tab PO 40 mg BID OPAL Administration Rosuvastatin Calcium 20 mg 02/21/18 22:00 03/01/18 22:06 Crestor PO 20 mg HS OPAL Administration - Patient Studies Lab Studies: Lab Studies 03/02/18 03/02/18 Range/Units 06:17 06:17 WBC 5.6 (4.8-10.8) K/uL RBC 5.26 (4.40-5.90) Mil/uL Hgb 13.2 (12.0-18.0) g/dL Hct 40.4 (35.0-51.0) % MCV 76.8 L (80.0-94.0) fL MCH 25.2 L (27.0-31.0) pg MCHC 32.8 L (33.0-37.0) g/dL RDW 20.0 H (11.5-14.5) % Plt Count 122 L (130-400) K/uL MPV 10.0 (7.2-11.7) fL Neut % (Auto) 77.1 H (50.0-75.0) % Lymph % (Auto) 11.4 L (20.0-40.0) % [place] % (Auto) 11.0 H (0.0-10.0) % Eos % (Auto) 0.1 (0.0-4.0) % Baso % (Auto) 0.4 (0.0-2.0) % Neut # (Auto) 4.3 (1.8-7.0) K/uL Lymph # (Auto) 0.6 L (1.0-4.3) K/uL [place] # (Auto) 0.6 (0.0-0.8) K/uL Eos # (Auto) 0.0 (0.0-0.7) K/uL Baso # (Auto) 0.0 (0.0-0.2) K/uL Sodium 132 (132-148) mmol/L Potassium 4.7 (3.6-5.2) mmol/L Chloride 100 (98-107) mmol/L Carbon Dioxide 19 L (22-30) mmol/L Anion Gap 17 (10-20) BUN 35 H (9-20) mg/dL Creatinine 1.4 (0.8-1.5) mg/dL Est GFR ( Amer) > 60 Est GFR (Non-Af Amer) 50 Random Glucose 132 H (75-110) mg/dL Calcium 8.3 L (8.6-10.4) mg/dl Phosphorus 3.7 (2.5-4.5) mg/dL Magnesium 2.1 (1.6-2.3) mg/dL Total Bilirubin 2.4 H (0.2-1.3) mg/dL AST 576 H D (17-59) U/L ALT 456 H D (21-72) U/L Alkaline Phosphatase 136 H D (38-126) U/L Total Protein 6.4 (6.3-8.3) g/dL Albumin 3.1 L (3.5-5.0) g/dL Globulin 3.2 (2.2-3.9) gm/dL Albumin/Globulin Ratio 1.0 (1.0-2.1) Laboratory Results - last 24 hr 06/07/18 06/07/18 06:17 06:17 WBC 5.6 RBC 5.26 Hgb 13.2 Hct 40.4 MCV 76.8 L MCH 25.2 L MCHC 32.8 L RDW 20.0 H Plt Count 122 L MPV 10.0 Neut % (Auto) 77.1 H Lymph % (Auto) 11.4 L [place] % (Auto) 11.0 H Eos % (Auto) 0.1 Baso % (Auto) 0.4 Neut # (Auto) 4.3 Lymph # (Auto) 0.6 L [place] # (Auto) 0.6 Eos # (Auto) 0.0 Baso # (Auto) 0.0 Sodium 132 Potassium 4.7 Chloride 100 Carbon Dioxide 19 L Anion Gap 17 BUN 35 H Creatinine 1.4 Est GFR ( Amer) > 60 Est GFR (Non-Af Amer) 50 Random Glucose 132 H Calcium 8.3 L Phosphorus 3.7 Magnesium 2.1 Total Bilirubin 2.4 H AST 576 H D ALT 456 H D Alkaline Phosphatase 136 H D Total Protein 6.4 Albumin 3.1 L Globulin 3.2 Albumin/Globulin Ratio 1.0 Critical Care Progress Note - Nutrition Nutrition: Nutrition Category Date Time Status Heart Healthy Diet [DIET] Diets 02/23/18 Dinner Active Assessment/Plan - Assessment and Plan (Free Text) Assessment: 72 yo male with PMH CAD, CABG, CHF (EF 15%) s/p AICD, NSTEMI, Severe Aortic Stenosis and Hypothyroidism was admitted to [facility] 02/09/18-02/13/18 due to progressive dyspnea, placed on Xarelto, was sent to ED today by for further evaluation of weakness, dizziness, and rectal bleeding. Currently off pressors. Plan for TAVR at [facility] - pending insurance authorization. Plan: Neuro: GCS: 15 Sedation: None Cardio: A: Hx of HTN, CAD, CABG, CHF with AICD placement/ Severe Cardiomyopathy (EF 15%) , NSTEMI - Cardiology Consulted - Dr. Santo - EKG: SR@88/min, occasional PVCs, Q wave in III, AFV, T wave inversion in inferior leads, v5-6, no acute ST-T changes - ECHO (02/10): Severe Cardiomyopathy w/ 15% EF. Moderate Pulm HTN - Troponins - 0.5010, 0.8110, 0.6710 - BNP - 23,300 --> 19,300 - Possible transfer to [facility] for HF program - Currently off of any pressors Pulm: A: Dyspnea CXR (02/21/18): Interval increased pulmonary venous congestion / CHF with small bilateral pleural effusions. Interval coalescent pulmonary edema and/or right basal interval infiltrate. No current left basal infiltrate suspect small bilateral pleural effusions that on the right appears increased since prior exam GI A: Acute GI Bleed - GI Consulted Dr. Dawkins - + stool occult - Protonix 40 PO BID - EGD/Colonscopy when Cleared by Cardio A: Constipation - colace, dulcolax, and lactulose Heme/ Onc A: Blood Loss 2/2 to GI Bleed - S/P 2 FFP - HgB Stable - Continue to monitor - EGD/Colonscopy when Cleared by Cardio Endo A: Hx of Hypothyroidism - Elevated TSH (6.52) w/ Normal T4 (2.02) - Cont. Levothyroxine 125 --> @175mcg Prophylaxis - Protonix 40mg PO BID - VTE proph Contraindicated due to GI Bleed - Diet: Heart Healthy - Lines: RIJ - removed, RIGHT PICC LINE placed 02/27/18 Disposition: Disposition: Pending insurance authorization for transfer to [facility] for TAVR and HF program. Patient transferred to telemetry. ICU Attending- Cyndi Gee DO, PGY-1 <Parisa Bahena - Last Filed: 03/02/18 11:57> CCU Objective - Vital Signs / Intake & Output Vital Signs (Last 4 hours): Vital Signs Temp Pulse Resp BP Pulse Ox 03/02/18 10:06 100 H 03/02/18 10:01 104 H 40 H 97/53 L 03/02/18 10:00 99 H 22 03/02/18 09:02 105 H 34 H 97/49 L 100 03/02/18 09:00 107 H 36 H 99 03/02/18 08:01 98 H 29 H 93/67 L 99 03/02/18 08:00 97.4 F L 98 H 16 93/67 L 100 Intake and Output (Last 8hrs): Intake & Output 03/01/18 03/02/18 03/02/18 22:59 06:59 14:59 Intake Total 504.0 26.1 Balance 504.0 26.1 Weight 150 lb Intake: IV 254 Intake, IV Amount 250.0 26.1 Right Proximal Port PICC 250.0 26.1 Other: # Voids Urine, Voided 250 # Bowel Movements 1 - Medications Active Medications: Active Medications Generic Name Dose Route Start Last Admin Trade Name Freq PRN Reason Stop Dose Admin Docusate Sodium 100 mg 02/25/18 10:00 03/02/18 09:59 Colace PO Not Given TID OPAL Norepinephrine Bitartrate 4 mg 254 mls @ 15.24 mls/hr 02/23/18 14:52 20:00 / Sodium Chloride IV 10 mcg/min .[id number] PRN 38.1 mls/hr TITRATE PER MD ORDER Administration Protocol 4 MCG/MIN Dobutamine HCl/Dextrose 500 mg in 250 mls @ 11.82 mls/hr 02/26/18 09:00 03/01 22:03 Dobutamine/Dextrose 5% 500mg/250ml IV Not Given .[id number] OPAL Protocol 5 MCG/KG/MIN Levothyroxine Sodium 175 mcg 02/28/18 06:30 03/02/18 08:31 Synthroid PO 175 mcg DAILY@0630 OPAL Administration Midodrine 2.5 mg 02/25/18 10:00 03/02/18 09:58 Proamatine PO 2.5 mg TID OPAL Administration Pantoprazole Sodium 40 mg 02/23/18 10:00 03/02/18 09:58 Protonix Ec Tab PO 40 mg BID OPAL Administration Rosuvastatin Calcium 20 mg 02/21/18 22:00 03/01/18 22:06 Crestor PO 20 mg HS OPAL Administration - Patient Studies Lab Studies: Lab Studies 03/02/18 03/02/18 Range/Units 06:17 06:17 WBC 5.6 (4.8-10.8) K/uL RBC 5.26 (4.40-5.90) Mil/uL Hgb 13.2 (12.0-18.0) g/dL Hct 40.4 (35.0-51.0) % MCV 76.8 L (80.0-94.0) fL MCH 25.2 L (27.0-31.0) pg MCHC 32.8 L (33.0-37.0) g/dL RDW 20.0 H (11.5-14.5) % Plt Count 122 L (130-400) K/uL MPV 10.0 (7.2-11.7) fL Neut % (Auto) 77.1 H (50.0-75.0) % Lymph % (Auto) 11.4 L (20.0-40.0) % [place] % (Auto) 11.0 H (0.0-10.0) % Eos % (Auto) 0.1 (0.0-4.0) % Baso % (Auto) 0.4 (0.0-2.0) % Neut # (Auto) 4.3 (1.8-7.0) K/uL Lymph # (Auto) 0.6 L (1.0-4.3) K/uL [place] # (Auto) 0.6 (0.0-0.8) K/uL Eos # (Auto) 0.0 (0.0-0.7) K/uL Baso # (Auto) 0.0 (0.0-0.2) K/uL Sodium 132 (132-148) mmol/L Potassium 4.7 (3.6-5.2) mmol/L Chloride 100 (98-107) mmol/L Carbon Dioxide 19 L (22-30) mmol/L Anion Gap 17 (10-20) BUN 35 H (9-20) mg/dL Creatinine 1.4 (0.8-1.5) mg/dL Est GFR ( Amer) > 60 Est GFR (Non-Af Amer) 50 Random Glucose 132 H (75-110) mg/dL Calcium 8.3 L (8.6-10.4) mg/dl Phosphorus 3.7 (2.5-4.5) mg/dL Magnesium 2.1 (1.6-2.3) mg/dL Total Bilirubin 2.4 H (0.2-1.3) mg/dL AST 576 H D (17-59) U/L ALT 456 H D (21-72) U/L Alkaline Phosphatase 136 H D (38-126) U/L Total Protein 6.4 (6.3-8.3) g/dL Albumin 3.1 L (3.5-5.0) g/dL Globulin 3.2 (2.2-3.9) gm/dL Albumin/Globulin Ratio 1.0 (1.0-2.1) Laboratory Results - last 24 hr 03/02/18 03/02/18 06:17 06:17 WBC 5.6 RBC 5.26 Hgb 13.2 Hct 40.4 MCV 76.8 L MCH 25.2 L MCHC 32.8 L RDW 20.0 H Plt Count 122 L MPV 10.0 Neut % (Auto) 77.1 H Lymph % (Auto) 11.4 L [place] % (Auto) 11.0 H Eos % (Auto) 0.1 Baso % (Auto) 0.4 Neut # (Auto) 4.3 Lymph # (Auto) 0.6 L [place] # (Auto) 0.6 Eos # (Auto) 0.0 Baso # (Auto) 0.0 Sodium 132 Potassium 4.7 Chloride 100 Carbon Dioxide 19 L Anion Gap 17 BUN 35 H Creatinine 1.4 Est GFR ( Amer) > 60 Est GFR (Non-Af Amer) 50 Random Glucose 132 H Calcium 8.3 L Phosphorus 3.7 Magnesium 2.1 Total Bilirubin 2.4 H AST 576 H D ALT 456 H D Alkaline Phosphatase 136 H D Total Protein 6.4 Albumin 3.1 L Globulin 3.2 Albumin/Globulin Ratio 1.0 Critical Care Progress Note - Nutrition Nutrition: Nutrition Category Date Time Status Heart Healthy Diet [DIET] Diets 02/23/18 Dinner Active Assessment/Plan - Assessment and Plan (Free Text) Plan: Above patient seen and examined at bedside. Above residents documents my hsistory/phycial. -Severe systolic heart failure -H?o Gi bleed --pending [facility]. - Date & Time Date: 03/02/18 Time: 09:40
--- NOTE | 2018-03-02 15:26 | US ---
HISTORY: elevated t.bili; transaminitis COMPARISON: None. TECHNIQUE: Sonographic evaluation of the right upper quadrant of the abdomen. FINDINGS: LIVER: Measures 15.1 cm in length. Normal echogenicity of the liver parenchyma. No mass. No intrahepatic bile duct dilatation. GALLBLADDER: No gallstones. There is focal echogenicity which according to the technologist is noted as sludge. No cine to show slow movement noted. A sludge ball and/or a polyp can also simulate this appearance on ultrasound. Static imaging No Doppler here noted. Ascitic fluid near gallbladder fundus. The gallbladder wall thickness is top-normal at 3 mm. No Positive ultrasound Scott sign elicited per technologist note. COMMON BILE DUCT: Measures 4 mm. No stones. No dilatation. PANCREAS: Unremarkable as visualized. No mass. No ductal dilatation. RIGHT KIDNEY: Measures 9.96 x 4.67 x 4.92 cm in length. Normal echogenicity. No calculus, mass, or hydronephrosis. AORTA: No aneurysmal dilatation. IVC: Unremarkable. OTHER FINDINGS: None . IMPRESSION: The echogenicity within the gallbladder is referenced by the examining technologist's as sludge. Focal sludge ball is compatible with this appearance. No cine imaging is available. No Doppler here is noted. As a gallbladder polyp can simulate this appearance under both entities may be present. Short-term follow-up right upper quadrant ultrasound imaging is recommended in 3 months. No positive ultrasound ultrasound Scott sign reference by examining technologist. . Gallbladder wall thickness top-normal. No shadowing stones. Pericholecystic fluid consistent with some ascites
[2018-03-02 18:33] VITALS: BP 92/59
--- NOTE | 2018-03-02 18:41 | CP.PCM.DIS ---
Provider - Provider Date of Admission: 02/21/18 16:36 Attending physician: Micah Morrison MD Primary care physician: Prince Consults: madeline scott Time Spent in preparation of Discharge (in minutes): 25 Diagnosis - Discharge Diagnosis (1) Ischemic cardiomyopathy Status: Acute (2) CHF exacerbation Status: Acute (3) Elevated troponin Status: Acute (4) GI bleed Status: Acute (5) Hypotension (arterial) Status: Acute (6) RUBINA (acute kidney injury) Status: Acute (7) ARF (acute renal failure) Status: Acute (8) Lower GI bleeding Status: Acute (9) Acute on chronic systolic CHF (congestive heart failure), NYHA class 4 Status: Acute (10) Respiratory failure Status: Acute (11) Cardiac defibrillator in situ Status: Acute (12) Hypothyroid Status: Acute (13) NSTEMI (non-ST elevated myocardial infarction) Status: Acute Hospital Course - Lab Results Lab Results: Micro Results 02/21/18 19:09 Naris MRSA Culture (Admit) - Final MRSA NOT DETECTED Most Recent Lab Values WBC 5.6 K/uL (4.8-10.8) 03/02/18 06:17 RBC 5.26 Mil/uL (4.40-5.90) 03/02/18 06:17 Hgb 13.2 g/dL (12.0-18.0) 03/02/18 06:17 Hct 40.4 % (35.0-51.0) 03/02/18 06:17 MCV 76.8 fL (80.0-94.0) L 03/02/18 06:17 MCH 25.2 pg (27.0-31.0) L 03/02/18 06:17 MCHC 32.8 g/dL (33.0-37.0) L 03/02/18 06:17 RDW 20.0 % (11.5-14.5) H 03/02/18 06:17 Plt Count 122 K/uL (130-400) L 03/02/18 06:17 MPV 10.0 fL (7.2-11.7) 03/02/18 06:17 Neut % (Auto) 77.1 % (50.0-75.0) H 03/02/18 06:17 Lymph % (Auto) 11.4 % (20.0-40.0) L 03/02/18 06:17 [place] % (Auto) 11.0 % (0.0-10.0) H 03/02/18 06:17 Eos % (Auto) 0.1 % (0.0-4.0) 03/02/18 06:17 Baso % (Auto) 0.4 % (0.0-2.0) 03/02/18 06:17 Neut # (Auto) 4.3 K/uL (1.8-7.0) 03/02/18 06:17 Lymph # (Auto) 0.6 K/uL (1.0-4.3) L 03/02/18 06:17 [place] # (Auto) 0.6 K/uL (0.0-0.8) 03/02/18 06:17 Eos # (Auto) 0.0 K/uL (0.0-0.7) 03/02/18 06:17 Baso # (Auto) 0.0 K/uL (0.0-0.2) 03/02/18 06:17 Neutrophils % (Manual) 76 % (50-75) H 02/28/18 06:06 Band Neutrophils % 1 % (0-2) 02/28/18 06:06 Lymphocytes % (Manual) 10 % (20-40) L 02/28/18 06:06 Monocytes % (Manual) 11 % (0-10) H 02/28/18 06:06 Eosinophils % (Manual) 2 % (0-4) 02/28/18 06:06 Platelet Estimate Slightly decreased (NORMAL) L 02/28/18 06:06 Large Platelets Present 02/28/18 06:06 Hypochromasia (manual) Slight 02/24/18 06:23 Poikilocytosis (manual Moderate 02/28/18 06:06 Anisocytosis (manual) Moderate 02/28/18 06:06 Target Cells Slight 02/28/18 06:06 Tear Drop Cells Slight 02/24/18 06:23 Ovalocytes Moderate 02/28/18 06:06 Oblong Cells Slight 02/28/18 06:06 PT 14.9 SECONDS (9.7-12.2) H 02/25/18 06:31 INR 1.4 02/25/18 06:31 APTT 30 SECONDS (21-34) 02/25/18 06:31 pO2 37 mm/Hg (30-55) 02/23/18 15:28 VBG pH 7.43 (7.32-7.43) 02/23/18: VBG pCO2 37 mmHg (40-60) L 02/23/18 15: VBG HCO3 24.6 mmol/L 02/23/18 15: VBG Total CO2 25.7 mmol/L (22-28) 02/23/18: VBG O2 Sat (Calc) 69.9 % (40-65) H 02/23/18 15: VBG Base Excess 0.5 mmol/L (0.0-2.0) 02/23/18: VBG Potassium 3.4 mmol/L (3.6-5.2) L 02/23/18 15: Sodium 135.0 mmol/l (132-148) 02/23/18: Chloride 103.0 mmol/L (98-107) 02/23/18 15: Glucose 167 mg/dl (75-110) H 02/23/18 15:28 Lactate 1.7 mmol/L (0.7-2.1) 02/23/18 15: Sodium 132 mmol/L (132-148) 03/02/18 06:17 Potassium 4.7 mmol/L (3.6-5.2) 03/02/18 06:17 Chloride 100 mmol/L (98-107) 03/02/18 06:17 Carbon Dioxide 19 mmol/L (22-30) L 03/02/18 06:17 Anion Gap 17 (10-20) 03/02/18 06:17 BUN 35 mg/dL (9-20) H 03/02/18 06:17 Creatinine 1.4 mg/dL (0.8-1.5) 03/02/18 06:17 Est GFR ( Amer) > 60 03/02/18 06:17 Est GFR (Non-Af Amer) 50 03/02/18 06:17 Random Glucose 132 mg/dL (75-110) H 03/02/18 06:17 Lactic Acid 1.7 mmol/L (0.7-2.1) 02/23/18 15:30 Calcium 8.3 mg/dl (8.6-10.4) L 03/02/18 06:17 Phosphorus 3.7 mg/dL (2.5-4.5) 03/02/18 06:17 Magnesium 2.1 mg/dL (1.6-2.3) 03/02/18 06:17 Total Bilirubin 2.4 mg/dL (0.2-1.3) H 03/02/18 06:17 AST 576 U/L (17-59) H D 03/02/18 06:17 ALT 456 U/L (21-72) H D 03/02/18 06:17 Alkaline Phosphatase 136 U/L (38-126) H D 03/02/18 06:17 Troponin I 0.6710 ng/mL (0.00-0.120) H* 02/22/18 03:06 NT-Pro-B Natriuret Pep 24626 pg/mL (0-900) H 02/26/18 18:14 Total Protein 6.4 g/dL (6.3-8.3) 03/02/18 06:17 Albumin 3.1 g/dL (3.5-5.0) L 03/02/18 06:17 Globulin 3.2 gm/dL (2.2-3.9) 03/02/18 06:17 Albumin/Globulin Ratio 1.0 (1.0-2.1) 03/02/18 06:17 Free T4 2.02 ng/dL (0.78-2.19) 02/22/18 03:06 TSH 3rd Generation 12.80 mIU/L (0.46-4.68) H 02/25/18 06:31 Venous Blood Potassium 3.4 mmol/L (3.6-5.2) L 02/23/18 15:28 Urine Color Jeanne (YELLOW) 02/21/18 21:45 Urine Clarity Hazy (Clear) 02/21/18 21:45 Urine pH 5.0 (5.0-8.0) 02/21/18 21:45 Ur Specific [place] 1.018 (1.003-1.030) 02/21/18 21:45 Urine Protein 2+ mg/dL (NEGATIVE) H 02/21/18 21:45 Urine Glucose (UA) Normal mg/dL (Normal) 02/21/18 21:45 Urine Ketones Negative mg/dL (NEGATIVE) 02/21/18 21:45 Urine Blood Negative (NEGATIVE) 02/21/18 21:45 Urine Nitrate Negative (NEGATIVE) 02/21/18 21:45 Urine Bilirubin Negative (NEGATIVE) 02/21/18 21:45 Urine Urobilinogen 2.0 mg/dL (0.2-1.0) 02/21/18 21:45 Ur Leukocyte Esterase Neg Sharlene/uL (Negative) 02/21/18 21:45 Urine WBC (Auto) 8 /hpf (0-5) H 02/21/18 21:45 Urine RBC (Auto) 1 /hpf (0-3) 02/21/18 21:45 Hyaline Casts 11-20 /lpf (0-2) H 02/21/18 21:45 Granular Casts (Auto) 2-4 /lpf (0-1) 02/21/18 21:45 Stool Occult Blood Positive (NEGATIVE) H 02/21/18 15:54 Blood Type A POSITIVE 02/21/18 15:33 Blood Type Confirm A POSITIVE 02/21/18 15:33 Antibody Screen Negative 02/21/18 15:33 - Hospital Course Hospital Course: 72 yo male with LVEF of 15% was admitted with lower GI bleed and acute exac of LV CHF due to ischemic cardiomyopathy requiring multiple transfusions, pressor support with dobutamine and levophed s/p PICC insertion and BiPaP RUBINA resolved with gentle hydration and pressors Discharge Exam - Head Exam Head Exam: NORMOCEPHALIC - Eye Exam Eye Exam: EOMI, PERRL - ENT Exam ENT Exam: Mucous Membranes Dry - Respiratory Exam Respiratory Exam: Decreased Breath Sounds, Rales - Cardiovascular Exam Cardiovascular Exam: REGULAR RHYTHM, +S1, +S2, Systolic Murmur - GI/Abdominal Exam GI & Abdominal Exam: Diminished Bowel Sounds, Soft. absent: Tenderness - Rectal Exam Rectal Exam: Deferred - Exam Exam: NORMAL INSPECTION - Extremities Exam Extremities exam: pedal edema, pedal pulses present - Back Exam Back exam: absent: CVA tenderness (L), CVA tenderness (R) - Neurological Exam Neurological exam: Alert, CN II-XII Intact, Oriented x3, Reflexes Normal - Psychiatric Exam Psychiatric exam: Normal Mood - Skin Skin Exam: Dry, Intact Discharge Plan - Follow Up Plan Condition: CRITICAL Disposition: HOME/ ROUTINE
[2018-03-02 20:20] VITALS: PULSE 99; RESP 35; TEMP 97
--- NOTE | 2018-03-04 00:10 | CP.PCM.PN ---
Subjective - Date & Time of Evaluation Date of Evaluation: 03/02/18 Time of Evaluation: 08:00 - Subjective Subjective: Awake NAD On vasopressors Awaiting transfer to [facility] Objective - Vital Signs/Intake and Output Vital Signs (last 24 hours): Temp Pulse Resp BP Pulse Ox 97 F L 99 H 35 H 92/59 L 100 03/02/18 20:00 03/02/18 20:00 03/02/18 20:00 03/02/18 18:02 03/02/18 16:00 - Labs Labs: 03/02/18 06:17 03/02/18 06:17 PT 14.9 SECONDS (9.7-12.2) H 02/25/18 06:31 INR 1.4 02/25/18 06:31 APTT 30 SECONDS (21-34) 02/25/18 06:31 - Constitutional Appears: Non-toxic - Head Exam Head Exam: NORMAL INSPECTION - Eye Exam Eye Exam: absent: Scleral icterus - ENT Exam ENT Exam: Mucous Membranes Moist - Neck Exam Neck Exam: Full ROM - Respiratory Exam Respiratory Exam: Decreased Breath Sounds - Cardiovascular Exam Cardiovascular Exam: Tachycardia - GI/Abdominal Exam GI & Abdominal Exam: Soft. 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
== END 2018-03-02 21:24 | disposition short-term general hospital (02) | DRG 280 ==
LOC: C.ER 14:30 → C.9I 16:36
PROVIDERS: ADMIT Internal Medicine; ATTEND Internal Medicine
PROC: 30233N1 Transfusion of Nonautologous Red Blood Cells into Peripheral Vein, Percutaneous Approach (ICD-10-PCS; 2018-02-21)
PROC: 3E033XZ Introduction of Vasopressor into Peripheral Vein, Percutaneous Approach (ICD-10-PCS; principal; 2018-02-23)
PROC: 02HV33Z Insertion of Infusion Device into Superior Vena Cava, Percutaneous Approach (ICD-10-PCS; 2018-02-23)
PROC: 5A09357 Assistance with Respiratory Ventilation, Less than 24 Consecutive Hours, Continuous Positive Airway Pressure (ICD-10-PCS; 2018-03-02)
DX: I11.0 Hypertensive heart disease with heart failure (principal); I21.4 Non-ST elevation (NSTEMI) myocardial infarction; R57.0 Cardiogenic shock; J96.90 Respiratory failure, unspecified, unspecified whether with hypoxia or hypercapnia; I47.2 Ventricular tachycardia; N17.9 Acute kidney failure, unspecified; K62.5 Hemorrhage of anus and rectum; I50.23 Acute on chronic systolic (congestive) heart failure; D64.9 Anemia, unspecified; E03.9 Hypothyroidism, unspecified; E78.00 Pure hypercholesterolemia, unspecified; I25.10 Atherosclerotic heart disease of native coronary artery without angina pectoris; I25.5 Ischemic cardiomyopathy; I27.20 Pulmonary hypertension, unspecified; I25.2 Old myocardial infarction; T45.515A Adverse effect of anticoagulants, initial encounter